=== PATIENT | male | born 1955 | race Caucasian/White ===

== ENCOUNTER 2024-05-30 00:21 | Day surgery (SDC) | payer MEDICARE, SELFPAY ==
[2024-05-28 15:29] VITALS: BMI 23.6
[2024-05-30 10:39] VITALS: BMI 23.3
[2024-05-30 11:02] VITALS: BP 118/49; PULSE 59; RESP 16; TEMP 36.2; O2SAT 100
[2024-05-30] MEDS: LACTATED RINGERS 1,000 ML 150 ML IV CONT (11:03)
[2024-05-30 11:05] LABS: Hematocrit 28.1 % (42.0-52.0)
--- NOTE | 2024-05-30 11:06 | P.PNAN_ITS ---
Anes - Initial Pre Proc Eval Procedure: Operation Date: 05/30/24 09:30 Proposed Procedures p Colonoscopy - Jamey Yu MD Date/Time: 05/30/24 11:06 Surgeon: Jamey Yu MD Pre Op Diagnosis: abn weight loss, change in bowel habit, anemia Patient Data Age: 69 Gender: M Height: 1.7 m Weight: 67.8 kg Last Vital Signs Temp 36.2 C L 05/30/24 11:02 Pulse 59 L 05/30/24 11:02 Resp 16 05/30/24 11:02 BP 118/49 L 05/30/24 11:02 Pulse Ox 100 05/30/24 11:02 O2 Del Method Room Air 05/30/24 11:02 Allergies Allergy/AdvReac Type Severity Reaction Status Date / Time No Known Allergies Allergy Verified 05/30/24 10:37 Home Medications Medication Instructions Recorded Confirmed Type amlodipine 5 mg tablet 5 mg PO DAILY 05/28/24 05/30/24 History aspirin 81 mg capsule 81 mg PO DAILY 05/28/24 05/30/24 History hydrochlorothiazide 12.5 mg tablet 12.5 mg PO DAILY 05/28/24 05/30/24 History metoprolol succinate 100 mg 100 mg PO DAILY 05/28/24 05/30/24 History tablet,extended release 24 hr Laboratory Tests 05/30/24 10:52 Hgb Pending Hct Pending Patient hx anesthesia problems: none Family hx anesthesia problems: none Results Review: All pre-operative results and documents have been reviewed as part of the pre-o perative evaluation. [facility] Past Medical History Medical History (Updated 05/30/24 @ 11:07 by Leonardo Looney MD) HTN (hypertension) Surgical History Surgical History (Updated 05/30/24 @ 11:09 by Leonardo Looney MD) History of shoulder surgery Social History Social History Smoking packs per day: 1.5 Smoking cigarettes per day: 30.0 Years smoked: 10 Smoking pack-years: 15.00 Smoking status: Former smoker Tobacco type: cigarettes Alcohol intake: current Substance use: never Substance use type: does not use Living arrangements: with family Spiritual care concerns: No Anes - Eval Final PreProcedure Day of Procedure 05/30/24 11:06 Patient weight: normal Heart: regular rate and rhythm Lungs: clear to auscultation Airway: Mallampati scale class II Neurological: alert and oriented Last oral intake: >/= 8 hours ASA classification: III Emergent: no Anesthetic plan: proceed Anesthesia type and monitoring: general GIVS and standard monitoring Results Review: All pre-operative results and documents have been reviewed as part of the pre- operative evaluation. Informed Consent: The patient's anesthetic plan and its attendant risks and benefits were discussed with the patient/family/POA. Questions were solicited and answers provided to the satisfaction of the patient/family/POA.
--- NOTE | 2024-05-30 11:20 | PM.HPGS ---
History of Present Illness History of Present Illness Consent: Risks, benefits, and alternatives have been discussed and questions answered. Patient agrees to proceed with procedure. Chief complaint: abn weight loss, change in bowel habit, anemia Narrative: Kyle Resendiz is a 69 year old male here for first colonoscopy, almost a year of change bowel habits with weight loss over 60 lb, noted few times blood in stools. Had symptomatic anemia with hgb 4.6 that required blood transfusion, repeat today 8 Review of Systems Review of Systems: All systems reviewed & are unremarkable except as noted in HPI and below PMFSH Past Medical History Medical History (Updated 05/30/24 @ 11:21 by Jamey Yu MD) Bowel habit changes HTN (hypertension) Iron deficiency anemia Weight loss Surgical History Surgical History (Updated 05/30/24 @ 11:09 by Leonardo Looney MD) History of shoulder surgery Social History Social History Smoking packs per day: 1.5 Smoking cigarettes per day: 30.0 Years smoked: 10 Smoking pack-years: 15.00 Smoking status: Former smoker Tobacco type: cigarettes Alcohol intake: current Substance use: never Substance use type: does not use Living arrangements: with family Spiritual care concerns: No Meds Home Medications and Allergies Home Medications Medication Instructions Recorded Confirmed Type amlodipine 5 mg tablet 5 mg PO DAILY 05/28/24 05/30/24 History aspirin 81 mg capsule 81 mg PO DAILY 05/28/24 05/30/24 History hydrochlorothiazide 12.5 mg tablet 12.5 mg PO DAILY 05/28/24 05/30/24 History metoprolol succinate 100 mg 100 mg PO DAILY 05/28/24 05/30/24 History tablet,extended release 24 hr Allergies Allergy/AdvReac Type Severity Reaction Status Date / Time No Known Allergies Allergy Verified 05/30/24 10:37 Vital Signs Vital Signs - 24 hr 05/30/24 11:02 Temperature 97.2 F L Pulse Rate 59 L Respiratory Rate 16 Blood Pressure 118/49 L Pulse Oximetry 100 Oxygen Delivery Room Air Exam Const: General: comfortable and no acute distress HENMT: Face/Nose/Sinus: Normal nares present Eyes: General: appearance normal, both eyes and all related structures Neck: Neck: no JVD Resp: Auscultation: clear to auscultation bilaterally Cardio: Rate: regular rate Rhythm: regular rhythm GI: Inspection: non-distended GI Palp: Yes Soft to palpation Skin: General skin exam: normal color Neuro: General: oriented to person and oriented to place Speech: normal speech Extrem: General: normal to inspection Psych: Mental Status: mental status grossly normal Assessment and Plan Assessment and plan (1) Iron deficiency anemia: Code(s): D50.9 - Iron deficiency anemia, unspecified Status: Acute Assessment and Plan: colonoscopy, concerning for malignancy (2) Weight loss: Code(s): R63.4 - Abnormal weight loss Status: Acute (3) Bowel habit changes: Code(s): R19.4 - Change in bowel habit Status: Acute
[2024-05-30 11:49] VITALS: BP 118/57; PULSE 60; RESP 20; O2SAT 100
[2024-05-30 11:59] VITALS: BP 117/63; PULSE 58; RESP 20; O2SAT 100
[2024-05-30 12:09] VITALS: BP 137/67; PULSE 66; RESP 20; O2SAT 100
== END 2024-05-30 12:24 | disposition home or self-care (01) ==
PROVIDERS: PCP Internal Medicine; Visit Provider Internal Medicine Gastroenterology
PROC: 0DJD8ZZ Inspection of Lower Intestinal Tract, Via Natural or Artificial Opening Endoscopic (ICD-10-PCS; CPT 45378; principal; 2024-05-30 09:30)
DX: C19 Malignant neoplasm of rectosigmoid junction (principal); D12.4 Benign neoplasm of descending colon; D12.2 Benign neoplasm of ascending colon; D50.9 Iron deficiency anemia, unspecified; K57.30 Diverticulosis of large intestine without perforation or abscess without bleeding; K63.5 Polyp of colon; Z87.891 Personal history of nicotine dependence
CPT/HCPCS: 45380; 45381; 45385; 36415; 85014; 85018; 88305; 88342; J2003; J2704; J7120

== ENCOUNTER 2024-06-09 09:55 | Outpatient (CLI) | payer MEDICARE, BC, SELFPAY ==
[2024-06-09 10:29] LABS: Basophils Absolute Auto 0.1 K/mm3 (0.0-0.1); Basophils Percent Auto 1.1 % (0.2-1.2); Eosinophils Absolute Auto 0.1 K/mm3 (0-0.3); Hematocrit 27.5 % (42.0-52.0); Hemoglobin 7.8 g/dL (14.0-18.0); Immature Granulocyte Absolute 0.01 K/mm3 (0.00-0.031); Immature Granulocyte Percent A 0.2 % (0-0.5); Lymphocytes Absolute Auto 1.56 K/mm3 (0.9-3.2); Lymphocytes Percent Auto 33.9 % (18.3-44.2); Mean Corpuscular HGB Conc 28.4 g/dl (32-36); Mean Corpuscular Hemoglobin 19.8 pg (26-34); Mean Corpuscular Volume 69.8 fl (80-100); Mean Platelet Volume 9.4 fl (7.4-10.4); Monocytes Absolute Auto 0.3 K/mm3 (0.1-0.6); Monocytes Percent Auto 7.4 % (2.6-8.5); Neutrophils Absolute Auto 2.5 K/mm3 (1.3-6.7); Neutrophils Percent Auto 54.4 % (45.5-73.1); Platelet Count Result 272 k/mm3 (150-375); Red Blood Count 3.94 M/mm3 (4.6-6.20); White Blood Count 4.6 K/mm3 (4.5-10.0)
[2024-06-09 10:39] LABS: Platelet Estimate Adequate (Adequate)
[2024-06-09 10:40] LABS: Schistocytes None Seen
[2024-06-09 10:41] LABS: Hypochromasia 2+
[2024-06-09 10:42] LABS: Ovalocytes 1+
[2024-06-09 10:43] LABS: Microcytosis 2+ (NORMAL)
[2024-06-09 10:44] LABS: Anisocytosis 2+; Poikilocytosis 1+
[2024-06-09 13:58] LABS: Iron 23 ug/dL (49-181)
[2024-06-09 14:00] LABS: Alanine Aminotransferase 9 U/L (6-50); Albumin Level 3.4 g/dL (3.5-5.1); Alkaline Phosphatase 55 U/L (38-126); Anion Gap 7 mmol/L (4-12); Aspartate Amino Transferase 14 U/L (17-59); Bilirubin,Total 0.5 mg/dL (0.2-1.3); Blood Urea Nitrogen 17 mg/dL (9-20); Calcium 9.2 mg/dL (8.4-10.2); Carbon Dioxide 27 mmol/L (22-30); Chloride 107 mmol/L (98-107); Estimated Glomerular Filt Rate > 60; Glucose 96 mg/dL (65-110); Potassium 3.5 mmol/L (3.4-5.0); Sodium 141 mmol/L (137-145)
[2024-06-09 14:13] LABS: Percent Iron Saturation 6 % (20-50)
[2024-06-09 14:32] LABS: Carcinoembryonic Antigen 37.7 ng/mL (0.0-3.0)
[2024-06-09 14:33] LABS: Ferritin 7.94 ng/mL (11.1-264)
== END 2024-06-09 09:56 | disposition home or self-care (01) ==
LOC: ANHLAB 09:59
PROVIDERS: PCP Internal Medicine; Visit Provider Internal Medicine Hematology & Oncology
DX: C18.7 Malignant neoplasm of sigmoid colon (principal)
CPT/HCPCS: 36415; 80053; 82378; 82728; 83540; 83550; 85025

== ENCOUNTER 2024-06-09 10:56 | Outpatient (CLI) | payer MEDICARE, BC, SELFPAY ==
--- NOTE | ~2024-06-09 | CT_ITS ---
EXAMINATION: CT chest abdomen pelvis w con DATE: 06/09/2024 11:25 INDICATION: Malignant neoplasm of sigmoid colon. TECHNIQUE: Computed tomography (CT) of the chest, abdomen, and pelvis was performed with 100 mL Omnip aque 350 intravenous contrast. Automated exposure control and iterative reconstruction technique were employed. The dose-length product was 455.72 mGy-cm. COMPARISON: None FINDINGS: CHEST CT: There is mild emphysema. The lungs demonstrate mild atelectasis. Calcified pulmonary nodules and calc ified left hilar lymph nodes are consistent with old granulomatous disease. No pleural effusion. The heart size is normal. There are coronary artery calcifications. No pericardial effusion. There are br idging endplate osteophytes at multiple levels in the spine, consistent with diffuse idiopathic skele wilmar hyperostosis (DISH). There is mild thoracic spondylosis. ABDOMEN/PELVIS CT: The liver is normal. Calcifications in the spleen are consistent with old granulomatous disease. The gallbladder is contracted. The pancreas and adrenal glands are normal. There is cortical thinning of the kidneys. There is calcified atherosclerosis of the aorta and many of the other arteries. There is a left inguinal hernia containing fat. There is wall thickening of the rectum, consistent with prima ry malignancy. There is focal wall thickening of the descending colon. There is perirectal lymphadeno lela with the largest node measuring 13 x 12 mm. There are no dilated loops of bowel. The appendix i s normal. There is no free intraperitoneal fluid. There is moderate lumbar spondylosis. IMPRESSION: 1. Wall thickening of the rectum, consistent with primary malignancy. 2. Perirectal lymphadenopathy, consistent with metastatic disease. 3. Focal wall thickening of the descending colon suspicious for malignancy. Reviewed, dictated and finalized at location B.
[2024-06-09 11:21] LABS: Estimated Glomerular Filt Rate > 60
== END 2024-06-09 10:57 | disposition home or self-care (01) ==
PROVIDERS: PCP Internal Medicine; Visit Provider Internal Medicine Hematology & Oncology
DX: C18.7 Malignant neoplasm of sigmoid colon (principal)
CPT/HCPCS: 36415; 71260; 74177; 80053; 82378; 82728; 83540; 83550; 85025; Q9967

== ENCOUNTER 2024-10-19 15:34 | Inpatient (IN) | payer MEDICARE, SELFPAY ==
[2024-10-19] VITALS (19 sets, daily range): BP systolic 79–130; BP diastolic 53–85; PULSE 67–135; RESP 15–23; TEMP 36.6–37.9; O2SAT 96–100; BMI 19.5
--- NOTE | ~2024-10-19 | US_ITS ---
EXAMINATION: US venous doppler [facility] DATE: 10/20/2024 17:03 INDICATION: PE . TECHNIQUE: Grayscale images without and with compression and Doppler images of the bilateral lower ex tremity veins were obtained. COMPARISON: 6 FINDINGS: Acute clot in the right superficial femoral vein. The right common femoral vein and greater saphenous vein are obscured by an indwelling catheter. The right profunda (deep) femoral vein, popliteal vein, peroneal vein, posterior tibial veins, and gastrocnemius vein are patent. The left common femoral vein, profunda (deep) femoral vein, femoral vein, popliteal vein, peroneal v ein, posterior tibial veins, gastrocnemius vein, and greater saphenous vein are patent. IMPRESSION: Acute clot in the right superficial femoral vein. Inadequate visualization of the right common femora l vein and greater saphenous vein due to the presence of a catheter. Otherwise patent bilateral lower extremity veins. Reviewed, dictated and finalized at location K. IMPRESSION: Acute clot in the right superficial femoral vein. Inadequate visualization of t he right common femoral vein and greater saphenous vein due to the presence of a catheter. Otherwise patent bilateral lower extremity veins.
--- NOTE | ~2024-10-19 | XR_ITS ---
EXAMINATION: XR chest 1V Exam Date/Time: 10/19/2024 16:20 CDT HISTORY: weakness Comparison: The. RESULT: Lines, tubes, and devices: None. Lungs and pleura: The costophrenic angles are excluded from the [id number]. Visualized portions of the lungs are clear. Cardiomediastinal silhouette: Unremarkable. Other: No acute osseous or upper abdominal finding. IMPRESSION: No acute cardiopulmonary process. Reviewed, dictated and finalized at location K.
--- NOTE | ~2024-10-19 | CT_ITS ---
EXAMINATION: CTA chest PE abdomen pel DATE: 10/19/2024 17:26 INDICATION: pe rule out TECHNIQUE: Computed tomography angiography (CTA) of the chest was performed with 100 mL Omnipaque-350 intravenous contrast timed to evaluate the pulmonary arteries, followed by portal venous phase imagi ng of the abdomen and pelvis. Coronal maximum intensity projection 3D-reconstructions were created by the technologist. The dose-length product (DLP) was 475.67 mGy-cm. Automated exposure control and it erative reconstruction technique were employed. COMPARISON: None. FINDINGS: CHEST: Lung parenchyma and airways: Clear. Pleura: Small volume left pleural effusion. Thoracic inlet, axillae and chest wall: No thyroid or soft tissue mass. Thoracic aorta: No significant dilation. No dissection. Mild atherosclerotic calcification Mediastinum: Normal. Heart and pericardium: Normal heart size. Aortic valve calcification. RV/LV ratio 1.0. Coronary artery calcifications: Moderate. Thoracic bones: No acute osseous finding. Pulmonary arteries: Study quality: Adequate. Nonocclusive filling defect in the distal right interlob ar artery extending into segmental right lower lobe branches. Nonocclusive small segmental filling de fect in the right upper lobe. ABDOMEN/PELVIS: Liver: Normal. Biliary/Gallbladder: Gallbladder is normal. No bile duct dilation. Pancreas: No mass or duct dilation. Spleen: Normal. Adrenals:No mass. Kidneys: No suspicious mass, obstructing stone, or hydronephrosis. Mild bilateral renal pelvis mucosa l enhancement and bilateral ureteral stranding. GI tract: No small or large bowel dilation. Normal appendix. Diverticulosis without diverticulitis. Mesentery/Peritoneum: No ascites, mass, or free air. Retroperitoneum: No mass. Atherosclerotic calcifications of intra-abdominal arterial vessels. Pelvis: Distal sigmoid and rectal wall thickening. Rim-enhancing, irregular, gas and fluid containing along the left aspect of the rectum measuring 4.8 cm AP x 3.2 cm transverse x 9.0 cm craniocaudad. P rostatic calcifications. Bladder wall thickening and stranding. Soft Tissues: Mild body wall edema. Small uncomplicated appearing fat-containing umbilical and left i nguinal hernias. Abdominopelvic bones: No acute osseous finding. IMPRESSION: Nonocclusive segmental right upper lobe, distal right interlobar artery, and segmental right lower lo be pulmonary emboli. Low clot burden. RV/LV ratio 1.0. Small left pleural effusion. Mild bilateral ureteral stranding and urothelial enhancement may reflect ascending infection in the p liliane clinical context. 4.8 x 3.2 x 9.0 cm perirectal abscess. Distal sigmoid and rectal wall thickening, may reflect infectious or post therapeutic colitis/proctit is, or combination of those entities. Ischemia/infarction considered less likely. Cystitis, correlate with urinalysis. Reviewed, dictated and finalized at location K. IMPRESSION: Nonocclusive segmental right upper lobe, distal right interlobar artery, and se gmental right lower lobe pulmonary emboli. Low clot burden. RV/LV ratio 1.0. Small left pleural effusion. Mild bilateral ureteral stranding and urothelial enhancement may reflect ascend ing infection in the proper clinical context. 4.8 x 3.2 x 9.0 cm perirectal abscess. Distal sigmoid and rectal wall thickening, may reflect infectious or post thera peutic colitis/proctitis, or combination of those entities. Ischemia/infarction considered less likely. Cystitis, correlate with urinalysis.
--- OUTSIDE RECORDS SUMMARY | 2024-10-19 15:37 | XMS_ITS | Clinical Summary ---
Author Organization [facility] Address [address] [place] [address] Care Team Providers Care Pharmacist In Charge Name Role Phone Unavailable Primary Care Provider Unavailabl e Source Comments [facility] [employer],non-owned Affiliates and Associated Physician Practices is amultiple site organization consisting of ambulatory clinics and hospital sitesin [place], [place], [place] and [place]. This disclosure is being madepursuant to the Care Everywhere program and may not contain all information available regarding this patient. Last updated 18.[facility] [employer] Social History Tobacco Use Types Packs/Day Years Used Date Smoking Tobacco: Never Assessed Sex and Gender Information Value Date Recorded Sex Assigned at Not on file Gender Identity Not on file Sexual Orientation Not on file Plan of Treatment Health Maintenance Due Date Last Done Comments COLOGUARD (AGES 45-75) - COL ON CA SCREENING 1953 COLON MONITORING 1953 COLONOSCOPY - COLON CA SCREENING 1953 CT COLONOGRAPHY - COLON CA SCREENING 1953 Colorectal Cancer Screening 1953 FIT - COLON CA SCREENING 1953 FLEX SIG - COLON CA SCREENING 1953 LIPID TESTING 1953 MEDICARE AWV 12 MONTHS 1953 HEPATITIS C SCREENING 02/14/1971 DTAP/TDAP/TD VACCINES (1 - Tdap) 02/19/1972 PNEUMOCOCCAL VACCINE 50+ (1 of 1 - PCV) 2003 ZOSTER VACCINE (1 of 2) 2003 COVID-19 VACCINE ( - 2023-2 5 season) 2024 INFLUENZA VACCINE (#1) 2024 DEPRESSION SCREENING 08/13/2024 Respiratory Syncytial Virus (RSV) Vaccine Pt: or over 60 yrs (1 - 1-dose 75+ series) 02/19/2028 HEPATITIS B VACCINE Aged Out No longe r eligible based on patient's age to complete this topic HIB VACCINE Aged Out No longer eligi ble based on patient's age to complete this topic HPV VACCINE Aged Out No longer eligi ble based on patient's age to complete this topic MENINGOCOCCAL (Group B) VACCINE Aged Out No longer eligible based on patient's age to complete this topic MENINGOCOCCAL VACCINE Aged Out No bonnie jannette eligible based on patient's age to complete this topic
--- OUTSIDE RECORDS SUMMARY | 2024-10-19 15:37 | XMS_ITS ---
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 of both upper eyelids 02/25/2016 Nuclear senile cataract 09/19/2011 Current Treatment and Therapy Plans XELOX: (Capecitabine / OXALIplatin) 21 Day Cycles - Colon/Rectal* Plan Start Date:07/29/2024 Plan Provider:Ysabel Palmer MD Linked Problems Rectal cancer (HCC) Treatment Medications Current Day (Day 1 , Cycle 3 - Planned for 10/21/2024) Next Day (Day 1, Cycle 4 - Planned for 11/11/2024) capecitabine (XELODA)dexAMETHasone (DECADRON)oxaliplatin (ELOXATIN)oxaliplatin (ELOXATIN) IVPB capecitabine (XELODA) tablet 1,800 mgoxaliplatin (ELOXATIN) 230 mg in dextrose 5% 250 mL IVPB capecitabine (XELODA) tablet 1,800 mgoxaliplatin (ELOXATIN) 230 mg in dextrose 5% 250 mL IVPB Other Current Plans Hydration Therapy Plan* Plan Start Date:10/14/2024 Plan Provider:Ysabel Palmer MD Linked Problems Dehydration Treatment Medications No medications scheduled. Past Treatment and Therapy Plans No past plan information found. Radiation Treatments * Course [id number] - 07/25/2024 Treatment Period Energy Fraction Dose Fractions Total Dose Plans Planned RECTUM 07/21/2024 - 07/25/2024 500 5 / 2,500 Reference Points Delivered RECTUM_2500 07/21/2024 - 07/25/2024 2,500
--- OUTSIDE RECORDS SUMMARY | 2024-10-19 15:37 | XMS_ITS | Referral Summary ---
Author Organization [address] Address [address] [place] [id number] Care Team Providers Care Sound Printer Name Role Phone Michael Resendiz MD Primary Care Provider Ritchie Razo MD Unavailable [phone] Ysabel Palmer MD Unavailable [phone] Encounters Date Type Department Care Team Description 10/14/2024 9:30 AM PHYSICAL MEDICINE SPECIALIST Clinical Support [facility] Building 2 Radiation Oncology [address] [place] [phone] Rectal cancer (HCC) (Primary Dx); Severe protein-calorie malnutrition 10/14/2024 10:00 AM PHYSICAL MEDICINE SPECIALIST Infusion [facility] at [address] [phone] Dehydration (Primary Dx); Rectal cancer (HCC) 10/14/2024 9:00 AM PHYSICAL MEDICINE SPECIALIST Lab [facility] at [address] [address] Rectal cancer (HCC) 10/14/2024 9:30 AM PHYSICAL MEDICINE SPECIALIST Office Visit [facility] Oncology [address] [place] [phone] Ysabel Palmer MD Rectal cancer (HCC) (Primary Dx) 09/17/2024 Telephone [facility] Oncology [address] [place] [address] [address] [place] [address] Argenis Crandall RN 09/16/2024 Orders Only [facility] Oncology [address] [place] [address] [address] [place] [address] Terrie Parham, GÓMEZ 09/16/2024 Orders Only [facility] Oncology [address] [place] [phone] Ysabel Palmer MD 09/16/2024 9:00 AM PHYSICAL MEDICINE SPECIALIST Infusion [facility] at [address] [place] [address] Rectal cancer (HCC) (Primary Dx) 09/16/2024 8:30 AM PHYSICAL MEDICINE SPECIALIST Lab [facility] at [address] [address] Rectal cancer (HCC) 09/09/2024 8:45 AM PHYSICAL MEDICINE SPECIALIST Lab [facility] at [address] [address] Rectal cancer (HCC) 09/09/2024 9:30 AM PHYSICAL MEDICINE SPECIALIST Office Visit [facility] Oncology [address] [place] [address] [address] [place] [address] Ysabel Palmer MD Rectal cancer (HCC) (Primary Dx) 08/22/[address] [facility] Oncology [address] [place] [address] [address] [place] [address] Terrie Parham, GÓMEZ 08/15/2024 Documentation [facility] Infusion Pharm[facility] [address] [place] [id number] Lisy Joseph, GUILLE PRIOR AUTH/FINANCIAL ASSIST XELODA 08/12/2024 12:15 PM PHYSICAL MEDICINE SPECIALIST Lab [address] [address] Rectal cancer (HCC) 08/12/2024 1:00 PM PHYSICAL MEDICINE SPECIALIST Infusion [facility] at [address] [place] [address] Rectal cancer (HCC) (Primary Dx) 08/11/2024 Orders Only [facility] Oncology [address] [place] [address] Ysabel Palmer MD 08/01/2024 Orders Only [facility] Oncology [address] [place] [address] [place] [phone] Ysabel Palmer MD 07/29/2024 10:30 AM PHYSICAL MEDICINE SPECIALIST Office Visit [facility] Oncology [address] [place] [address] [place] [phone] Ysabel Palmer MD Rectal cancer (HCC) (Primary Dx) 07/29/2024 9:45 AM PHYSICAL MEDICINE SPECIALIST Lab [facility] at [address] [address] Rectal cancer (HCC) 07/25/2024 Orders Only RAD ONC TREATMENTS Miscellaneous, Not In File 07/25/2024 2:45 PM PHYSICAL MEDICINE SPECIALIST Treatment [facility] Radiation Oncology at [address] [address] Aleida Larsen MD 07/24/2024 Orders Only RAD ONC TREATMENTS Miscellaneous, Not In File 07/24/2024 2:00 PM PHYSICAL MEDICINE SPECIALIST Treatment [facility] Radiation Oncology at [address] [address] 07/23/2024 Orders Only RAD ONC TREATMENTS Miscellaneous, Not In File 07/23/2024 2:15 PM PHYSICAL MEDICINE SPECIALIST Treatment [facility] Radiation Oncology at [address] [address] 07/22/2024 OTV [facility] Radiation Oncology at [address] [address] Aleida Larsen MD 07/22/2024 Orders Only RAD ONC TREATMENTS Miscellaneous, Not In File 07/22/2024 2:45 PM PHYSICAL MEDICINE SPECIALIST Treatment [facility] Radiation Oncology at [address] [place] [address] 07/21/2024 Orders Only RAD ONC TREATMENTS Miscellaneous, Not In File 07/21/2024 1:45 PM PHYSICAL MEDICINE SPECIALIST Treatment [facility] Radiation Oncology at [facility] [place] [address] [place] [address] Aleida Larsen MD from Last 3 Months Allergies No known active allergies Medications amLODIPine (NORVASC) 5 mg tablet Take 1 tablet (5 mg total) by mouth daily Active metoprolol XL (TOPROL-XL) 100 mg 24 hr tablet Take 1 tablet (100 mg total) by mouth daily Active hydroCHLOROthi azide 12.5 mg tablet Take 1 tablet (12.5 mg total) by mouth daily Active ferrous sulfate 325 mg (65 mg of elemental iron) tabletIndicati ons:Iron Deficiency Anemia Take 1 tablet (65 mg of elemental iron total) by mouth 3 (three) times a day with meals Active polyethylene glycol (MIRALAX) 17 gram/dose bulk powder Take 17 g by mouth as needed Active dexAMETHasone (DECADRON) 4 mg tabletIndicati ons:Rectal cancer (HCC) Take 2 tablets (8 mg total) by mouth once daily on days 2 and 3 of each treatment cycle. 24 tablet 2 08/06/20 24 Active ondansetron (ZOFRAN) 8 mg tabletIndicati ons:Rectal cancer (HCC) Take 1 tablet (8 mg total) by mouth every 8 (eight) hours as needed for nausea Use first for nausea 120 tablet 3 08/06/20 24 Active prochlorperazi ne (Compazine) 10 mg tabletIndicati ons:Rectal cancer (HCC) Take 1 tablet (10 mg total) by mouth every 6 (six) hours as needed for nausea or vomiting Use if ondansetron does not stop nausea. 120 tablet 3 08/06/20 24 Active capecitabine (XELODA) 150 mg tablet TAKE 2 TABLETS (300 MG) BY MOUTH 2 (TWO) TIMES A DAY FOR 14 DAYS TOTAL DOSE IS 1,800 MG. 56 tablet 10/16/19 25 Active capecitabine (XELODA) 500 mg tablet TAKE 3 TABLETS (1,500 MG) BY MOUTH 2 (TWO) TIMES A DAY FOR 14 DAYS TOTAL DOSE IS 1,800 MG. 84 tablet 10/16/19 25 Active capecitabine (XELODA) 500 mg tablet TAKE 3 TABLETS (1,500 MG) BY MOUTH 2 (TWO) TIMES A DAY FOR 14 DAYS TOTAL DOSE IS 1,800 MG. 84 tablet 09/04/19 25 025 Discontinued capecitabine (XELODA) 150 mg tablet TAKE 2 TABLETS (300 MG) BY MOUTH 2 (TWO) TIMES A DAY FOR 14 DAYS TOTAL DOSE IS 1,800 MG. 56 tablet 09/04/19 25 025 Discontinued capecitabine (XELODA) 150 mg tablet TAKE 2 TABLETS (300 MG) BY MOUTH 2 (TWO) TIMES A DAY FOR 14 DAYS TOTAL DOSE IS 1,800 MG. 56 tablet 09/23/19 25 025 Discontinued capecitabine (XELODA) 500 mg tablet TAKE 3 TABLETS (1,500 MG) BY MOUTH 2 (TWO) TIMES A DAY FOR 14 DAYS TOTAL DOSE IS 1,800 MG. 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 Never 07/08/2024 Q2: How many drinks containi ng alcohol do you have on a typical day when you are drinking? Patient does not drink Q3: How often do you have si x or more drinks on one occasion? Never 07/08/2024 Sex and Gender Information Value Date Recorded Sex Assigned at Not on file Legal Sex Male 2:59 AM PHYSICAL MEDICINE SPECIALIST Gender Identity Not on file Sexual Orientation Not on file Last Filed Vital Signs Vital Sign Reading Time Taken Comments Blood Pressure 95/65 10/14/2024 9:23 AM PHYSICAL MEDICINE SPECIALIST Pulse 85 10/14/2024 9:23 AM PHYSICAL MEDICINE SPECIALIST Temperature 36.3 C (97.3 F) 10/14/2024 9:23 AM PHYSICAL MEDICINE SPECIALIST Respiratory Rate 16 10/14/2024 9:23 AM PHYSICAL MEDICINE SPECIALIST Oxygen Saturation 100% 10/14/2024 9:23 AM PHYSICAL MEDICINE SPECIALIST Inhaled Oxygen Concentration - - Weight 55.3 kg (122 lb) 10/14/2024 9:23 AM PHYSICAL MEDICINE SPECIALIST Height 168 cm (5' 6.14 ) 08/12/2024 12:43 PM PHYSICAL MEDICINE SPECIALIST Body Mass Index 19.61 08/12/2024 12:43 PM PHYSICAL MEDICINE SPECIALIST Plan of Treatment Not on file Procedures Procedure Name Priority Date/Time Associated Diagnosis Comments EGFR STAT 10/14/2024 9:04 AM PHYSICAL MEDICINE SPECIALIST Rectal cancer (HCC) DIFFERENTIAL AUTO STAT 10/14/2024 9:0 4 AM PHYSICAL MEDICINE SPECIALIST Rectal cancer (HCC) CBC WITH AUTO DIFFERENTIAL STAT 10/14/2024 9:04 AM PHYSICAL MEDICINE SPECIALIST Rectal cancer (HCC) COMPREHENSIVE METABOLIC PANEL STAT 10/14/2024 9:04 AM PHYSICAL MEDICINE SPECIALIST Rectal cancer (HCC) EGFR STAT 09/16/2024 8:15 AM PHYSICAL MEDICINE SPECIALIST Rectal cancer (HCC) DIFFERENTIAL AUTO STAT 09/16/2024 8:1 5 AM PHYSICAL MEDICINE SPECIALIST Rectal cancer (HCC) CBC WITH AUTO DIFFERENTIAL STAT 09/16/2024 8:15 AM PHYSICAL MEDICINE SPECIALIST Rectal cancer (HCC) COMPREHENSIVE METABOLIC PANEL STAT 09/16/2024 8:15 AM PHYSICAL MEDICINE SPECIALIST Rectal cancer (HCC) EGFR STAT 09/09/2024 9:29 AM PHYSICAL MEDICINE SPECIALIST Rectal cancer (HCC) DIFFERENTIAL AUTO STAT 09/09/2024 9:2 9 AM PHYSICAL MEDICINE SPECIALIST Rectal cancer (HCC) CEA Routine 09/09/2024 9:29 AM PHYSICAL MEDICINE SPECIALIST Rectal cancer (HCC) CBC WITH AUTO DIFFERENTIAL STAT 09/09/2024 9:29 AM PHYSICAL MEDICINE SPECIALIST Rectal cancer (HCC) COMPREHENSIVE METABOLIC PANEL STAT 09/09/2024 9:29 AM PHYSICAL MEDICINE SPECIALIST Rectal cancer (HCC) EGFR STAT 08/12/2024 12:31 PM PHYSICAL MEDICINE SPECIALIST Rectal cancer (HCC) DIFFERENTIAL AUTO STAT 08/12/2024 12: 31 PM PHYSICAL MEDICINE SPECIALIST Rectal cancer (HCC) CBC WITH AUTO DIFFERENTIAL STAT 08/12/2024 12:31 PM PHYSICAL MEDICINE SPECIALIST Rectal cancer (HCC) COMPREHENSIVE METABOLIC PANEL STAT 08/12/2024 12:31 PM PHYSICAL MEDICINE SPECIALIST Rectal cancer (HCC) EGFR Routine 07/29/2024 9:43 AM PHYSICAL MEDICINE SPECIALIST Rectal cancer (HCC) DIFFERENTIAL AUTO Routine 07/29/2024 9:4 3 AM PHYSICAL MEDICINE SPECIALIST Rectal cancer (HCC) CBC WITH AUTO DIFFERENTIAL Routine 07/29/2024 9:43 AM PHYSICAL MEDICINE SPECIALIST Rectal cancer (HCC) CEA Routine 07/29/2024 9:43 AM PHYSICAL MEDICINE SPECIALIST Rectal cancer (HCC) COMPREHENSIVE METABOLIC PANEL Routine 07/29/2024 9:43 AM PHYSICAL MEDICINE SPECIALIST Rectal cancer (HCC) IRON PROFILE W/ IBC Routine 07/29/2024 9 :43 AM PHYSICAL MEDICINE SPECIALIST Rectal cancer (HCC) FERRITIN Routine 07/29/2024 9:43 AM PHYSICAL MEDICINE SPECIALIST Rectal cancer (HCC) RAD ONC ARIA SESSION SUMMARY 07/25/2024 3:07 PM PHYSICAL MEDICINE SPECIALIST RAD ONC ARIA SESSION SUMMARY 07/24/2024 2:19 PM PHYSICAL MEDICINE SPECIALIST RAD ONC ARIA SESSION SUMMARY 07/23/2024 2:30 PM PHYSICAL MEDICINE SPECIALIST RAD ONC ARIA SESSION SUMMARY 07/22/2024 2:52 PM PHYSICAL MEDICINE SPECIALIST RAD ONC ARIA SESSION SUMMARY 07/21/2024 2:15 PM PHYSICAL MEDICINE SPECIALIST from Last 3 Months Results * (ABNORMAL) eGFR (10/14/2024 9:04 AM PHYSICAL MEDICINE SPECIALIST) eGFR 59(L) >=60 mL/min/1. 73 m2 Comment: Interpretive Data Reference Interval Normal >/= 90 mL/min/1.73m2 Mildly decreased* 60 - 89 mL/min/1.73m2 Mildly to moderately decreased 45 - 59 mL/min/1.73m2 Moderately to severely decreased 30 - 44 mL/min/1.73m2 Severely decreased 15 - 29 mL/min/1.73m2 Kidney Failure < 15 mL/min/1.73m2 *Relative to young adult level Estimated glomerular filtration rate is determined by the 2020 CKD-EPI equation recommended by the National Kidney Foundation (A Unifying Approach to GFR Estimation: Recommendations of the NKF-ASK Task Force on Reassessing the Inclusion of Race in Diagnosing Kidney Disease, JASN 2020). The CKD-EPI equation should not be used for patients with unstable renal function and has not been validated in children and those over 70. Current interpretive data was last reviewed 2021. Testing performed by: [address] [address] Blood 10/14/2024 9:04 AM PHYSICAL MEDICINE SPECIALIST 10/14/2024 9:06 AM PHYSICAL MEDICINE SPECIALIST Ysabel Palmer MD LAB BLOOD ORDERABLES Final Result CATHY BUSTOS [address] [facility] Department [place] [address] * (ABNORMAL) Differential, auto (10/14/2024 9:04 AM PHYSICAL MEDICINE SPECIALIST) Neutrophil abs 7.0(H) 1.5 - 6.5 K/cumm Comment:Testing performed by : [address] [address] Imm gran abs 0.1 0.0 - 0.1 K/cumm CATHY BUSTOS Comment:Testing performed by : [facility], [address] [place] [address], [place]., [address] Lymphocyte abs 1.4 0.8 - 3.3 K/cumm CATHY Comment:Testing performed by : [address], [place]., [address] Monocyte abs 0.5 0.2 - 0.8 K/cumm CATHY Comment:Testing performed by : [address], [place]., [address] Eosinophil abs 0.0 0.0 - 0.5 K/cumm CATHY Comment:Testing performed by : [address], [place]., [address] Basophil abs 0.0 0.0 - 0.1 K/cumm CATHY Comment:Testing performed by : [address] [address] Neutrophil pct 77.5 % [facility] Comment: Interpretive Data Percent cell count reference ranges are not reported, since discordance with absolute values may lead to misinterpretation of CBC data. Current Interpretive Data was last revised on 2017. Testing performed by: [address] [address] Imm gran pct 0.6 % [facility] Comment: Interpretive Data Percent cell count reference ranges are not reported, since discordance with absolute values may lead to misinterpretation of CBC data. Current Interpretive Data was last revised on 2017. Testing performed by: [address] [address] Lymphocyte pct 15.9 % [facility] Comment: Interpretive Data Percent cell count reference ranges are not reported, since discordance with absolute values may lead to misinterpretation of CBC data. Current Interpretive Data was last revised on 2017. Testing performed by: [address] [address] Monocyte pct 5.7 % [facility] Comment: Interpretive Data Percent cell count reference ranges are not reported, since discordance with absolute values may lead to misinterpretation of CBC data. Current Interpretive Data was last revised on 2017. Testing performed by: [address] [address] Eosinophil pct 0.1 % CATHY BUSTOS Comment: Interpretive Data Percent cell count reference ranges are not reported, since discordance with absolute values may lead to misinterpretation of CBC data. Current Interpretive Data was last revised on 2017. Testing performed by: [address] [address] Basophil pct 0.2 % CATHY BUSTOS Comment: Interpretive Data Percent cell count reference ranges are not reported, since discordance with absolute values may lead to misinterpretation of CBC data. Current Interpretive Data was last revised on 2017. Testing performed by: [address] [address] Blood 10/14/2024 9:04 AM PHYSICAL MEDICINE SPECIALIST 10/14/2024 9:06 AM PHYSICAL MEDICINE SPECIALIST Ysabel Palmer MD LAB BLOOD ORDERABLES Final Result [facility] Department [place] [address] * (ABNORMAL) CBC with auto differential (10/14/2024 9:04 AM PHYSICAL MEDICINE SPECIALIST) WBC 9.1 3.8 - 9.9 K/cumm Comment:Testing performed by : [address] [address] Hgb 9.9(L) 13.0 - 17.5 g/dL CATHY BUSTOS Comment:Testing performed by : [address] [address] Hct 31.4(L) 38.9 - 50.3 % CATHY BUSTOS Comment:Testing performed by : [address] [address] Plt 190 150 - 400 K/cumm CATHY BUSTOS Comment:Testing performed by : [address] [address] MPV 9.3 9.1 - 12.3 fL CATHY BUSTOS Comment:Testing performed by : [address] [address] RBC 3.96(L) 4.30 - 5.80 M/cumm CATHY Comment:Testing performed by : [address] [address] MCV 79.3(L) 81.3 - 96.4 fL CATHY Comment:Testing performed by : [address] [address] MCH 25.0(L) 27.1 - 33.3 pg CATHY Comment:Testing performed by : [address] [address] MCHC 31.5(L) 32.3 - 35.7 g/dL CATHY Comment:Testing performed by : [address], [address] RDW CV 19.9(H) 11.1 - 14.9 % CATHY Comment:Testing performed by : [address] [address] RDW SD 55.1(H) 35.7 - 48.1 fL CATHY Comment:Testing performed by : [address] [address] NRBC abs 0.00 0.00 - 0.01 K/cumm CATHY Comment:Testing performed by : [address] [address] Blood 10/14/2024 9:04 AM PHYSICAL MEDICINE SPECIALIST 10/14/2024 9:06 AM PHYSICAL MEDICINE SPECIALIST Ysabel Palmer MD LAB BLOOD ORDERABLES Final Result CATHY [address] [facility] Department of Laboratories [place], [place] [id number] * (ABNORMAL) Comprehensive metabolic panel (10/14/2024 9:04 AM PHYSICAL MEDICINE SPECIALIST) Sodium 141 135 - 145 mmol/L Comment:Testing performed by : [address], [address] Potassium, pl 3.9 3.3 - 4.9 mmol/L CATHY Comment:Testing performed by : [address] [address] Chloride 105 97 - 110 mmol/L [facility] Comment[facility]Testing performed by : [address] [address] CO2 23 22 - 32 mmol/L CATHY Comment:Testing performed by : [address] [address] Anion gap 13 2 - 15 mmol/L CATHY Comment:Testing performed by : [address] [address] BUN 22 6 - 25 mg/dL [facility] Comment:Testing performed by : [address], [place]., [address] Creatinine 1.30 0.80 - 1.30 mg/dL [facility] Comment:Testing performed by : [address] [address] Glucose 120 70 - 199 mg/dL [facility] Comment: Interpretive Data Fasting glucose >/= 126 mg/dl is diagnostic for diabetes. Fasting is defined as no caloric intake for at least 8 hours. Fasting glucose between 100 mg/dl to 125 mg/dl is diagnostic of prediabetes. In a patient with classic symptoms of hyperglycemia or hyperglycemic crisis, a random glucose >/= 200 mg/dl is diagnostic for diabetes. In the absence of unequivocal hyperglycemia, results should be confirmed by repeat testing. The classification and Diagnosis of Diabetes Diabetes Care 202; 46: S19-S40. Current interpretive data was last revised 2022. Testing performed by: [address] [address] Calcium 9.2 8.5 - 10.3 mg/dL [facility] Comment:Testing performed by : [address] [address] Bilirubin, total 0.8 0.1 - 1.2 mg/dL [facility] Comment:Testing performed by : [address] [address] Protein, pl 6.2(L) 6.5 - 8.5 g/dL [facility] Comment:Testing performed by : [address] [address] Albumin 3.1(L) 3.5 - 5.0 g/dL CTAHY BUSTOS Comment:Testing performed by : [address] [address] Alk phos 100 40 - 130 Units/L CATHY BUSTOS Comment:Testing performed by : [address] [address] ALT 7 7 - 55 Units/L CATHY Comment:Testing performed by : [address] [address] AST 9(L) 10 - 50 Units/L CATHY Comment:Testing performed by : [address] [address] Blood 10/14/2024 9:04 AM PHYSICAL MEDICINE SPECIALIST 10/14/2024 9:06 AM PHYSICAL MEDICINE SPECIALIST Ysabel Palmer MD LAB BLOOD ORDERABLES Final Result CATHY [address] [facility] Department [place] [address] * eGFR (09/16/2024 8:15 AM PHYSICAL MEDICINE SPECIALIST) eGFR 80 >=60 mL/min/1. 73 m2 Comment: Interpretive Data Reference Interval Normal >/= 90 mL/min/1.73m2 Mildly decreased* 60 - 89 mL/min/1.73m2 Mildly to moderately decreased 45 - 59 mL/min/1.73m2 Moderately to severely decreased 30 - 44 mL/min/1.73m2 Severely decreased 15 - 29 mL/min/1.73m2 Kidney Failure < 15 mL/min/1.73m2 *Relative to young adult level Estimated glomerular filtration rate is determined by the 2020 CKD-EPI equation recommended by the National Kidney Foundation (A Unifying Approach to GFR Estimation: Recommendations of the NKF-ASK Task Force on Reassessing the Inclusion of Race in Diagnosing Kidney Disease, JASN 2020). The CKD-EPI equation should not be used for patients with unstable renal function and has not been validated in children and those over 70. Current interpretive data was last reviewed 2021. Testing performed by: [address] [place] [address] Blood 09/16/2024 8:15 AM PHYSICAL MEDICINE SPECIALIST 09/16/2024 8:22 AM PHYSICAL MEDICINE SPECIALIST Ysabel Palmer MD LAB BLOOD ORDERABLES Final Result [facility] [address] [facility] Department [place] [address] * Differential, auto (09/16/2024 8:15 AM PHYSICAL MEDICINE SPECIALIST) Neutrophil abs 4.4 1.5 - 6.5 K/cumm Comment:Testing performed by : [address] [address] Imm gran abs 0.0 0.0 - 0.1 K/cumm CATHY Comment:Testing performed by : [address] [address] Lymphocyte abs 0.9 0.8 - 3.3 K/cumm CATHY Comment:Testing performed by : [address] [address] Monocyte abs 0.4 0.2 - 0.8 K/cumm CATHY Comment:Testing performed by : [address] [address] Eosinophil abs 0.0 0.0 - 0.5 K/cumm CATHY Comment:Testing performed by : [address] [address] Basophil abs 0.0 0.0 - 0.1 K/cumm CATHY Comment:Testing performed by : [address] [address] Neutrophil pct 77.0 % CATHY Comment: Interpretive Data Percent cell count reference ranges are not reported, since discordance with absolute values may lead to misinterpretation of CBC data. Current Interpretive Data was last revised on 2017. Testing performed by: [address] [address] Imm gran pct 0.7 % CATHY Comment: Interpretive Data Percent cell count reference ranges are not reported, since discordance with absolute values may lead to misinterpretation of CBC data. Current Interpretive Data was last revised on 2017. Testing performed by: [address] [address] Lymphocyte pct 15.0 % [facility] Comment: Interpretive Data Percent cell count reference ranges are not reported, since discordance with absolute values may lead to misinterpretation of CBC data. Current Interpretive Data was last revised on 2017. Testing performed by: [address] [address] Monocyte pct 6.3 % [facility] Comment: Interpretive Data Percent cell count reference ranges are not reported, since discordance with absolute values may lead to misinterpretation of CBC data. Current Interpretive Data was last revised on 2017. Testing performed by: [address] [address] Eosinophil pct 0.5 % [facility] Comment: Interpretive Data Percent cell count reference ranges are not reported, since discordance with absolute values may lead to misinterpretation of CBC data. Current Interpretive Data was last revised on 2017. Testing performed by: [address] [address] Basophil pct 0.5 % [facility] Comment: Interpretive Data Percent cell count reference ranges are not reported, since discordance with absolute values may lead to misinterpretation of CBC data. Current Interpretive Data was last revised on 2017. Testing performed by: [address] [address] Blood 09/16/2024 8:15 AM PHYSICAL MEDICINE SPECIALIST 09/16/2024 8:22 AM PHYSICAL MEDICINE SPECIALIST us Ysabel Palmer MD LAB BLOOD ORDERABLES Final Result CATHY BUSTOS [address] [facility] Department of Laboratories [place], [place] [id number] * (ABNORMAL) CBC with auto differential (09/16/2024 8:15 AM PHYSICAL MEDICINE SPECIALIST) WBC 5.7 3.8 - 9.9 K/cumm Comment:Testing performed by : [address] [address] Hgb 9.4(L) 13.0 - 17.5 g/dL CATHY Comment:Testing performed by : [address] [address] Hct 29.4(L) 38.9 - 50.3 % CATHY Comment:Testing performed by : [address] [address] Plt 190 150 - 400 K/cumm CATHY Comment:Testing performed by : [address] [address] MPV 8.4(L) 9.1 - 12.3 fL CATHY Comment:Testing performed by : [address] [address] RBC 3.83(L) 4.30 - 5.80 M/cumm CATHY Comment:Testing performed by : [address] [address] MCV 76.8(L) 81.3 - 96.4 fL CERMARILUZ Comment:Testing performed by : [address] [address] MCH 24.5(L) 27.1 - 33.3 pg CATHY Comment:Testing performed by : [address] [address] MCHC 32.0(L) 32.3 - 35.7 g/dL CATHY Comment:Testing performed by : [address], [address] RDW CV 17.3(H) 11.1 - 14.9 % CATHY Comment:Testing performed by : [address] [address] RDW SD 47.6 35.7 - 48.1 fL CATHY Comment:Testing performed by : [address] [address] NRBC abs 0.00 0.00 - 0.01 K/cumm CATHY Comment:Testing performed by : [address] [address] Blood 09/16/2024 8:15 AM PHYSICAL MEDICINE SPECIALIST 09/16/2024 8:22 AM PHYSICAL MEDICINE SPECIALIST Ysabel Palmer MD LAB BLOOD ORDERABLES Final Result [facility] [address] [facility] Department [place] [address] * (ABNORMAL) Comprehensive metabolic panel (09/16/2024 8:15 AM PHYSICAL MEDICINE SPECIALIST) Sodium 140 135 - 145 mmol/L Comment:Testing performed by : [address] [address] Potassium, pl 3.3 3.3 - 4.9 mmol/L CATHY Comment:Testing performed by : [address] [address] Chloride 104 97 - 110 mmol/L CATHY Comment:Testing performed by : [address] [address] CO2 26 22 - 32 mmol/L CATHY Comment:Testing performed by : [address] [address] Anion gap 10 2 - 15 mmol/L CATHY Comment:Testing performed by : [address] [address] BUN 14 6 - 25 mg/dL CATHY Comment:Testing performed by : [address] [address] Creatinine 1.00 0.80 - 1.30 mg/dL CATHY Comment:Testing performed by : [address] [address] Glucose 105 70 - 199 mg/dL CATHY Comment: Interpretive Data Fasting glucose >/= 126 mg/dl is diagnostic for diabetes. Fasting is defined as no caloric intake for at least 8 hours. Fasting glucose between 100 mg/dl to 125 mg/dl is diagnostic of prediabetes. In a patient with classic symptoms of hyperglycemia or hyperglycemic crisis, a random glucose >/= 200 mg/dl is diagnostic for diabetes. In the absence of unequivocal hyperglycemia, results should be confirmed by repeat testing. The classification and Diagnosis of Diabetes Diabetes Care 202; 46: S19-S40. Current interpretive data was last revised 2022. Testing performed by: [address] [address] Calcium 8.7 8.5 - 10.3 mg/dL CATHY Comment:Testing performed by : [address] [address] Bilirubin, total 0.5 0.1 - 1.2 mg/dL CATHY Comment:Testing performed by : [address] [address] Protein, pl 5.8(L) 6.5 - 8.5 g/dL CATHY Comment:Testing performed by : [address] [address] Albumin 2.9(L) 3.5 - 5.0 g/dL CATHY Comment:Testing performed by : [address] [address] Alk phos 85 40 - 130 Units/L CATHY Comment:Testing performed by : [address] [address] ALT <5(L) 7 - 55 Units/L CATHY Comment:Testing performed by : [address] [address] AST 9(L) 10 - 50 Units/L CATHY Comment:Testing performed by : [address] [address] Blood 09/16/2024 8:15 AM PHYSICAL MEDICINE SPECIALIST 09/16/2024 8:22 AM PHYSICAL MEDICINE SPECIALIST us Ysabel Palmer MD LAB BLOOD ORDERABLES Final Result CATHY BUSTOS [address] [facility] Department of Laboratories [place], [place] [id number] * eGFR (09/09/2024 9:29 AM PHYSICAL MEDICINE SPECIALIST) eGFR 72 >=60 mL/min/1. 73 m2 Comment: Interpretive Data Reference Interval Normal >/= 90 mL/min/1.73m2 Mildly decreased* 60 - 89 mL/min/1.73m2 Mildly to moderately decreased 45 - 59 mL/min/1.73m2 Moderately to severely decreased 30 - 44 mL/min/1.73m2 Severely decreased 15 - 29 mL/min/1.73m2 Kidney Failure < 15 mL/min/1.73m2 *Relative to young adult level Estimated glomerular filtration rate is determined by the 2020 CKD-EPI equation recommended by the National Kidney Foundation (A Unifying Approach to GFR Estimation: Recommendations of the NKF-ASK Task Force on Reassessing the Inclusion of Race in Diagnosing Kidney Disease, JASN 2020). The CKD-EPI equation should not be used for patients with unstable renal function and has not been validated in children and those over 70. Current interpretive data was last reviewed 2021. Testing performed by: [address] [address] Blood 09/09/2024 9:29 AM PHYSICAL MEDICINE SPECIALIST 09/09/2024 9:33 AM PHYSICAL MEDICINE SPECIALIST Ysabel Palmer MD LAB BLOOD ORDERABLES Final Result CATHY [address] [facility] Department [place] [address] * Differential, auto (09/09/2024 9:29 AM PHYSICAL MEDICINE SPECIALIST) Neutrophil abs 3.9 1.5 - 6.5 K/cumm Comment:Testing performed by : [address] [address] Imm gran abs 0.0 0.0 - 0.1 K/cumm CATHY Comment:Testing performed by : [address] [address] Lymphocyte abs 0.9 0.8 - 3.3 K/cumm CATHY Comment:Testing performed by : [address] [address] Monocyte abs 0.3 0.2 - 0.8 K/cumm CATHY Comment:Testing performed by : [address] [address] Eosinophil abs 0.0 0.0 - 0.5 K/cumm CATHY Comment:Testing performed by : [address] [address] Basophil abs 0.0 0.0 - 0.1 K/cumm CATHY Comment:Testing performed by : [address] [address] Neutrophil pct 74.7 % [facility] Comment: Interpretive Data Percent cell count reference ranges are not reported, since discordance with absolute values may lead to misinterpretation of CBC data. Current Interpretive Data was last revised on 2017. Testing performed by: [address] [address] Imm gran pct 0.4 % [facility] Comment: Interpretive Data Percent cell count reference ranges are not reported, since discordance with absolute values may lead to misinterpretation of CBC data. Current Interpretive Data was last revised on 2017. Testing performed by: [address] [address] Lymphocyte pct 17.4 % [facility] Comment: Interpretive Data Percent cell count reference ranges are not reported, since discordance with absolute values may lead to misinterpretation of CBC data. Current Interpretive Data was last revised on 2017. Testing performed by: [address] [address] Monocyte pct 6.3 % [facility] Comment: Interpretive Data Percent cell count reference ranges are not reported, since discordance with absolute values may lead to misinterpretation of CBC data. Current Interpretive Data was last revised on 2017. Testing performed by: [address] [address] Eosinophil pct 0.8 % CATHY Comment: Interpretive Data Percent cell count reference ranges are not reported, since discordance with absolute values may lead to misinterpretation of CBC data. Current Interpretive Data was last revised on 2017. Testing performed by: [address] [address] Basophil pct 0.4 % CATHY Comment: Interpretive Data Percent cell count reference ranges are not reported, since discordance with absolute values may lead to misinterpretation of CBC data. Current Interpretive Data was last revised on 2017. Testing performed by: [address] [address] Blood 09/09/2024 9:29 AM PHYSICAL MEDICINE SPECIALIST 09/09/2024 9:33 AM PHYSICAL MEDICINE SPECIALIST Ysabel Palmer MD LAB BLOOD ORDERABLES Final Result [facility] [address] [facility] Department [place] [address] * (ABNORMAL) CBC with auto differential (09/09/2024 9:29 AM PHYSICAL MEDICINE SPECIALIST) WBC 5.2 3.8 - 9.9 K/cumm Comment:Testing performed by : [address] [address] Hgb 9.4(L) 13.0 - 17.5 g/dL CATHY Comment:Testing performed by : [address] [address] Hct 28.9(L) 38.9 - 50.3 % CATHY Comment:Testing performed by : [address] [address] Plt 199 150 - 400 K/cumm CATHY Comment:Testing performed by : [address] [address] MPV 8.7(L) 9.1 - 12.3 fL CATHY Comment:Testing performed by : [address] [address] RBC 3.77(L) 4.30 - 5.80 M/cumm CATHY Comment:Testing performed by : [address] [address] MCV 76.7(L) 81.3 - 96.4 fL CATHY Comment:Testing performed by : [address] [address] MCH 24.9(L) 27.1 - 33.3 pg CATHY BUSTOS Comment:Testing performed by : [facility], [address] [place] [address]., [address] MCHC 32.5 32.3 - 35.7 g/dL CATHY BUSTOS Comment:Testing performed by : [address] [address] RDW CV 17.2(H) 11.1 - 14.9 % CATHY BUSTOS Comment:Testing performed by : [address] [address] RDW SD 47.1 35.7 - 48.1 fL CATHY BUSTOS Comment:Testing performed by : [address] [address] NRBC abs 0.00 0.00 - 0.01 K/cumm CATHY BUSTOS Comment:Testing performed by : [address] [address] Blood 09/09/2024 9:29 AM PHYSICAL MEDICINE SPECIALIST 09/09/2024 9:33 AM PHYSICAL MEDICINE SPECIALIST Ysabel Palmer MD LAB BLOOD ORDERABLES Final Result CATHY [address] [facility] Department [place] [address] * (ABNORMAL) CEA (09/09/2024 9:29 AM PHYSICAL MEDICINE SPECIALIST) CEA 6.0(H) <=5.0 ng/mL Comment: Interpretive Data: Reference Range: Non-Smokers: 0.0 5.0 ng/mL Smokers: 0.0 6.5 ng/mL The Derek CEA assay procedure was used. Results from different manufacturers or methods may not be comparable. Serial testing should be performed using the same method. Current interpretive data was last revised 2023. Testing performed by: [address] [address] Blood 09/09/2024 9:29 AM PHYSICAL MEDICINE SPECIALIST 09/09/2024 1:41 PM PHYSICAL MEDICINE SPECIALIST Ysabel Palmer MD LAB BLOOD ORDERABLES Final Result [facility] [address] [facility] Department [place] [address] * (ABNORMAL) Comprehensive metabolic panel (09/09/2024 9:29 AM PHYSICAL MEDICINE SPECIALIST) Sodium 139 135 - 145 mmol/L Comment:Testing performed by : [address] [address] Potassium, pl 3.6 3.3 - 4.9 mmol/L CATHY Comment:Testing performed by : [address] [address] Chloride 104 97 - 110 mmol/L CATHY Comment:Testing performed by : [address] [address] CO2 25 22 - 32 mmol/L CATHY Comment:Testing performed by : [address] [address] Anion gap 10 2 - 15 mmol/L CATHY Comment:Testing performed by : [address] [address] BUN 20 6 - 25 mg/dL CATHY Comment:Testing performed by : [address] [address] Creatinine 1.10 0.80 - 1.30 mg/dL CATHY Comment:Testing performed by : [address] [address] Glucose 109 70 - 199 mg/dL CATHY Comment: Interpretive Data Fasting glucose >/= 126 mg/dl is diagnostic for diabetes. Fasting is defined as no caloric intake for at least 8 hours. Fasting glucose between 100 mg/dl to 125 mg/dl is diagnostic of prediabetes. In a patient with classic symptoms of hyperglycemia or hyperglycemic crisis, a random glucose >/= 200 mg/dl is diagnostic for diabetes. In the absence of unequivocal hyperglycemia, results should be confirmed by repeat testing. The classification and Diagnosis of Diabetes Diabetes Care 202; 46: S19-S40. Current interpretive data was last revised 2022. Testing performed by: [address] [place]., [address] Calcium 8.6 8.5 - 10.3 mg/dL CATHY Comment:Testing performed by : [address] [address] Bilirubin, total 0.4 0.1 - 1.2 mg/dL ACTHY Comment:Testing performed by : [address] [address] Protein, pl 5.8(L) 6.5 - 8.5 g/dL CATHY Comment:Testing performed by : [address] [address] Albumin 3.0(L) 3.5 - 5.0 g/dL CATHY Comment:Testing performed by : [address] [address] Alk phos 72 40 - 130 Units/L CATHY Comment:Testing performed by : [address] [address] ALT <5(L) 7 - 55 Units/L CATHY Comment:Testing performed by : [address] [address] AST 7(L) 10 - 50 Units/L CATHY Comment:Testing performed by : [address] [address] Blood 09/09/2024 9:29 AM PHYSICAL MEDICINE SPECIALIST 09/09/2024 9:33 AM PHYSICAL MEDICINE SPECIALIST Ysabel Palmer MD LAB BLOOD ORDERABLES Final Result CATHY [address] [facility] Department [place] [address] * eGFR (08/12/2024 12:31 PM PHYSICAL MEDICINE SPECIALIST) eGFR 72 >=60 mL/min/1. 73 m2 Comment: Interpretive Data Reference Interval Normal >/= 90 mL/min/1.73m2 Mildly decreased* 60 - 89 mL/min/1.73m2 Mildly to moderately decreased 45 - 59 mL/min/1.73m2 Moderately to severely decreased 30 - 44 mL/min/1.73m2 Severely decreased 15 - 29 mL/min/1.73m2 Kidney Failure < 15 mL/min/1.73m2 *Relative to young adult level Estimated glomerular filtration rate is determined by the 2020 CKD-EPI equation recommended by the National Kidney Foundation (A Unifying Approach to GFR Estimation: Recommendations of the NKF-ASK Task Force on Reassessing the Inclusion of Race in Diagnosing Kidney Disease, JASN 2020). The CKD-EPI equation should not be used for patients with unstable renal function and has not been validated in children and those over 70. Current interpretive data was last reviewed 2021. Testing performed by: [address] [address] Blood 08/12/2024 12:3 1 PM PHYSICAL MEDICINE SPECIALIST 08/12/2024 12:35 PM PHYSICAL MEDICINE SPECIALIST Ysabel Palmer MD LAB BLOOD ORDERABLES Final Result CATHY [facility] Department [place] [address] * Differential, auto (08/12/2024 12:31 PM PHYSICAL MEDICINE SPECIALIST) Neutrophil abs 2.7 1.5 - 6.5 K/cumm Comment:Testing performed by : [address] [address] Imm gran abs 0.0 0.0 - 0.1 K/cumm CATHY Comment:Testing performed by : [address] [address] Lymphocyte abs 1.0 0.8 - 3.3 K/cumm CATHY Comment:Testing performed by : [address] [address] Monocyte abs 0.4 0.2 - 0.8 K/cumm CATHY Comment:Testing performed by : [address] [address] Eosinophil abs 0.1 0.0 - 0.5 K/cumm CATHY Comment:Testing performed by : [address] [place]., [address] Basophil abs 0.0 0.0 - 0.1 K/cumm CATHY Comment:Testing performed by : [address] [address] Neutrophil pct 64.1 % [facility] Comment: Interpretive Data Percent cell count reference ranges are not reported, since discordance with absolute values may lead to misinterpretation of CBC data. Current Interpretive Data was last revised on 2017. Testing performed by: [address] [address] Imm gran pct 0.5 % [facility] Comment: Interpretive Data Percent cell count reference ranges are not reported, since discordance with absolute values may lead to misinterpretation of CBC data. Current Interpretive Data was last revised on 2017. Testing performed by: [address] [address] Lymphocyte pct 23.4 % [facility] Comment: Interpretive Data Percent cell count reference ranges are not reported, since discordance with absolute values may lead to misinterpretation of CBC data. Current Interpretive Data was last revised on 2017. Testing performed by: [address] [address] Monocyte pct 9.1 % [facility] Comment: Interpretive Data Percent cell count reference ranges are not reported, since discordance with absolute values may lead to misinterpretation of CBC data. Current Interpretive Data was last revised on 2017. Testing performed by: [address] [address] Eosinophil pct 2.2 % [facility] Comment: Interpretive Data Percent cell count reference ranges are not reported, since discordance with absolute values may lead to misinterpretation of CBC data. Current Interpretive Data was last revised on 2017. Testing performed by: [address] [address] Basophil pct 0.7 % [facility] Comment: Interpretive Data Percent cell count reference ranges are not reported, since discordance with absolute values may lead to misinterpretation of CBC data. Current Interpretive Data was last revised on 2017. Testing performed by: [address] [address] Blood 08/12/2024 12:3 1 PM PHYSICAL MEDICINE SPECIALIST 08/12/2024 12:35 PM PHYSICAL MEDICINE SPECIALIST Ysabel Palmer MD LAB BLOOD ORDERABLES Final Result [facility] [address] [facility] Department [place] [address] * (ABNORMAL) CBC with auto differential (08/12/2024 12:31 PM PHYSICAL MEDICINE SPECIALIST) WBC 4.2 3.8 - 9.9 K/cumm Comment:Testing performed by : [address] [address] Hgb 8.8(L) 13.0 - 17.5 g/dL CATHY Comment:Testing performed by : [address] [address] Hct 27.7(L) 38.9 - 50.3 % CATHY Comment:Testing performed by : [address] [address] Plt 230 150 - 400 K/cumm CATHY Comment:Testing performed by : [address] [address] MPV 8.6(L) 9.1 - 12.3 fL CATHY Comment:Testing performed by : [address] [address] RBC 3.58(L) 4.30 - 5.80 M/cumm CATHY Comment:Testing performed by : [address] [address] MCV 77.4(L) 81.3 - 96.4 fL CATHY Comment:Testing performed by : [address] [address] MCH 24.6(L) 27.1 - 33.3 pg CATHY Comment:Testing performed by : [address] [address] MCHC 31.8(L) 32.3 - 35.7 g/dL CATHY BUSTOS Comment:Testing performed by : [address] [address] RDW CV 18.9(H) 11.1 - 14.9 % CATHY BUSTOS Comment:Testing performed by : [address] [address] RDW SD 51.3(H) 35.7 - 48.1 fL CATHY BUSTOS Comment:Testing performed by : [address] [address] NRBC abs 0.00 0.00 - 0.01 K/cumm CATHY BUSTOS Comment:Testing performed by : [address] [address] Blood 08/12/2024 12:3 1 PM PHYSICAL MEDICINE SPECIALIST 08/12/2024 12:35 PM PHYSICAL MEDICINE SPECIALIST Ysabel Palmer MD LAB BLOOD ORDERABLES Final Result CATHY [address] Department [place] [address] * (ABNORMAL) Comprehensive metabolic panel (08/12/2024 12:31 PM PHYSICAL MEDICINE SPECIALIST) Sodium 138 135 - 145 mmol/L Comment:Testing performed by : [address] [address] Potassium, pl 4.2 3.3 - 4.9 mmol/L CATHY BUSTOS Comment:Testing performed by : [address] [address] Chloride 105 97 - 110 mmol/L CATHY BUSTOS Comment:Testing performed by : [address] [address] CO2 25 22 - 32 mmol/L CATHY BUSTOS Comment:Testing performed by : [address] [address] Anion gap 8 2 - 15 mmol/L CATHY BUSTOS Comment:Testing performed by : [address] [address] BUN 14 6 - 25 mg/dL CATHY BUSTOS Comment:Testing performed by : [address] [address] Creatinine 1.10 0.80 - 1.30 mg/dL CATHY Comment:Testing performed by : [address] [address] Glucose 106 70 - 199 mg/dL CATHY Comment: Interpretive Data Fasting glucose >/= 126 mg/dl is diagnostic for diabetes. Fasting is defined as no caloric intake for at least 8 hours. Fasting glucose between 100 mg/dl to 125 mg/dl is diagnostic of prediabetes. In a patient with classic symptoms of hyperglycemia or hyperglycemic crisis, a random glucose >/= 200 mg/dl is diagnostic for diabetes. In the absence of unequivocal hyperglycemia, results should be confirmed by repeat testing. The classification and Diagnosis of Diabetes Diabetes Care 202; 46: S19-S40. Current interpretive data was last revised 2022. Testing performed by: [address] [address] Calcium 8.9 8.5 - 10.3 mg/dL CATHY Comment:Testing performed by : [address] [address] Bilirubin, total 0.3 0.1 - 1.2 mg/dL CATHY Comment:Testing performed by : [address] [address] Protein, pl 6.4(L) 6.5 - 8.5 g/dL CATHY Comment:Testing performed by : [address] [address] Albumin 3.1(L) 3.5 - 5.0 g/dL CATHY Comment:Testing performed by : [address] [address] Alk phos 75 40 - 130 Units/L CATHY Comment:Testing performed by : [address] [address] ALT <5(L) 7 - 55 Units/L CATHY Comment:Testing performed by : [address] [address] AST 8(L) 10 - 50 Units/L CATHY Comment:Testing performed by : [address] [address] Blood 08/12/2024 12:3 1 PM PHYSICAL MEDICINE SPECIALIST 08/12/2024 12:35 PM PHYSICAL MEDICINE SPECIALIST Ysabel Palmer MD LAB BLOOD ORDERABLES Final Result CATHY [address] [employer] [place] [address] * eGFR (07/29/2024 9:43 AM PHYSICAL MEDICINE SPECIALIST) Pathologist [facility] eGFR 80 >=60 mL/min/1. 73 m2 Comment: Interpretive Data Reference Interval Normal >/= 90 mL/min/1.73m2 Mildly decreased* 60 - 89 mL/min/1.73m2 Mildly to moderately decreased 45 - 59 mL/min/1.73m2 Moderately to severely decreased 30 - 44 mL/min/1.73m2 Severely decreased 15 - 29 mL/min/1.73m2 Kidney Failure < 15 mL/min/1.73m2 *Relative to young adult level Estimated glomerular filtration rate is determined by the 2020 CKD-EPI equation recommended by the National Kidney Foundation (A Unifying Approach to GFR Estimation: Recommendations of the NKF-ASK Task Force on Reassessing the Inclusion of Race in Diagnosing Kidney Disease, JASN 2020). The CKD-EPI equation should not be used for patients with unstable renal function and has not been validated in children and those over 70. Current interpretive data was last reviewed 2021. Testing performed by: [address] [address] Blood 07/29/2024 9:43 AM PHYSICAL MEDICINE SPECIALIST 07/29/2024 9:45 AM PHYSICAL MEDICINE SPECIALIST Ysabel Palmer MD LAB BLOOD ORDERABLES Final Result CATHY [address] of [employer] [place] [address] * Differential, auto (07/29/2024 9:43 AM PHYSICAL MEDICINE SPECIALIST) [facility] Neutrophil abs 3.1 1.5 - 6.5 K/cumm Comment:Testing performed by : [address], [place]., [address] Imm gran abs 0.0 0.0 - 0.1 K/cumm [facility] Comment:Testing performed by : [address], [place]., [address] Lymphocyte abs 0.9 0.8 - 3.3 K/cumm [facility] Comment:Testing performed by : [address], [place]., [address] Monocyte abs 0.3 0.2 - 0.8 K/cumm [facility] Comment:Testing performed by : [address] [address] Eosinophil abs 0.2 0.0 - 0.5 K/cumm [facility] Comment:Testing performed by : [address] [address] Basophil abs 0.1 0.0 - 0.1 K/cumm [facility] Comment:Testing performed by : [address] [address] Neutrophil pct 68.5 % [facility] Comment: Interpretive Data Percent cell count reference ranges are not reported, since discordance with absolute values may lead to misinterpretation of CBC data. Current Interpretive Data was last revised on 2017. Testing performed by: [address] [address] Imm gran pct 0.7 % [facility] Comment: Interpretive Data Percent cell count reference ranges are not reported, since discordance with absolute values may lead to misinterpretation of CBC data. Current Interpretive Data was last revised on 2017. Testing performed by: [address] [address] Lymphocyte pct 19.0 % [facility] Comment: Interpretive Data Percent cell count reference ranges are not reported, since discordance with absolute values may lead to misinterpretation of CBC data. Current Interpretive Data was last revised on 2017. Testing performed by: [address] [address] Monocyte pct 6.0 % [facility] Comment: Interpretive Data Percent cell count reference ranges are not reported, since discordance with absolute values may lead to misinterpretation of CBC data. Current Interpretive Data was last revised on 2017. Testing performed by: [address] [address] Eosinophil pct 4.7 % CATHY Comment: Interpretive Data Percent cell count reference ranges are not reported, since discordance with absolute values may lead to misinterpretation of CBC data. Current Interpretive Data was last revised on 2017. Testing performed by: [address] [address] Basophil pct 1.1 % CATHY Comment: Interpretive Data Percent cell count reference ranges are not reported, since discordance with absolute values may lead to misinterpretation of CBC data. Current Interpretive Data was last revised on 2017. Testing performed by: [address] [address] Blood 07/29/2024 9:43 AM PHYSICAL MEDICINE SPECIALIST 07/29/2024 9:45 AM PHYSICAL MEDICINE SPECIALIST Ysabel Palmer MD LAB BLOOD ORDERABLES Final Result [facility] [address] [facility] Department of Laboratories [place], [place] [id number] * (ABNORMAL) Iron profile w/ IBC (07/29/2024 9:43 AM PHYSICAL MEDICINE SPECIALIST) Iron 23(L) 50 - 150 mcg/dL Comment:Testing performed by : [address] [address] TIBC 309 250 - 400 mcg/dL CATHY BUSTOS Comment:Testing performed by : [address] [address] Transferrin saturation 7(L) 20 - 50 % CATHY BUSTOS Comment:Testing performed by : [address] [address] Blood 07/29/2024 9:43 AM PHYSICAL MEDICINE SPECIALIST 07/29/2024 11:29 AM PHYSICAL MEDICINE SPECIALIST us Ysabel Palmer MD LAB BLOOD ORDERABLES Final Result [facility] [address] [facility] Department [place] [address] * (ABNORMAL) CBC with auto differential (07/29/2024 9:43 AM PHYSICAL MEDICINE SPECIALIST) WBC 4.5 3.8 - 9.9 K/cumm Comment:Testing performed by : [address] [address] Hgb 8.6(L) 13.0 - 17.5 g/dL CATHY Comment:Testing performed by : [address] [address] Hct 28.1(L) 38.9 - 50.3 % CATHY Comment:Testing performed by : [address] [address] Plt 236 150 - 400 K/cumm CATHY Comment:Testing performed by : [address] [address] MPV 8.7(L) 9.1 - 12.3 fL CATHY Comment:Testing performed by : [address] [address] RBC 3.64(L) 4.30 - 5.80 M/cumm CATHY Comment:Testing performed by : [address] [address] MCV 77.2(L) 81.3 - 96.4 fL CATHY Comment:Testing performed by : [address] [address] MCH 23.6(L) 27.1 - 33.3 pg CATHY Comment:Testing performed by : [address] [address] MCHC 30.6(L) 32.3 - 35.7 g/dL CATHY Comment:Testing performed by : [address], [address] RDW CV 22.5(H) 11.1 - 14.9 % CATHY BUSTOS Comment:Testing performed by : [address] [address] RDW SD 65.7(H) 35.7 - 48.1 fL CATHY BUSTOS Comment:Testing performed by : [address] [address] NRBC abs 0.00 0.00 - 0.01 K/cumm CATHY Comment:Testing performed by : [address] [address] Blood 07/29/2024 9:43 AM PHYSICAL MEDICINE SPECIALIST 07/29/2024 9:45 AM PHYSICAL MEDICINE SPECIALIST Ysabel Palmer MD LAB BLOOD ORDERABLES Final Result Performing Organization Address [facility] [address] [facility] Co de Phone Number [id number] [employer] [address] * (ABNORMAL) Ferritin (07/29/2024 9:43 AM PHYSICAL MEDICINE SPECIALIST) Pathologist [facility] Ferritin 20(L) 30 - 400 ng/mL Comment:Testing performed by : [address] [address] Blood 07/29/2024 9:43 AM PHYSICAL MEDICINE SPECIALIST 07/29/2024 11:29 AM PHYSICAL MEDICINE SPECIALIST Ysabel Palmer MD LAB BLOOD ORDERABLES Edited Result - Final Performing Organization Address [facility] [address]/[facility] Co de Phone Number [address] [place] [address] * (ABNORMAL) CEA (07/29/2024 9:43 AM PHYSICAL MEDICINE SPECIALIST) Pathologist [facility] CEA 28.7(H) <=5.0 ng/mL Comment: Interpretive Data: Reference Range: Non-Smokers: 0.0 5.0 ng/mL Smokers: 0.0 6.5 ng/mL The Derek CEA assay procedure was used. Results from different manufacturers or methods may not be comparable. Serial testing should be performed using the same method. Current interpretive data was last revised 2023. Testing performed by: [address] [address] Blood 07/29/2024 9:43 AM PHYSICAL MEDICINE SPECIALIST 07/29/2024 11:29 AM PHYSICAL MEDICINE SPECIALIST Ysabel Palmer MD LAB BLOOD ORDERABLES Final Result [facility] [address] [facility] Department [place] [address] * (ABNORMAL) Comprehensive metabolic panel (07/29/2024 9:43 AM PHYSICAL MEDICINE SPECIALIST) Sodium 139 135 - 145 mmol/L Comment:Testing performed by : [address] [address] Potassium, pl 4.1 3.3 - 4.9 mmol/L CATHY Comment:Testing performed by : [address] [address] Chloride 105 97 - 110 mmol/L CATHY Comment:Testing performed by : [address] [address] CO2 25 22 - 32 mmol/L CATHY Comment:Testing performed by : [address] [address] Anion gap 9 2 - 15 mmol/L CATHY Comment:Testing performed by : [address] [address] BUN 16 6 - 25 mg/dL CATHY Comment:Testing performed by : [address] [address] Creatinine 1.00 0.80 - 1.30 mg/dL CATHY Comment:Testing performed by : [address] [address] Glucose 108 70 - 199 mg/dL CATHY Comment: Interpretive Data Fasting glucose >/= 126 mg/dl is diagnostic for diabetes. Fasting is defined as no caloric intake for at least 8 hours. Fasting glucose between 100 mg/dl to 125 mg/dl is diagnostic of prediabetes. In a patient with classic symptoms of hyperglycemia or hyperglycemic crisis, a random glucose >/= 200 mg/dl is diagnostic for diabetes. In the absence of unequivocal hyperglycemia, results should be confirmed by repeat testing. The classification and Diagnosis of Diabetes Diabetes Care 202; 46: S19-S40. Current interpretive data was last revised 2022. Testing performed by: [address] [address] Calcium 9.2 8.5 - 10.3 mg/dL CATHY Comment:Testing performed by : [address] [address] Bilirubin, total 0.3 0.1 - 1.2 mg/dL CATHY Comment:Testing performed by : [address] [address] Protein, pl 6.5 6.5 - 8.5 g/dL CATHY Comment:Testing performed by : [address] [address] Albumin 3.4(L) 3.5 - 5.0 g/dL CATHY Comment:Testing performed by : [address] [address] Alk phos 72 40 - 130 Units/L CATHY Comment:Testing performed by : [address] [address] ALT 5(L) 7 - 55 Units/L CATHY Comment:Testing performed by : [address] [address] AST 9(L) 10 - 50 Units/L CATHY Comment:Testing performed by : [address] [address] Blood 07/29/2024 9:43 AM PHYSICAL MEDICINE SPECIALIST 07/29/2024 9:45 AM PHYSICAL MEDICINE SPECIALIST us Ysabel Palmer MD LAB BLOOD ORDERABLES Final Result CATHY [address] [facility] Department [place] [address] * RAD ONC ARIA SESSION SUMMARY (07/25/2024 3:07 PM PHYSICAL MEDICINE SPECIALIST) Course Name [id number] 024 ARIA Course Plan Date 07/14/2024 11:19 AM ARIA Elapsed Days 4 ARIA Treatment Start Date 07/21/2024 ARIA Treatment Site RECTUM_2500 ARIA Dose Given To Date (cGy) 2,500 ARIA Session Dosage Given (cGy) 500 ARIA Plan ID RECTUM ARIA Fractions Treated 5 ARIA Prescribed Dose Per Fraction (cGy) 500 ARIA Prescribed Total Dose (cGy) 2,500 ARIA 07/25/2024 3:07 PM PHYSICAL MEDICINE SPECIALIST us Not In File Miscellaneous RADIATION ONCOLOGY ORD ERABLES Final Result Performing Organization Address [facility] [address]/[facility] Co de Phone Number ARIA * RAD ONC ARIA SESSION SUMMARY (07/24/2024 2:19 PM PHYSICAL MEDICINE SPECIALIST) Course Name [id number]_2 024 ARIA Course Plan Date 07/14/2024 11:19 AM ARIA Elapsed Days 3 ARIA Treatment Start Date 07/21/2024 ARIA Treatment Site RECTUM_2500 ARIA Dose Given To Date (cGy) 2,000 ARIA Session Dosage Given (cGy) 500 ARIA Plan ID RECTUM ARIA Fractions Treated 4 ARIA Prescribed Dose Per Fraction (cGy) 500 ARIA Prescribed Total Dose (cGy) 2,500 ARIA 07/24/2024 2:19 PM PHYSICAL MEDICINE SPECIALIST us Not In File Miscellaneous RADIATION ONCOLOGY ORD ERABLES Final Result ARIA * RAD ONC ARIA SESSION SUMMARY (07/23/2024 2:30 PM PHYSICAL MEDICINE SPECIALIST) Course Name C1_Rectum_2 024 ARIA Course Plan Date 07/14/2024 11:19 AM ARIA Elapsed Days 2 ARIA Treatment Start Date 07/21/2024 ARIA Treatment Site RECTUM_2500 ARIA Dose Given To Date (cGy) 1,500 ARIA Session Dosage Given (cGy) 500 ARIA Plan ID RECTUM ARIA Fractions Treated 3 ARIA Prescribed Dose Per Fraction (cGy) 500 ARIA Prescribed Total Dose (cGy) 2,500 ARIA 07/23/2024 2:30 PM PHYSICAL MEDICINE SPECIALIST us Not In File Miscellaneous RADIATION ONCOLOGY ORD ERABLES Final Result ARIA * RAD ONC ARIA SESSION SUMMARY (07/22/2024 2:52 PM PHYSICAL MEDICINE SPECIALIST) Course Name [id number]_2 024 ARIA Course Plan Date 07/14/2024 11:19 AM ARIA Elapsed Days 1 ARIA Treatment Start Date 07/21/2024 ARIA Treatment Site RECTUM_2500 ARIA Dose Given To Date (cGy) 1,000 ARIA Session Dosage Given (cGy) 500 ARIA Plan ID RECTUM ARIA Fractions Treated 2 ARIA Prescribed Dose Per Fraction (cGy) 500 ARIA Prescribed Total Dose (cGy) 2,500 ARIA 07/22/2024 2:52 PM PHYSICAL MEDICINE SPECIALIST us Not In File Miscellaneous RADIATION ONCOLOGY ORD ERABLES Final Result Performing Organization Address City/[facility] [address] [facility] Co de Phone Number ARIA * RAD ONC ARIA SESSION SUMMARY (07/21/2024 2:15 PM PHYSICAL MEDICINE SPECIALIST) Course Name C1_Rectum_2 024 ARIA Course Plan Date 07/14/2024 11:19 AM ARIA Elapsed Days 0 ARIA Treatment Start Date 07/21/2024 ARIA Treatment Site RECTUM_2500 ARIA Dose Given To Date (cGy) 500 ARIA Session Dosage Given (cGy) 500 ARIA Plan ID RECTUM ARIA Fractions Treated 1 ARIA Prescribed Dose Per Fraction (cGy) 500 ARIA Prescribed Total Dose (cGy) 2,500 ARIA 07/21/2024 2:15 PM PHYSICAL MEDICINE SPECIALIST us Not In File Miscellaneous RADIATION ONCOLOGY ORD ERABLES Final Result ILANA from Last 3 Months Insurance MEDICARE [employer] [facility] MEDICARE [employer] [facility] Care Teams Sound Printer Relationship Specialty Start Date End Date Michael Resendiz MD PCP - General 06/18/17 Ritchie Razo MD [phone] [place] [address] Surgeon Colon and Rectal Surgery 06/17/24 Ysabel Palmer MD [address] [facility] MEDICAL ONCOLOGY, [address] [address] Medical Oncologist/Television Maintenance Man Medical Oncology 06/24/24
--- OUTSIDE RECORDS SUMMARY | 2024-10-19 15:37 | XMS_ITS | Clinical Summary ---
Author Organization [facility] celio [facility] Address [address] [place] [address] Care Team Providers Care Police Magistrate Name Role Phone Michael Resendiz MD Primary Care Provider [phone] Medications hydroCHLOROthiaz george 12.5 mg tablet Take 12.5 mg by mouth daily. Active AMLODIPINE BESYLATE, BULK, MISC 5 mg by Misc.(Non-D rug; Combo Route) route daily. Active metoprolol succinate (TOPROL XL) 100 mg Extended Release 24 hour tablet Take 100 mg by mouth daily. Active Active Problems No known active problems Encounters Date Type Department Care Team Description 10/07/2024 External Device Data [facility] ABSTRACTION Provider, Abstract 09/04/2024 External Device Data [facility] ABSTRACTION Provider, Abstract 09/02/2024 External Device Data [facility] ABSTRACTION Provider, Abstract 08/26/2024 External Device Data [facility] ABSTRACTION Provider, Abstract from Last 3 Months Family History Medical History Relation Name Comments Heart Attack Father No Known Problems Mother Relation Name Status Comments Father Mother Social History Tobacco Use Types Packs/Day Years Used Date Smoking Tobacco: Former Cigarettes 1.5 28.4 Q uit: 01/1996 Smokeless Tobacco: Never Alcohol Use Standard Drinks/Week Comments Not Currently 0 (1 standard drink = 0.6 oz pur e alcohol) Ocasionally Sex and Gender Information Value Date Recorded Sex Assigned at Not on file Legal Sex Male 3:38 PM CDT Gender Identity Not on file Sexual Orientation Not on file Last Filed Vital Signs Vital Sign Reading Time Taken Comments Blood Pressure 137/73 06/09/2024 9:22 AM CDT Pulse 56 06/09/2024 9:22 AM CDT patients pulse is always low Temperature 36.4 C (97.5 F) 06/09/2024 9:22 AM CDT Respiratory Rate 15 06/09/2024 9:22 AM CDT Oxygen Saturation 93% 06/09/2024 9:2 2 AM CDT Inhaled Oxygen Concentration - - Weight 68.5 kg (151 lb) 06/09/2024 9:22 AM CDT Height 172.7 cm (5' 8 ) 06/09/2024 9:22 AM CDT Body Mass Index 22.96 06/09/2024 9:22 AM CDT Plan of Treatment Health Maintenance Due Date Last Done Comments DTAP/TDAP/TD VACCINES (1 - Tdap) 02/19/1972 Traditional Medicare (ACO) Annual Wellness Visit 02/18 PNEUMOCOCCAL VACCINE 50+ YEARS (1 of 1 - PCV) 02/19/20 03 ZOSTER VACCINE (1 of 2) 2003 Abdominal Aortic Aneurysm (AAA) Screening 2018 INFLUENZA VACCINE (#1) 2024 RSV VACCINE (60+ or ) (1 - 1-dose 75+ series) 02/19/[address] [place] [address] TRADITIONAL MEDICARE PART A AND B Care Teams Police Magistrate Relationship Specialty Start Date End Date Michael Resendiz MD [address] [facility] [address] [place] [id number] PCP - General Internal Medicine 06/09/24
--- OUTSIDE RECORDS SUMMARY | 2024-10-19 15:37 | XMS_ITS | Clinical Summary ---
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 Medical Office Building 2 Radiation Oncology [address] [place] [address] Rectal cancer (HCC) (Primary Dx); Severe protein-calorie malnutrition 10/14/2024 9:30 AM DECISION SUPPORT MANAGER Office Visit [facility] Oncology [address] [place] [address] [address] [place] [address] Ysabel Palmer MD Rectal cancer (HCC) (Primary Dx) 10/14/2024 9:00 AM DECISION SUPPORT MANAGER Lab [facility] at [address] [address] Rectal cancer (HCC) 09/17/2024 Telephone [facility] Oncology [address] [place] [address] [address] [place] [address] Argenis Crandall RN 09/16/2024 9:00 AM DECISION SUPPORT MANAGER Infusion [facility] at [address] [address] Rectal cancer (HCC) (Primary Dx) 09/16/2024 8:30 AM DECISION SUPPORT MANAGER Lab [address] [address] Rectal cancer (HCC) 09/16/2024 Orders Only [facility] Oncology [address] [place] [address] [address] [place] [address] Terrie Parham RN 09/16/2024 Orders Only [facility] [place] Floor 6 [place] [address] Ysabel Palmer MD 09/09/2024 9:30 AM DECISION SUPPORT MANAGER Office Visit [facility] Oncology [address] [place] [phone] sYabel Palmer MD Rectal cancer (HCC) (Primary Dx) 09/09/2024 8:45 AM DECISION SUPPORT MANAGER Lab [facility] at [address] [address] Rectal cancer (HCC) 08/22/2024 Telephone [facility] Physicians [facility] [address] Oncology [address] [place] [address] [address] [place] [address] Terrie Parham, GÓMEZ 08/15/2024 Documentation [facility] [address] [facility] Floor 6 [place] [address] Lisy Joseph, GUILLE PRIOR AUTH/FINANCIAL ASSIST [employer] 08/12/2024 1:00 PM DECISION SUPPORT MANAGER Infusion [facility] at [address] [place] [address] Rectal cancer (HCC) (Primary Dx) 08/12/2024 12:15 PM DECISION SUPPORT MANAGER Lab [facility] at [address] [address] Rectal cancer (HCC) 08/11/2024 Orders Only [facility] Oncology [address] [place] [phone] Ysabel Palmer MD 08/01/2024 Orders Only [facility] Physicians [facility] [address] Oncology [address] [place] [address] [address] [place] [address] Ysabel Palmer MD 07/29/2024 10:30 AM DECISION SUPPORT MANAGER Office Visit [facility] Physicians [facility] [address] Oncology [address] [place] [address] 180 [place] [address] Ysabel Palmer MD Rectal cancer (HCC) (Primary Dx) 07/29/2024 9:45 AM DECISION SUPPORT MANAGER Lab [facility] at [address] [address] Rectal cancer (HCC) 07/25/2024 2:45 PM DECISION SUPPORT MANAGER Treatment [facility] Radiation Oncology at [facility] [place] [address] [place] [address] Aleida Larsen MD 07/25/2024 Orders Only RAD ONC TREATMENTS Miscellaneous, Not In File 07/24/2024 2:00 PM DECISION SUPPORT MANAGER Treatment [facility] Radiation Oncology at [facility] [address] [place] [phone] 07/24/2024 Orders Only RAD ONC TREATMENTS Miscellaneous, Not In File 07/23/2024 2:15 PM DECISION SUPPORT MANAGER Treatment [facility] Radiation Oncology at [facility] [address] [place] [phone] 07/23/2024 Orders Only RAD ONC TREATMENTS Miscellaneous, Not In File 07/22/2024 2:45 PM DECISION SUPPORT MANAGER Treatment [facility] Radiation Oncology at [facility] [address] [place] [phone] 07/22/2024 OTV [facility] Radiation Oncology at [facility] [address] [place] [phone] Aleida Larsen MD 07/22/2024 Orders Only RAD ONC TREATMENTS Miscellaneous, Not In File 07/21/2024 1:45 PM DECISION SUPPORT MANAGER Treatment [facility] Radiation Oncology at [address] [address] Aleida Larsen MD 07/21/2024 Orders Only RAD ONC TREATMENTS Miscellaneous, Not In File from Last 3 Months Surgical History Surgery Date Site/Laterality Comments ROTATOR CUFF REPAIR Bilateral x2 on both sides CARPAL TUNNEL RELEASE Right Medical History Medical History Date Comments Hypertension Asthma Rectal cancer (HCC) Family History Medical History Relation Name Comments No Known Problems Father No Known Problems Maternal Grandfather No Known Problems Maternal Grandmother No Known Problems Mother No Known Problems Paternal Grandfather No Known Problems Paternal Grandmother Relation Name Status Comments Father Maternal Grandfather Maternal Grandmother Mother Paternal Grandfather Paternal Grandmother Social History Tobacco Use Types Packs/Day Years [...] on file Legal Sex Male 2:59 AM DECISION SUPPORT MANAGER Gender Identity Not on file Sexual Orientation Not on file Obstetrics History Last Filed Vital Signs Vital Sign Reading Time Taken Comments Blood Pressure 95/65 10/14/2024 9:23 AM DECISION SUPPORT MANAGER Pulse 85 10/14/2024 9:23 AM DECISION SUPPORT MANAGER Temperature 36.3 C (97.3 F) 10/14/2024 9:23 AM DECISION SUPPORT MANAGER Respiratory Rate 16 10/14/2024 9:23 AM DECISION SUPPORT MANAGER Oxygen Saturation 100% 10/14/2024 9:23 AM DECISION SUPPORT MANAGER Inhaled Oxygen Concentration - - Weight 55.3 kg (122 lb) 10/14/2024 9:23 AM DECISION SUPPORT MANAGER Height 168 cm (5' 6.14 ) 08/12/2024 12:43 PM DECISION SUPPORT MANAGER Body Mass Index 19.61 08/12/2024 12:43 PM DECISION SUPPORT MANAGER Plan of Treatment Health Maintenance Due Date Last Done Comments Colon Cancer Screening-Colonoscopy 1955 Depression Screening 1955 Hepatitis C Screening 1955 DTaP/Tdap/Td Vaccine (1 - Tdap) 02/19/1964 Hepatitis B Screening 1971 Pneumococcal vaccine 65+ (1 of 2 - PCV) 02/19/1972 Zoster Vaccine (1 of 2) 02/19/1972 Well Visit 65+ 2018 Influenza Vaccine (#1) 2024 08/22/2013 Fall Risk Assessment 07/08/2025 07/08/2024 Procedures Procedure Name Priority Date/Time Associated Diagnosis Comments EGFR STAT 10/14/2024 9:04 AM DECISION SUPPORT MANAGER Rectal cancer (HCC) DIFFERENTIAL AUTO STAT 10/14/2024 9:0 4 AM DECISION SUPPORT MANAGER Rectal cancer (HCC) CBC WITH AUTO DIFFERENTIAL STAT 10/14/2024 9:04 AM DECISION SUPPORT MANAGER Rectal cancer (HCC) COMPREHENSIVE METABOLIC PANEL STAT 10/14/2024 9:04 AM DECISION SUPPORT MANAGER Rectal cancer (HCC) EGFR STAT 09/16/2024 8:15 AM DECISION SUPPORT MANAGER Rectal cancer (HCC) DIFFERENTIAL AUTO STAT 09/16/2024 8:1 5 AM DECISION SUPPORT MANAGER Rectal cancer (HCC) CBC WITH AUTO DIFFERENTIAL STAT 09/16/2024 8:15 AM DECISION SUPPORT MANAGER Rectal cancer (HCC) COMPREHENSIVE METABOLIC PANEL STAT 09/16/2024 8:15 AM DECISION SUPPORT MANAGER Rectal cancer (HCC) EGFR STAT 09/09/2024 9:29 AM DECISION SUPPORT MANAGER Rectal cancer (HCC) DIFFERENTIAL AUTO STAT 09/09/2024 9:2 9 AM DECISION SUPPORT MANAGER Rectal cancer (HCC) CEA Routine 09/09/2024 9:29 AM DECISION SUPPORT MANAGER Rectal cancer (HCC) CBC WITH AUTO DIFFERENTIAL STAT 09/09/2024 9:29 AM DECISION SUPPORT MANAGER Rectal cancer (HCC) COMPREHENSIVE METABOLIC PANEL STAT 09/09/2024 9:29 AM DECISION SUPPORT MANAGER Rectal cancer (HCC) EGFR STAT 08/12/2024 12:31 PM DECISION SUPPORT MANAGER Rectal cancer (HCC) DIFFERENTIAL AUTO STAT 08/12/2024 12: 31 PM DECISION SUPPORT MANAGER Rectal cancer (HCC) CBC WITH AUTO DIFFERENTIAL STAT 08/12/2024 12:31 PM DECISION SUPPORT MANAGER Rectal cancer (HCC) COMPREHENSIVE METABOLIC PANEL STAT 08/12/2024 12:31 PM DECISION SUPPORT MANAGER Rectal cancer (HCC) EGFR Routine 07/29/2024 9:43 AM DECISION SUPPORT MANAGER Rectal cancer (HCC) DIFFERENTIAL AUTO Routine 07/29/2024 9:4 3 AM DECISION SUPPORT MANAGER Rectal cancer (HCC) CBC WITH AUTO DIFFERENTIAL Routine 07/29/2024 9:43 AM DECISION SUPPORT MANAGER Rectal cancer (HCC) CEA Routine 07/29/2024 9:43 AM DECISION SUPPORT MANAGER Rectal cancer (HCC) COMPREHENSIVE METABOLIC PANEL Routine 07/29/2024 9:43 AM DECISION SUPPORT MANAGER Rectal cancer (HCC) IRON PROFILE W/ IBC Routine 07/29/2024 9 :43 AM DECISION SUPPORT MANAGER Rectal cancer (HCC) FERRITIN Routine 07/29/2024 9:43 AM DECISION SUPPORT MANAGER Rectal cancer (HCC) RAD ONC ARIA SESSION SUMMARY 07/25/2024 3:07 PM DECISION SUPPORT MANAGER RAD ONC ARIA SESSION SUMMARY 07/24/2024 2:19 PM DECISION SUPPORT MANAGER RAD ONC ARIA SESSION SUMMARY 07/23/2024 2:30 PM DECISION SUPPORT MANAGER RAD ONC ARIA SESSION SUMMARY 07/22/2024 2:52 PM DECISION SUPPORT MANAGER RAD ONC ARIA SESSION SUMMARY 07/21/2024 2:15 PM DECISION SUPPORT MANAGER from Last 3 Months Results * (ABNORMAL) eGFR (10/14/2024 9:04 AM DECISION SUPPORT MANAGER) eGFR 59(L) >=60 mL/min/1. 73 m2 Comment: [...] was last reviewed 2021. Testing performed by: [address] [address] Blood 10/14/2024 9:04 AM DECISION SUPPORT MANAGER 10/14/2024 9:06 AM DECISION SUPPORT MANAGER us Ysabel Palmer MD LAB BLOOD ORDERABLES Final Result [facility] [address] [facility] [place] [address] * (ABNORMAL) Differential, auto (10/14/2024 9:04 AM DECISION SUPPORT MANAGER) Neutrophil abs 7.0(H) 1.5 - 6.5 K/cumm Comment:Testing performed by : [address] [address] Imm gran abs 0.1 0.0 - 0.1 K/cumm [facility] Comment:Testing performed by : [address] [address] Lymphocyte abs 1.4 0.8 - 3.3 K/cumm [facility] Comment:Testing performed by : [address] [address] Monocyte abs 0.5 0.2 - 0.8 K/cumm C[facility]Y Comment:Testing performed by : [address] [address] Eosinophil abs 0.0 0.0 - 0.5 K/cumm [facility] Comment:Testing performed by : [address] [address] Basophil abs 0.0 0.0 - 0.1 K/cumm [facility] Comment:Testing performed by : [address] [address] Neutrophil pct 77.5 % [facility] Comment: Interpretive Data Percent cell count reference ranges are not reported, since discordance with absolute values may lead to misinterpretation of CBC data. Current Interpretive Data was last revised on 2017. Testing performed by: [address] [place]., [address] Imm gran pct 0.6 % [facility] Comment: Interpretive Data Percent cell count reference ranges are not reported, since discordance with absolute values may lead to misinterpretation of CBC data. Current Interpretive Data was last revised on 2017. Testing performed by: [address] [address] Lymphocyte pct 15.9 % [facility] Comment: Interpretive Data Percent cell count reference ranges are not reported, since discordance with absolute values may lead to misinterpretation of CBC data. Current Interpretive Data was last revised on 2017. Testing performed by: [address] [address] Monocyte pct 5.7 % [facility] Comment: Interpretive Data Percent cell count reference ranges are not reported, since discordance with absolute values may lead to misinterpretation of CBC data. Current Interpretive Data was last revised on 2017. Testing performed by: [address] [address] Eosinophil pct 0.1 % [facility] Comment: Interpretive Data Percent cell count reference ranges are not reported, since discordance with absolute values may lead to misinterpretation of CBC data. Current Interpretive Data was last revised on 2017. Testing performed by: [address] [address] Basophil pct 0.2 % [facility] Comment: Interpretive Data Percent cell count reference ranges are not reported, since discordance with absolute values may lead to misinterpretation of CBC data. Current Interpretive Data was last revised on 2017. Testing performed by: [address] [address] Blood 10/14/2024 9:04 AM DECISION SUPPORT MANAGER 10/14/2024 9:06 AM DECISION SUPPORT MANAGER us Ysabel Palmer MD LAB BLOOD ORDERABLES Final Result [facility] [address] [facility] Department [place] [address] * (ABNORMAL) CBC with auto differential (10/14/2024 9:04 AM DECISION SUPPORT MANAGER) [facility] Signature WBC 9.1 3.8 - 9.9 K/cumm Comment:Testing performed by : [address] [address] Hgb 9.9(L) 13.0 - 17.5 g/dL [facility] Comment:Testing performed by : [address], [address] Hct 31.4(L) 38.9 - 50.3 % [facility] Comment:Testing performed by : [address] [address] Plt 190 150 - 400 K/cumm [facility] Comment:Testing performed by : [address], [address] MPV 9.3 9.1 - 12.3 fL [facility] Comment:Testing performed by : [address], [address] RBC 3.96(L) 4.30 - 5.80 M/cumm [facility] Comment:Testing performed by : [address], [address] MCV 79.3(L) 81.3 - 96.4 fL [facility] Comment:Testing performed by : [address] [address] MCH 25.0(L) 27.1 - 33.3 pg [facility] Comment:Testing performed by : [address], [address] MCHC 31.5(L) 32.3 - 35.7 g/dL [facility] Comment:Testing performed by : [address], [address] RDW CV 19.9(H) 11.1 - 14.9 % [facility] Comment:Testing performed by : [address], [address] RDW SD 55.1(H) 35.7 - 48.1 fL [facility] Comment:Testing performed by : [address], [address] NRBC abs 0.00 0.00 - 0.01 K/cumm [facility] Comment:Testing performed by : [address] [address] Blood 10/14/2024 9:04 AM DECISION SUPPORT MANAGER 10/14/2024 9:06 AM DECISION SUPPORT MANAGER Ysabel Palmer MD LAB BLOOD ORDERABLES Final Result [facility] [address] [facility] Department [place] [address] * (ABNORMAL) Comprehensive metabolic panel (10/14/2024 9:04 AM DECISION SUPPORT MANAGER) Sodium 141 135 - 145 mmol/L Comment:Testing performed by : [address] [address] Potassium, pl 3.9 3.3 - 4.9 mmol/L [facility] Comment:Testing performed by : [address] [address] Chloride 105 97 - 110 mmol/L [facility] Comment:Testing performed by : [address] [address] CO2 23 22 - 32 mmol/L [facility] Comment:Testing performed by : [address] [address] Anion gap 13 2 - 15 mmol/L [facility] Comment:Testing performed by : [address] [address] BUN 22 6 - 25 mg/dL [facility] Comment:Testing performed by : [address] [address] Creatinine 1.30 0.80 - 1.30 mg/dL [facility] Comment:Testing performed by : [address] [address] Glucose 120 70 - 199 mg/dL [facility] Comment: Interpretive [...] was last revised 2022. Testing performed by: [address] [address] Calcium 9.2 8.5 - 10.3 mg/dL [facility] Comment:Testing performed by : [address] [address] Bilirubin, total 0.8 0.1 - 1.2 mg/dL [facility] Comment:Testing performed by : [address] [address] Protein, pl 6.2(L) 6.5 - 8.5 g/dL [facility] Comment:Testing performed by : [address] [address] Albumin 3.1(L) 3.5 - 5.0 g/dL [facility] Comment:Testing performed by : [address] [address] Alk phos 100 40 - 130 Units/L [facility] Comment:Testing performed by : [address] [address] ALT 7 7 - 55 Units/L [facility] Comment:Testing performed by : [address] [address] AST 9(L) 10 - 50 Units/L [facility] Comment:Testing performed by : [address] [address] Blood 10/14/2024 9:04 AM DECISION SUPPORT MANAGER 10/14/2024 9:06 AM DECISION SUPPORT MANAGER us Ysabel Palmer MD LAB BLOOD ORDERABLES Final Result [facility] [address] [facility] Department [place] [address] * eGFR (09/16/2024 8:15 AM DECISION SUPPORT MANAGER) eGFR 80 >=60 mL/min/1. 73 m2 Comment: [...] was last reviewed 2021. Testing performed by: [address] [address] Blood 09/16/2024 8:15 AM DECISION SUPPORT MANAGER 09/16/2024 8:22 AM DECISION SUPPORT MANAGER Ysabel Palmer MD LAB BLOOD ORDERABLES Final Result [facility] [address] [facility] Department [place] [address] * Differential, auto (09/16/2024 8:15 AM DECISION SUPPORT MANAGER) Pathologist [facility] Neutrophil abs 4.4 1.5 - 6.5 K/cumm Comment:Testing performed by : [address] [address] Imm gran abs 0.0 0.0 - 0.1 K/cumm [facility] Comment:Testing performed by : [address] [address] Lymphocyte abs 0.9 0.8 - 3.3 K/cumm [facility] Comment:Testing performed by : [address] [address] Monocyte abs 0.4 0.2 - 0.8 K/cumm [facility] Comment:Testing performed by : [address] [address] Eosinophil abs 0.0 0.0 - 0.5 K/cumm [facility] Comment:Testing performed by : [address] [address] Basophil abs 0.0 0.0 - 0.1 K/cumm [facility] Comment:Testing performed by : [address] [address] Neutrophil pct 77.0 % [facility] Comment: Interpretive Data Percent cell count reference ranges are not reported, since discordance with absolute values may lead to misinterpretation of CBC data. Current Interpretive Data was last revised on 2017. Testing performed by: [address] [address] Imm gran pct 0.7 % [facility] Comment: Interpretive Data Percent cell count reference ranges are not reported, since discordance with absolute values may lead to misinterpretation of CBC data. Current Interpretive Data was last revised on 2017. Testing performed by: [address] [address] Lymphocyte pct 15.0 % [facility] Comment: Interpretive Data Percent cell count reference ranges are not reported, since discordance with absolute values may lead to misinterpretation of CBC data. Current Interpretive Data was last revised on 2017. Testing performed by: [address] [address] Monocyte pct 6.3 % [facility] Comment: Interpretive Data Percent cell count reference ranges are not reported, since discordance with absolute values may lead to misinterpretation of CBC data. Current Interpretive Data was last revised on 2017. Testing performed by: [address] [address] Eosinophil pct 0.5 % [facility] Comment: Interpretive Data Percent cell count reference ranges are not reported, since discordance with absolute values may lead to misinterpretation of CBC data. Current Interpretive Data was last revised on 2017. Testing performed by: [address] [address] Basophil pct 0.5 % [facility] Comment: Interpretive Data Percent cell count reference ranges are not reported, since discordance with absolute values may lead to misinterpretation of CBC data. Current Interpretive Data was last revised on 2017. Testing performed by: [address] [address] Blood 09/16/2024 8:15 AM DECISION SUPPORT MANAGER 09/16/2024 8:22 AM DECISION SUPPORT MANAGER us Ysabel Palmer MD LAB BLOOD ORDERABLES Final Result [facility] [address] [facility] Department [place] [address] * (ABNORMAL) CBC with auto differential (09/16/2024 8:15 AM DECISION SUPPORT MANAGER) WBC 5.7 3.8 - 9.9 K/cumm Comment:Testing performed by : [address] [address] Hgb 9.4(L) 13.0 - 17.5 g/dL [facility] Comment:Testing performed by : [address] [address] Hct 29.4(L) 38.9 - 50.3 % [facility] Comment:Testing performed by : [address] [address] Plt 190 150 - 400 K/cumm [facility] Comment:Testing performed by : [address] [address] MPV 8.4(L) 9.1 - 12.3 fL [facility] Comment:Testing performed by : [address] [address] RBC 3.83(L) 4.30 - 5.80 M/cumm [facility] Comment:Testing performed by : [address] [address] MCV 76.8(L) 81.3 - 96.4 fL [facility] Comment:Testing performed by : [address] [address] MCH 24.5(L) 27.1 - 33.3 pg [facility] Comment:Testing performed by : [address] [address] MCHC 32.0(L) 32.3 - 35.7 g/dL [facility] Comment:Testing performed by : [address] [address] RDW CV 17.3(H) 11.1 - 14.9 % [facility] Comment:Testing performed by : [address] [address] RDW SD 47.6 35.7 - 48.1 fL [facility] Comment:Testing performed by : [address] [address] NRBC abs 0.00 0.00 - 0.01 K/cumm [facility] Comment:Testing performed by : [address] [address] Blood 09/16/2024 8:15 AM DECISION SUPPORT MANAGER 09/16/2024 8:22 AM DECISION SUPPORT MANAGER Ysabel Palmer MD LAB BLOOD ORDERABLES Final Result [facility] [address] [facility] Department of Laboratories [place], [place] [id number] * (ABNORMAL) Comprehensive metabolic panel (09/16/2024 8:15 AM DECISION SUPPORT MANAGER) Sodium 140 135 - 145 mmol/L Comment:Testing performed by : [address] [address] Potassium, pl 3.3 3.3 - 4.9 mmol/L [facility] Comment:Testing performed by : [address] [address] Chloride 104 97 - 110 mmol/L [facility] Comment:Testing performed by : [address] [address] CO2 26 22 - 32 mmol/L [facility] Comment:Testing performed by : [address] [address] Anion gap 10 2 - 15 mmol/L [facility] Comment:Testing performed by : [address] [address] BUN 14 6 - 25 mg/dL [facility] Comment:Testing performed by : [address] [address] Creatinine 1.00 0.80 - 1.30 mg/dL [facility] Comment:Testing performed by : [address] [address] Glucose 105 70 - 199 mg/dL [facility] [...] was last revised 2022. Testing performed by: [address] [address] Calcium 8.7 8.5 - 10.3 mg/dL [facility] Comment:Testing performed by : [address] [address] Bilirubin, total 0.5 0.1 - 1.2 mg/dL [facility] Comment:Testing performed by : [address] [address] Protein, pl 5.8(L) 6.5 - 8.5 g/dL [facility] Comment:Testing performed by : [address] [address] Albumin 2.9(L) 3.5 - 5.0 g/dL [facility] Comment:Testing performed by : [address] [address] Alk phos 85 40 - 130 Units/L [facility] Comment:Testing performed by : [address], [place]., [address] ALT <5(L) 7 - 55 Units/L [facility]USTOS Comment:Testing performed by : [facility], [address] [place] [address]., [address] AST 9(L) 10 - 50 Units/L [facility] BUSTOS Comment:Testing performed by : [facility], [address] [place] [address]., [address] Blood 09/16/2024 8:15 AM DECISION SUPPORT MANAGER 09/16/2024 8:22 AM DECISION SUPPORT MANAGER Ysbael Palmer MD LAB BLOOD ORDERABLES Final Result [facility] [address] [facility] Department [place] [address] * eGFR (09/09/2024 9:29 AM DECISION SUPPORT MANAGER) eGFR 72 >=60 mL/min/1. 73 m2 Comment: [...] was last reviewed 2021. Testing performed by: [address] [address] Blood 09/09/2024 9:29 AM DECISION SUPPORT MANAGER 09/09/2024 9:33 AM DECISION SUPPORT MANAGER us Ysabel Palmer MD LAB BLOOD ORDERABLES Final Result [facility] [address] [facility] Department [place] [address] * Differential, auto (09/09/2024 9:29 AM DECISION SUPPORT MANAGER) Neutrophil abs 3.9 1.5 - 6.5 K/cumm Comment:Testing performed by : [address] [address] Imm gran abs 0.0 0.0 - 0.1 K/cumm [facility] Comment:Testing performed by : [address] [address] Lymphocyte abs 0.9 0.8 - 3.3 K/cumm [facility] Comment:Testing performed by : [address] [address] Monocyte abs 0.3 0.2 - 0.8 K/cumm [facility] Comment:Testing performed by : [address] [address] Eosinophil abs 0.0 0.0 - 0.5 K/cumm [facility] Comment:Testing performed by : [address] [address] Basophil abs 0.0 0.0 - 0.1 K/cumm [facility] Comment:Testing performed by : [address] [address] Neutrophil pct 74.7 % [facility] Comment: Interpretive Data Percent cell count reference ranges are not reported, since discordance with absolute values may lead to misinterpretation of CBC data. Current Interpretive Data was last revised on 2017. Testing performed by: [address] [address] Imm gran pct 0.4 % CATHY Comment: Interpretive Data Percent cell count reference ranges are not reported, since discordance with absolute values may lead to misinterpretation of CBC data. Current Interpretive Data was last revised on 2017. Testing performed by: [address] [address] Lymphocyte pct 17.4 % CATHY Comment: Interpretive Data Percent cell count reference ranges are not reported, since discordance with absolute values may lead to misinterpretation of CBC data. Current Interpretive Data was last revised on 2017. Testing performed by: [address] [address] Monocyte pct 6.3 % CATHY Comment: Interpretive Data Percent cell count reference ranges are not reported, since discordance with absolute values may lead to misinterpretation of CBC data. Current Interpretive Data was last revised on 2017. Testing performed by: [address] [address] Eosinophil pct 0.8 % CATHY Comment: Interpretive Data Percent cell count reference ranges are not reported, since discordance with absolute values may lead to misinterpretation of CBC data. Current Interpretive Data was last revised on 2017. Testing performed by: [address] [address] Basophil pct 0.4 % CATHY Comment: Interpretive Data Percent cell count reference ranges are not reported, since discordance with absolute values may lead to misinterpretation of CBC data. Current Interpretive Data was last revised on 2017. Testing performed by: [address] [address] Blood 09/09/2024 9:2 9 AM DECISION SUPPORT MANAGER 09/09/2024 9:33 AM DECISION SUPPORT MANAGER Ysabel Palmer MD LAB BLOOD ORDERABLES Final Result [facility]MARILUZ [address] [facility] [place] [address] * (ABNORMAL) CBC with auto differential (09/09/2024 9:29 AM DECISION SUPPORT MANAGER) WBC 5.2 3.8 - 9.9 K/cumm Comment:Testing performed by : [address] [address] Hgb 9.4(L) 13.0 - 17.5 g/dL CATHY Comment:Testing performed by : [address], [address] Hct 28.9(L) 38.9 - 50.3 % CATHY Comment:Testing performed by : [address] [address] Plt 199 150 - 400 K/cumm CATHY Comment:Testing performed by : [address] [address] MPV 8.7(L) 9.1 - 12.3 fL CATHY Comment:Testing performed by : [address], [address] RBC 3.77(L) 4.30 - 5.80 M/cumm CATHY Comment:Testing performed by : [address], [address] MCV 76.7(L) 81.3 - 96.4 fL CATHY Comment:Testing performed by : [address], [address] MCH 24.9(L) 27.1 - 33.3 pg CATHY Comment:Testing performed by : [address], [address] MCHC 32.5 32.3 - 35.7 g/dL CATHY Comment:Testing performed by : [address], [address] RDW CV 17.2(H) 11.1 - 14.9 % CATHY Comment:Testing performed by : [address], [address] RDW SD 47.1 35.7 - 48.1 fL CATHY Comment:Testing performed by : [address], [address] NRBC abs 0.00 0.00 - 0.01 K/cumm CATHY Comment:Testing performed by : [address], [address] Blood 09/09/2024 9:29 AM DECISION SUPPORT MANAGER 09/09/2024 9:33 AM DECISION SUPPORT MANAGER Ysabel Palmer MD LAB BLOOD ORDERABLES Final Result Performing Organization Address City/[facility] Co de Phone Number CATHY 45[address] [facility] Department [place] [address] * (ABNORMAL) CEA (09/09/2024 9:29 AM DECISION SUPPORT MANAGER) Pathologist [facility] CEA 6.0(H) <=5.0 ng/mL Comment: Interpretive Data: Reference Range: Non-Smokers: 0.0 5.0 ng/mL Smokers: 0.0 6.5 ng/mL The Derek CEA assay procedure was used. Results from different manufacturers or methods may not be comparable. Serial testing should be performed using the same method. Current interpretive data was last revised 2023. Testing performed by: [address] [address] Blood 09/09/2024 9:29 AM DECISION SUPPORT MANAGER 09/09/2024 1:41 PM DECISION SUPPORT MANAGER Ysabel Palmer MD LAB BLOOD ORDERABLES Final Result Performing Organization Address City/[facility] Co de Phone Number CATHY 8090 [facility] Department [place] [address] * (ABNORMAL) Comprehensive metabolic panel (09/09/2024 9:29 AM DECISION SUPPORT MANAGER) [facility] Sodium 139 135 - 145 mmol/L Comment:Testing performed by : [address] [address] Potassium, pl 3.6 3.3 - 4.9 mmol/L CATHY Comment:Testing performed by : [address] [address] Chloride 104 97 - 110 mmol/L CATHY Comment:Testing performed by : [address] [address] CO2 25 22 - 32 mmol/L CATHY Comment:Testing performed by : [address] [address] Anion gap 10 2 - 15 mmol/L CATHY Comment:Testing performed by : [address] [address] BUN 20 6 - 25 mg/dL [facility] Comment:Testing performed by : [address] [address] Creatinine 1.10 0.80 - 1.30 mg/dL CATHY Comment:Testing performed by : [address] [address] Glucose 109 70 - 199 mg/dL [facility] Comment: Interpretive Data Fasting glucose >/= 126 [...] classification and Diagnosis of Diabetes Diabetes Care 2021; 46: S19-S40. Current interpretive data was last revised 2022. Testing performed by: [address] [address] Calcium 8.6 8.5 - 10.3 mg/dL [facility] Comment:Testing performed by : [address] [address] Bilirubin, total 0.4 0.1 - 1.2 mg/dL [facility] Comment:Testing performed by : [address] [address] Protein, pl 5.8(L) 6.5 - 8.5 g/dL [facility] Comment:Testing performed by : [address] [address] Albumin 3.0(L) 3.5 - 5.0 g/dL [facility] Comment:Testing performed by : [address] [address] Alk phos 72 40 - 130 Units/L CATHY Comment:Testing performed by : [address] [address] ALT <5(L) 7 - 55 Units/L CATHY Comment:Testing performed by : [address] [address] AST 7(L) 10 - 50 Units/L CATHY Comment:Testing performed by : [address] [address] Blood 09/09/2024 9:29 AM DECISION SUPPORT MANAGER 09/09/2024 9:33 AM DECISION SUPPORT MANAGER Ysabel Palmer MD LAB BLOOD ORDERABLES Final Result Performing Organization Address City/[facility]/ZIP Co de Phone Number CATHY [facility] [employer] [place] [address] * eGFR (08/12/2024 12:31 PM DECISION SUPPORT MANAGER) eGFR 72 >=60 mL/min/1. 73 m2 Comment: [...] was last reviewed 2021. Testing performed by: [address] [address] Blood 08/12/2024 12:3 1 PM DECISION SUPPORT MANAGER 08/12/2024 12:35 PM DECISION SUPPORT MANAGER Ysabel Palmer MD LAB BLOOD ORDERABLES Final Result Performing Organization Address City/[facility]/ZIP Co de Phone Number [place] [id number] [facility] [employer] [place] [address] * Differential, auto (08/12/2024 12:31 PM DECISION SUPPORT MANAGER) Neutrophil abs 2.7 1.5 - 6.5 K/cumm Comment:Testing performed by : [address] [address] Imm gran abs 0.0 0.0 - 0.1 K/cumm [facility] Comment:Testing performed by : [address] [address] Lymphocyte abs 1.0 0.8 - 3.3 K/cumm [facility] Comment:Testing performed by : [address] [address] Monocyte abs 0.4 0.2 - 0.8 K/cumm [facility] Comment:Testing performed by : [address] [address] Eosinophil abs 0.1 0.0 - 0.5 K/cumm [facility] Comment:Testing performed by : [address] [address] Basophil abs 0.0 0.0 - 0.1 K/cumm [facility] Comment:Testing performed by : [address] [address] Neutrophil pct 64.1 % [facility] Comment: Interpretive Data Percent cell count reference ranges are not reported, since discordance with absolute values may lead to misinterpretation of CBC data. Current Interpretive Data was last revised on 2017. Testing performed by: [address] [address] Imm gran pct 0.5 % [facility] Comment: Interpretive Data Percent cell count reference ranges are not reported, since discordance with absolute values may lead to misinterpretation of CBC data. Current Interpretive Data was last revised on 2017. Testing performed by: [address] [address] Lymphocyte pct 23.4 % [facility] Comment: Interpretive Data Percent cell count reference ranges are not reported, since discordance with absolute values may lead to misinterpretation of CBC data. Current Interpretive Data was last revised on 2017. Testing performed by: [address] [address] Monocyte pct 9.1 % CATHY Comment: Interpretive Data Percent cell count reference ranges are not reported, since discordance with absolute values may lead to misinterpretation of CBC data. Current Interpretive Data was last revised on 2017. Testing performed by: [address] [address] Eosinophil pct 2.2 % CATHY Comment: Interpretive Data Percent cell count reference ranges are not reported, since discordance with absolute values may lead to misinterpretation of CBC data. Current Interpretive Data was last revised on 2017. Testing performed by: [address] [address] Basophil pct 0.7 % CATHY Comment: Interpretive Data Percent cell count reference ranges are not reported, since discordance with absolute values may lead to misinterpretation of CBC data. Current Interpretive Data was last revised on 2017. Testing performed by: [address] [address] Blood 08/12/2024 12:3 1 PM DECISION SUPPORT MANAGER 08/12/2024 12:35 PM DECISION SUPPORT MANAGER Ysabel Palmer MD LAB BLOOD ORDERABLES Final Result [facility]MARILUZ 0369 [facility] Department of Laboratories [place], [place] [id number] * (ABNORMAL) CBC with auto differential (08/12/2024 12:31 PM DECISION SUPPORT MANAGER) WBC 4.2 3.8 - 9.9 K/cumm Comment:Testing performed by : [address] [address] Hgb 8.8(L) 13.0 - 17.5 g/dL CATHY BUSTOS Comment:Testing performed by : [address] [address] Hct 27.7(L) 38.9 - 50.3 % CATHY BUSTOS Comment:Testing performed by : [address] [address] Plt 230 150 - 400 K/cumm CATHY Comment:Testing performed by : [address] [address] MPV 8.6(L) 9.1 - 12.3 fL CATHY Comment:Testing performed by : [address] [address] RBC 3.58(L) 4.30 - 5.80 M/cumm CATHY Comment:Testing performed by : [address] [address] MCV 77.4(L) 81.3 - 96.4 fL CATHY Comment:Testing performed by : [address] [address] MCH 24.6(L) 27.1 - 33.3 pg CATHY Comment:Testing performed by : [address] [address] MCHC 31.8(L) 32.3 - 35.7 g/dL CATHY Comment:Testing performed by : [address] [address] RDW CV 18.9(H) 11.1 - 14.9 % CATHY Comment:Testing performed by : [address] [address] RDW SD 51.3(H) 35.7 - 48.1 fL CATHY Comment:Testing performed by : [address] [address] NRBC abs 0.00 0.00 - 0.01 K/cumm CATHY Comment:Testing performed by : [address] [address] Blood 08/12/2024 12:3 1 PM DECISION SUPPORT MANAGER 08/12/2024 12:35 PM DECISION SUPPORT MANAGER us Ysabel Palmer MD LAB BLOOD ORDERABLES Final Result CATHY 8610 [facility] Department of Laboratories [place], [place] [id number] * (ABNORMAL) Comprehensive metabolic panel (08/12/2024 12:31 PM DECISION SUPPORT MANAGER) Sodium 138 135 - 145 mmol/L Comment:Testing performed by : [address] [address] Potassium, pl 4.2 3.3 - 4.9 mmol/L CATHY Comment:Testing performed by : [address] [address] Chloride 105 97 - 110 mmol/L [facility] Comment:Testing performed by : [address], [place]., [address] CO2 25 22 - 32 mmol/L CATHY Comment:Testing performed by : [address] [address] Anion gap 8 2 - 15 mmol/L CATHY Comment:Testing performed by : [address] [address] BUN 14 6 - 25 mg/dL [facility] Comment:Testing performed by : [address], [place]., [address] Creatinine 1.10 0.80 - 1.30 mg/dL [facility] Comment:Testing performed by : [address] [address] Glucose 106 70 - 199 mg/dL [facility] Comment: Interpretive Data Fasting glucose >/= 126 [...] was last revised 2022. Testing performed by: [address] [address] Calcium 8.9 8.5 - 10.3 mg/dL CATHY Comment:Testing performed by : [address] [address] Bilirubin, total 0.3 0.1 - 1.2 mg/dL CATHY Comment:Testing performed by : [address] [address] Protein, pl 6.4(L) 6.5 - 8.5 g/dL CATHY Comment:Testing performed by : [address] [address] Albumin 3.1(L) 3.5 - 5.0 g/dL CATHY Comment:Testing performed by : [address] [address] Alk phos 75 40 - 130 Units/L CATHY Comment:Testing performed by : [address] [address] ALT <5(L) 7 - 55 Units/L CATHY Comment:Testing performed by : [address], [address] AST 8(L) 10 - 50 Units/L CATHY Comment:Testing performed by : [address] [address] Blood 08/12/2024 12:3 1 PM DECISION SUPPORT MANAGER 08/12/2024 12:35 PM DECISION SUPPORT MANAGER Ysabel Palmer MD LAB BLOOD ORDERABLES Final Result Performing Organization Address City/State/[facility] Co de Phone Number CATHY 7598 [facility] Department [place] [address] * eGFR (07/29/2024 9:43 AM DECISION SUPPORT MANAGER) eGFR 80 >=60 mL/min/1. 73 m2 Comment: [...] was last reviewed 2021. Testing performed by: [address] [address] Blood 07/29/2024 9:43 AM DECISION SUPPORT MANAGER 07/29/2024 9:45 AM DECISION SUPPORT MANAGER Ysabel Palmer MD LAB BLOOD ORDERABLES Final Result [place] 6785 [facility] Department [place] [address] * Differential, auto (07/29/2024 9:43 AM DECISION SUPPORT MANAGER) Neutrophil abs 3.1 1.5 - 6.5 K/cumm Comment:Testing performed by : [address] [address] Imm gran abs 0.0 0.0 - 0.1 K/cumm CATHY Comment:Testing performed by : [address] [address] Lymphocyte abs 0.9 0.8 - 3.3 K/cumm CATHY Comment:Testing performed by : [address] [address] Monocyte abs 0.3 0.2 - 0.8 K/cumm CATHY Comment:Testing performed by : [address] [address] Eosinophil abs 0.2 0.0 - 0.5 K/cumm CATHY Comment:Testing performed by : [address] [address] Basophil abs 0.1 0.0 - 0.1 K/cumm CATHY Comment:Testing performed by : [address] [address] Neutrophil pct 68.5 % [facility] Comment: Interpretive Data Percent cell count reference ranges are not reported, since discordance with absolute values may lead to misinterpretation of CBC data. Current Interpretive Data was last revised on 2017. Testing performed by: [address] [address] Imm gran pct 0.7 % [facility] Comment: Interpretive Data Percent cell count reference ranges are not reported, since discordance with absolute values may lead to misinterpretation of CBC data. Current Interpretive Data was last revised on 2017. Testing performed by: [address] [address] Lymphocyte pct 19.0 % [facility] Comment: Interpretive Data Percent cell count reference ranges are not reported, since discordance with absolute values may lead to misinterpretation of CBC data. Current Interpretive Data was last revised on 2017. Testing performed by: [address] [address] Monocyte pct 6.0 % [facility] Comment: Interpretive Data Percent cell count reference ranges are not reported, since discordance with absolute values may lead to misinterpretation of CBC data. Current Interpretive Data was last revised on 2017. Testing performed by: [address] [address] Eosinophil pct 4.7 % [facility] Comment: Interpretive Data Percent cell count reference ranges are not reported, since discordance with absolute values may lead to misinterpretation of CBC data. Current Interpretive Data was last revised on 2017. Testing performed by: [address] [address] Basophil pct 1.1 % [facility] Comment: Interpretive Data Percent cell count reference ranges are not reported, since discordance with absolute values may lead to misinterpretation of CBC data. Current Interpretive Data was last revised on 2017. Testing performed by: [address] [address] Blood 07/29/2024 9:43 AM DECISION SUPPORT MANAGER 07/29/2024 9:45 AM DECISION SUPPORT MANAGER us Ysabel Palmer MD LAB BLOOD ORDERABLES Final Result Performing Organization Address City/[facility]/ZIP Co de Phone Number CATHY [facility] [place] [address] * (ABNORMAL) Iron profile w/ IBC (07/29/2024 9:43 AM DECISION SUPPORT MANAGER) Pathologist [facility] Iron 23(L) 50 - 150 mcg/dL Comment:Testing performed by : [address] [address] TIBC 309 250 - 400 mcg/dL CATHY Comment:Testing performed by : [address] [address] Transferrin saturation 7(L) 20 - 50 % CATHY Comment:Testing performed by : [address] [address] Blood 07/29/2024 9:43 AM DECISION SUPPORT MANAGER 07/29/2024 11:29 AM DECISION SUPPORT MANAGER Yasbel Palmer MD LAB BLOOD ORDERABLES Final Result Performing Organization Address City/[facility]/ZIP Co de Phone Number ZULEYMA[address] [place] [address] * (ABNORMAL) CBC with auto differential (07/29/2024 9:43 AM DECISION SUPPORT MANAGER) [facility] WBC 4.5 3.8 - 9.9 K/cumm Comment:Testing performed by : [address] [address] Hgb 8.6(L) 13.0 - 17.5 g/dL CATHY Comment:Testing performed by : [address] [address] Hct 28.1(L) 38.9 - 50.3 % CATHY BUSTOS Comment:Testing performed by : [address] [address] Plt 236 150 - 400 K/cumm CATHY BUSTOS Comment:Testing performed by : [address] [address] MPV 8.7(L) 9.1 - 12.3 fL CATHY Comment:Testing performed by : [address] [address] RBC 3.64(L) 4.30 - 5.80 M/cumm CATHY BUSTOS Comment:Testing performed by : [address] [address] MCV 77.2(L) 81.3 - 96.4 fL CATHY Comment:Testing performed by : [address] [address] MCH 23.6(L) 27.1 - 33.3 pg CATHY Comment:Testing performed by : [address] [address] MCHC 30.6(L) 32.3 - 35.7 g/dL CATHY BUSTOS Comment:Testing performed by : [address] [address] RDW CV 22.5(H) 11.1 - 14.9 % CATHY Comment:Testing performed by : [address], [address] RDW SD 65.7(H) 35.7 - 48.1 fL CATHY Comment:Testing performed by : [address] [address] NRBC abs 0.00 0.00 - 0.01 K/cumm CATHY Comment:Testing performed by : [address] [address] Blood 07/29/2024 9:43 AM DECISION SUPPORT MANAGER 07/29/2024 9:45 AM DECISION SUPPORT MANAGER us Ysabel Palmer MD LAB BLOOD ORDERABLES Final Result CATHY 42[address] [facility] Department of Laboratories [place], [place] [id number] * (ABNORMAL) Ferritin (07/29/2024 9:43 AM DECISION SUPPORT MANAGER) Ferritin 20(L) 30 - 400 ng/mL Comment:Testing performed by : [address] [address] Blood 07/29/2024 9:43 AM DECISION SUPPORT MANAGER 07/29/2024 11:29 AM DECISION SUPPORT MANAGER Ysabel Palmer MD LAB BLOOD ORDERABLES Edited Result - Final Performing Organization Address [facility] Co de Phone Number [address] [place] [address] * (ABNORMAL) CEA (07/29/2024 9:43 AM DECISION SUPPORT MANAGER) CEA 28.7(H) <=5.0 ng/mL Comment: Interpretive Data: Reference Range: Non-Smokers: 0.0 5.0 ng/mL Smokers: 0.0 6.5 ng/mL The Derek CEA assay procedure was used. Results from different manufacturers or methods may not be comparable. Serial testing should be performed using the same method. Current interpretive data was last revised 2023. Testing performed by: [address] [address] Blood 07/29/2024 9:43 AM DECISION SUPPORT MANAGER 07/29/2024 11:29 AM DECISION SUPPORT MANAGER Ysabel Palmer MD LAB BLOOD ORDERABLES Final Result Performing Organization Address [facility] Co de Phone Number [address] [place] [address] * (ABNORMAL) Comprehensive metabolic panel (07/29/2024 9:43 AM DECISION SUPPORT MANAGER) Sodium 139 135 - 145 mmol/L Comment:Testing performed by : [address] [address] Potassium, pl 4.1 3.3 - 4.9 mmol/L CATHY BUSTOS Comment:Testing performed by : [address] [address] Chloride 105 97 - 110 mmol/L CATHY BUSTOS Comment:Testing performed by : [address] [place]., [address] CO2 25 22 - 32 mmol/L CATHY Comment:Testing performed by : [address] [address] Anion gap 9 2 - 15 mmol/L CATHY Comment:Testing performed by : [address] [address] BUN 16 6 - 25 mg/dL CATHY Comment:Testing performed by : [address] [address] Creatinine 1.00 0.80 - 1.30 mg/dL CATHY Comment:Testing performed by : [address] [address] Glucose 108 70 - 199 mg/dL [facility] Comment: Interpretive Data Fasting glucose >/= 126 [...] was last revised 2022. Testing performed by: [address] [address] Calcium 9.2 8.5 - 10.3 mg/dL CATHY Comment:Testing performed by : [address] [address] Bilirubin, total 0.3 0.1 - 1.2 mg/dL [facility] Comment:Testing performed by : [address] [address] Protein, pl 6.5 6.5 - 8.5 g/dL CATHY Comment:Testing performed by : [address] [address] Albumin 3.4(L) 3.5 - 5.0 g/dL CATHY Comment:Testing performed by : [address] [address] Alk phos 72 40 - 130 Units/L CATHY BUSTOS Comment:Testing performed by : [facility], [address] [place] [address]., [address] ALT 5(L) 7 - 55 Units/L CATHY BUSTOS Comment:Testing performed by : [facility], [address] [place] [address]., [address] AST 9(L) 10 - 50 Units/L CATHY BUSTOS Comment:Testing performed by : [address] [address] Blood 07/29/2024 9:43 AM DECISION SUPPORT MANAGER 07/29/2024 9:45 AM DECISION SUPPORT MANAGER us Ysabel Palmer MD LAB BLOOD ORDERABLES Final Result CATHY [facility] [place] [address] * RAD ONC ARIA SESSION SUMMARY (07/25/2024 3:07 PM DECISION SUPPORT MANAGER) Course Name C1_Rectum_2 024 ARIA Course Plan Date 07/14/2024 11:19 AM ARIA Elapsed Days 4 ARIA Treatment Start Date 07/21/2024 ARIA Treatment Site RECTUM_2500 ARIA Dose Given To Date (cGy) 2,500 ARIA Session Dosage Given (cGy) 500 ARIA Plan ID RECTUM ARIA Fractions Treated 5 ARIA Prescribed Dose Per Fraction (cGy) 500 ARIA Prescribed Total Dose (cGy) 2,500 ARIA 07/25/2024 3:07 PM DECISION SUPPORT MANAGER us Not In File Miscellaneous RADIATION ONCOLOGY ORD ERABLES Final Result ARIA * RAD ONC ARIA SESSION SUMMARY (07/24/2024 2:19 PM DECISION SUPPORT MANAGER) Course Name [id number]_2 024 ARIA Course Plan Date 07/14/2024 11:19 AM ARIA Elapsed Days 3 ARIA Treatment Start Date 07/21/2024 ARIA Treatment Site RECTUM_2500 ARIA Dose Given To Date (cGy) 2,000 ARIA Session Dosage Given (cGy) 500 ARIA Plan ID RECTUM ARIA Fractions Treated 4 ARIA Prescribed Dose Per Fraction (cGy) 500 ARIA Prescribed Total Dose (cGy) 2,500 ARIA 07/24/2024 2:19 PM DECISION SUPPORT MANAGER us Not In File Miscellaneous RADIATION ONCOLOGY ORD ERABLES Final Result Performing Organization Address City/[facility] Co de Phone Number ILANA * RAD ONC ARIA SESSION SUMMARY (07/23/2024 2:30 PM DECISION SUPPORT MANAGER) Course Name C1_Rectum_2 024 ARIA Course Plan Date 07/14/2024 11:19 AM ARIA Elapsed Days 2 ARIA Treatment Start Date 07/21/2024 ARIA Treatment Site RECTUM_2500 ARIA Dose Given To Date (cGy) 1,500 ARIA Session Dosage Given (cGy) 500 ARIA Plan ID RECTUM ARIA Fractions Treated 3 ARIA Prescribed Dose Per Fraction (cGy) 500 ARIA Prescribed Total Dose (cGy) 2,500 ARIA 07/23/2024 2:30 PM DECISION SUPPORT MANAGER us Not In File Miscellaneous RADIATION ONCOLOGY ORD ERABLES Final Result Performing Organization Address [facility] de Phone Number ARIGala * RAD ONC ARIA SESSION SUMMARY (07/22/2024 2:52 PM DECISION SUPPORT MANAGER) Course Name C1_Rectum_2 024 ARIA Course Plan Date 07/14/2024 11:19 AM ARIA Elapsed Days 1 ARIA Treatment Start Date 07/21/2024 ARIA Treatment Site RECTUM_2500 ARIA Dose Given To Date (cGy) 1,000 ARIA Session Dosage Given (cGy) 500 ARIA Plan ID RECTUM ARIA Fractions Treated 2 ARIA Prescribed Dose Per Fraction (cGy) 500 ARIA Prescribed Total Dose (cGy) 2,500 ARIA 07/22/2024 2:52 PM DECISION SUPPORT MANAGER us Not In File Miscellaneous RADIATION ONCOLOGY ORD ERABLES Final Result Performing Organization Address City/State/[facility] Co de Phone Number AILEENA * RAD ONC ARIA SESSION SUMMARY (07/21/2024 2:15 PM DECISION SUPPORT MANAGER) Course Name [id number] ARIA Course Plan Date 07/14/2024 11:19 AM ARIA Elapsed Days 0 ARIA Treatment Start Date 07/21/2024 ARIA Treatment Site [id number]_2500 ARIA Dose Given To Date (cGy) 500 ARIA Session Dosage Given (cGy) 500 ARIA Plan ID RECTUM ARIA Fractions Treated 1 ARIA Prescribed Dose Per Fraction (cGy) 500 ARIA Prescribed Total Dose (cGy) 2,500 ARIA 07/21/2024 2:15 PM DECISION SUPPORT MANAGER us Not In File Miscellaneous RADIATION ONCOLOGY ORD ERABLES Final Result Performing Organization Address [facility] Co de Phone Number ILANA from Last 3 Months Insurance MEDICARE [facility] MEDICARE [facility] Care Teams Plant Care Worker Relationship Specialty Start Date End Date Michael Resendiz MD PCP - General 06/18/17 Ritchie Razo MD [phone] [place] [address] Surgeon Colon and Rectal Surgery 06/17/24 Ysabel Palmer MD [address] [facility], [address] [address] Medical Oncologist/Leather Production Machine Operator Medical Oncology 06/24/24
--- OUTSIDE RECORDS SUMMARY | 2024-10-19 15:37 | XMS_ITS | Referral Summary ---
Author Organization [facility] Address [address] [place] [address] Care Team Providers Care Fruit Rancher Name Role Phone Unavailable Primary Care Provider Unavailabl e Source Comments [facility],non-owned Affiliates and Associated Physician Practices is amultiple site organization consisting of ambulatory clinics and hospital sitesin [place], [place], [place] and [place]. This disclosure is being madepursuant to the Care Everywhere program and may not contain all information available regarding this patient. Last updated 18.[facility] Social History Tobacco Use Types Packs/Day Years Used Date Smoking Tobacco: Never Assessed Sex and Gender Information Value Date Recorded Sex Assigned at Not on file Gender Identity Not on file Sexual Orientation Not on file Plan of Treatment Not on file
--- OUTSIDE RECORDS SUMMARY | 2024-10-19 15:37 | XMS_ITS | Patient Health Summary ---
Author Organization [facility] Address [address] [place] [address] Care Team Providers Care Certified Medical Assistant Name Role Phone Unavailable Primary Care Provider Unavailabl e Note from [facility],non-owned Affiliates and Associated Physician Practices is amultiple site organization consisting of ambulatory clinics and hospital sitesin [place], [place], [place] and [place]. This disclosure is being madepursuant to the Care Everywhere program and may not contain all informatio navailable regarding this patient. Last updated 18.[facility] Social History Tobacco Use Types Packs/Day Years Used Date Smoking Tobacco: Never Assessed Sex and Gender Information Value Date Recorded Sex Assigned at Not on file Gender Identity Not on file Sexual Orientation Not on file Procedures * GROSS + MICRO EXAM(Performed 10/11/2004) * GROSS + MICRO EXAM(Performed 05/03/2004) Results * GROSS + MICRO EXAM (10/11/2004 10:30 AM RIVET HAMMER MACHINE OPERATOR) Only the most recent of2 resultswithin the time period is included. Result CASE NUMBER [id number] Comment: ORDERING PHYSICIAN MILDRED BENDER SPECIMEN TYPE Shoulder Shavings DATE OF PROCEDURE 10/11/2004 SPECIMEN LABELED Shavings, left shoulder PRE-OP DIAGNOSIS Frozen left shoulder GROSS DESCRIPTION GROSS DESCRIPTION The specimen is in a container of formalin labeled shavings, left shoulder patient Kyle Resendiz, and consists of a black mesh and a sponge with the entrapped 7 grams, up to 7 mm, white, yellow and mauve colored articular shavings. A portion is submitted in one cassette for decal. Dictated by Fernnado Sunshine M.D. MICROSCOPIC DESCRIPTION Microscopic examination confirms the below captioned diagnosis. DIAGNOSIS Soft tissue, left shoulder, arthroscopic shavings mild degenerative changes Dictated by Jackelyn Gutiérrez M.D. Site Superintendent SHANE DERAS Electronically Signed By JACKELYN GUTIÉRREZ MISCELLANEOUS SAMPLES / Unknown 10/11/2004 10:30 AM RIVET HAMMER MACHINE OPERATOR 10/11/2004 4:01 PM RIVET HAMMER MACHINE OPERATOR Historical Provider LAB - PATHOLOGY/C YTOLOGY ORDERABLES
--- NOTE | 2024-10-19 15:58 | ECG_ITS ---
Test Date: 2024-10-19 16:07:23 Measurements Intervals Holly Rate: 131 P: 81 IL: 131 QRS: 85 QRSD: 125 T: -42 QT: 333 QTc: 493 Interpretive Statements SINUS TACHYCARDIA POSSIBLE RIGHT VENTRICULAR CONDUCTION DELAY [RSR (QR) IN V1/V2] ST DEPRESSION, CONSIDER SUBENDOCARDIAL INJURY [0.1+ mV ST DEPRESSION] No previous ECG available for comparison Electronically Signed On 10-20-2024 11:19:01 CDT by Art Ace M.D.
--- NOTE | 2024-10-19 16:14 | PC.NURSE ---
jennifer MAGAÑA let EDP Dr. Catalan know of the pt low blood pressure. EDP gave a verbal order for 2L of lactated ringers
[2024-10-19 16:16] LABS: Basophils Percent Auto 0.3 % (0.2-1.2); Eosinophils Absolute Auto 0.1 K/mm3 (0-0.3); Eosinophils Percent Auto 0.4 % (0-4.4); Hematocrit 30.1 % (42.0-52.0); Hemoglobin 9.2 g/dL (14.0-18.0); Immature Granulocyte Absolute 0.09 K/mm3 (0.00-0.031); Immature Granulocyte Percent A 0.7 % (0-0.5); Lymphocytes Percent Auto 5.2 % (18.3-44.2); Mean Corpuscular HGB Conc 30.6 g/dl (32-36); Mean Corpuscular Hemoglobin 25.8 pg (26-34); Mean Corpuscular Volume 84.6 fl (80-100); Monocytes Absolute Auto 0.1 K/mm3 (0.1-0.6); Monocytes Percent Auto 0.7 % (2.6-8.5); Neutrophils Absolute Auto 12.6 K/mm3 (1.3-6.7); Neutrophils Percent Auto 92.7 % (45.5-73.1); Platelet Count Result 154 k/mm3 (150-375); Red Blood Count 3.56 M/mm3 (4.6-6.20); White Blood Count 13.6 K/mm3 (4.5-10.0)
[2024-10-19] MEDS: LACTATED RINGERS 1,000 ML 999 ML IV CONT ×3 (16:16→19:49)
[2024-10-19] MEDS: ACETAMINOPHEN 500 MG TABLET 1000 MG PO (16:19)
--- NOTE | 2024-10-19 16:22 | ED.WEAKNESS ---
HPI - Weakness General Chief complaint: Weakness Stated complaint: Weakness and shortness of breath Time Seen by Provider: 10/19/24 16:05 History of Present Illness HPI Narrative: 69-year-old male with a past medical history including recently diagnosed rectal cancer at the end of last year status post initiation of radiation therapy now currently on maintenance chemotherapy every 2 weeks. His last infusion was 2 weeks prior. He normally sees a doctor at [facility] but has also been seen by Dr. Garcia at this facility. Today patient presents to the emergency department with a general complaint of malaise, weakness, tremors and shakiness. Not eating or drinking with decreased oral intake. Denies any nauseousness or vomiting but states that he is having some diarrhea. He has a family member that he is present with with symptoms of gastroenteritis also being seen as a patient. Patient denies any fever but states that he feels profoundly cold and chilly at home. Endorses feeling dehydrated. No chest pain shortness a breath. No headache or vision changes. No abdominal pain or back pain. Related Data Home Medications ?Medication ?Instructions ?Recorded ?Confirmed ?Last Taken ?Type amlodipine 5 mg tablet 5 mg PO DAILY 05/28/24 05/30/24 05/30/24 History aspirin 81 mg capsule 81 mg PO DAILY 05/28/24 05/30/24 05/29/24 History hydrochlorothiazide 12.5 mg tablet 12.5 mg PO DAILY 05/28/24 05/30/24 05/29/24 History metoprolol succinate 100 mg 100 mg PO DAILY 05/28/24 05/30/24 05/30/24 History tablet,extended release 24 hr Allergies Allergy/AdvReac Type Severity Reaction Status Date / Time No Known Allergies Allergy Verified 10/19/24 15:35 Review of Systems Review of Systems: As reviewed above in HPI PMFSH Past Medical History Medical History Colon cancer Bowel habit changes Weight loss Iron deficiency anemia HTN (hypertension) Surgical History Surgical History History of shoulder surgery Social History Social History Smoking packs per day: 1.5 Smoking cigarettes per day: 30.0 Years smoked: 10 Smoking pack-years: 15.00 Smoking status: Former smoker Tobacco type: cigarettes Alcohol intake: current Substance use: never Substance use type: does not use Living arrangements: with family Spiritual care concerns: No Exam Narrative: GENERAL: Ill-appearing, dehydrated, thin and frail, cachectic HEAD: Cachectic but normocephalic otherwise, atraumatic EYES: [PERRLA and EOMI.] conjunctival pallor bilaterally ENT: Nares clear, no rhinorrhea or epistaxis. Mucous membranes dry. NECK: Supple. CHEST: [Clear to auscultation. No respiratory distress.] HEART: [Regular rate and rhythm]. No murmur heard. [Normal peripheral pulses.] ABDOMEN: Scaphoid abdomen, nontender, soft, [nontender], [No rigidity or guarding] EXTREMITIES: Normal range of motion. [No edema.] SKIN: Warm, dry, no rash. NEURO: [No focal deficits]. Alert and oriented [x3.] PSYCH: [Normal mood and affect.] Course Vital Signs Vital signs: Vital Signs Temperature 36.6 C 10/19/24 15:54 Pulse Rate 135 H 10/19/24 15:54 Blood Pressure 116/83 10/19/24 15:54 Pulse Oximetry 98 10/19/24 15:54 Temperature 37.9 C H 10/19/24 17:45 Pulse Rate 91 10/19/24 19:19 Respiratory Rate 20 10/19/24 19:19 Blood Pressure 126/69 10/19/24 19:19 Pulse Oximetry 100 10/19/24 19:19 Oxygen Delivery Room Air 10/19/24 16:26 Procedures Central Line Placement Right Femoral: Central Line Date: 10/19/24 Central Line Time: 19:54 Discussed w/ the patient/family/POA,the placement of a central venous catheter, including its clinical necessity/indication & associated potential risks, benifits and alternatives.: Yes The patient/family/POA understand(s) and acknowledge(s) the need to proceed with central venous catheter insertion as an important element of the patient's clinical management.: Yes Time Out Performed: Yes Patient Placed on Monitor/Pulse Ox: Yes Max. Sterile Barrier Technique: Caps, large sterile sheet and hand hygiene Central Line Prep: 2% chlorhexidine scrub and sterile drapes applied Technique: US-Guided Local Anesthetic: lidocaine 1% Amount of anesthesia used (mL): 5 Ultrasound Used for Placement: Yes Central Line Lumen Inserted: triple Post Procedure: sutured in place, good blood return, all ports aspirated, flushed, capped and sterile dressing applied Patient Tolerated Procedure: well and no complications Complications: none MDM - Weakness MDM Narrative Medical decision making narrative: 69-year-old male with a history of rectal cancer currently being treated with chemotherapy once every 2 weeks. He presents to the ED with complaints of generalized malaise, weakness, decreased oral intake. He states the last time he felt like this he needed a blood transfusion for significant anemia. That is how they discovered his rectal cancer according to the patient. Patient is profoundly hypotensive, tachycardic and febrile here. He is saturating 100% room air and not tachypneic. Suspicion for sepsis raised given his vital anomalies and fever. Source unclear at this time but could be gastroenterological given his diarrheal illness recently versus pneumonia versus UTI. Profound anemia verses electrolyte disturbances also likely. Low suspicion ACS. Workup ordered including septic bundle, 30 cc/kg bolus of lactated Ringer's initiated totaling approximately 2 L. He was started empirically on vancomycin, cefepime, blood cultures were drawn, CBC, CMP, lactic acid, CRP, troponin, chest x-ray, urinalysis ordered. Patient was placed on monitor and storage bin tender and pulse oximetry and frequent re-evaluated. Initial blood pressure 81/54, heart rate 135. Febrile at 37.9 requiring 1 g of Tylenol p.o.. Patient was re-evaluated after initial 2 L fluid bolus and had improvement his vitals. His tachycardia has resolved down to the 80s to 90s. Blood pressure improved into the low 100 systolic. He felt significantly improved after fluids. Workup revealed a leukocytosis of 13.6, anemia of 9.2 not requiring transfusion. Normal platelet count. Elevated lactic acid 9.2 with significant anion gap elevated acidosis as well likely secondary to the lactate. BUN and creatinine elevated secondary to volume depletion and dehydration. Normal glucose, mildly elevated CMP with total bili 1.4 and alk-phos 189. Troponin are elevated 0.085 likely demand ischemia from his tachycardia as a down trended to 0.076 on repeat after fluid boluses. EKG shows some rate dependent looking ST segment depressions which resolved upon repeat EKG. C-reactive protein elevated at 17.5. Urinalysis without any infection. Patient tested negative for COVID flu and RSV. Chest x-ray was negative for pneumonia. CTA of the chest shows nonocclusive segmental pulmonary embolism in the right upper lobe, distal right internal artery, right segmental lower lobe. Low clot burden with a normal RV to LV ratio. Small left-sided pleural effusion. Patient CT abdomen pelvis shows a large perirectal abscess of 4.8 x 3.2 x 9.0 cm as well as some ureteral stranding without any obvious signs of infection. Urinalysis shows no signs of cystitis. CT scan also shows some distal sigmoid wall thickening secondary to likely post therapeutic combination of treatment for his rectal cancer. I discussed these case findings with the general surgeon on-call Dr. Nguyen especially regarding his perirectal abscess which is likely the source of the sepsis. Recommendations are to start him on heparin for the pulmonary embolism and to further resuscitated with additional fluids antibiotics and then make the patient NPO for potential operative intervention. Given patient's significant comorbidities and sepsis with multiple PEs, intra-abdominal abscess, elevated troponin I believe he requires higher level of care and ICU admission at this time. I discussed the case with the human resources executive assistant Dr. Sandoval who accepted the patient to the intensive care unit. Recommendations to add coverage for anaerobes given his intra-abdominal abscess so Flagyl was ordered as well. Heparin drip was started and a bolus was ordered. Discussed the case with the hospitalist Service ANDRE Silva who accepted the patient to the ICU as well. Patient was made aware of the course and plan for admission to the intensive care unit at this time. Central venous catheter was placed without complication. Patient is stable for admission to the ICU at this time. Medical Records Attestation: I reviewed the patient's medical records. Lab Data Attestation: I reviewed the patient's lab results. 10/19/24 16:10 10/19/24 16:10 Labs: Lab Results 10/19/24 10/19/24 10/19/24 Range/Units 16:10 16:10 16:10 WBC 13.6 H (4.5-10.0) K/mm3 RBC 3.56 L (4.6-6.20) M/mm3 Hgb 9.2 L (14.0-18.0) g/dL Hct 30.1 L (42.0-52.0) % MCV 84.6 (80-100) fl MCH 25.8 L (26-34) pg MCHC 30.6 L (32-36) g/dl RDW 21.0 H (11.5-14.5) % Plt Count 154 (150-375) k/mm3 MPV 10.0 (7.4-10.4) fl Immature Gran % (Auto) 0.7 H (0-0.5) % Neut % (Auto) 92.7 H (45.5-73.1) % Lymph % (Auto) 5.2 L (18.3-44.2) % Collin % (Auto) 0.7 L (2.6-8.5) % Eos % (Auto) 0.4 (0-4.4) % Baso % (Auto) 0.3 (0.2-1.2) % Lymph # (Auto) 0.70 L (0.9-3.2) K/mm3 [place]lin # (Auto) 0.1 (0.1-0.6) K/mm3 Eos # (Auto) 0.1 (0-0.3) K/mm3 Baso # (Auto) 0.0 (0.0-0.1) K/mm3 Abs Immat Gran (auto) 0.09 H (0.00-0.031) K/mm3 Absolute Neuts (auto) 12.6 H (1.3-6.7) K/mm3 Absolute Nucleated RBC 0.000 (0.0-0.012) K/mm3 Nucleated RBC % 0.0 (0.0-0.2) % PT 17.2 H (11.1-14.7) Seconds INR 1.4 APTT 33.5 (22.3-36.8) Seconds Sodium Cancelled 140 Potassium Cancelled 4.2 Chloride Cancelled Carbon Dioxide Anion Gap BUN Creatinine Estim Creat Clear Calc Estimated GFR Glucose Lactic Acid (0.7-2.0) mmol/L Calcium Total Bilirubin AST ALT Alkaline Phosphatase Troponin I (0.000-0.034) ng/mL C-Reactive Protein (<1.0) mg/dL Total Protein Albumin Urine Color (Yellow) Urine Appearance (Clear) Urine pH (5.0-9.0) Ur Specific [place] (1.001-1.035) Urine Protein (Negative) mg/dL Urine Glucose (UA) (Negative) mg/dL Urine Ketones (Negative) mg/dL Ur Blood (Man) (Negative) Urine Nitrate (Negative) Urine Bilirubin (Negative) Urine Urobilinogen (<2.0) mg/dL Add Ur Microanalysis Leukocyte Esterase Rfl (Negative) MITCH/UL Urine RBC (0-2) /hpf Urine WBC (0-3) /hpf Ur Squamous Epith Cells (Few) /hpf Urine Bacteria /hpf Urine Casts Nasal MRSA (PCR) (NOT DETECTE) Influenza A (RT-PCR) (Negative) Influenza B (RT-PCR) (Negative) RSV (RT-PCR) (Negative) SARS-CoV-2 RNA (RT-PCR) (Negative) 10/19/24 10/19/24 10/19/24 Range/Units 16:10 16:10 16:10 WBC (4.5-10.0) K/mm3 RBC (4.6-6.20) M/mm3 Hgb (14.0-18.0) g/dL Hct (42.0-52.0) % MCV (80-100) fl MCH (26-34) pg MCHC (32-36) g/dl RDW (11.5-14.5) % Plt Count (150-375) k/mm3 MPV (7.4-10.4) fl Immature Gran % (Auto) (0-0.5) % Neut % (Auto) (45.5-73.1) % Lymph % (Auto) (18.3-44.2) % Collin % (Auto) (2.6-8.5) % Eos % (Auto) (0-4.4) % Baso % (Auto) (0.2-1.2) % Lymph # (Auto) (0.9-3.2) K/mm3 [place]lin # (Auto) (0.1-0.6) K/mm3 Eos # (Auto) (0-0.3) K/mm3 Baso # (Auto) (0.0-0.1) K/mm3 Abs Immat Gran (auto) (0.00-0.031) K/mm3 Absolute Neuts (auto) (1.3-6.7) K/mm3 Absolute Nucleated RBC (0.0-0.012) K/mm3 Nucleated RBC % (0.0-0.2) % PT (11.1-14.7) Seconds INR APTT (22.3-36.8) Seconds Sodium Potassium Chloride 107 Carbon Dioxide Cancelled 15 L Anion Gap Cancelled 18 H BUN Cancelled Creatinine Estim Creat Clear Calc Estimated GFR Glucose Lactic Acid (0.7-2.0) mmol/L Calcium Total Bilirubin AST ALT Alkaline Phosphatase Troponin I (0.000-0.034) ng/mL C-Reactive Protein (<1.0) mg/dL Total Protein Albumin Urine Color (Yellow) Urine Appearance (Clear) Urine pH (5.0-9.0) Ur Specific [place] (1.001-1.035) Urine Protein (Negative) mg/dL Urine Glucose (UA) (Negative) mg/dL Urine Ketones (Negative) mg/dL Ur Blood (Man) (Negative) Urine Nitrate (Negative) Urine Bilirubin (Negative) Urine Urobilinogen (<2.0) mg/dL Add Ur Microanalysis Leukocyte Esterase Rfl (Negative) MITCH/UL Urine RBC (0-2) /hpf Urine WBC (0-3) /hpf Ur Squamous Epith Cells (Few) /hpf Urine Bacteria /hpf Urine Casts Nasal MRSA (PCR) (NOT DETECTE) Influenza A (RT-PCR) (Negative) Influenza B (RT-PCR) (Negative) RSV (RT-PCR) (Negative) SARS-CoV-2 RNA (RT-PCR) (Negative) 10/19/24 10/19/24 10/19/24 Range/Units 16:10 16:10 16:10 WBC (4.5-10.0) K/mm3 RBC (4.6-6.20) M/mm3 Hgb (14.0-18.0) g/dL Hct (42.0-52.0) % MCV (80-100) fl MCH (26-34) pg MCHC (32-36) g/dl RDW (11.5-14.5) % Plt Count (150-375) k/mm3 MPV (7.4-10.4) fl Immature Gran % (Auto) (0-0.5) % Neut % (Auto) (45.5-73.1) % Lymph % (Auto) (18.3-44.2) % [place]lin % (Auto) (2.6-8.5) % Eos % (Auto) (0-4.4) % Baso % (Auto) (0.2-1.2) % Lymph # (Auto) (0.9-3.2) K/mm3 [place]lin # (Auto) (0.1-0.6) K/mm3 Eos # (Auto) (0-0.3) K/mm3 Baso # (Auto) (0.0-0.1) K/mm3 Abs Immat Gran (auto) (0.00-0.031) K/mm3 Absolute Neuts (auto) (1.3-6.7) K/mm3 Absolute Nucleated RBC (0.0-0.012) K/mm3 Nucleated RBC % (0.0-0.2) % PT (11.1-14.7) Seconds INR APTT (22.3-36.8) Seconds Sodium Potassium Chloride Carbon Dioxide Anion Gap BUN 23 H Creatinine Cancelled 1.38 H Estim Creat Clear Calc Cancelled 41 Estimated GFR Cancelled Glucose Lactic Acid (0.7-2.0) mmol/L Calcium Total Bilirubin AST ALT Alkaline Phosphatase Troponin I (0.000-0.034) ng/mL C-Reactive Protein (<1.0) mg/dL Total Protein Albumin Urine Color (Yellow) Urine Appearance (Clear) Urine pH (5.0-9.0) Ur Specific [place] (1.001-1.035) Urine Protein (Negative) mg/dL Urine Glucose (UA) (Negative) mg/dL Urine Ketones (Negative) mg/dL Ur Blood (Man) (Negative) Urine Nitrate (Negative) Urine Bilirubin (Negative) Urine Urobilinogen (<2.0) mg/dL Add Ur Microanalysis Leukocyte Esterase Rfl (Negative) MITCH/UL Urine RBC (0-2) /hpf Urine WBC (0-3) /hpf Ur Squamous Epith Cells (Few) /hpf Urine Bacteria /hpf Urine Casts Nasal MRSA (PCR) (NOT DETECTE) Influenza A (RT-PCR) (Negative) Influenza B (RT-PCR) (Negative) RSV (RT-PCR) (Negative) SARS-CoV-2 RNA (RT-PCR) (Negative) 10/19/24 10/19/24 10/19/24 Range/Units 16:10 16:10 16:10 WBC (4.5-10.0) K/mm3 RBC (4.6-6.20) M/mm3 Hgb (14.0-18.0) g/dL Hct (42.0-52.0) % MCV (80-100) fl MCH (26-34) pg MCHC (32-36) g/dl RDW (11.5-14.5) % Plt Count (150-375) k/mm3 MPV (7.4-10.4) fl Immature Gran % (Auto) (0-0.5) % Neut % (Auto) (45.5-73.1) % Lymph % (Auto) (18.3-44.2) % [place] % (Auto) (2.6-8.5) % Eos % (Auto) (0-4.4) % Baso % (Auto) (0.2-1.2) % Lymph # (Auto) (0.9-3.2) K/mm3 [place]lin # (Auto) (0.1-0.6) K/mm3 Eos # (Auto) (0-0.3) K/mm3 Baso # (Auto) (0.0-0.1) K/mm3 Abs Immat Gran (auto) (0.00-0.031) K/mm3 Absolute Neuts (auto) (1.3-6.7) K/mm3 Absolute Nucleated RBC (0.0-0.012) K/mm3 Nucleated RBC % (0.0-0.2) % PT (11.1-14.7) Seconds INR APTT (22.3-36.8) Seconds Sodium Potassium Chloride Carbon Dioxide Anion Gap BUN Creatinine Estim Creat Clear Calc Estimated GFR 51 L Glucose Cancelled 112 H Lactic Acid (0.7-2.0) mmol/L Calcium Cancelled 8.8 Total Bilirubin Cancelled AST ALT Alkaline Phosphatase Troponin I (0.000-0.034) ng/mL C-Reactive Protein (<1.0) mg/dL Total Protein Albumin Urine Color (Yellow) Urine Appearance (Clear) Urine pH (5.0-9.0) Ur Specific [place] (1.001-1.035) Urine Protein (Negative) mg/dL Urine Glucose (UA) (Negative) mg/dL Urine Ketones (Negative) mg/dL Ur Blood (Man) (Negative) Urine Nitrate (Negative) Urine Bilirubin (Negative) Urine Urobilinogen (<2.0) mg/dL Add Ur Microanalysis Leukocyte Esterase Rfl (Negative) MITCH/UL Urine RBC (0-2) /hpf Urine WBC (0-3) /hpf Ur Squamous Epith Cells (Few) /hpf Urine Bacteria /hpf Urine Casts Nasal MRSA (PCR) (NOT DETECTE) Influenza A (RT-PCR) (Negative) Influenza B (RT-PCR) (Negative) RSV (RT-PCR) (Negative) SARS-CoV-2 RNA (RT-PCR) (Negative) 10/19/24 10/19/24 10/19/24 Range/Units 16:10 16:10 16:10 WBC (4.5-10.0) K/mm3 RBC (4.6-6.20) M/mm3 Hgb (14.0-18.0) g/dL Hct (42.0-52.0) % MCV (80-100) fl MCH (26-34) pg MCHC (32-36) g/dl RDW (11.5-14.5) % Plt Count (150-375) k/mm3 MPV (7.4-10.4) fl Immature Gran % (Auto) (0-0.5) % Neut % (Auto) (45.5-73.1) % Lymph % (Auto) (18.3-44.2) % [place] % (Auto) (2.6-8.5) % Eos % (Auto) (0-4.4) % Baso % (Auto) (0.2-1.2) % Lymph # (Auto) (0.9-3.2) K/mm3 [place] # (Auto) (0.1-0.6) K/mm3 Eos # (Auto) (0-0.3) K/mm3 Baso # (Auto) (0.0-0.1) K/mm3 Abs Immat Gran (auto) (0.00-0.031) K/mm3 Absolute Neuts (auto) (1.3-6.7) K/mm3 Absolute Nucleated RBC (0.0-0.012) K/mm3 Nucleated RBC % (0.0-0.2) % PT (11.1-14.7) Seconds INR APTT (22.3-36.8) Seconds Sodium Potassium Chloride Carbon Dioxide Anion Gap BUN Creatinine Estim Creat Clear Calc Estimated GFR Glucose Lactic Acid (0.7-2.0) mmol/L Calcium Total Bilirubin 1.4 H AST Cancelled 18 ALT Cancelled 22 Alkaline Phosphatase Cancelled Troponin I (0.000-0.034) ng/mL C-Reactive Protein (<1.0) mg/dL Total Protein Albumin Urine Color (Yellow) Urine Appearance (Clear) Urine pH (5.0-9.0) Ur Specific [place] (1.001-1.035) Urine Protein (Negative) mg/dL Urine Glucose (UA) (Negative) mg/dL Urine Ketones (Negative) mg/dL Ur Blood (Man) (Negative) Urine Nitrate (Negative) Urine Bilirubin (Negative) Urine Urobilinogen (<2.0) mg/dL Add Ur Microanalysis Leukocyte Esterase Rfl (Negative) MITCH/UL Urine RBC (0-2) /hpf Urine WBC (0-3) /hpf Ur Squamous Epith Cells (Few) /hpf Urine Bacteria /hpf Urine Casts Nasal MRSA (PCR) (NOT DETECTE) Influenza A (RT-PCR) (Negative) Influenza B (RT-PCR) (Negative) RSV (RT-PCR) (Negative) SARS-CoV-2 RNA (RT-PCR) (Negative) 10/19/24 10/19/24 10/19/24 Range/Units 16:10 16:10 16:10 WBC (4.5-10.0) K/mm3 RBC (4.6-6.20) M/mm3 Hgb (14.0-18.0) g/dL Hct (42.0-52.0) % MCV (80-100) fl MCH (26-34) pg MCHC (32-36) g/dl RDW (11.5-14.5) % Plt Count (150-375) k/mm3 MPV (7.4-10.4) fl Immature Gran % (Auto) (0-0.5) % Neut % (Auto) (45.5-73.1) % Lymph % (Auto) (18.3-44.2) % [place] % (Auto) (2.6-8.5) % Eos % (Auto) (0-4.4) % Baso % (Auto) (0.2-1.2) % Lymph # (Auto) (0.9-3.2) K/mm3 [place] # (Auto) (0.1-0.6) K/mm3 Eos # (Auto) (0-0.3) K/mm3 Baso # (Auto) (0.0-0.1) K/mm3 Abs Immat Gran (auto) (0.00-0.031) K/mm3 Absolute Neuts (auto) (1.3-6.7) K/mm3 Absolute Nucleated RBC (0.0-0.012) K/mm3 Nucleated RBC % (0.0-0.2) % PT (11.1-14.7) Seconds INR APTT (22.3-36.8) Seconds Sodium Potassium Chloride Carbon Dioxide Anion Gap BUN Creatinine Estim Creat Clear Calc Estimated GFR Glucose Lactic Acid (0.7-2.0) mmol/L Calcium Total Bilirubin AST ALT Alkaline Phosphatase 189 H Troponin I 0.085 H* (0.000-0.034) ng/mL C-Reactive Protein 17.5 H (<1.0) mg/dL Total Protein Cancelled 6.0 L Albumin Cancelled 2.8 L Urine Color (Yellow) Urine Appearance (Clear) Urine pH (5.0-9.0) Ur Specific [place] (1.001-1.035) Urine Protein (Negative) mg/dL Urine Glucose (UA) (Negative) mg/dL Urine Ketones (Negative) mg/dL Ur Blood (Man) (Negative) Urine Nitrate (Negative) Urine Bilirubin (Negative) Urine Urobilinogen (<2.0) mg/dL Add Ur Microanalysis Leukocyte Esterase Rfl (Negative) MITCH/UL Urine RBC (0-2) /hpf Urine WBC (0-3) /hpf Ur Squamous Epith Cells (Few) /hpf Urine Bacteria /hpf Urine Casts Nasal MRSA (PCR) (NOT DETECTE) Influenza A (RT-PCR) Negative (Negative) Influenza B (RT-PCR) Negative (Negative) RSV (RT-PCR) Negative (Negative) SARS-CoV-2 RNA (RT-PCR) Negative (Negative) 10/19/24 10/19/24 10/19/24 Range/Units 16:11 16:41 19:03 WBC (4.5-10.0) K/mm3 RBC (4.6-6.20) M/mm3 Hgb (14.0-18.0) g/dL Hct (42.0-52.0) % MCV (80-100) fl MCH (26-34) pg MCHC (32-36) g/dl RDW (11.5-14.5) % Plt Count (150-375) k/mm3 MPV (7.4-10.4) fl Immature Gran % (Auto) (0-0.5) % Neut % (Auto) (45.5-73.1) % Lymph % (Auto) (18.3-44.2) % [place] % (Auto) (2.6-8.5) % Eos % (Auto) (0-4.4) % Baso % (Auto) (0.2-1.2) % Lymph # (Auto) (0.9-3.2) K/mm3 [place] # (Auto) (0.1-0.6) K/mm3 Eos # (Auto) (0-0.3) K/mm3 Baso # (Auto) (0.0-0.1) K/mm3 Abs Immat Gran (auto) (0.00-0.031) K/mm3 Absolute Neuts (auto) (1.3-6.7) K/mm3 Absolute Nucleated RBC (0.0-0.012) K/mm3 Nucleated RBC % (0.0-0.2) % PT (11.1-14.7) Seconds INR APTT (22.3-36.8) Seconds Sodium Potassium Chloride Carbon Dioxide Anion Gap BUN Creatinine Estim Creat Clear Calc Estimated GFR Glucose Lactic Acid 9.2 H* (0.7-2.0) mmol/L Calcium Total Bilirubin AST ALT Alkaline Phosphatase Troponin I 0.076 H* (0.000-0.034) ng/mL C-Reactive Protein (<1.0) mg/dL Total Protein Albumin Urine Color Yellow (Yellow) Urine Appearance Clear (Clear) Urine pH 6.0 (5.0-9.0) Ur Specific [place] > 1.045 H (1.001-1.035) Urine Protein 1+ H (Negative) mg/dL Urine Glucose (UA) Negative (Negative) mg/dL Urine Ketones Negative (Negative) mg/dL Ur Blood (Man) Negative (Negative) Urine Nitrate Negative (Negative) Urine Bilirubin Negative (Negative) Urine Urobilinogen 1.0 (<2.0) mg/dL Add Ur Microanalysis Reviewed Leukocyte Esterase Rfl Negative (Negative) MITCH/UL Urine RBC 0-2 (0-2) /hpf Urine WBC 0-5 (0-3) /hpf Ur Squamous Epith Cells None seen (Few) /hpf Urine Bacteria None seen /hpf Urine Casts 11-20 Nasal MRSA (PCR) Not detected (NOT DETECTE) Influenza A (RT-PCR) (Negative) Influenza B (RT-PCR) (Negative) RSV (RT-PCR) (Negative) SARS-CoV-2 RNA (RT-PCR) (Negative) 10/19/24 Range/Units 19:42 WBC Pending (4.5-10.0) K/mm3 RBC Pending (4.6-6.20) M/mm3 Hgb Pending (14.0-18.0) g/dL Hct Pending (42.0-52.0) % MCV Pending (80-100) fl MCH Pending (26-34) pg MCHC Pending (32-36) g/dl RDW Pending (11.5-14.5) % Plt Count Pending (150-375) k/mm3 MPV Pending (7.4-10.4) fl Immature Gran % (Auto) Pending (0-0.5) % Neut % (Auto) Pending (45.5-73.1) % Lymph % (Auto) Pending (18.3-44.2) % [place] % (Auto) Pending (2.6-8.5) % Eos % (Auto) Pending (0-4.4) % Baso % (Auto) Pending (0.2-1.2) % Lymph # (Auto) Pending (0.9-3.2) K/mm3 [place] # (Auto) Pending (0.1-0.6) K/mm3 Eos # (Auto) Pending (0-0.3) K/mm3 Baso # (Auto) Pending (0.0-0.1) K/mm3 Abs Immat Gran (auto) Pending (0.00-0.031) K/mm3 Absolute Neuts (auto) Pending (1.3-6.7) K/mm3 Absolute Nucleated RBC Pending (0.0-0.012) K/mm3 Nucleated RBC % Pending (0.0-0.2) % PT (11.1-14.7) Seconds INR APTT (22.3-36.8) Seconds Sodium Potassium Chloride Carbon Dioxide Anion Gap BUN Creatinine Estim Creat Clear Calc Estimated GFR Glucose Lactic Acid Pending (0.7-2.0) mmol/L Calcium Total Bilirubin AST ALT Alkaline Phosphatase Troponin I (0.000-0.034) ng/mL C-Reactive Protein (<1.0) mg/dL Total Protein Albumin Urine Color (Yellow) Urine Appearance (Clear) Urine pH (5.0-9.0) Ur Specific [place] (1.001-1.035) Urine Protein (Negative) mg/dL Urine Glucose (UA) (Negative) mg/dL Urine Ketones (Negative) mg/dL Ur Blood (Man) (Negative) Urine Nitrate (Negative) Urine Bilirubin (Negative) Urine Urobilinogen (<2.0) mg/dL Add Ur Microanalysis Leukocyte Esterase Rfl (Negative) MITCH/UL Urine RBC (0-2) /hpf Urine WBC (0-3) /hpf Ur Squamous Epith Cells (Few) /hpf Urine Bacteria /hpf Urine Casts Nasal MRSA (PCR) (NOT DETECTE) Influenza A (RT-PCR) (Negative) Influenza B (RT-PCR) (Negative) RSV (RT-PCR) (Negative) SARS-CoV-2 RNA (RT-PCR) (Negative) Imaging Data Attestation: I personally reviewed and interpreted this imaging study as follows: My impression: Impressions Chest X-Ray 10/19/24 16:50 IMPRESSION: No acute cardiopulmonary process. Chest/Abdomen/Pelvis CTA 10/19/24 17:42 IMPRESSION: Nonocclusive segmental right upper lobe, distal right interlobar artery, and segmental right lower lobe pulmonary emboli. Low clot burden. RV/LV ratio 1.0. Small left pleural effusion. Mild bilateral ureteral stranding and urothelial enhancement may reflect ascending infection in the proper clinical context. 4.8 x 3.2 x 9.0 cm perirectal abscess. Distal sigmoid and rectal wall thickening, may reflect infectious or post therapeutic colitis/proctitis, or combination of those entities. Ischemia/infarction considered less likely. Cystitis, correlate with urinalysis. ECG Data EKG #1: Attestation: I personally reviewed and interpreted this ECG as follows: ECG completion date: 10/19/24 ECG completion time: 19:05 Prior ECG tracings: available for review Interpretation: Regular rate, regular rhythm. QRS of 138, QTC 492, WA interval 160. No ST segment elevations, depressions or inversions. Previous rate dependent ischemia with ST depressions no longer present. Overall interpretation normal sinus rhythm. Critical Care Time Critical Care Time Critical Care Time: Yes Total Critical Care Time: 105 (Critical care time is exclusive from the separately billed procedures above) Discharge Plan Discharge Clinical Impression: Severe sepsis, Pulmonary embolism, Rectal abscess, Non-ST elevation ND (NSTEMI), Rectal cancer, Acidosis, lactic Patient Disposition: Still a Patient Condition: Serious Patient Language: Turkmen Prescriptions: No Action metoprolol succinate 100 mg tablet extended release 24 hr 100 mg PO DAILY amlodipine 5 mg tablet 5 mg PO DAILY hydrochlorothiazide 12.5 mg tablet 12.5 mg PO DAILY aspirin 81 mg Capsule 81 mg PO DAILY Follow-up/Referrals: Martín,Michael Perez MD [Primary Care Provider] - Time of Disposition: 20:03
[2024-10-19 16:31] LABS: Albumin Level 2.8 g/dL (3.5-5.1); Alkaline Phosphatase 189 U/L (38-126); Anion Gap 18 mmol/L (4-12); Aspartate Amino Transferase 18 U/L (17-59); Bilirubin,Total 1.4 mg/dL (0.2-1.3); Blood Urea Nitrogen 23 mg/dL (9-20); Calcium 8.8 mg/dL (8.4-10.2); Carbon Dioxide 15 mmol/L (22-30); Chloride 107 mmol/L (98-107); Estimated CRCL calculation 41 ml/min; Estimated Glomerular Filt Rate 51; Glucose 112 mg/dL (65-110); Potassium 4.2 mmol/L (3.4-5.0); Sodium 140 mmol/L (137-145)
[2024-10-19 16:33] LABS: INR 1.4; Partial Thromboplastin Time 33.5 Seconds (22.3-36.8); Prothrombin Time 17.2 Seconds (11.1-14.7)
[2024-10-19] MEDS: CEFEPIME 2 GM/NS 50 ML 2 GM/50 ML BAG IVPB (16:34)
[2024-10-19 16:35] LABS: Lactic Acid Reflex 9.2 mmol/L (0.7-2.0)
[2024-10-19 16:41] LABS: Alanine Aminotransferase 22 U/L (6-50)
--- OUTSIDE RECORDS SUMMARY | 2024-10-19 16:41 | XMS_ITS | Clinical Summary ---
Author Organization [address] Address [address] [place] [id number] Care Team Providers Care Helmet Hat Puncher Name Role Phone Michael Resendiz MD Primary Care Provider Ritchie Razo MD Unavailable [phone] Ysabel Palmer MD Unavailable [phone] Allergies No known active allergies Medications amLODIPine [...] Department Care Team Description 10/14/2024 10:00 AM [facility] at [address] [address] Dehydration (Primary Dx); Rectal cancer (HCC) 10/14/2024 9:30 AM GALLERY OR MUSEUM GUIDE Clinical Support [facility] Medical Office Building 2 Radiation Oncology [address] [place] [address] Rectal cancer (HCC) (Primary Dx); Severe protein-calorie malnutrition 10/14/2024 9:30 AM GALLERY OR MUSEUM GUIDE Office Visit [facility] Oncology [address] [place] [address] [address] [place] [address] Ysabel Palmer MD Rectal cancer (HCC) (Primary Dx) 10/14/2024 9:00 AM GALLERY OR MUSEUM GUIDE Lab [facility] at [address] [address] Rectal cancer (HCC) 09/17/2024 Telephone [facility] Oncology [address] [place] [address] [address] [place] [address] Argenis Crandall RN 09/16/2024 9:00 AM GALLERY OR MUSEUM GUIDE Infusion [facility] at [address] [address] Rectal cancer (HCC) (Primary Dx) 09/16/2024 8:30 AM GALLERY OR MUSEUM GUIDE Lab [address] [address] Rectal cancer (HCC) 09/16/2024 Orders Only [facility] Oncology [address] [place] [address] [address] [place] [address] Terrie Parham RN 09/16/2024 Orders Only [facility] Oncology [facility] Floor 6 [place] [address] Ysabel Palmer MD 09/09/2024 9:30 AM GALLERY OR MUSEUM GUIDE Office Visit [facility] Oncology [address] [place] [phone] Ysabel Palmer MD Rectal cancer (HCC) (Primary Dx) 09/09/2024 8:45 AM GALLERY OR MUSEUM GUIDE Lab [facility] at [address] [address] Rectal cancer (HCC) 08/22/2024 Telephone [facility] Physicians [facility] Oncology [address] [place] [address] [address] [place] [address] Terrie Parham, GÓMEZ 08/15/2024 Documentation [facility] [address] [facility] Floor 6 [place] [address] Lisy Joseph, GUILLE PRIOR AUTH/FINANCIAL ASSIST XELODA 08/12/2024 1:00 PM GALLERY OR MUSEUM GUIDE Infusion [facility] at [address] [place] [address] Rectal cancer (HCC) (Primary Dx) 08/12/2024 12:15 PM GALLERY OR MUSEUM GUIDE Lab [facility] at [address] [address] Rectal cancer (HCC) 08/11/2024 Orders Only [facility] Oncology [address] [place] [phone] Ysabel Palmer MD 08/01/2024 Orders Only [facility] Physicians [facility] Oncology [address] [place] [address] [address] [place] [address] Ysabel Palmer MD 07/29/2024 10:30 AM GALLERY OR MUSEUM GUIDE Office Visit [facility] Physicians [facility] Oncology [address] [place] [address] [address] [place] [address] Ysabel Palmer MD Rectal cancer (HCC) (Primary Dx) 07/29/2024 9:45 AM GALLERY OR MUSEUM GUIDE Lab [facility] at [address] [address] Rectal cancer (HCC) 07/25/2024 2:45 PM GALLERY OR MUSEUM GUIDE Treatment [facility] Radiation Oncology at [facility] [place] [address] [place] [address] Aleida Larsen MD 07/25/2024 Orders Only RAD ONC TREATMENTS Miscellaneous, Not In File 07/24/2024 2:00 PM GALLERY OR MUSEUM GUIDE Treatment [facility] Radiation Oncology at [facility] [address] [place] [phone] 07/24/2024 Orders Only RAD ONC TREATMENTS Miscellaneous, Not In File 07/23/2024 2:15 PM GALLERY OR MUSEUM GUIDE Treatment [facility] Radiation Oncology at [facility] [address] [place] [phone] 07/23/2024 Orders Only RAD ONC TREATMENTS Miscellaneous, Not In File 07/22/2024 2:45 PM GALLERY OR MUSEUM GUIDE Treatment [facility] Radiation Oncology at [facility] [address] [place] [phone] 07/22/2024 OTV [facility] Radiation Oncology at [facility] [address] [place] [phone] Aleida Larsen MD 07/22/2024 Orders Only RAD ONC TREATMENTS Miscellaneous, Not In File 07/21/2024 1:45 PM GALLERY OR MUSEUM GUIDE Treatment [facility] Radiation Oncology at [address] [address] Aleida Larsen MD 07/21/2024 Orders Only RAD [...] on file Legal Sex Male 2:59 AM GALLERY OR MUSEUM GUIDE Gender Identity Not on file Sexual Orientation Not on file Obstetrics History Last Filed Vital Signs Vital Sign Reading Time Taken Comments Blood Pressure 95/65 10/14/2024 9:23 AM GALLERY OR MUSEUM GUIDE Pulse 85 10/14/2024 9:23 AM GALLERY OR MUSEUM GUIDE Temperature 36.3 C (97.3 F) 10/14/2024 9:23 AM GALLERY OR MUSEUM GUIDE Respiratory Rate 16 10/14/2024 9:23 AM GALLERY OR MUSEUM GUIDE Oxygen Saturation 100% 10/14/2024 9:23 AM GALLERY OR MUSEUM GUIDE Inhaled Oxygen Concentration - - Weight 55.3 kg (122 lb) 10/14/2024 9:23 AM GALLERY OR MUSEUM GUIDE Height 168 cm (5' 6.14 ) 08/12/2024 12:43 PM GALLERY OR MUSEUM GUIDE Body Mass Index 19.61 08/12/2024 12:43 PM GALLERY OR MUSEUM GUIDE Plan of Treatment Health Maintenance Due Date [...] Diagnosis Comments EGFR STAT 10/14/2024 9:04 AM GALLERY OR MUSEUM GUIDE Rectal cancer (HCC) DIFFERENTIAL AUTO STAT 10/14/2024 9:0 4 AM GALLERY OR MUSEUM GUIDE Rectal cancer (HCC) CBC WITH AUTO DIFFERENTIAL STAT 10/14/2024 9:04 AM GALLERY OR MUSEUM GUIDE Rectal cancer (HCC) COMPREHENSIVE METABOLIC PANEL STAT 10/14/2024 9:04 AM GALLERY OR MUSEUM GUIDE Rectal cancer (HCC) EGFR STAT 09/16/2024 8:15 AM GALLERY OR MUSEUM GUIDE Rectal cancer (HCC) DIFFERENTIAL AUTO STAT 09/16/2024 8:1 5 AM GALLERY OR MUSEUM GUIDE Rectal cancer (HCC) CBC WITH AUTO DIFFERENTIAL STAT 09/16/2024 8:15 AM GALLERY OR MUSEUM GUIDE Rectal cancer (HCC) COMPREHENSIVE METABOLIC PANEL STAT 09/16/2024 8:15 AM GALLERY OR MUSEUM GUIDE Rectal cancer (HCC) EGFR STAT 09/09/2024 9:29 AM GALLERY OR MUSEUM GUIDE Rectal cancer (HCC) DIFFERENTIAL AUTO STAT 09/09/2024 9:2 9 AM GALLERY OR MUSEUM GUIDE Rectal cancer (HCC) CEA Routine 09/09/2024 9:29 AM GALLERY OR MUSEUM GUIDE Rectal cancer (HCC) CBC WITH AUTO DIFFERENTIAL STAT 09/09/2024 9:29 AM GALLERY OR MUSEUM GUIDE Rectal cancer (HCC) COMPREHENSIVE METABOLIC PANEL STAT 09/09/2024 9:29 AM GALLERY OR MUSEUM GUIDE Rectal cancer (HCC) EGFR STAT 08/12/2024 12:31 PM GALLERY OR MUSEUM GUIDE Rectal cancer (HCC) DIFFERENTIAL AUTO STAT 08/12/2024 12: 31 PM GALLERY OR MUSEUM GUIDE Rectal cancer (HCC) CBC WITH AUTO DIFFERENTIAL STAT 08/12/2024 12:31 PM GALLERY OR MUSEUM GUIDE Rectal cancer (HCC) COMPREHENSIVE METABOLIC PANEL STAT 08/12/2024 12:31 PM GALLERY OR MUSEUM GUIDE Rectal cancer (HCC) EGFR Routine 07/29/2024 9:43 AM GALLERY OR MUSEUM GUIDE Rectal cancer (HCC) DIFFERENTIAL AUTO Routine 07/29/2024 9:4 3 AM GALLERY OR MUSEUM GUIDE Rectal cancer (HCC) CBC WITH AUTO DIFFERENTIAL Routine 07/29/2024 9:43 AM GALLERY OR MUSEUM GUIDE Rectal cancer (HCC) CEA Routine 07/29/2024 9:43 AM GALLERY OR MUSEUM GUIDE Rectal cancer (HCC) COMPREHENSIVE METABOLIC PANEL Routine 07/29/2024 9:43 AM GALLERY OR MUSEUM GUIDE Rectal cancer (HCC) IRON PROFILE W/ IBC Routine 07/29/2024 9 :43 AM GALLERY OR MUSEUM GUIDE Rectal cancer (HCC) FERRITIN Routine 07/29/2024 9:43 AM GALLERY OR MUSEUM GUIDE Rectal cancer (HCC) RAD ONC ARIA SESSION SUMMARY 07/25/2024 3:07 PM GALLERY OR MUSEUM GUIDE RAD ONC ARIA SESSION SUMMARY 07/24/2024 2:19 PM GALLERY OR MUSEUM GUIDE RAD ONC ARIA SESSION SUMMARY 07/23/2024 2:30 PM GALLERY OR MUSEUM GUIDE RAD ONC ARIA SESSION SUMMARY 07/22/2024 2:52 PM GALLERY OR MUSEUM GUIDE RAD ONC ARIA SESSION SUMMARY 07/21/2024 2:15 PM GALLERY OR MUSEUM GUIDE from Last 3 Months Results * (ABNORMAL) eGFR (10/14/2024 9:04 AM GALLERY OR MUSEUM GUIDE) eGFR 59(L) >=60 mL/min/1. 73 m2 Comment: [...] was last reviewed 2021. Testing performed by: [address] [address] Blood 10/14/2024 9:04 AM GALLERY OR MUSEUM GUIDE 10/14/2024 9:06 AM GALLERY OR MUSEUM GUIDE us Ysabel Palmer MD LAB BLOOD ORDERABLES Final Result [facility] [address] [facility] Department [place] [address] * (ABNORMAL) Differential, auto (10/14/2024 9:04 AM GALLERY OR MUSEUM GUIDE) Neutrophil abs 7.0(H) 1.5 - 6.5 K/cumm Comment:Testing performed by : [address] [address] Imm gran abs 0.1 0.0 - 0.1 K/cumm CATHY Comment:Testing performed by : [address] [address] Lymphocyte abs 1.4 0.8 - 3.3 K/cumm CATHY Comment:Testing performed by : [address] [address] Monocyte abs 0.5 0.2 - 0.8 K/cumm CATHY Comment:Testing performed by : [address] [address] Eosinophil abs 0.0 0.0 - 0.5 K/cumm CATHY Comment:Testing performed by : [address] [address] Basophil abs 0.0 0.0 - 0.1 K/cumm CATHY Comment:Testing performed by : [address] [address] Neutrophil pct 77.5 % CATHY Comment: Interpretive Data Percent cell count reference ranges are not reported, since discordance with absolute values may lead to misinterpretation of CBC data. Current Interpretive Data was last revised on 2017. Testing performed by: [address] [place]., [address] Imm gran pct 0.6 % [facility] Comment: Interpretive Data Percent cell count reference ranges are not reported, since discordance with absolute values may lead to misinterpretation of CBC data. Current Interpretive Data was last revised on 2017. Testing performed by: [address] [address] Lymphocyte pct 15.9 % [facility] Comment: Interpretive Data Percent cell count reference ranges are not reported, since discordance with absolute values may lead to misinterpretation of CBC data. Current Interpretive Data was last revised on 2017. Testing performed by: [address] [address] Monocyte pct 5.7 % [facility] Comment: Interpretive Data Percent cell count reference ranges are not reported, since discordance with absolute values may lead to misinterpretation of CBC data. Current Interpretive Data was last revised on 2017. Testing performed by: [address] [address] Eosinophil pct 0.1 % [facility] Comment: Interpretive Data Percent cell count reference ranges are not reported, since discordance with absolute values may lead to misinterpretation of CBC data. Current Interpretive Data was last revised on 2017. Testing performed by: [address] [address] Basophil pct 0.2 % [facility] Comment: Interpretive Data Percent cell count reference ranges are not reported, since discordance with absolute values may lead to misinterpretation of CBC data. Current Interpretive Data was last revised on 2017. Testing performed by: [address] [address] Blood 10/14/2024 9:04 AM GALLERY OR MUSEUM GUIDE 10/14/2024 9:06 AM GALLERY OR MUSEUM GUIDE us Ysabel Palmer MD LAB BLOOD ORDERABLES Final Result [facility] [address] [facility] Department [place] [address] * (ABNORMAL) CBC with auto differential (10/14/2024 9:04 AM GALLERY OR MUSEUM GUIDE) [facility] Signature WBC 9.1 3.8 - 9.9 K/cumm Comment:Testing performed by : [address] [address] Hgb 9.9(L) 13.0 - 17.5 g/dL CATHY Comment:Testing performed by : [address], [address] Hct 31.4(L) 38.9 - 50.3 % CATHY Comment:Testing performed by : [address] [address] Plt 190 150 - 400 K/cumm CATHY Comment:Testing performed by : [address], [address] MPV 9.3 9.1 - 12.3 fL CATHY Comment:Testing performed by : [address], [address] RBC 3.96(L) 4.30 - 5.80 M/cumm CATHY Comment:Testing performed by : [address], [address] MCV 79.3(L) 81.3 - 96.4 fL CATHY Comment:Testing performed by : [address] [address] MCH 25.0(L) 27.1 - 33.3 pg CATHY Comment:Testing performed by : [address], [address] MCHC 31.5(L) 32.3 - 35.7 g/dL CATHY Comment:Testing performed by : [address], [address] RDW CV 19.9(H) 11.1 - 14.9 % CATHY Comment:Testing performed by : [address], [address] RDW SD 55.1(H) 35.7 - 48.1 fL CATHY Comment:Testing performed by : [address], [address] NRBC abs 0.00 0.00 - 0.01 K/cumm CATHY Comment:Testing performed by : [address] [address] Blood 10/14/2024 9:04 AM GALLERY OR MUSEUM GUIDE 10/14/2024 9:06 AM GALLERY OR MUSEUM GUIDE Ysabel Palmer MD LAB BLOOD ORDERABLES Final Result [facility] [address] [facility] Department [place] [address] * (ABNORMAL) Comprehensive metabolic panel (10/14/2024 9:04 AM GALLERY OR MUSEUM GUIDE) Sodium 141 135 - 145 mmol/L Comment:Testing performed by : [address] [address] Potassium, pl 3.9 3.3 - 4.9 mmol/L CATHY Comment:Testing performed by : [address] [address] Chloride 105 97 - 110 mmol/L CATHY Comment:Testing performed by : [address] [address] CO2 23 22 - 32 mmol/L CATHY Comment:Testing performed by : [address] [address] Anion gap 13 2 - 15 mmol/L CATHY Comment:Testing performed by : [address] [address] BUN 22 6 - 25 mg/dL CATHY Comment:Testing performed by : [address] [address] Creatinine 1.30 0.80 - 1.30 mg/dL CATHY Comment:Testing performed by : [address] [address] Glucose 120 70 - 199 mg/dL CATHY [...] was last revised 2022. Testing performed by: [address] [address] Calcium 9.2 8.5 - 10.3 mg/dL CATHY Comment:Testing performed by : [address] [address] Bilirubin, total 0.8 0.1 - 1.2 mg/dL CATHY Comment:Testing performed by : [address] [address] Protein, pl 6.2(L) 6.5 - 8.5 g/dL CATHY Comment:Testing performed by : [address] [address] Albumin 3.1(L) 3.5 - 5.0 g/dL CATHY Comment:Testing performed by : [address] [address] Alk phos 100 40 - 130 Units/L CATHY Comment:Testing performed by : [address] [address] ALT 7 7 - 55 Units/L CATHY Comment:Testing performed by : [address] [address] AST 9(L) 10 - 50 Units/L [facility] Comment:Testing performed by : [address] [address] Blood 10/14/2024 9:04 AM GALLERY OR MUSEUM GUIDE 10/14/2024 9:06 AM GALLERY OR MUSEUM GUIDE us Ysabel Palmer MD LAB BLOOD ORDERABLES Final Result [facility] [address] [facility] Department [place] [address] * eGFR (09/16/2024 8:15 AM GALLERY OR MUSEUM GUIDE) eGFR 80 >=60 mL/min/1. 73 m2 Comment: [...] was last reviewed 2021. Testing performed by: [address] [address] Blood 09/16/2024 8:15 AM GALLERY OR MUSEUM GUIDE 09/16/2024 8:22 AM GALLERY OR MUSEUM GUIDE Ysabel Palmer MD LAB BLOOD ORDERABLES Final Result [facility] [address] [facility] Department [place] [address] * Differential, auto (09/16/2024 8:15 AM GALLERY OR MUSEUM GUIDE) Pathologist [facility] Neutrophil abs 4.4 1.5 - 6.5 K/cumm Comment:Testing performed by : [address] [address] Imm gran abs 0.0 0.0 - 0.1 K/cumm CATHY Comment:Testing performed by : [address] [address] Lymphocyte abs 0.9 0.8 - 3.3 K/cumm CATHY Comment:Testing performed by : [address] [address] Monocyte abs 0.4 0.2 - 0.8 K/cumm [facility] Comment:Testing performed by : [address] [address] Eosinophil abs 0.0 0.0 - 0.5 K/cumm [facility] Comment:Testing performed by : [address] [address] Basophil abs 0.0 0.0 - 0.1 K/cumm [facility] Comment:Testing performed by : [address] [address] Neutrophil pct 77.0 % [facility] Comment: Interpretive Data Percent cell count reference ranges are not reported, since discordance with absolute values may lead to misinterpretation of CBC data. Current Interpretive Data was last revised on 2017. Testing performed by: [address] [address] Imm gran pct 0.7 % [facility] Comment: Interpretive Data Percent cell count reference ranges are not reported, since discordance with absolute values may lead to misinterpretation of CBC data. Current Interpretive Data was last revised on 2017. Testing performed by: [address] [address] Lymphocyte pct 15.0 % [facility] Comment: Interpretive Data Percent cell count reference ranges are not reported, since discordance with absolute values may lead to misinterpretation of CBC data. Current Interpretive Data was last revised on 2017. Testing performed by: [address] [address] Monocyte pct 6.3 % [facility] Comment: Interpretive Data Percent cell count reference ranges are not reported, since discordance with absolute values may lead to misinterpretation of CBC data. Current Interpretive Data was last revised on 2017. Testing performed by: [address] [address] Eosinophil pct 0.5 % [facility] Comment: Interpretive Data Percent cell count reference ranges are not reported, since discordance with absolute values may lead to misinterpretation of CBC data. Current Interpretive Data was last revised on 2017. Testing performed by: [address] [address] Basophil pct 0.5 % [facility] Comment: Interpretive Data Percent cell count reference ranges are not reported, since discordance with absolute values may lead to misinterpretation of CBC data. Current Interpretive Data was last revised on 2017. Testing performed by: [address] [address] Blood 09/16/2024 8:15 AM GALLERY OR MUSEUM GUIDE 09/16/2024 8:22 AM GALLERY OR MUSEUM GUIDE us Ysabel Palmer MD LAB BLOOD ORDERABLES Final Result [facility] [address] [facility] Department [place] [address] * (ABNORMAL) CBC with auto differential (09/16/2024 8:15 AM GALLERY OR MUSEUM GUIDE) WBC 5.7 3.8 - 9.9 K/cumm Comment:Testing performed by : [address] [address] Hgb 9.4(L) 13.0 - 17.5 g/dL [facility] Comment:Testing performed by : [address] [address] Hct 29.4(L) 38.9 - 50.3 % [facility] Comment:Testing performed by : [address] [address] Plt 190 150 - 400 K/cumm CATHY Comment:Testing performed by : [address] [address] MPV 8.4(L) 9.1 - 12.3 fL [facility] BUSTOS Comment:Testing performed by : [address] [address] RBC 3.83(L) 4.30 - 5.80 M/cumm CATHY BUSTOS Comment:Testing performed by : [address] [address] MCV 76.8(L) 81.3 - 96.4 fL CATHY Comment:Testing performed by : [address] [address] MCH 24.5(L) 27.1 - 33.3 pg CATHY BUSTOS Comment:Testing performed by : [address] [address] MCHC 32.0(L) 32.3 - 35.7 g/dL [facility]Y BUSTOS Comment:Testing performed by : [address] [address] RDW CV 17.3(H) 11.1 - 14.9 % [facility] BUSTOS Comment:Testing performed by : [address] [address] RDW SD 47.6 35.7 - 48.1 fL CATHY BUSTOS Comment:Testing performed by : [address] [address] NRBC abs 0.00 0.00 - 0.01 K/cumm C[facility]Y BUSTOS Comment:Testing performed by : [address] [address] Blood 09/16/2024 8:15 AM GALLERY OR MUSEUM GUIDE 09/16/2024 8:22 AM GALLERY OR MUSEUM GUIDE Ysabel Palmer MD LAB BLOOD ORDERABLES Final Result [facility] [address] [facility] Department of Laboratories [place], [place] [id number] * (ABNORMAL) Comprehensive metabolic panel (09/16/2024 8:15 AM GALLERY OR MUSEUM GUIDE) Sodium 140 135 - 145 mmol/L Comment:Testing performed by : [address] [address] Potassium, pl 3.3 3.3 - 4.9 mmol/L [facility] BUSTOS Comment:Testing performed by : [address] [address] Chloride 104 97 - 110 mmol/L [facility] BUSTOS Comment:Testing performed by : [address] [address] CO2 26 22 - 32 mmol/L [facility] BUSTOS Comment:Testing performed by : [address] [address] Anion gap 10 2 - 15 mmol/L [facility] Comment:Testing performed by : [address] [address] BUN 14 6 - 25 mg/dL [facility] Comment:Testing performed by : [address] [address] Creatinine 1.00 0.80 - 1.30 mg/dL [facility] Comment:Testing performed by : [address] [address] Glucose 105 70 - 199 mg/dL CATHY [...] was last revised 2022. Testing performed by: [address] [address] Calcium 8.7 8.5 - 10.3 mg/dL [facility] Comment:Testing performed by : [address] [address] Bilirubin, total 0.5 0.1 - 1.2 mg/dL [facility] Comment:Testing performed by : [address] [address] Protein, pl 5.8(L) 6.5 - 8.5 g/dL C[facility] Comment:Testing performed by : [address] [address] Albumin 2.9(L) 3.5 - 5.0 g/dL CATHY Comment:Testing performed by : [address] [address] Alk phos 85 40 - 130 Units/L C[facility]Y Comment:Testing performed by : [address], [place]., [address] ALT <5(L) 7 - 55 Units/L CATHY BUSTOS Comment:Testing performed by : [facility], [address] [place] [address]., [address] AST 9(L) 10 - 50 Units/L CATHY BUSTOS Comment:Testing performed by : [facility], [address] [place] [address]., [address] Blood 09/16/2024 8:15 AM GALLERY OR MUSEUM GUIDE 09/16/2024 8:22 AM GALLERY OR MUSEUM GUIDE Ysabel Palmer MD LAB BLOOD ORDERABLES Final Result [facility] [address] [facility] Department [place] [address] * eGFR (09/09/2024 9:29 AM GALLERY OR MUSEUM GUIDE) eGFR 72 >=60 mL/min/1. 73 m2 Comment: [...] was last reviewed 2021. Testing performed by: [address] [address] Blood 09/09/2024 9:29 AM GALLERY OR MUSEUM GUIDE 09/09/2024 9:33 AM GALLERY OR MUSEUM GUIDE us Ysabel Palmer MD LAB BLOOD ORDERABLES Final Result [facility] [address] [facility] Department [place] [address] * Differential, auto (09/09/2024 9:29 AM GALLERY OR MUSEUM GUIDE) Neutrophil abs 3.9 1.5 - 6.5 K/cumm Comment:Testing performed by : [address] [address] Imm gran abs 0.0 0.0 - 0.1 K/cumm CATHY Comment:Testing performed by : [address] [address] Lymphocyte abs 0.9 0.8 - 3.3 K/cumm CATHY Comment:Testing performed by : [address] [address] Monocyte abs 0.3 0.2 - 0.8 K/cumm CATHY Comment:Testing performed by : [address] [address] Eosinophil abs 0.0 0.0 - 0.5 K/cumm CATHY Comment:Testing performed by : [address] [address] Basophil abs 0.0 0.0 - 0.1 K/cumm [facility] Comment:Testing performed by : [address] [address] Neutrophil pct 74.7 % [facility] Comment: Interpretive Data Percent cell count reference ranges are not reported, since discordance with absolute values may lead to misinterpretation of CBC data. Current Interpretive Data was last revised on 2017. Testing performed by: [address] [address] Imm gran pct 0.4 % [facility] Comment: Interpretive Data Percent cell count reference ranges are not reported, since discordance with absolute values may lead to misinterpretation of CBC data. Current Interpretive Data was last revised on 2017. Testing performed by: [address] [address] Lymphocyte pct 17.4 % [facility] Comment: Interpretive Data Percent cell count reference ranges are not reported, since discordance with absolute values may lead to misinterpretation of CBC data. Current Interpretive Data was last revised on 2017. Testing performed by: [address] [address] Monocyte pct 6.3 % [facility] Comment: Interpretive Data Percent cell count reference ranges are not reported, since discordance with absolute values may lead to misinterpretation of CBC data. Current Interpretive Data was last revised on 2017. Testing performed by: [address] [address] Eosinophil pct 0.8 % [facility] Comment: Interpretive Data Percent cell count reference ranges are not reported, since discordance with absolute values may lead to misinterpretation of CBC data. Current Interpretive Data was last revised on 2017. Testing performed by: [address] [address] Basophil pct 0.4 % [facility] Comment: Interpretive Data Percent cell count reference ranges are not reported, since discordance with absolute values may lead to misinterpretation of CBC data. Current Interpretive Data was last revised on 2017. Testing performed by: [address] [address] Blood 09/09/2024 9:2 9 AM GALLERY OR MUSEUM GUIDE 09/09/2024 9:33 AM GALLERY OR MUSEUM GUIDE Ysabel Palmer MD LAB BLOOD ORDERABLES Final Result [facility] [address] [facility] Department of [place] [address] * (ABNORMAL) CBC with auto differential (09/09/2024 9:29 AM GALLERY OR MUSEUM GUIDE) WBC 5.2 3.8 - 9.9 K/cumm Comment:Testing performed by : [address] [address] Hgb 9.4(L) 13.0 - 17.5 g/dL CATHY Comment:Testing performed by : [address], [address] Hct 28.9(L) 38.9 - 50.3 % CATHY Comment:Testing performed by : [address] [address] Plt 199 150 - 400 K/cumm CATHY Comment:Testing performed by : [address] [address] MPV 8.7(L) 9.1 - 12.3 fL CATHY Comment:Testing performed by : [address], [address] RBC 3.77(L) 4.30 - 5.80 M/cumm CATHY Comment:Testing performed by : [address], [address] MCV 76.7(L) 81.3 - 96.4 fL CATHY Comment:Testing performed by : [address], [address] MCH 24.9(L) 27.1 - 33.3 pg CATHY Comment:Testing performed by : [address], [address] MCHC 32.5 32.3 - 35.7 g/dL CATHY Comment:Testing performed by : [address], [address] RDW CV 17.2(H) 11.1 - 14.9 % CATHY Comment:Testing performed by : [address], [address] RDW SD 47.1 35.7 - 48.1 fL CATHY Comment:Testing performed by : [address], [address] NRBC abs 0.00 0.00 - 0.01 K/cumm CATHY Comment:Testing performed by : [address], [address] Blood 09/09/2024 9:29 AM GALLERY OR MUSEUM GUIDE 09/09/2024 9:33 AM GALLERY OR MUSEUM GUIDE Ysabel Palmer MD LAB BLOOD ORDERABLES Final Result Performing Organization Address City/[facility] Co de Phone Number CATHY [address] [facility] Department [place] [address] * (ABNORMAL) CEA (09/09/2024 9:29 AM GALLERY OR MUSEUM GUIDE) Pathologist [facility] CEA 6.0(H) <=5.0 ng/mL Comment: Interpretive Data: Reference Range: Non-Smokers: 0.0 5.0 ng/mL Smokers: 0.0 6.5 ng/mL The Derek CEA assay procedure was used. Results from different manufacturers or methods may not be comparable. Serial testing should be performed using the same method. Current interpretive data was last revised 2023. Testing performed by: [address] [address] Blood 09/09/2024 9:29 AM GALLERY OR MUSEUM GUIDE 09/09/2024 1:41 PM GALLERY OR MUSEUM GUIDE Ysabel Palmer MD LAB BLOOD ORDERABLES Final Result Performing Organization Address City/[facility] Co de Phone Number CATHY [address] [facility] Department [place] [address] * (ABNORMAL) Comprehensive metabolic panel (09/09/2024 9:29 AM GALLERY OR MUSEUM GUIDE) [facility] Sodium 139 135 - 145 mmol/L Comment:Testing performed by : [address] [address] Potassium, pl 3.6 3.3 - 4.9 mmol/L CATHY Comment:Testing performed by : [address] [address] Chloride 104 97 - 110 mmol/L CATHY Comment:Testing performed by : [address] [address] CO2 25 22 - 32 mmol/L CATHY Comment:Testing performed by : [address] [address] Anion gap 10 2 - 15 mmol/L CATHY Comment:Testing performed by : [address] [address] BUN 20 6 - 25 mg/dL [facility] Comment:Testing performed by : [address] [address] Creatinine 1.10 0.80 - 1.30 mg/dL CATHY Comment:Testing performed by : [address] [address] Glucose 109 70 - 199 mg/dL [facility] Comment: Interpretive Data Fasting glucose >/= 126 [...] was last revised 2022. Testing performed by: [address] [address] Calcium 8.6 8.5 - 10.3 mg/dL [facility] Comment:Testing performed by : [address] [address] Bilirubin, total 0.4 0.1 - 1.2 mg/dL [facility] Comment:Testing performed by : [address] [address] Protein, pl 5.8(L) 6.5 - 8.5 g/dL [facility] Comment:Testing performed by : [address] [address] Albumin 3.0(L) 3.5 - 5.0 g/dL [facility] Comment:Testing performed by : [address] [address] Alk phos 72 40 - 130 Units/L CATHY Comment:Testing performed by : [address] [address] ALT <5(L) 7 - 55 Units/L CATHY Comment:Testing performed by : [address] [address] AST 7(L) 10 - 50 Units/L CATHY Comment:Testing performed by : [address] [address] Blood 09/09/2024 9:29 AM GALLERY OR MUSEUM GUIDE 09/09/2024 9:33 AM GALLERY OR MUSEUM GUIDE Ysabel Palmer MD LAB BLOOD ORDERABLES Final Result Performing Organization Address City/[facility]/ZIP Co de Phone Number CATHY [facility] [employer] [place] [address] * eGFR (08/12/2024 12:31 PM GALLERY OR MUSEUM GUIDE) eGFR 72 >=60 mL/min/1. 73 m2 Comment: [...] was last reviewed 2021. Testing performed by: [address] [address] Blood 08/12/2024 12:3 1 PM GALLERY OR MUSEUM GUIDE 08/12/2024 12:35 PM GALLERY OR MUSEUM GUIDE Ysabel Palmer MD LAB BLOOD ORDERABLES Final Result Performing Organization Address City/[facility]/ZIP Co de Phone Number [place] [id number] [facility] [employer] [place] [address] * Differential, auto (08/12/2024 12:31 PM GALLERY OR MUSEUM GUIDE) Neutrophil abs 2.7 1.5 - 6.5 K/cumm Comment:Testing performed by : [address] [address] Imm gran abs 0.0 0.0 - 0.1 K/cumm [facility] Comment:Testing performed by : [address] [address] Lymphocyte abs 1.0 0.8 - 3.3 K/cumm [facility] Comment:Testing performed by : [address] [address] Monocyte abs 0.4 0.2 - 0.8 K/cumm [facility] Comment:Testing performed by : [address] [address] Eosinophil abs 0.1 0.0 - 0.5 K/cumm [facility] Comment:Testing performed by : [address] [address] Basophil abs 0.0 0.0 - 0.1 K/cumm [facility] Comment:Testing performed by : [address] [address] Neutrophil pct 64.1 % [facility] Comment: Interpretive Data Percent cell count reference ranges are not reported, since discordance with absolute values may lead to misinterpretation of CBC data. Current Interpretive Data was last revised on 2017. Testing performed by: [address] [address] Imm gran pct 0.5 % [facility] Comment: Interpretive Data Percent cell count reference ranges are not reported, since discordance with absolute values may lead to misinterpretation of CBC data. Current Interpretive Data was last revised on 2017. Testing performed by: [address] [address] Lymphocyte pct 23.4 % [facility] Comment: Interpretive Data Percent cell count reference ranges are not reported, since discordance with absolute values may lead to misinterpretation of CBC data. Current Interpretive Data was last revised on 2017. Testing performed by: [address] [address] Monocyte pct 9.1 % CATHY Comment: Interpretive Data Percent cell count reference ranges are not reported, since discordance with absolute values may lead to misinterpretation of CBC data. Current Interpretive Data was last revised on 2017. Testing performed by: [address] [address] Eosinophil pct 2.2 % CATHY Comment: Interpretive Data Percent cell count reference ranges are not reported, since discordance with absolute values may lead to misinterpretation of CBC data. Current Interpretive Data was last revised on 2017. Testing performed by: [address] [address] Basophil pct 0.7 % CATHY Comment: Interpretive Data Percent cell count reference ranges are not reported, since discordance with absolute values may lead to misinterpretation of CBC data. Current Interpretive Data was last revised on 2017. Testing performed by: [address] [address] Blood 08/12/2024 12:3 1 PM GALLERY OR MUSEUM GUIDE 08/12/2024 12:35 PM GALLERY OR MUSEUM GUIDE Ysabel Palmer MD LAB BLOOD ORDERABLES Final Result [facility] [address] [facility] Department of Laboratories [place], [place] [id number] * (ABNORMAL) CBC with auto differential (08/12/2024 12:31 PM GALLERY OR MUSEUM GUIDE) WBC 4.2 3.8 - 9.9 K/cumm Comment:Testing performed by : [address] [address] Hgb 8.8(L) 13.0 - 17.5 g/dL CATHY BUSTOS Comment:Testing performed by : [address] [address] Hct 27.7(L) 38.9 - 50.3 % CATHY BUSTOS Comment:Testing performed by : [address] [address] Plt 230 150 - 400 K/cumm CATHY Comment:Testing performed by : [address] [address] MPV 8.6(L) 9.1 - 12.3 fL CATHY Comment:Testing performed by : [address] [address] RBC 3.58(L) 4.30 - 5.80 M/cumm CATHY Comment:Testing performed by : [address] [address] MCV 77.4(L) 81.3 - 96.4 fL CATHY Comment:Testing performed by : [address] [address] MCH 24.6(L) 27.1 - 33.3 pg CATHY Comment:Testing performed by : [address] [address] MCHC 31.8(L) 32.3 - 35.7 g/dL CATHY Comment:Testing performed by : [address] [address] RDW CV 18.9(H) 11.1 - 14.9 % CATHY Comment:Testing performed by : [address] [address] RDW SD 51.3(H) 35.7 - 48.1 fL CATHY Comment:Testing performed by : [address] [address] NRBC abs 0.00 0.00 - 0.01 K/cumm CATHY Comment:Testing performed by : [address] [address] Blood 08/12/2024 12:3 1 PM GALLERY OR MUSEUM GUIDE 08/12/2024 12:35 PM GALLERY OR MUSEUM GUIDE us Ysabel Palmer MD LAB BLOOD ORDERABLES Final Result CATHY [address] [facility] Department of Laboratories [place], [place] [id number] * (ABNORMAL) Comprehensive metabolic panel (08/12/2024 12:31 PM GALLERY OR MUSEUM GUIDE) Sodium 138 135 - 145 mmol/L Comment:Testing performed by : [address] [address] Potassium, pl 4.2 3.3 - 4.9 mmol/L CATHY Comment:Testing performed by : [address] [address] Chloride 105 97 - 110 mmol/L [facility] Comment:Testing performed by : [address], [place]., [address] CO2 25 22 - 32 mmol/L CATHY Comment:Testing performed by : [address] [address] Anion gap 8 2 - 15 mmol/L CATHY Comment:Testing performed by : [address] [address] BUN 14 6 - 25 mg/dL [facility] Comment:Testing performed by : [address], [place]., [address] Creatinine 1.10 0.80 - 1.30 mg/dL [facility] Comment:Testing performed by : [address] [address] Glucose 106 70 - 199 mg/dL [facility] Comment: Interpretive Data Fasting glucose >/= 126 [...] was last revised 2022. Testing performed by: [address] [address] Calcium 8.9 8.5 - 10.3 mg/dL CATHY Comment:Testing performed by : [address] [address] Bilirubin, total 0.3 0.1 - 1.2 mg/dL CATHY Comment:Testing performed by : [address] [address] Protein, pl 6.4(L) 6.5 - 8.5 g/dL CATHY Comment:Testing performed by : [address] [address] Albumin 3.1(L) 3.5 - 5.0 g/dL CATHY Comment:Testing performed by : [address] [address] Alk phos 75 40 - 130 Units/L CATHY Comment:Testing performed by : [address] [address] ALT <5(L) 7 - 55 Units/L CATHY Comment:Testing performed by : [address], [address] AST 8(L) 10 - 50 Units/L CATHY Comment:Testing performed by : [address] [address] Blood 08/12/2024 12:3 1 PM GALLERY OR MUSEUM GUIDE 08/12/2024 12:35 PM GALLERY OR MUSEUM GUIDE Ysabel Palmer MD LAB BLOOD ORDERABLES Final Result Performing Organization Address City/State/[facility] Co de Phone Number CATHY [address] [facility] Department [place] [address] * eGFR (07/29/2024 9:43 AM GALLERY OR MUSEUM GUIDE) eGFR 80 >=60 mL/min/1. 73 m2 Comment: [...] was last reviewed 2021. Testing performed by: [address] [address] Blood 07/29/2024 9:43 AM GALLERY OR MUSEUM GUIDE 07/29/2024 9:45 AM GALLERY OR MUSEUM GUIDE Ysabel Palmer MD LAB BLOOD ORDERABLES Final Result [facility] [address] [facility] Department [place] [address] * Differential, auto (07/29/2024 9:43 AM GALLERY OR MUSEUM GUIDE) Neutrophil abs 3.1 1.5 - 6.5 K/cumm Comment:Testing performed by : [address] [address] Imm gran abs 0.0 0.0 - 0.1 K/cumm CATHY Comment:Testing performed by : [address] [address] Lymphocyte abs 0.9 0.8 - 3.3 K/cumm CATHY Comment:Testing performed by : [address] [address] Monocyte abs 0.3 0.2 - 0.8 K/cumm CAHTY Comment:Testing performed by : [address] [address] Eosinophil abs 0.2 0.0 - 0.5 K/cumm CATHY Comment:Testing performed by : [address] [address] Basophil abs 0.1 0.0 - 0.1 K/cumm CATHY Comment:Testing performed by : [address] [address] Neutrophil pct 68.5 % [facility] Comment: Interpretive Data Percent cell count reference ranges are not reported, since discordance with absolute values may lead to misinterpretation of CBC data. Current Interpretive Data was last revised on 2017. Testing performed by: [address] [address] Imm gran pct 0.7 % [facility] Comment: Interpretive Data Percent cell count reference ranges are not reported, since discordance with absolute values may lead to misinterpretation of CBC data. Current Interpretive Data was last revised on 2017. Testing performed by: [address] [address] Lymphocyte pct 19.0 % [facility] Comment: Interpretive Data Percent cell count reference ranges are not reported, since discordance with absolute values may lead to misinterpretation of CBC data. Current Interpretive Data was last revised on 2017. Testing performed by: [address] [address] Monocyte pct 6.0 % [facility] Comment: Interpretive Data Percent cell count reference ranges are not reported, since discordance with absolute values may lead to misinterpretation of CBC data. Current Interpretive Data was last revised on 2017. Testing performed by: [address] [address] Eosinophil pct 4.7 % [facility] Comment: Interpretive Data Percent cell count reference ranges are not reported, since discordance with absolute values may lead to misinterpretation of CBC data. Current Interpretive Data was last revised on 2017. Testing performed by: [address] [address] Basophil pct 1.1 % [facility] Comment: Interpretive Data Percent cell count reference ranges are not reported, since discordance with absolute values may lead to misinterpretation of CBC data. Current Interpretive Data was last revised on 2017. Testing performed by: [address] [address] Blood 07/29/2024 9:43 AM GALLERY OR MUSEUM GUIDE 07/29/2024 9:45 AM GALLERY OR MUSEUM GUIDE us Ysabel Palmer MD LAB BLOOD ORDERABLES Final Result Performing Organization Address City/[facility]/ZIP Co de Phone Number CATHY [facility]0 [facility] [place] [address] * (ABNORMAL) Iron profile w/ IBC (07/29/2024 9:43 AM GALLERY OR MUSEUM GUIDE) Pathologist [facility] Iron 23(L) 50 - 150 mcg/dL Comment:Testing performed by : [address] [address] TIBC 309 250 - 400 mcg/dL CATHY Comment:Testing performed by : [address] [address] Transferrin saturation 7(L) 20 - 50 % CATHY Comment:Testing performed by : [address] [address] Blood 07/29/2024 9:43 AM GALLERY OR MUSEUM GUIDE 07/29/2024 11:29 AM GALLERY OR MUSEUM GUIDE Ysabel Palmer MD LAB BLOOD ORDERABLES Final Result Performing Organization Address City/[facility]/ZIP Co de Phone Number ZULEYMA[address] [place] [address] * (ABNORMAL) CBC with auto differential (07/29/2024 9:43 AM GALLERY OR MUSEUM GUIDE) [facility] WBC 4.5 3.8 - 9.9 K/cumm Comment:Testing performed by : [address] [address] Hgb 8.6(L) 13.0 - 17.5 g/dL CATHY Comment:Testing performed by : [address] [address] Hct 28.1(L) 38.9 - 50.3 % CATHY BUSTOS Comment:Testing performed by : [address] [address] Plt 236 150 - 400 K/cumm CATHY BUSTOS Comment:Testing performed by : [address] [address] MPV 8.7(L) 9.1 - 12.3 fL CATHY Comment:Testing performed by : [address] [address] RBC 3.64(L) 4.30 - 5.80 M/cumm CATHY BUSTOS Comment:Testing performed by : [address] [address] MCV 77.2(L) 81.3 - 96.4 fL CATHY Comment:Testing performed by : [address] [address] MCH 23.6(L) 27.1 - 33.3 pg CATHY Comment:Testing performed by : [address] [address] MCHC 30.6(L) 32.3 - 35.7 g/dL CATHY BUSTOS Comment:Testing performed by : [address] [address] RDW CV 22.5(H) 11.1 - 14.9 % CATHY Comment:Testing performed by : [address], [address] RDW SD 65.7(H) 35.7 - 48.1 fL CATHY Comment:Testing performed by : [address] [address] NRBC abs 0.00 0.00 - 0.01 K/cumm CATHY Comment:Testing performed by : [address] [address] Blood 07/29/2024 9:43 AM GALLERY OR MUSEUM GUIDE 07/29/2024 9:45 AM GALLERY OR MUSEUM GUIDE us Ysabel Palmer MD LAB BLOOD ORDERABLES Final Result CATHY [address] [facility] Department of Laboratories [place], [place] [id number] * (ABNORMAL) Ferritin (07/29/2024 9:43 AM GALLERY OR MUSEUM GUIDE) Ferritin 20(L) 30 - 400 ng/mL Comment:Testing performed by : [address] [address] Blood 07/29/2024 9:43 AM GALLERY OR MUSEUM GUIDE 07/29/2024 11:29 AM GALLERY OR MUSEUM GUIDE Ysabel Palmer MD LAB BLOOD ORDERABLES Edited Result - Final Performing Organization Address [facility] Co de Phone Number [address] [place] [address] * (ABNORMAL) CEA (07/29/2024 9:43 AM GALLERY OR MUSEUM GUIDE) CEA 28.7(H) <=5.0 ng/mL Comment: Interpretive Data: Reference Range: Non-Smokers: 0.0 5.0 ng/mL Smokers: 0.0 6.5 ng/mL The Derek CEA assay procedure was used. Results from different manufacturers or methods may not be comparable. Serial testing should be performed using the same method. Current interpretive data was last revised 2023. Testing performed by: [address] [address] Blood 07/29/2024 9:43 AM GALLERY OR MUSEUM GUIDE 07/29/2024 11:29 AM GALLERY OR MUSEUM GUIDE Ysabel Palmer MD LAB BLOOD ORDERABLES Final Result Performing Organization Address [facility] Co de Phone Number [address] [employer] [place] [address] * (ABNORMAL) Comprehensive metabolic panel (07/29/2024 9:43 AM GALLERY OR MUSEUM GUIDE) Sodium 139 135 - 145 mmol/L Comment:Testing performed by : [address] [address] Potassium, pl 4.1 3.3 - 4.9 mmol/L CATHY BUSTOS Comment:Testing performed by : [address] [address] Chloride 105 97 - 110 mmol/L CATHY BUSTOS Comment:Testing performed by : [address] [place]., [address] CO2 25 22 - 32 mmol/L CATHY Comment:Testing performed by : [address] [address] Anion gap 9 2 - 15 mmol/L CATHY Comment:Testing performed by : [address] [address] BUN 16 6 - 25 mg/dL CATHY Comment:Testing performed by : [address] [address] Creatinine 1.00 0.80 - 1.30 mg/dL CATHY Comment:Testing performed by : [address] [address] Glucose 108 70 - 199 mg/dL [facility] Comment: Interpretive Data Fasting glucose [...] was last revised 2022. Testing performed by: [address] [address] Calcium 9.2 8.5 - 10.3 mg/dL CATHY Comment:Testing performed by : [address] [address] Bilirubin, total 0.3 0.1 - 1.2 mg/dL [facility] Comment:Testing performed by : [address] [address] Protein, pl 6.5 6.5 - 8.5 g/dL CATHY Comment:Testing performed by : [address] [address] Albumin 3.4(L) 3.5 - 5.0 g/dL CATHY Comment:Testing performed by : [address] [address] Alk phos 72 40 - 130 Units/L CATHY BUSTOS Comment:Testing performed by : [facility], [address] [place] [address]., [address] ALT 5(L) 7 - 55 Units/L CATHY BUSTOS Comment:Testing performed by : [facility], [address] [place] [address]., [address] AST 9(L) 10 - 50 Units/L CATHY BUSTOS Comment:Testing performed by : [address] [address] Blood 07/29/2024 9:43 AM GALLERY OR MUSEUM GUIDE 07/29/2024 9:45 AM GALLERY OR MUSEUM GUIDE us Ysabel Palmer MD LAB BLOOD ORDERABLES Final Result CATHY [facility] Department [place] [address] * RAD ONC ARIA SESSION SUMMARY (07/25/2024 3:07 PM GALLERY OR MUSEUM GUIDE) Course Name [id number] 024 ARIA Course Plan Date 07/14/2024 11:19 AM ARIA Elapsed Days 4 ARIA Treatment Start Date 07/21/2024 ARIA Treatment Site RECTUM_2500 ARIA Dose Given To Date (cGy) 2,500 ARIA Session Dosage Given (cGy) 500 ARIA Plan ID RECTUM ARIA Fractions Treated 5 ARIA Prescribed Dose Per Fraction (cGy) 500 ARIA Prescribed Total Dose (cGy) 2,500 ARIA 07/25/2024 3:07 PM GALLERY OR MUSEUM GUIDE us Not In File Miscellaneous RADIATION ONCOLOGY ORD ERABLES Final Result ARIA * RAD ONC ARIA SESSION SUMMARY (07/24/2024 2:19 PM GALLERY OR MUSEUM GUIDE) Course Name [id number] 024 ARIA Course Plan Date 07/14/2024 11:19 AM ARIA Elapsed Days 3 ARIA Treatment Start Date 07/21/2024 ARIA Treatment Site RECTUM_2500 ARIA Dose Given To Date (cGy) 2,000 ARIA Session Dosage Given (cGy) 500 ARIA Plan ID RECTUM ARIA Fractions Treated 4 ARIA Prescribed Dose Per Fraction (cGy) 500 ARIA Prescribed Total Dose (cGy) 2,500 ARIA 07/24/2024 2:19 PM GALLERY OR MUSEUM GUIDE us Not In File Miscellaneous RADIATION ONCOLOGY ORD ERABLES Final Result Performing Organization Address City/[facility] Co de Phone Number ILANA * RAD ONC ARIA SESSION SUMMARY (07/23/2024 2:30 PM GALLERY OR MUSEUM GUIDE) Course Name [id number] 024 ARIA Course Plan Date 07/14/2024 11:19 AM ARIA Elapsed Days 2 ARIA Treatment Start Date 07/21/2024 ARIA Treatment Site RECTUM_2500 ARIA Dose Given To Date (cGy) 1,500 ARIA Session Dosage Given (cGy) 500 ARIA Plan ID RECTUM ARIA Fractions Treated 3 ARIA Prescribed Dose Per Fraction (cGy) 500 ARIA Prescribed Total Dose (cGy) 2,500 ARIA 07/23/2024 2:30 PM GALLERY OR MUSEUM GUIDE us Not In File Miscellaneous RADIATION ONCOLOGY ORD ERABLES Final Result Performing Organization Address [facility] de Phone Number ARIGala * RAD ONC ARIA SESSION SUMMARY (07/22/2024 2:52 PM GALLERY OR MUSEUM GUIDE) Course Name [id number]_2 024 ARIA Course Plan Date 07/14/2024 11:19 AM ARIA Elapsed Days 1 ARIA Treatment Start Date 07/21/2024 ARIA Treatment Site RECTUM_2500 ARIA Dose Given To Date (cGy) 1,000 ARIA Session Dosage Given (cGy) 500 ARIA Plan ID RECTUM ARIA Fractions Treated 2 ARIA Prescribed Dose Per Fraction (cGy) 500 ARIA Prescribed Total Dose (cGy) 2,500 ARIA 07/22/2024 2:52 PM GALLERY OR MUSEUM GUIDE us Not In File Miscellaneous RADIATION ONCOLOGY ORD ERABLES Final Result Performing Organization Address City/State/[facility] Co de Phone Number AILEENA * RAD ONC ARIA SESSION SUMMARY (07/21/2024 2:15 PM GALLERY OR MUSEUM GUIDE) Course Name [id number]_2 024 ARIA Course Plan Date 07/14/2024 11:19 AM ARIA Elapsed Days 0 ARIA Treatment Start Date 07/21/2024 ARIA Treatment Site RECTUM_2500 ARIA Dose Given To Date (cGy) 500 ARIA Session Dosage Given (cGy) 500 ARIA Plan ID RECTUM ARIA Fractions Treated 1 ARIA Prescribed Dose Per Fraction (cGy) 500 ARIA Prescribed Total Dose (cGy) 2,500 ARIA 07/21/2024 2:15 PM GALLERY OR MUSEUM GUIDE us Not In File Miscellaneous RADIATION ONCOLOGY ORD ERABLES Final Result Performing Organization Address [facility] Co de Phone Number ILANA from Last 3 Months Insurance MEDICARE [facility] Care Teams Helmet Hat Puncher Relationship Specialty Start Date End Date Michael Resendiz MD PCP - General 06/18/17 Ritchie Razo MD [phone] [place] [address] Surgeon Colon and Rectal Surgery 06/17/24 Ysabel Palmer MD [address] [facility], [address] [address] Medical Oncologist/Control Room Helper Medical Oncology 06/24/24
--- OUTSIDE RECORDS SUMMARY | 2024-10-19 16:41 | XMS_ITS | Clinical Summary ---
Author Organization [facility] Address [address] [address] Care Team Providers Care Radio Antenna Installer Name Role Phone Michael Resendiz MD Primary Care Provider [phone] Medications hydroCHLOROthiaz george 12.5 mg tablet Take [...] (1 - 1-dose 75+ series) 02/19/[address] [place] [address] TRADITIONAL MEDICARE PART A AND B Care Teams Radio Antenna Installer Relationship Specialty Start Date End Date Michael Resendiz MD [address] [facility] [address] [place] [id number] PCP - General Internal Medicine 06/09/24
--- OUTSIDE RECORDS SUMMARY | 2024-10-19 16:41 | XMS_ITS ---
Author Organization [address] Address [address] [place] [id number] Care Team Providers Care Tire Duster Name Role Phone Michael Resendiz MD Primary Care Provider Ritchie Razo MD Unavailable [phone] Ysabel Palmer MD Unavailable [phone] Active Problems Problem Noted Date Diagnosed Date [...]
--- OUTSIDE RECORDS SUMMARY | 2024-10-19 16:41 | XMS_ITS | Referral Summary ---
Author Organization [address] Address [address] [place] [id number] Care Team Providers Care Shredder Operator Name Role Phone Michael Resendiz MD Primary Care Provider Ritchie Razo MD Unavailable [phone] Ysabel Palmer MD Unavailable [phone] Encounters Date Type Department Care Team Description 10/14/2024 9:30 AM IDENTIFICATION TECHNICIAN Clinical Support [facility] Medical Office Building 2 Radiation Oncology [address] [place] [phone] Rectal cancer (HCC) (Primary Dx); Severe protein-calorie malnutrition 10/14/2024 10:00 AM IDENTIFICATION TECHNICIAN Infusion [facility] at [address] [phone] Dehydration (Primary Dx); Rectal cancer (HCC) 10/14/2024 9:00 AM IDENTIFICATION TECHNICIAN Lab [facility] at [address] [address] Rectal cancer (HCC) 10/14/2024 9:30 AM IDENTIFICATION TECHNICIAN Office Visit [facility] Oncology [address] [place] [phone] Ysabel Palmer MD Rectal cancer (HCC) (Primary Dx) 09/17/2024 Telephone [facility] [address] [place] [address] [address] [place] [address] Argenis Crandall RN 09/16/2024 Orders Only [facility] On[facility] [address] [place] [address] [address] [place] [address] Terrie Parham, GÓMEZ 09/16/2024 Orders Only [facility] [address] [place] [phone] Ysabel Palmer MD 09/16/2024 9:00 AM IDENTIFICATION TECHNICIAN Infusion [facility] at [address] [place] [address] Rectal cancer (HCC) (Primary Dx) 09/16/2024 8:30 AM IDENTIFICATION TECHNICIAN Lab [facility] at [address] [address] Rectal cancer (HCC) 09/09/2024 8:45 AM IDENTIFICATION TECHNICIAN Lab [facility] at [address] [address] Rectal cancer (HCC) 09/09/2024 9:30 AM IDENTIFICATION TECHNICIAN Office Visit [facility] [address] [place] [address] [address] [place] [address] Ysabel Palmer MD Rectal cancer (HCC) (Primary Dx) 08/22/2024 Telephone [facility] [address] [place] [address] [address] [place] [address] Terrie Parham, GÓMEZ 08/15/2024 Documentation [facility] [address] [place] [address] Lisy Joseph, GUILLE PRIOR AUTH/FINANCIAL ASSIST [employer] 08/12/2024 12:15 PM IDENTIFICATION TECHNICIAN Lab [address] [address] Rectal cancer (HCC) 08/12/2024 1:00 PM IDENTIFICATION TECHNICIAN Infusion [facility] at [address] [place] [address] Rectal cancer (HCC) (Primary Dx) 08/11/2024 Orders Only [facility] [address] [place] [address] Ysabel Palmer MD 08/01/2024 Orders Only [facility] [address] [place] [address] [place] [phone] Ysabel Palmer MD 07/29/2024 10:30 AM IDENTIFICATION TECHNICIAN Office Visit [facility] [address] [place] [address] [place] [phone] Ysabel Palmer MD Rectal cancer (HCC) (Primary Dx) 07/29/2024 9:45 AM IDENTIFICATION TECHNICIAN Lab [facility] at [address] [address] Rectal cancer (HCC) 07/25/2024 Orders Only RAD ONC TREATMENTS Miscellaneous, Not In File 07/25/2024 2:45 PM IDENTIFICATION TECHNICIAN Treatment [facility] Radiation Oncology at [address] [address] Aleida Larsen MD 07/24/2024 Orders Only RAD ONC TREATMENTS Miscellaneous, Not In File 07/24/2024 2:00 PM IDENTIFICATION TECHNICIAN Treatment [facility] Radiation Oncology at [address] [address] 07/23/2024 Orders Only RAD ONC TREATMENTS Miscellaneous, Not In File 07/23/2024 2:15 PM IDENTIFICATION TECHNICIAN Treatment [facility] Radiation Oncology at [address] [address] 07/22/2024 OTV [facility] Radiation Oncology at [address] [address] Aleida Larsen MD 07/22/2024 Orders Only RAD ONC TREATMENTS Miscellaneous, Not In File 07/22/2024 2:45 PM IDENTIFICATION TECHNICIAN Treatment [facility] Radiation Oncology at [address] [place] [address] 07/21/2024 Orders Only RAD ONC TREATMENTS Miscellaneous, Not In File 07/21/2024 1:45 PM IDENTIFICATION TECHNICIAN Treatment [facility] Radiation Oncology at [facility] [address] [place] [address] Aleida Larsen MD from Last 3 Months [...] on file Legal Sex Male 2:59 AM IDENTIFICATION TECHNICIAN Gender Identity Not on file Sexual Orientation Not on file Last Filed Vital Signs Vital Sign Reading Time Taken Comments Blood Pressure 95/65 10/14/2024 9:23 AM IDENTIFICATION TECHNICIAN Pulse 85 10/14/2024 9:23 AM IDENTIFICATION TECHNICIAN Temperature 36.3 C (97.3 F) 10/14/2024 9:23 AM IDENTIFICATION TECHNICIAN Respiratory Rate 16 10/14/2024 9:23 AM IDENTIFICATION TECHNICIAN Oxygen Saturation 100% 10/14/2024 9:23 AM IDENTIFICATION TECHNICIAN Inhaled Oxygen Concentration - - Weight 55.3 kg (122 lb) 10/14/2024 9:23 AM IDENTIFICATION TECHNICIAN Height 168 cm (5' 6.14 ) 08/12/2024 12:43 PM IDENTIFICATION TECHNICIAN Body Mass Index 19.61 08/12/2024 12:43 PM IDENTIFICATION TECHNICIAN Plan of Treatment Not on file Procedures Procedure Name Priority Date/Time Associated Diagnosis Comments EGFR STAT 10/14/2024 9:04 AM IDENTIFICATION TECHNICIAN Rectal cancer (HCC) DIFFERENTIAL AUTO STAT 10/14/2024 9:0 4 AM IDENTIFICATION TECHNICIAN Rectal cancer (HCC) CBC WITH AUTO DIFFERENTIAL STAT 10/14/2024 9:04 AM IDENTIFICATION TECHNICIAN Rectal cancer (HCC) COMPREHENSIVE METABOLIC PANEL STAT 10/14/2024 9:04 AM IDENTIFICATION TECHNICIAN Rectal cancer (HCC) EGFR STAT 09/16/2024 8:15 AM IDENTIFICATION TECHNICIAN Rectal cancer (HCC) DIFFERENTIAL AUTO STAT 09/16/2024 8:1 5 AM IDENTIFICATION TECHNICIAN Rectal cancer (HCC) CBC WITH AUTO DIFFERENTIAL STAT 09/16/2024 8:15 AM IDENTIFICATION TECHNICIAN Rectal cancer (HCC) COMPREHENSIVE METABOLIC PANEL STAT 09/16/2024 8:15 AM IDENTIFICATION TECHNICIAN Rectal cancer (HCC) EGFR STAT 09/09/2024 9:29 AM IDENTIFICATION TECHNICIAN Rectal cancer (HCC) DIFFERENTIAL AUTO STAT 09/09/2024 9:2 9 AM IDENTIFICATION TECHNICIAN Rectal cancer (HCC) CEA Routine 09/09/2024 9:29 AM IDENTIFICATION TECHNICIAN Rectal cancer (HCC) CBC WITH AUTO DIFFERENTIAL STAT 09/09/2024 9:29 AM IDENTIFICATION TECHNICIAN Rectal cancer (HCC) COMPREHENSIVE METABOLIC PANEL STAT 09/09/2024 9:29 AM IDENTIFICATION TECHNICIAN Rectal cancer (HCC) EGFR STAT 08/12/2024 12:31 PM IDENTIFICATION TECHNICIAN Rectal cancer (HCC) DIFFERENTIAL AUTO STAT 08/12/2024 12: 31 PM IDENTIFICATION TECHNICIAN Rectal cancer (HCC) CBC WITH AUTO DIFFERENTIAL STAT 08/12/2024 12:31 PM IDENTIFICATION TECHNICIAN Rectal cancer (HCC) COMPREHENSIVE METABOLIC PANEL STAT 08/12/2024 12:31 PM IDENTIFICATION TECHNICIAN Rectal cancer (HCC) EGFR Routine 07/29/2024 9:43 AM IDENTIFICATION TECHNICIAN Rectal cancer (HCC) DIFFERENTIAL AUTO Routine 07/29/2024 9:4 3 AM IDENTIFICATION TECHNICIAN Rectal cancer (HCC) CBC WITH AUTO DIFFERENTIAL Routine 07/29/2024 9:43 AM IDENTIFICATION TECHNICIAN Rectal cancer (HCC) CEA Routine 07/29/2024 9:43 AM IDENTIFICATION TECHNICIAN Rectal cancer (HCC) COMPREHENSIVE METABOLIC PANEL Routine 07/29/2024 9:43 AM IDENTIFICATION TECHNICIAN Rectal cancer (HCC) IRON PROFILE W/ IBC Routine 07/29/2024 9 :43 AM IDENTIFICATION TECHNICIAN Rectal cancer (HCC) FERRITIN Routine 07/29/2024 9:43 AM IDENTIFICATION TECHNICIAN Rectal cancer (HCC) RAD ONC ARIA SESSION SUMMARY 07/25/2024 3:07 PM IDENTIFICATION TECHNICIAN RAD ONC ARIA SESSION SUMMARY 07/24/2024 2:19 PM IDENTIFICATION TECHNICIAN RAD ONC ARIA SESSION SUMMARY 07/23/2024 2:30 PM IDENTIFICATION TECHNICIAN RAD ONC ARIA SESSION SUMMARY 07/22/2024 2:52 PM IDENTIFICATION TECHNICIAN RAD ONC ARIA SESSION SUMMARY 07/21/2024 2:15 PM IDENTIFICATION TECHNICIAN from Last 3 Months Results * (ABNORMAL) eGFR (10/14/2024 9:04 AM IDENTIFICATION TECHNICIAN) eGFR 59(L) >=60 mL/min/1. 73 m2 Comment: [...] was last reviewed 2021. Testing performed by: [address] [address] Blood 10/14/2024 9:04 AM IDENTIFICATION TECHNICIAN 10/14/2024 9:06 AM IDENTIFICATION TECHNICIAN Ysabel Palmer MD LAB BLOOD ORDERABLES Final Result CATHY BUSTOS 9714 [facility] Department [place] [address] * (ABNORMAL) Differential, auto (10/14/2024 9:04 AM IDENTIFICATION TECHNICIAN) Neutrophil abs 7.0(H) 1.5 - 6.5 K/cumm Comment:Testing performed by : [address] [address] Imm gran abs 0.1 0.0 - 0.1 K/cumm CATHY BUSTOS Comment:Testing performed by : [facility], [address] [place] [address], [place]., [address] Lymphocyte abs 1.4 0.8 - 3.3 K/cumm CATHY Comment:Testing performed by : [address], [place]., [address] Monocyte abs 0.5 0.2 - 0.8 K/cumm CATHY Comment:Testing performed by : [address], [place]., [address] Eosinophil abs 0.0 0.0 - 0.5 K/cumm CTAHY Comment:Testing performed by : [address], [place]., [address] Basophil abs 0.0 0.0 - 0.1 K/cumm CATHY Comment:Testing performed by : [address] [address] Neutrophil pct 77.5 % [facility] Comment: Interpretive Data Percent cell count reference ranges are not reported, since discordance with absolute values may lead to misinterpretation of CBC data. Current Interpretive Data was last revised on 2017. Testing performed by: [address] [address] Imm gran pct 0.6 % [facility] Comment: Interpretive Data Percent cell count reference ranges are not reported, since discordance with absolute values may lead to misinterpretation of CBC data. Current Interpretive Data was last revised on 2017. Testing performed by: [address] [address] Lymphocyte pct 15.9 % [facility] Comment: Interpretive Data Percent cell count reference ranges are not reported, since discordance with absolute values may lead to misinterpretation of CBC data. Current Interpretive Data was last revised on 2017. Testing performed by: [address] [address] Monocyte pct 5.7 % [facility] Comment: Interpretive Data Percent cell count reference ranges are not reported, since discordance with absolute values may lead to misinterpretation of CBC data. Current Interpretive Data was last revised on 2017. Testing performed by: [address] [address] Eosinophil pct 0.1 % CATHY BUSTOS Comment: Interpretive Data Percent cell count reference ranges are not reported, since discordance with absolute values may lead to misinterpretation of CBC data. Current Interpretive Data was last revised on 2017. Testing performed by: [address] [address] Basophil pct 0.2 % CATHY BUSTOS Comment: Interpretive Data Percent cell count reference ranges are not reported, since discordance with absolute values may lead to misinterpretation of CBC data. Current Interpretive Data was last revised on 2017. Testing performed by: [address] [address] Blood 10/14/2024 9:04 AM IDENTIFICATION TECHNICIAN 10/14/2024 9:06 AM IDENTIFICATION TECHNICIAN Ysabel Palmer MD LAB BLOOD ORDERABLES Final Result CATHY [facility] Department [place] [address] * (ABNORMAL) CBC with auto differential (10/14/2024 9:04 AM IDENTIFICATION TECHNICIAN) WBC 9.1 3.8 - 9.9 K/cumm Comment:Testing performed by : [address] [address] Hgb 9.9(L) 13.0 - 17.5 g/dL CATHY BUSTOS Comment:Testing performed by : [address] [address] Hct 31.4(L) 38.9 - 50.3 % CATHY BUSTOS Comment:Testing performed by : [address] [address] Plt 190 150 - 400 K/cumm CATHY BUSTOS Comment:Testing performed by : [address] [address] MPV 9.3 9.1 - 12.3 fL CATHY BUSTOS Comment:Testing performed by : [address] [address] RBC 3.96(L) 4.30 - 5.80 M/cumm CATHY Comment:Testing performed by : [address] [address] MCV 79.3(L) 81.3 - 96.4 fL CATHY Comment:Testing performed by : [address] [address] MCH 25.0(L) 27.1 - 33.3 pg CATHY Comment:Testing performed by : [address] [address] MCHC 31.5(L) 32.3 - 35.7 g/dL CATHY Comment:Testing performed by : [address], [address] RDW CV 19.9(H) 11.1 - 14.9 % CATHY Comment:Testing performed by : [address] [address] RDW SD 55.1(H) 35.7 - 48.1 fL CATHY Comment:Testing performed by : [address] [address] NRBC abs 0.00 0.00 - 0.01 K/cumm CATHY Comment:Testing performed by : [address] [address] Blood 10/14/2024 9:04 AM IDENTIFICATION TECHNICIAN 10/14/2024 9:06 AM IDENTIFICATION TECHNICIAN Ysabel Palmer MD LAB BLOOD ORDERABLES Final Result CATHY 3609 [facility] Department of Laboratories [place], [place] [id number] * (ABNORMAL) Comprehensive metabolic panel (10/14/2024 9:04 AM IDENTIFICATION TECHNICIAN) Sodium 141 135 - 145 mmol/L Comment:Testing performed by : [address], [address] Potassium, pl 3.9 3.3 - 4.9 mmol/L CATHY Comment:Testing performed by : [address] [address] Chloride 105 97 - 110 mmol/L [facility] Comment:Testing performed by : [address] [address] CO2 23 22 - 32 mmol/L CATHY Comment:Testing performed by : [address] [address] Anion gap 13 2 - 15 mmol/L CATHY Comment:Testing performed by : [address] [address] BUN 22 6 - 25 mg/dL [facility] Comment:Testing performed by : [address], [place]., [address] Creatinine 1.30 0.80 - 1.30 mg/dL [facility] Comment:Testing performed by : [address] [address] Glucose 120 70 - 199 mg/dL [facility] Comment: Interpretive Data Fasting glucose >/= [...] was last revised 2022. Testing performed by: [address] [address] Calcium 9.2 8.5 - 10.3 mg/dL [facility] Comment:Testing performed by : [address] [address] Bilirubin, total 0.8 0.1 - 1.2 mg/dL [facility] Comment:Testing performed by : [address] [address] Protein, pl 6.2(L) 6.5 - 8.5 g/dL [facility] Comment:Testing performed by : [address] [address] Albumin 3.1(L) 3.5 - 5.0 g/dL CATHY BUSTOS Comment:Testing performed by : [address] [address] Alk phos 100 40 - 130 Units/L CATHY BUSTOS Comment:Testing performed by : [address] [address] ALT 7 7 - 55 Units/L CATHY Comment:Testing performed by : [address] [address] AST 9(L) 10 - 50 Units/L CATHY Comment:Testing performed by : [address] [address] Blood 10/14/2024 9:04 AM IDENTIFICATION TECHNICIAN 10/14/2024 9:06 AM IDENTIFICATION TECHNICIAN Ysabel Palmer MD LAB BLOOD ORDERABLES Final Result CATHY 7428 [facility] Department [place] [address] * eGFR (09/16/2024 8:15 AM IDENTIFICATION TECHNICIAN) eGFR 80 >=60 mL/min/1. 73 m2 Comment: [...] was last reviewed 2021. Testing performed by: [address] [place] [address] Blood 09/16/2024 8:15 AM IDENTIFICATION TECHNICIAN 09/16/2024 8:22 AM IDENTIFICATION TECHNICIAN Ysabel Palmer MD LAB BLOOD ORDERABLES Final Result [facility] 8[address] [facility] Department [place] [address] * Differential, auto (09/16/2024 8:15 AM IDENTIFICATION TECHNICIAN) Neutrophil abs 4.4 1.5 - 6.5 K/cumm Comment:Testing performed by : [address] [address] Imm gran abs 0.0 0.0 - 0.1 K/cumm CATHY Comment:Testing performed by : [address] [address] Lymphocyte abs 0.9 0.8 - 3.3 K/cumm CATHY Comment:Testing performed by : [address] [address] Monocyte abs 0.4 0.2 - 0.8 K/cumm CATHY Comment:Testing performed by : [address] [address] Eosinophil abs 0.0 0.0 - 0.5 K/cumm CATHY Comment:Testing performed by : [address] [address] Basophil abs 0.0 0.0 - 0.1 K/cumm CATHY Comment:Testing performed by : [address] [address] Neutrophil pct 77.0 % CATHY Comment: Interpretive Data Percent cell count reference ranges are not reported, since discordance with absolute values may lead to misinterpretation of CBC data. Current Interpretive Data was last revised on 2017. Testing performed by: [address] [address] Imm gran pct 0.7 % CATHY Comment: Interpretive Data Percent cell count reference ranges are not reported, since discordance with absolute values may lead to misinterpretation of CBC data. Current Interpretive Data was last revised on 2017. Testing performed by: [address] [address] Lymphocyte pct 15.0 % [facility] Comment: Interpretive Data Percent cell count reference ranges are not reported, since discordance with absolute values may lead to misinterpretation of CBC data. Current Interpretive Data was last revised on 2017. Testing performed by: [address] [address] Monocyte pct 6.3 % [facility] Comment: Interpretive Data Percent cell count reference ranges are not reported, since discordance with absolute values may lead to misinterpretation of CBC data. Current Interpretive Data was last revised on 2017. Testing performed by: [address] [address] Eosinophil pct 0.5 % [facility] Comment: Interpretive Data Percent cell count reference ranges are not reported, since discordance with absolute values may lead to misinterpretation of CBC data. Current Interpretive Data was last revised on 2017. Testing performed by: [address] [address] Basophil pct 0.5 % [facility] Comment: Interpretive Data Percent cell count reference ranges are not reported, since discordance with absolute values may lead to misinterpretation of CBC data. Current Interpretive Data was last revised on 2017. Testing performed by: [address] [address] Blood 09/16/2024 8:15 AM IDENTIFICATION TECHNICIAN 09/16/2024 8:22 AM IDENTIFICATION TECHNICIAN us Ysabel Palmer MD LAB BLOOD ORDERABLES Final Result CATHY BUSTOS 87[address] [facility] Department of Laboratories [place], [place] [id number] * (ABNORMAL) CBC with auto differential (09/16/2024 8:15 AM IDENTIFICATION TECHNICIAN) WBC 5.7 3.8 - 9.9 K/cumm Comment:Testing performed by : [address] [address] Hgb 9.4(L) 13.0 - 17.5 g/dL CATHY Comment:Testing performed by : [address] [address] Hct 29.4(L) 38.9 - 50.3 % CATHY Comment:Testing performed by : [address] [address] Plt 190 150 - 400 K/cumm CATHY Comment:Testing performed by : [address] [address] MPV 8.4(L) 9.1 - 12.3 fL CATHY Comment:Testing performed by : [address] [address] RBC 3.83(L) 4.30 - 5.80 M/cumm CATHY Comment:Testing performed by : [address] [address] MCV 76.8(L) 81.3 - 96.4 fL [facility] Comment:Testing performed by : [address] [address] MCH 24.5(L) 27.1 - 33.3 pg CATHY Comment:Testing performed by : [address] [address] MCHC 32.0(L) 32.3 - 35.7 g/dL CATHY Comment:Testing performed by : [address], [address] RDW CV 17.3(H) 11.1 - 14.9 % CATHY Comment:Testing performed by : [address] [address] RDW SD 47.6 35.7 - 48.1 fL CATHY Comment:Testing performed by : [address] [address] NRBC abs 0.00 0.00 - 0.01 K/cumm CATHY Comment:Testing performed by : [address] [address] Blood 09/16/2024 8:15 AM IDENTIFICATION TECHNICIAN 09/16/2024 8:22 AM IDENTIFICATION TECHNICIAN Ysabel Palmer MD LAB BLOOD ORDERABLES Final Result [facility] 7[address] [facility] Department [place] [address] * (ABNORMAL) Comprehensive metabolic panel (09/16/2024 8:15 AM IDENTIFICATION TECHNICIAN) Sodium 140 135 - 145 mmol/L Comment:Testing performed by : [address] [address] Potassium, pl 3.3 3.3 - 4.9 mmol/L CATHY Comment:Testing performed by : [address] [address] Chloride 104 97 - 110 mmol/L CATHY Comment:Testing performed by : [address] [address] CO2 26 22 - 32 mmol/L CATHY Comment:Testing performed by : [address] [address] Anion gap 10 2 - 15 mmol/L CATHY Comment:Testing performed by : [address] [address] BUN 14 6 - 25 mg/dL CATHY Comment:Testing performed by : [address] [address] Creatinine 1.00 0.80 - 1.30 mg/dL CATHY Comment:Testing performed by : [address] [address] Glucose 105 70 - 199 mg/dL CATHY [...] was last revised 2022. Testing performed by: [address] [address] Calcium 8.7 8.5 - 10.3 mg/dL CATHY Comment:Testing performed by : [address] [address] Bilirubin, total 0.5 0.1 - 1.2 mg/dL CATHY Comment:Testing performed by : [address] [address] Protein, pl 5.8(L) 6.5 - 8.5 g/dL CATHY Comment:Testing performed by : [address] [address] Albumin 2.9(L) 3.5 - 5.0 g/dL CATHY Comment:Testing performed by : [address] [address] Alk phos 85 40 - 130 Units/L CATHY Comment:Testing performed by : [address] [address] ALT <5(L) 7 - 55 Units/L CATHY Comment:Testing performed by : [address] [address] AST 9(L) 10 - 50 Units/L CATHY Comment:Testing performed by : [address] [address] Blood 09/16/2024 8:15 AM IDENTIFICATION TECHNICIAN 09/16/2024 8:22 AM IDENTIFICATION TECHNICIAN us Ysabel Palmer MD LAB BLOOD ORDERABLES Final Result CATHY BUSTOS 26[address] [facility] Department of Laboratories [place], [place] [id number] * eGFR (09/09/2024 9:29 AM IDENTIFICATION TECHNICIAN) eGFR 72 >=60 mL/min/1. 73 m2 Comment: [...] was last reviewed 2021. Testing performed by: [address] [address] Blood 09/09/2024 9:29 AM IDENTIFICATION TECHNICIAN 09/09/2024 9:33 AM IDENTIFICATION TECHNICIAN Ysabel Palmer MD LAB BLOOD ORDERABLES Final Result CATHY 9090 [facility] Department [place] [address] * Differential, auto (09/09/2024 9:29 AM IDENTIFICATION TECHNICIAN) Neutrophil abs 3.9 1.5 - 6.5 K/cumm Comment:Testing performed by : [address] [address] Imm gran abs 0.0 0.0 - 0.1 K/cumm CATHY Comment:Testing performed by : [address] [address] Lymphocyte abs 0.9 0.8 - 3.3 K/cumm CATHY Comment:Testing performed by : [address] [address] Monocyte abs 0.3 0.2 - 0.8 K/cumm CATHY Comment:Testing performed by : [address] [address] Eosinophil abs 0.0 0.0 - 0.5 K/cumm CATHY Comment:Testing performed by : [address] [address] Basophil abs 0.0 0.0 - 0.1 K/cumm CATHY Comment:Testing performed by : [address] [address] Neutrophil pct 74.7 % [facility] Comment: Interpretive Data Percent cell count reference ranges are not reported, since discordance with absolute values may lead to misinterpretation of CBC data. Current Interpretive Data was last revised on 2017. Testing performed by: [address] [address] Imm gran pct 0.4 % [facility] Comment: Interpretive Data Percent cell count reference ranges are not reported, since discordance with absolute values may lead to misinterpretation of CBC data. Current Interpretive Data was last revised on 2017. Testing performed by: [address] [address] Lymphocyte pct 17.4 % [facility] Comment: Interpretive Data Percent cell count reference ranges are not reported, since discordance with absolute values may lead to misinterpretation of CBC data. Current Interpretive Data was last revised on 2017. Testing performed by: [address] [address] Monocyte pct 6.3 % [facility] Comment: Interpretive Data Percent cell count reference ranges are not reported, since discordance with absolute values may lead to misinterpretation of CBC data. Current Interpretive Data was last revised on 2017. Testing performed by: [address] [address] Eosinophil pct 0.8 % CATHY Comment: Interpretive Data Percent cell count reference ranges are not reported, since discordance with absolute values may lead to misinterpretation of CBC data. Current Interpretive Data was last revised on 2017. Testing performed by: [address] [address] Basophil pct 0.4 % CATHY Comment: Interpretive Data Percent cell count reference ranges are not reported, since discordance with absolute values may lead to misinterpretation of CBC data. Current Interpretive Data was last revised on 2017. Testing performed by: [address] [address] Blood 09/09/2024 9:29 AM IDENTIFICATION TECHNICIAN 09/09/2024 9:33 AM IDENTIFICATION TECHNICIAN Ysabel Palmer MD LAB BLOOD ORDERABLES Final Result [facility] [address] [facility] Department [place] [address] * (ABNORMAL) CBC with auto differential (09/09/2024 9:29 AM IDENTIFICATION TECHNICIAN) WBC 5.2 3.8 - 9.9 K/cumm Comment:Testing performed by : [address] [address] Hgb 9.4(L) 13.0 - 17.5 g/dL CATHY Comment:Testing performed by : [address] [address] Hct 28.9(L) 38.9 - 50.3 % CATHY Comment:Testing performed by : [address] [address] Plt 199 150 - 400 K/cumm CATHY Comment:Testing performed by : [address] [address] MPV 8.7(L) 9.1 - 12.3 fL CATHY Comment:Testing performed by : [address] [address] RBC 3.77(L) 4.30 - 5.80 M/cumm CATHY Comment:Testing performed by : [address] [address] MCV 76.7(L) 81.3 - 96.4 fL CATHY Comment:Testing performed by : [address] [address] MCH 24.9(L) 27.1 - 33.3 pg CATHY BUSTOS Comment:Testing performed by : [facility], [address] [place] [address]., [address] MCHC 32.5 32.3 - 35.7 g/dL CATHY BUSTOS Comment:Testing performed by : [address] [address] RDW CV 17.2(H) 11.1 - 14.9 % CATHY BUSTOS Comment:Testing performed by : [address] [address] RDW SD 47.1 35.7 - 48.1 fL CATHY BUSTOS Comment:Testing performed by : [address] [address] NRBC abs 0.00 0.00 - 0.01 K/cumm CATHY BUSTOS Comment:Testing performed by : [address] [address] Blood 09/09/2024 9:29 AM IDENTIFICATION TECHNICIAN 09/09/2024 9:33 AM IDENTIFICATION TECHNICIAN Ysabel Palmer MD LAB BLOOD ORDERABLES Final Result CATHY [address] [facility] Department [place] [address] * (ABNORMAL) CEA (09/09/2024 9:29 AM IDENTIFICATION TECHNICIAN) CEA 6.0(H) <=5.0 ng/mL Comment: Interpretive Data: Reference Range: Non-Smokers: 0.0 5.0 ng/mL Smokers: 0.0 6.5 ng/mL The Derek CEA assay procedure was used. Results from different manufacturers or methods may not be comparable. Serial testing should be performed using the same method. Current interpretive data was last revised 2023. Testing performed by: [address] [address] Blood 09/09/2024 9:29 AM IDENTIFICATION TECHNICIAN 09/09/2024 1:41 PM IDENTIFICATION TECHNICIAN Ysabel Palmer MD LAB BLOOD ORDERABLES Final Result [facility] [address] [facility] Department [place] [address] * (ABNORMAL) Comprehensive metabolic panel (09/09/2024 9:29 AM IDENTIFICATION TECHNICIAN) Sodium 139 135 - 145 mmol/L Comment:Testing performed by : [address] [address] Potassium, pl 3.6 3.3 - 4.9 mmol/L CATHY Comment:Testing performed by : [address] [address] Chloride 104 97 - 110 mmol/L CATHY Comment:Testing performed by : [address] [address] CO2 25 22 - 32 mmol/L CATHY Comment:Testing performed by : [address] [address] Anion gap 10 2 - 15 mmol/L CATHY Comment:Testing performed by : [address] [address] BUN 20 6 - 25 mg/dL CATHY Comment:Testing performed by : [address] [address] Creatinine 1.10 0.80 - 1.30 mg/dL CATHY Comment:Testing performed by : [address] [address] Glucose 109 70 - 199 mg/dL CATHY [...] was last revised 2022. Testing performed by: [address] [place]., [address] Calcium 8.6 8.5 - 10.3 mg/dL CATHY Comment:Testing performed by : [address] [address] Bilirubin, total 0.4 0.1 - 1.2 mg/dL CATHY Comment:Testing performed by : [address] [address] Protein, pl 5.8(L) 6.5 - 8.5 g/dL CATHY Comment:Testing performed by : [address] [address] Albumin 3.0(L) 3.5 - 5.0 g/dL CATHY Comment:Testing performed by : [address] [address] Alk phos 72 40 - 130 Units/L CATHY Comment:Testing performed by : [address] [address] ALT <5(L) 7 - 55 Units/L CATHY Comment:Testing performed by : [address] [address] AST 7(L) 10 - 50 Units/L CATHY Comment:Testing performed by : [address] [address] Blood 09/09/2024 9:29 AM IDENTIFICATION TECHNICIAN 09/09/2024 9:33 AM IDENTIFICATION TECHNICIAN Ysabel Palmer MD LAB BLOOD ORDERABLES Final Result CATHY [address] [facility] Department [place] [address] * eGFR (08/12/2024 12:31 PM IDENTIFICATION TECHNICIAN) eGFR 72 >=60 mL/min/1. 73 m2 Comment: [...] was last reviewed 2021. Testing performed by: [address] [address] Blood 08/12/2024 12:3 1 PM IDENTIFICATION TECHNICIAN 08/12/2024 12:35 PM IDENTIFICATION TECHNICIAN Ysabel Palmer MD LAB BLOOD ORDERABLES Final Result CATHY [facility] Department [place] [address] * Differential, auto (08/12/2024 12:31 PM IDENTIFICATION TECHNICIAN) Neutrophil abs 2.7 1.5 - 6.5 K/cumm Comment:Testing performed by : [address] [address] Imm gran abs 0.0 0.0 - 0.1 K/cumm CATHY Comment:Testing performed by : [address] [address] Lymphocyte abs 1.0 0.8 - 3.3 K/cumm CATHY Comment:Testing performed by : [address] [address] Monocyte abs 0.4 0.2 - 0.8 K/cumm CATHY Comment:Testing performed by : [address] [address] Eosinophil abs 0.1 0.0 - 0.5 K/cumm CATHY Comment:Testing performed by : [address] [place] [address] Basophil abs 0.0 0.0 - 0.1 K/cumm CATHY Comment:Testing performed by : [address] [address] Neutrophil pct 64.1 % [facility] Comment: Interpretive Data Percent cell count reference ranges are not reported, since discordance with absolute values may lead to misinterpretation of CBC data. Current Interpretive Data was last revised on 2017. Testing performed by: [address] [address] Imm gran pct 0.5 % [facility] Comment: Interpretive Data Percent cell count reference ranges are not reported, since discordance with absolute values may lead to misinterpretation of CBC data. Current Interpretive Data was last revised on 2017. Testing performed by: [address] [address] Lymphocyte pct 23.4 % [facility] Comment: Interpretive Data Percent cell count reference ranges are not reported, since discordance with absolute values may lead to misinterpretation of CBC data. Current Interpretive Data was last revised on 2017. Testing performed by: [address] [address] Monocyte pct 9.1 % [facility] Comment: Interpretive Data Percent cell count reference ranges are not reported, since discordance with absolute values may lead to misinterpretation of CBC data. Current Interpretive Data was last revised on 2017. Testing performed by: [address] [address] Eosinophil pct 2.2 % [facility] Comment: Interpretive Data Percent cell count reference ranges are not reported, since discordance with absolute values may lead to misinterpretation of CBC data. Current Interpretive Data was last revised on 2017. Testing performed by: [address] [address] Basophil pct 0.7 % [facility] Comment: Interpretive Data Percent cell count reference ranges are not reported, since discordance with absolute values may lead to misinterpretation of CBC data. Current Interpretive Data was last revised on 2017. Testing performed by: [address] [address] Blood 08/12/2024 12:3 1 PM IDENTIFICATION TECHNICIAN 08/12/2024 12:35 PM IDENTIFICATION TECHNICIAN Ysabel Palmer MD LAB BLOOD ORDERABLES Final Result [facility] [address] [facility] Department [place] [address] * (ABNORMAL) CBC with auto differential (08/12/2024 12:31 PM IDENTIFICATION TECHNICIAN) WBC 4.2 3.8 - 9.9 K/cumm Comment:Testing performed by : [address] [address] Hgb 8.8(L) 13.0 - 17.5 g/dL CATHY Comment:Testing performed by : [address] [address] Hct 27.7(L) 38.9 - 50.3 % CATHY Comment:Testing performed by : [address] [address] Plt 230 150 - 400 K/cumm CATHY Comment:Testing performed by : [address] [address] MPV 8.6(L) 9.1 - 12.3 fL CATHY Comment:Testing performed by : [address] [address] RBC 3.58(L) 4.30 - 5.80 M/cumm CATHY Comment:Testing performed by : [address] [address] MCV 77.4(L) 81.3 - 96.4 fL CATHY Comment:Testing performed by : [address] [address] MCH 24.6(L) 27.1 - 33.3 pg CATHY Comment:Testing performed by : [address] [address] MCHC 31.8(L) 32.3 - 35.7 g/dL CATHY BUSTOS Comment:Testing performed by : [address] [address] RDW CV 18.9(H) 11.1 - 14.9 % CATHY BUSTOS Comment:Testing performed by : [address] [address] RDW SD 51.3(H) 35.7 - 48.1 fL CATHY BUSTOS Comment:Testing performed by : [address] [address] NRBC abs 0.00 0.00 - 0.01 K/cumm CATHY BUSTOS Comment:Testing performed by : [address] [address] Blood 08/12/2024 12:3 1 PM IDENTIFICATION TECHNICIAN 08/12/2024 12:35 PM IDENTIFICATION TECHNICIAN Ysabel Palmer MD LAB BLOOD ORDERABLES Final Result CATHY [address] Department [place] [address] * (ABNORMAL) Comprehensive metabolic panel (08/12/2024 12:31 PM IDENTIFICATION TECHNICIAN) Sodium 138 135 - 145 mmol/L Comment:Testing performed by : [address] [address] Potassium, pl 4.2 3.3 - 4.9 mmol/L CATHY BUSTOS Comment:Testing performed by : [address] [address] Chloride 105 97 - 110 mmol/L CATHY BUSTOS Comment:Testing performed by : [address] [address] CO2 25 22 - 32 mmol/L CATHY BUSTOS Comment:Testing performed by : [address] [address] Anion gap 8 2 - 15 mmol/L CATHY BUSTOS Comment:Testing performed by : [address] [address] BUN 14 6 - 25 mg/dL CAHTY BUSTOS Comment:Testing performed by : [address] [address] Creatinine 1.10 0.80 - 1.30 mg/dL CATHY Comment:Testing performed by : [address] [address] Glucose 106 70 - 199 mg/dL CATHY [...] was last revised 2022. Testing performed by: [address] [address] Calcium 8.9 8.5 - 10.3 mg/dL CATHY Comment:Testing performed by : [address] [address] Bilirubin, total 0.3 0.1 - 1.2 mg/dL CATHY Comment:Testing performed by : [address] [address] Protein, pl 6.4(L) 6.5 - 8.5 g/dL CATHY Comment:Testing performed by : [address] [address] Albumin 3.1(L) 3.5 - 5.0 g/dL CATHY Comment:Testing performed by : [address] [address] Alk phos 75 40 - 130 Units/L CATHY Comment:Testing performed by : [address] [address] ALT <5(L) 7 - 55 Units/L CATHY Comment:Testing performed by : [address] [address] AST 8(L) 10 - 50 Units/L CATHY Comment:Testing performed by : [address] [address] Blood 08/12/2024 12:3 1 PM IDENTIFICATION TECHNICIAN 08/12/2024 12:35 PM IDENTIFICATION TECHNICIAN Ysabel Palmer MD LAB BLOOD ORDERABLES Final Result CATHY [address] [employer] [place] [address] * eGFR (07/29/2024 9:43 AM IDENTIFICATION TECHNICIAN) Pathologist [facility] eGFR 80 >=60 mL/min/1. 73 m2 Comment: [...] was last reviewed 2021. Testing performed by: [address] [address] Blood 07/29/2024 9:43 AM IDENTIFICATION TECHNICIAN 07/29/2024 9:45 AM IDENTIFICATION TECHNICIAN Ysabel Palmer MD LAB BLOOD ORDERABLES Final Result CATHY [address] [place] [employer] [place] [address] * Differential, auto (07/29/2024 9:43 AM IDENTIFICATION TECHNICIAN) [facility] Neutrophil abs 3.1 1.5 - 6.5 K/cumm Comment:Testing performed by : [address], [place]., [address] Imm gran abs 0.0 0.0 - 0.1 K/cumm [facility] Comment:Testing performed by : [address], [place]., [address] Lymphocyte abs 0.9 0.8 - 3.3 K/cumm [facility] Comment:Testing performed by : [address], [place]., [address] Monocyte abs 0.3 0.2 - 0.8 K/cumm [facility] Comment:Testing performed by : [address] [address] Eosinophil abs 0.2 0.0 - 0.5 K/cumm [facility] Comment:Testing performed by : [address] [address] Basophil abs 0.1 0.0 - 0.1 K/cumm [facility] Comment:Testing performed by : [address] [address] Neutrophil pct 68.5 % [facility] Comment: Interpretive Data Percent cell count reference ranges are not reported, since discordance with absolute values may lead to misinterpretation of CBC data. Current Interpretive Data was last revised on 2017. Testing performed by: [address] [address] Imm gran pct 0.7 % [facility] Comment: Interpretive Data Percent cell count reference ranges are not reported, since discordance with absolute values may lead to misinterpretation of CBC data. Current Interpretive Data was last revised on 2017. Testing performed by: [address] [address] Lymphocyte pct 19.0 % [facility] Comment: Interpretive Data Percent cell count reference ranges are not reported, since discordance with absolute values may lead to misinterpretation of CBC data. Current Interpretive Data was last revised on 2017. Testing performed by: [address] [address] Monocyte pct 6.0 % [facility] Comment: Interpretive Data Percent cell count reference ranges are not reported, since discordance with absolute values may lead to misinterpretation of CBC data. Current Interpretive Data was last revised on 2017. Testing performed by: [address] [address] Eosinophil pct 4.7 % CATHY Comment: Interpretive Data Percent cell count reference ranges are not reported, since discordance with absolute values may lead to misinterpretation of CBC data. Current Interpretive Data was last revised on 2017. Testing performed by: [address] [address] Basophil pct 1.1 % CATHY Comment: Interpretive Data Percent cell count reference ranges are not reported, since discordance with absolute values may lead to misinterpretation of CBC data. Current Interpretive Data was last revised on 2017. Testing performed by: [address] [address] Blood 07/29/2024 9:43 AM IDENTIFICATION TECHNICIAN 07/29/2024 9:45 AM IDENTIFICATION TECHNICIAN Ysabel Palmer MD LAB BLOOD ORDERABLES Final Result [facility] [address] [facility] Department of Laboratories [place], [place] [id number] * (ABNORMAL) Iron profile w/ IBC (07/29/2024 9:43 AM IDENTIFICATION TECHNICIAN) Iron 23(L) 50 - 150 mcg/dL Comment:Testing performed by : [address] [address] TIBC 309 250 - 400 mcg/dL CATHY BUSTOS Comment:Testing performed by : [address] [address] Transferrin saturation 7(L) 20 - 50 % CATHY BUSTOS Comment:Testing performed by : [address] [address] Blood 07/29/2024 9:43 AM IDENTIFICATION TECHNICIAN 07/29/2024 11:29 AM IDENTIFICATION TECHNICIAN us Ysabel Palmer MD LAB BLOOD ORDERABLES Final Result [facility] [address] [facility] Department [place] [address] * (ABNORMAL) CBC with auto differential (07/29/2024 9:43 AM IDENTIFICATION TECHNICIAN) WBC 4.5 3.8 - 9.9 K/cumm Comment:Testing performed by : [address] [address] Hgb 8.6(L) 13.0 - 17.5 g/dL CATHY Comment:Testing performed by : [address] [address] Hct 28.1(L) 38.9 - 50.3 % CATHY Comment:Testing performed by : [address] [address] Plt 236 150 - 400 K/cumm CATHY Comment:Testing performed by : [address] [address] MPV 8.7(L) 9.1 - 12.3 fL CATHY Comment:Testing performed by : [address] [address] RBC 3.64(L) 4.30 - 5.80 M/cumm CATHY Comment:Testing performed by : [address] [address] MCV 77.2(L) 81.3 - 96.4 fL CATHY Comment:Testing performed by : [address] [address] MCH 23.6(L) 27.1 - 33.3 pg CATHY Comment:Testing performed by : [address] [address] MCHC 30.6(L) 32.3 - 35.7 g/dL CATHY Comment:Testing performed by : [address], [address] RDW CV 22.5(H) 11.1 - 14.9 % CATHY BUSTOS Comment:Testing performed by : [address] [address] RDW SD 65.7(H) 35.7 - 48.1 fL CATHY BUSTOS Comment:Testing performed by : [address] [address] NRBC abs 0.00 0.00 - 0.01 K/cumm CATHY Comment:Testing performed by : [address] [address] Blood 07/29/2024 9:43 AM IDENTIFICATION TECHNICIAN 07/29/2024 9:45 AM IDENTIFICATION TECHNICIAN Ysabel Palmer MD LAB BLOOD ORDERABLES Final Result Performing Organization Address [facility] Co de Phone Number [id number] [place] [employer] [place] [address] * (ABNORMAL) Ferritin (07/29/2024 9:43 AM IDENTIFICATION TECHNICIAN) Pathologist [facility] Ferritin 20(L) 30 - 400 ng/mL Comment:Testing performed by : [address] [address] Blood 07/29/2024 9:43 AM IDENTIFICATION TECHNICIAN 07/29/2024 11:29 AM IDENTIFICATION TECHNICIAN Ysabel Palmer MD LAB BLOOD ORDERABLES Edited Result - Final Performing Organization Address [facility] Co de Phone Number [address] [place] [address] * (ABNORMAL) CEA (07/29/2024 9:43 AM IDENTIFICATION TECHNICIAN) Pathologist [facility] CEA 28.7(H) <=5.0 ng/mL Comment: Interpretive Data: Reference Range: Non-Smokers: 0.0 5.0 ng/mL Smokers: 0.0 6.5 ng/mL The Derek CEA assay procedure was used. Results from different manufacturers or methods may not be comparable. Serial testing should be performed using the same method. Current interpretive data was last revised 2023. Testing performed by: [address] [address] Blood 07/29/2024 9:43 AM IDENTIFICATION TECHNICIAN 07/29/2024 11:29 AM IDENTIFICATION TECHNICIAN Ysabel Palmer MD LAB BLOOD ORDERABLES Final Result [facility] [address] [facility] Department [place] [address] * (ABNORMAL) Comprehensive metabolic panel (07/29/2024 9:43 AM IDENTIFICATION TECHNICIAN) Sodium 139 135 - 145 mmol/L Comment:Testing performed by : [address] [address] Potassium, pl 4.1 3.3 - 4.9 mmol/L CATHY Comment:Testing performed by : [address] [address] Chloride 105 97 - 110 mmol/L CATHY Comment:Testing performed by : [address] [address] CO2 25 22 - 32 mmol/L CATHY Comment:Testing performed by : [address] [address] Anion gap 9 2 - 15 mmol/L CATHY Comment:Testing performed by : [address] [address] BUN 16 6 - 25 mg/dL CATHY Comment:Testing performed by : [address] [address] Creatinine 1.00 0.80 - 1.30 mg/dL CATHY Comment:Testing performed by : [address] [address] Glucose 108 70 - 199 mg/dL CATHY [...] was last revised 2022. Testing performed by: [address] [address] Calcium 9.2 8.5 - 10.3 mg/dL CATHY Comment:Testing performed by : [address] [address] Bilirubin, total 0.3 0.1 - 1.2 mg/dL CATHY Comment:Testing performed by : [address] [address] Protein, pl 6.5 6.5 - 8.5 g/dL CATHY Comment:Testing performed by : [address] [address] Albumin 3.4(L) 3.5 - 5.0 g/dL CATHY Comment:Testing performed by : [address] [address] Alk phos 72 40 - 130 Units/L CATHY Comment:Testing performed by : [address] [address] ALT 5(L) 7 - 55 Units/L CATHY Comment:Testing performed by : [address] [address] AST 9(L) 10 - 50 Units/L CATHY Comment:Testing performed by : [address] [address] Blood 07/29/2024 9:43 AM IDENTIFICATION TECHNICIAN 07/29/2024 9:45 AM IDENTIFICATION TECHNICIAN us Ysabel Palmer MD LAB BLOOD ORDERABLES Final Result [facility] [address] [facility] Department [place] [address] * RAD ONC ARIA SESSION SUMMARY (07/25/2024 3:07 PM IDENTIFICATION TECHNICIAN) Course Name [id number]_2 024 ARIA Course Plan Date 07/14/2024 11:19 AM ARIA Elapsed Days 4 ARIA Treatment Start Date 07/21/2024 ARIA Treatment Site RECTUM_2500 ARIA Dose Given To Date (cGy) 2,500 ARIA Session Dosage Given (cGy) 500 ARIA Plan ID RECTUM ARIA Fractions Treated 5 ARIA Prescribed Dose Per Fraction (cGy) 500 ARIA Prescribed Total Dose (cGy) 2,500 ARIA 07/25/2024 3:07 PM IDENTIFICATION TECHNICIAN us Not In File Miscellaneous RADIATION ONCOLOGY ORD ERABLES Final Result Performing Organization Address [facility] Co de Phone Number ARIA * RAD ONC ARIA SESSION SUMMARY (07/24/2024 2:19 PM IDENTIFICATION TECHNICIAN) Course Name [id number]_2 024 ARIA Course Plan Date 07/14/2024 11:19 AM ARIA Elapsed Days 3 ARIA Treatment Start Date 07/21/2024 ARIA Treatment Site RECTUM_2500 ARIA Dose Given To Date (cGy) 2,000 ARIA Session Dosage Given (cGy) 500 ARIA Plan ID RECTUM ARIA Fractions Treated 4 ARIA Prescribed Dose Per Fraction (cGy) 500 ARIA Prescribed Total Dose (cGy) 2,500 ARIA 07/24/2024 2:19 PM IDENTIFICATION TECHNICIAN us Not In File Miscellaneous RADIATION ONCOLOGY ORD ERABLES Final Result ARIA * RAD ONC ARIA SESSION SUMMARY (07/23/2024 2:30 PM IDENTIFICATION TECHNICIAN) Course Name [id number]_2 024 ARIA Course Plan Date 07/14/2024 11:19 AM ARIA Elapsed Days 2 ARIA Treatment Start Date 07/21/2024 ARIA Treatment Site RECTUM_2500 ARIA Dose Given To Date (cGy) 1,500 ARIA Session Dosage Given (cGy) 500 ARIA Plan ID RECTUM ARIA Fractions Treated 3 ARIA Prescribed Dose Per Fraction (cGy) 500 ARIA Prescribed Total Dose (cGy) 2,500 ARIA 07/23/2024 2:30 PM IDENTIFICATION TECHNICIAN us Not In File Miscellaneous RADIATION ONCOLOGY ORD ERABLES Final Result ARIA * RAD ONC ARIA SESSION SUMMARY (07/22/2024 2:52 PM IDENTIFICATION TECHNICIAN) Course Name C1_Rectum_2 024 ARIA Course Plan Date 07/14/2024 11:19 AM ARIA Elapsed Days 1 ARIA Treatment Start Date 07/21/2024 ARIA Treatment Site RECTUM_2500 ARIA Dose Given To Date (cGy) 1,000 ARIA Session Dosage Given (cGy) 500 ARIA Plan ID RECTUM ARIA Fractions Treated 2 ARIA Prescribed Dose Per Fraction (cGy) 500 ARIA Prescribed Total Dose (cGy) 2,500 ARIA 07/22/2024 2:52 PM IDENTIFICATION TECHNICIAN us Not In File Miscellaneous RADIATION ONCOLOGY ORD ERABLES Final Result Performing Organization Address City/[facility] Co de Phone Number ARIA * RAD ONC ARIA SESSION SUMMARY (07/21/2024 2:15 PM IDENTIFICATION TECHNICIAN) Course Name C1_Rectum_2 024 ARIA Course Plan Date 07/14/2024 11:19 AM ARIA Elapsed Days 0 ARIA Treatment Start Date 07/21/2024 ARIA Treatment Site RECTUM_2500 ARIA Dose Given To Date (cGy) 500 ARIA Session Dosage Given (cGy) 500 ARIA Plan ID RECTUM ARIA Fractions Treated 1 ARIA Prescribed Dose Per Fraction (cGy) 500 ARIA Prescribed Total Dose (cGy) 2,500 ARIA 07/21/2024 2:15 PM IDENTIFICATION TECHNICIAN us Not In File Miscellaneous RADIATION ONCOLOGY ORD ERABLES Final Result ILANA from Last 3 Months Insurance MEDICARE [employer] [facility] MEDICARE [employer] [facility] Care Teams Shredder Operator Relationship Specialty Start Date End Date Michael Resendiz MD PCP - General 06/18/17 Ritchie Razo MD [address] [phone] [place] [address] Surgeon Colon and Rectal Surgery 06/17/24 Ysabel Palmer MD [address] [facility], [address] [address] Medical Oncologist/News Department Intern Medical Oncology 06/24/24
--- OUTSIDE RECORDS SUMMARY | 2024-10-19 16:41 | XMS_ITS | Referral Summary ---
Author Organization [facility] Address [address] [place] [address] Care Team Providers Care Interventional Radiology Rn Name Role Phone Unavailable Primary Care Provider Unavailabl e Source Comments [facility],non-owned Affiliates and Associated Physician Practices is amultiple site organization consisting of ambulatory clinics and hospital sitesin [place], [place], [place] and [place]. This disclosure is being madepursuant to the Care Everywhere program and may not contain all information available regarding this patient. Last updated 18.[facility] [email or web address] Social History Tobacco Use Types Packs/Day Years Used Date Smoking Tobacco: Never Assessed Sex and Gender Information Value Date Recorded Sex Assigned at Not on file Gender Identity Not on file Sexual Orientation Not on file Plan of Treatment Not on file
--- OUTSIDE RECORDS SUMMARY | 2024-10-19 16:41 | XMS_ITS | Clinical Summary ---
Author Organization [facility] Address [address] [place] [address] Care Team Providers Care Field Marketer Name Role Phone Unavailable Primary Care Provider Unavailabl e Source Comments [facility],non-owned Affiliates and Associated Physician Practices is amultiple site organization consisting of ambulatory clinics and hospital sitesin [place], [place], [place] and [place]. This disclosure is being madepursuant to the Care Everywhere program and may not contain all information available regarding this patient. Last updated 18.[facility] Social History Tobacco Use Types Packs/Day Years [...]
--- OUTSIDE RECORDS SUMMARY | 2024-10-19 16:41 | XMS_ITS | Patient Health Summary ---
Author Organization [facility] Address [address] [place] [address] Care Team Providers Care Descriptive Catalog Librarian Name Role Phone Unavailable Primary Care Provider Unavailabl e Note from [facility],non-owned Affiliates and Associated Physician Practices is amultiple site organization consisting of ambulatory clinics and hospital sitesin [place], [place], [place] and [place]. This disclosure is being madepursuant to the Care Everywhere program and may not contain all informatio navailable regarding this patient. Last updated 18.[facility] Social History Tobacco Use Types Packs/Day Years Used Date Smoking Tobacco: Never Assessed Sex and Gender Information Value Date Recorded Sex Assigned at Not on file Gender Identity Not on file Sexual Orientation Not on file Procedures * GROSS + MICRO EXAM(Performed 10/11/2004) * GROSS + MICRO EXAM(Performed 05/03/2004) Results * GROSS + MICRO EXAM (10/11/2004 10:30 AM COKE WORKER) Only the most recent of2 resultswithin the [...] in one cassette for decal. Dictated by Fernando Sunshine M.D. MICROSCOPIC DESCRIPTION Microscopic examination confirms the below captioned diagnosis. DIAGNOSIS Soft tissue, left shoulder, arthroscopic shavings mild degenerative changes Dictated by Jackelyn Gutiérrez M.D. Cooling Pipe Inspector SHANE DERAS Electronically Signed By JACKELYN GUTIÉRREZ MISCELLANEOUS SAMPLES / Unknown 10/11/2004 10:30 AM COKE WORKER 10/11/2004 4:01 PM COKE WORKER Historical Provider LAB - PATHOLOGY/C YTOLOGY ORDERABLES
[2024-10-19 16:44] LABS: Troponin I 0.085 ng/mL (0.000-0.034)
[2024-10-19 17:10] LABS: CRP 17.5 mg/dL (<1.0)
[2024-10-19] MEDS: VANCOMYCIN 1,750 MG/NS 500 ML 1,750 MG/500 ML BAG 250 MG IVPB (17:44)
[2024-10-19 17:55] LABS: MRSA (PCR) NOT DETECTED (NOT DETECTE)
[2024-10-19 18:02] LABS: Influenza A QL RT-PCR Negative (Negative); Influenza B QL RT-PCR Negative (Negative); RSV RNA, RT-PCR Negative (Negative); SARS-CoV-2 RNA PCR Negative (Negative)
--- NOTE | 2024-10-19 18:54 | ECG_ITS ---
Test Date: 2024-10-19 19:05:20 Measurements Intervals [place] Rate: 78 P: 63 NH: 160 QRS: 82 QRSD: 138 T: 70 QT: 430 QTc: 492 Interpretive Statements SINUS RHYTHM INTRAVENTRICULAR CONDUCTION DELAY [130+ ms QRS DURATION] Compared to ECG 10/19/2024 16:07:23 Intraventricular conduction delay now present Sinus tachycardia no longer present ST (T wave) deviation no longer present Electronically Signed On 10-20-2024 11:24:33 CDT by Art Ace M.D.
--- NOTE | 2024-10-19 19:05 | PM.IMHP ---
H&P: HPI History of Present Illness Date/Time: 10/19/24 19:05 Chief Complaint: Weakness and chills Narrative: 69-year-old male with history of rectal cancer, hypertension and iron deficient see anemia presents the hospital with weakness and chills. Patient had run his daughter to the hospital to be evaluated, 1 of the ED providers were concerned about him and as high held. Patient states that he felt very weak and he has had chills. They offered to evaluate him he said okay. Patient will need case management to help with services for his daughter as she has several palsy and cannot be left alone. In the ED the patient has leukocytosis at 13.6, hemoglobin of 9.2, carbon dioxide 15, anion gap 18, BUN 23, creatinine of 1.38, lactic acid of 9.2, total bilirubin of 1.4, alkaline phos of 189, troponin of 0.085, C-reactive protein is 17.5, MRSA negative, influenza A/B, RSV, COVID negative. CT chest abdomen and pelvis shows Nonocclusive segmental right upper lobe, distal right interlobar artery, and segmental right lower lobe pulmonary emboli. Low clot burden. RV/LV ratio 1.0, Small left pleural effusion, Mild bilateral ureteral stranding and urothelial enhancement may reflect ascending infection, cystitis, 4.8 x 3.2 x 9.0 cm perirectal abscess, and Distal sigmoid and rectal wall thickening. Patient's EKG was sinus rhythm at 78, QTC of 492. Due to patient's history of cancer, acute sepsis and soft blood pressures he is getting a central line and he will be going to the ICU. Review of Systems Review of Systems: 12 systems were reviewed and are negative except for as per HPI. [facility] Past Medical History Medical History Colon cancer Bowel habit changes Weight loss Iron deficiency anemia HTN (hypertension) Surgical History Surgical History History of shoulder surgery Social History Social History Smoking packs per day: 1 Smoking cigarettes per day: 20.0 Years smoked: 10 Smoking pack-years: 10.00 Smoking status: Former smoker Tobacco type: cigarettes Second hand tobacco smoke exposure: Yes Alcohol intake: former Substance use: never Substance use type: does not use Do You Feel Safe in your Home?: Yes Lack of Transportation: No Lack of Food: Never True Current Housing: I Have Housing Concerned About Future Housing: No Difficulty Paying Gas/Electric Bills: No Difficulty Paying for Meds: No Currently Unemployed: No Education: Associate Degree Difficulty w/ Childcare or Family Care: No Living arrangements: with family Spiritual care concerns: No (Orthodoxy) Meds Home Medications and Allergies Home Medications ?Medication ?Instructions ?Recorded ?Confirmed ?Type hydrochlorothiazide 12.5 mg tablet 12.5 mg PO DAILY 05/28/24 10/19/24 History metoprolol succinate 100 mg 100 mg PO DAILY 05/28/24 10/19/24 History tablet,extended release 24 hr Allergies Allergy/AdvReac Type Severity Reaction Status Date / Time No Known Allergies Allergy Verified 10/19/24 15:35 Vital Signs Vital Signs - 24 hr 10/19/24 15:54 10/19/24 16:03 10/19/24 16:13 Temperature 98 F 100.2 F H Pulse Rate 135 H 126 H Respiratory Rate 18 Blood Pressure 116/83 79/53 L 81/54 L Pulse Oximetry 98 100 Oxygen Delivery 10/19/24 16:15 10/19/24 16:15 10/19/24 16:26 Temperature Pulse Rate 125 H Respiratory Rate Blood Pressure 94/57 L Pulse Oximetry 98 Oxygen Delivery Room Air 10/19/24 16:33 10/19/24 16:45 10/19/24 16:49 Temperature 100.2 F H Pulse Rate 113 H 105 H Respiratory Rate 22 H 15 Blood Pressure 130/71 124/61 Pulse Oximetry 100 100 Oxygen Delivery 10/19/24 17:00 10/19/24 17:38 10/19/24 17:45 Temperature 100.2 F H Pulse Rate 99 91 92 Respiratory Rate 18 17 23 H Blood Pressure 118/56 L 93/56 L 97/57 L Pulse Oximetry 100 100 100 Oxygen Delivery 10/19/24 18:23 Temperature Pulse Rate 84 Respiratory Rate 20 Blood Pressure 91/55 L Pulse Oximetry 100 Oxygen Delivery Exam Narrative: General: Appears older than stated age, chronically ill cachectic HEENT: normocephalic, atraumatic. Mucous membranes moist. EOMI, PERRLA, bilateral sclera anicteric, no conjunctival injection. Neck supple without JVD, lymphadenopathy, or bruit. Respiratory: clear to ascultation bilaterally. No rales/rhonic/wheezes. Cardiovascular: Regular rate and rhythm, normal S1-S2 upon ascultation. No murmurs, rubs, or clicks. PMI is nondisplaced, capillary refill less than 3 second. Abdomen: Soft, round, no pulsatile masses, nondistended and nontender. No rebound, no guarding. No CVA tenderness, no hepatosplenomegaly. Bowel sounds present to all four quadrants. No high pitch or tinkling sounds, resonant to percussion. Extremities: No cyanosis, clubbing, or edema present. Pulses are palpable 2/2. Active ROM to all four extremities. Neuro: Alert and orientated x 4. PERRLA. Cranial nerves 2-12 intact without focal deficit. Skin: Warm, dry, and intact, without rash, erythema, or lesion. Psych: pleasant, cooperative, normal speech, normal affect, no hallucinations, no dysarthia H&P: Results Labs Labs: Short CBC 10/19/24 Range/Units 16:10 WBC 13.6 H (4.5-10.0) K/mm3 Hgb 9.2 L (14.0-18.0) g/dL Hct 30.1 L (42.0-52.0) % Plt Count 154 (150-375) k/mm3 BMP 10/19/24 10/19/24 10/19/24 16:10 16:10 16:10 Sodium Cancelled 140 Potassium Cancelled 4.2 Chloride Cancelled Carbon Dioxide BUN Creatinine Glucose Calcium 10/19/24 10/19/24 10/19/24 16:10 16:10 16:10 Sodium Potassium Chloride 107 Carbon Dioxide Cancelled 15 L BUN Cancelled 23 H Creatinine Cancelled Glucose Calcium 10/19/24 10/19/24 10/19/24 16:10 16:10 16:10 Sodium Potassium Chloride Carbon Dioxide BUN Creatinine 1.38 H Glucose Cancelled 112 H Calcium Cancelled 8.8 Cardiac Enzymes 10/19/24 Range/Units 16:10 Troponin I 0.085 H* (0.000-0.034) ng/mL Liver Function 10/19/24 10/19/24 10/19/24 Range/Units 16:10 16:10 16:10 Total Bilirubin Cancelled 1.4 H AST Cancelled 18 ALT Cancelled Alkaline Phosphatase Albumin 10/19/24 10/19/24 10/19/24 Range/Units 16:10 16:10 16:10 Total Bilirubin AST ALT 22 Alkaline Phosphatase Cancelled 189 H Albumin Cancelled 2.8 L Assessment and Plan Assessment and plan (1) Rectal abscess: Code(s): K61.1 - Rectal abscess Status: Acute Assessment and Plan: With history of malignant neoplasm of the colon Surgery consulted Cefepime, Flagyl, vancomycin NPO midnight for possible surgery (2) Sepsis: Code(s): A41.9 - Sepsis, unspecified organism Status: Acute Assessment and Plan: Secondary to above Lactic acid on admission 9.2 Sepsis bolus given Repeat lactic Blood cultures pending CVC incase patient needs pressors (3) UTI (urinary tract infection): Code(s): N39.0 - Urinary tract infection, site not specified Status: Acute Assessment and Plan: CT showing fat stranding around bladder wall, UA looks noninfective patient complains of pain with urination Cefepime Flagyl vancomycin Culture and sensitivity pending (4) Pulmonary embolism: Code(s): I26.99 - Other pulmonary embolism without acute cor pulmonale Status: Acute Assessment and Plan: Heparin drip per protocol Quality VTE Prophylaxis VTE prophylaxis: mechanical ordered and pharmacologic ordered Hospitalist MIPS Advance Care Plan I have confirmed that the patient's Advanced Care Plan is present, code status is documented, or surrogate decision maker is listed in patient medical record.: Yes Medication Reconciliation I have utilized all available resources to obtain, update and review the patients current medications (includes all prescriptions, OTC, herbals, cannabis, and nutritional supplements).: Yes
[2024-10-19 19:14] LABS: Reflex Lactic Acid Yes or No Add Lactic
[2024-10-19 19:24] LABS: Add Urine Microscopic? YES; Appearance Urine Clear (Clear); Bacteria Urine None Seen /hpf; Bilirubin Urine Negative (Negative); Blood Urine Negative (Negative); Color Urine Yellow (Yellow); Glucose Urine UA Negative (Negative); Ketones Urine Negative (Negative); Leukocyte Esterase Ur Negative LEU/UL (Negative); Need Manual Microscopic Reviewed; Nitrate Urine Negative (Negative); Protein Urine 1+ mg/dL (Negative); RBC Urine 0-2 /hpf (0-2); Specific Grav Ur > 1.045 (1.001-1.035); Squamous Epithelial Cell Urine None Seen /hpf (Few); WBC Urine 0-5 /hpf (0-3)
[2024-10-19 19:40] LABS: Troponin I 0.076 ng/mL (0.000-0.034)
[2024-10-19] MEDS: HEPARIN SODIUM 5,000 UNITS/ML VIAL 5000 UNITS IV PUSH (19:49)
[2024-10-19] MEDS: metroNIDAZOLE 500 MG/ISO 100ML 500 MG/100 ML BAG 100 MG IVPB (19:50)
[2024-10-19] MEDS: HEPARIN SOD/D5W 100 UNITS/ML 25,000 UNITS/250 ML BAG 12 UNITS IV CONT (19:51)
[2024-10-19 20:00] LABS: Basophils Percent Auto 0.2 % (0.2-1.2); Hematocrit 22.6 % (42.0-52.0); Immature Granulocyte Absolute 0.07 K/mm3 (0.00-0.031); Immature Granulocyte Percent A 0.6 % (0-0.5); Lactic Acid 2.2 mmol/L (0.7-2.0); Lymphocytes Absolute Auto 0.36 K/mm3 (0.9-3.2); Lymphocytes Percent Auto 3.2 % (18.3-44.2); Mean Corpuscular Hemoglobin 25.6 pg (26-34); Mean Corpuscular Volume 82.8 fl (80-100); Mean Platelet Volume 10.4 fl (7.4-10.4); Monocytes Absolute Auto 0.6 K/mm3 (0.1-0.6); Monocytes Percent Auto 4.9 % (2.6-8.5); Neutrophils Absolute Auto 10.3 K/mm3 (1.3-6.7); Neutrophils Percent Auto 91.1 % (45.5-73.1); Platelet Count Result 85 k/mm3 (150-375); Red Blood Count 2.73 M/mm3 (4.6-6.20); Red Cell Distribution Width 20.7 % (11.5-14.5); White Blood Count 11.3 K/mm3 (4.5-10.0)
[2024-10-19 20:39] LABS: Platelet Estimate Decreased (Adequate)
[2024-10-19 20:40] LABS: Anisocytosis 1+; Ovalocytes 2+; Schistocytes Rare
[2024-10-19 20:41] LABS: Band Neutrophils Percent 0 % (0-6); Hypochromasia 2+
[2024-10-19 21:50] LABS: Basophils Percent Auto 0.2 % (0.2-1.2); Immature Granulocyte Absolute 0.09 K/mm3 (0.00-0.031); Immature Granulocyte Percent A 0.7 % (0-0.5); Immature Platelet Fraction Pct 2.2 % (0.9-11.2); Lymphocytes Absolute Auto 0.47 K/mm3 (0.9-3.2); Lymphocytes Percent Auto 3.5 % (18.3-44.2); Mean Corpuscular HGB Conc 31.4 g/dl (32-36); Mean Corpuscular Hemoglobin 25.7 pg (26-34); Mean Corpuscular Volume 82.1 fl (80-100); Mean Platelet Volume 10.8 fl (7.4-10.4); Monocytes Absolute Auto 0.6 K/mm3 (0.1-0.6); Monocytes Percent Auto 4.4 % (2.6-8.5); Neutrophils Absolute Auto 12.1 K/mm3 (1.3-6.7); Neutrophils Percent Auto 91.2 % (45.5-73.1); Platelet Count Result 93 k/mm3 (150-375); Red Blood Count 2.68 M/mm3 (4.6-6.20); Red Cell Distribution Width 20.9 % (11.5-14.5); White Blood Count 13.3 K/mm3 (4.5-10.0)
[2024-10-19 22:27] LABS: Hemoglobin 6.9 g/dL (14.0-18.0)
[2024-10-19 22:29] LABS: Anisocytosis 1+; Hypochromasia 1+; Ovalocytes 1+; Platelet Estimate Decreased (Adequate)
[2024-10-19 22:30] LABS: Schistocytes None Seen
--- NOTE | 2024-10-19 22:37 | ADMGEN ---
This patient, Kyle Resendiz, was admitted to Intensive Care Unit-7. Patient/family oriented to hospital policies and general routines including ID bracelet, bed and alarms, visiting hours, pain management, procedures, bathroom and other care routines, personal items, smoking policy, room service/diet, and visiting hours. Information on how to activate the Rapid Response Team has been discussed. Patient/Family are encouraged to report perceived risks to care and to ask questions if they do not understand what they are told or what they should do.
[2024-10-19] MEDS: LACTATED RINGERS 1,000 ML 125 ML IV CONT (23:17)
[2024-10-19 23:22] LABS: MRSA (PCR) NOT DETECTED (NOT DETECTE)
[2024-10-20] VITALS (22 sets, daily range): BP systolic 105–157; BP diastolic 62–94; PULSE 54–84; RESP 10–15; TEMP 36.3–37.2; O2SAT 92–100
--- NOTE | 2024-10-20 | ECHO_ITS ---
Patient Info Name: Kyle Resendiz Age: 69 years : 1955 Gender: Male Ht: 69 in Wt: 131 lbs BSA: 1.69 m2 HR: 71 bpm BP: 157 / 94 mmHg Technical Quality: Fair Exam Date: 10/20/2024 1:17 PM Exam Location: Echo Lab Patient Status: Inpatient Admit Date: 10/19/2024 Staff Ordering Physician: Johnathan Dozier MD Catering Director: Fior Marshall RDCS Attending Provider: Jeannine Persaud MD Exam Type: CA echo doppler color flow Study Info Indications - Pulmonary Embolis Complete two-dimensional, color flow and Doppler transthoracic echocardiogram is performed. Summary 1. Complete two-dimensional, color flow and Doppler transthoracic echocardiogram is performed. 2. Left ventricular chamber dimension is normal. 3. Left ventricular systolic function is normal, estimated at 60-65%. 4. The left ventricular diastolic function is normal. 5. E/e' 5 is not elevated. 6. Left atrial chamber dimension is mildly enlarged. 7. The mitral valve has mildly calcified annulus. 8. There is trace mitral valve regurgitation. 9. There is mild tricuspid valve regurgitation. 10. No pulmonary hypertension, estimated pulmonary arterial systolic pressure is 18 mmHg. Left Ventricle E/e' 5 is not elevated. Left ventricular chamber dimension is normal. Left ventricular systolic function is normal, estimated at 60-65%. The left ventricular diastolic function is normal. Right Ventricle Right ventricular chamber dimension is normal. Right ventricular systolic function is normal. Left Atria Left atrial chamber dimension is mildly enlarged. Right Atria Right atrial chamber dimension is normal. Aortic Valve The aortic valve is trileaflet. There is no aortic valve sclerosis. There is no aortic valve stenosis. Pulmonic Valve There is no pulmonic regurgitation. Mitral Valve The mitral valve has mildly calcified annulus. There is no mitral valve stenosis. There is trace mitral valve regurgitation. Tricuspid Valve There is mild tricuspid valve regurgitation. No pulmonary hypertension, estimated pulmonary arterial systolic pressure is 18 mmHg. Pericardium/Pleural There is no pericardial effusion. Inferior Vena Cava Normal inferior vena cava with >50% collapse upon inspiration consistent with normal right atrial pressure, 5 mmHg. Aorta The aortic root size at the sinus of Valsalva is normal. Left Ventricular Outflow Tract Name Value Normal LVOT 2D LVOT Diameter 1.8 cm LVOT Doppler LVOT Peak Gradient 4 mmHg LVOT Mean Gradient 2 mmHg LVOT VTI 22 cm LVOT VTI/AV VTI Ratio 1.1 LVOT Stroke Volume 56 ml LVOT CO 10.3 l/min LVOT CI 6.1 l/min/m2 Mitral Valve Name Value Normal MV Doppler MV Decel [place] 219 cm/s2 MV PHT 79 ms MV Area (PHT) 2.8 cm2 4.0-5.0 MV Diastolic Function MV E Peak Velocity 60 cm/s MV A Peak Velocity 51 cm/s MV E/A 1.2 MV Decel Time 272 ms MV Annular TDI MV E/e' (Septal) 5.8 <=8.0 MV E/e' (Lateral) 5.3 <=8.0 MV E/e' (Average) 5.5 Tricuspid Valve Name Value Normal TV Regurgitation Doppler TR Peak Velocity 180 cm/s TR Peak Gradient 13 mmHg Estimated PAP/RSVP RA Pressure 5 mmHg <=5 PA Systolic Pressure 18 mmHg <36 RV Systolic Pressure 18 mmHg <36 Aorta Name Value Normal Ascending Aorta Ao Root Diameter (MM) 3.5 cm Ao Root Diam Index (MM) 2.0 cm/m2 Aortic Valve Name Value Normal AV Doppler AV Peak Velocity 84 cm/s AV Peak Gradient 3 mmHg AV Mean Gradient 2 mmHg AV VTI 20 cm AV Area (Cont Eq VTI) 2.8 cm2 >=3.0 AV Area (Cont Eq Young) 3.2 cm2 AV Regurgitation 2D LVOT Area 2.6 cm2 Ventricles Name Value Normal LV Dimensions 2D/MM IVS Diastolic Thickness (2D) 0.9 cm 0.6-1.0 LVID Diastole (2D) 4.8 cm 4.2-5.8 LVIW Diastolic Thickness (2D) 1.0 cm 0.6-1.0 LVID Systole (2D) 3.5 cm 2.5-4.0 LVOT Diameter 1.8 cm LV Mass (2D Cubed) 156.83 g 88.00-224.00 LV Mass Index (2D Cubed) 93 g/m2 49-115 Relative Wall Thickness (2D) 0.41 LV Fractional Shortening/Ejection Fraction 2D/MM LV Fractional Shortening (2D) 28 % 25-43 LV EF (2D Teicholz) 54 % 52-72 LV Diastolic Volume (4C MOD) 128 ml LV EF (4C MOD) 65 % LV Diastolic Volume (2C MOD) 61 ml LV EF (2C MOD) 57 % LV Diastolic Volume (BP MOD) 91 ml 62-150 LV Diastolic Volume Index (BP MOD) 54 ml/m2 34-74 LV Systolic Volume (BP MOD) 36 ml 21-61 LV Systolic Volume Index (BP MOD) 21 ml/m2 11-31 LV EF (BP MOD) 61 % 52-72 LV Diastolic Length (4C) 8.5 cm LV Systolic Length (4C) 6.8 cm LV Stroke Volume (4C MOD) 83 ml Atria Name Value Normal LA Dimensions LA Dimension (MM) 3.7 cm 3.0-4.1 LA Volume (4C A-L) 54 ml LA Volume (BP A-L) 56 ml RA Dimensions RA Area (4C) 17.7 cm2 <=18.0 Report Signatures
[2024-10-20 04:25] LABS: Basophils Percent Auto 0.2 % (0.2-1.2); Hematocrit 25.7 % (42.0-52.0); Hemoglobin 8.3 g/dL (14.0-18.0); Immature Granulocyte Percent A 0.8 % (0-0.5); Immature Platelet Fraction Pct 2.3 % (0.9-11.2); Lymphocytes Absolute Auto 0.54 K/mm3 (0.9-3.2); Lymphocytes Percent Auto 4.1 % (18.3-44.2); Mean Corpuscular HGB Conc 32.3 g/dl (32-36); Mean Corpuscular Hemoglobin 27.1 pg (26-34); Mean Platelet Volume 9.8 fl (7.4-10.4); Monocytes Absolute Auto 0.6 K/mm3 (0.1-0.6); Monocytes Percent Auto 4.4 % (2.6-8.5); Neutrophils Absolute Auto 11.9 K/mm3 (1.3-6.7); Neutrophils Percent Auto 90.5 % (45.5-73.1); Platelet Count Result 89 k/mm3 (150-375); Red Blood Count 3.06 M/mm3 (4.6-6.20); Red Cell Distribution Width 20.4 % (11.5-14.5); White Blood Count 13.1 K/mm3 (4.5-10.0)
[2024-10-20 04:36] LABS: Alanine Aminotransferase 8 U/L (6-50); Albumin Level 1.8 g/dL (3.5-5.1); Alkaline Phosphatase 76 U/L (38-126); Anion Gap 7 mmol/L (4-12); Aspartate Amino Transferase 15 U/L (17-59); Bilirubin,Total 0.9 mg/dL (0.2-1.3); Blood Urea Nitrogen 24 mg/dL (9-20); Calcium 7.6 mg/dL (8.4-10.2); Carbon Dioxide 22 mmol/L (22-30); Chloride 107 mmol/L (98-107); Estimated CRCL calculation 49 ml/min; Estimated Glomerular Filt Rate > 60; Glucose 90 mg/dL (65-110); Magnesium 1.7 mg/dL (1.6-2.3); Potassium 3.6 mmol/L (3.4-5.0); Sodium 136 mmol/L (137-145)
[2024-10-20 04:52] LABS: Troponin I 0.047 ng/mL (0.000-0.034)
[2024-10-20 05:01] LABS: Anisocytosis 1+; Ovalocytes 1+; Platelet Estimate Decreased (Adequate); Schistocytes None Seen
[2024-10-20] MEDS: POTASSIUM CHLORIDE 20 MEQ PACKET (FOR LIQUID) 40 MEQ PO (09:02)
[2024-10-20] MEDS: CEFEPIME 2 GM/NS 50 ML 2 GM/50 ML BAG IVPB ×2 (09:03→20:30)
[2024-10-20] MEDS: MAGNESIUM SULF 2 GM/WATER 50ML 2 GM/50 ML BAG IVPB (09:10)
[2024-10-20] MEDS: metroNIDAZOLE 500 MG/ISO 100ML 500 MG/100 ML BAG 100 MG IVPB ×3 (09:10→23:35)
[2024-10-20] MEDS: CALCIUM GLUC 2,000 MG/NS 100ML 2,000 MG/100 ML BAG 100 MG IVPB (09:11)
[2024-10-20] MEDS: METOPROLOL TARTRATE 25 MG TABLET PO ×2 (09:18→20:30)
[2024-10-20] MEDS: PANTOPRAZOLE SODIUM IV 40 MG VIAL IV PUSH ×2 (09:19→20:30)
[2024-10-20 09:30] LABS: IFOB Positive Control Positive; Immunochemical Fecal Occult Bl Positive (N)
--- NOTE | 2024-10-20 09:31 | P.CONIN_ITS ---
Assessment and Plan Assessment and plan (1) Sepsis: Code(s): A41.9 - Sepsis, unspecified organism Status: Acute Assessment and Plan: Secondary to perirectal abscess General surgery consulted for evaluation Blood culture sent and pending UA unremarkable for UTI Blood pressure improved with IV fluids npo Empiric cefepime, Flagyl and vancomycin (2) Rectal abscess: Code(s): K61.1 - Rectal abscess Status: Acute Assessment and Plan: See above (3) Pulmonary embolism: Code(s): I26.99 - Other pulmonary embolism without acute cor pulmonale Status: Acute Assessment and Plan: Check lower extremity Dopplers to evaluate for DVT, check BNP and echo Patient was started on heparin infusion and has developed GI bleeding. Patient has a rectal cancer along with and another colon polyp that was not fully removed patient at this time is not a candidate for anticoagulation. I have dicussed with Surgery and requested an IVC filter (4) Non-ST elevation [place] (NSTEMI): Code(s): I21.4 - Non-ST elevation (NSTEMI) myocardial infarction Status: Acute Assessment and Plan: Elevated troponin likely secondary to PE, GI bleed and sepsis Treatment of sepsis PE and GI bleed as above Check echo Check BNP (5) Rectal cancer: Code(s): C20 - Malignant neoplasm of rectum Status: Acute Assessment and Plan: Obtain records from [facility] and [facility] (6) GI bleed: Code(s): K92.2 - Gastrointestinal hemorrhage, unspecified Status: Acute Assessment and Plan: Patient developed bloody stools after initiation of anticoagulation. Patient has a rectal cancer which is likely the source. Anticoagulation discontinued. Monitor hemoglobin. Patient was transfused 2 units of PRBC. Transfuse additionally if needed. Plan DVT prophylaxis -lower extremity venous Dopplers ordered Stress ulcer prophylaxis -PPI Nutrition - npo Code Status - Full Code Total Critical Care Time - 30 minutes Due to a high probability of clinically significant, life threatening deterioration, the patient required my highest level of preparedness to intervene emergently and I personally spent this critical care time directly and personally managing the patient. This critical care time included obtaining a history; examining the patient; pulse oximetry; ordering and review of studies; arranging urgent treatment with development of a management plan; evaluation of patient's response to treatment; frequent reassessment; and discussions with other providers. It was exclusive of separately billable procedures and treating other patients and teaching time. Please see Assessment and Plan section and the rest of the note for further information on patient assessment and treatment Appointment Coordinator Consult Note Consult date: 10/20/24 Reason for consult: PE, hypotension, abscess HPI: Kyle Resendiz is a 69 year old male with past history of recent diagnosis of rectal cancer on neoadjuvant chemo and radiation therapy, hypertension, monitor deficient anemia brought his daughter yesterday to the hospital for evaluation and was found to be very weak. He was also evaluated in the ER and complained of weakness and not feeling well for last few days. He also had some chills. He also admitted to having some dysuria and diarrhea. Workup in the ER showed patient had leukocytosis at 13.6, hemoglobin of 9.2, carbon dioxide 15, anion gap 18, BUN 23, creatinine of 1.38, lactic acid of 9.2, total bilirubin of 1.4, alkaline phos of 189, troponin of 0.085, C-reactive protein is 17.5, MRSA negative, influenza A/B, RSV, COVID negative. CT chest abdomen and pelvis shows Nonocclusive segmental right upper lobe, distal right interlobar artery, and segmental right lower lobe pulmonary emboli. Low clot burden. RV/LV ratio 1.0, Small left pleural effusion, Mild bilateral ureteral stranding and urothelial enhancement may reflect ascending infection, cystitis, 4.8 x 3.2 x 9.0 cm perirectal abscess, and Distal sigmoid and rectal wall thickening. Patient's EKG was sinus rhythm at 78, QTC of 492. Patient was started on IV anticoagulation antibiotics and fluids. A central venous catheter was inserted. Patient dropped his hemoglobin on heparin and it was discontinued and patient was given PRBC transfusion Patient at this time states he feels better. He stills feels weak and tired. Review of system was again positive for diarrhea. His stool looks bloody. All other systems were reviewed and were negative Review of Systems 2 Review of Systems: All systems reviewed & are unremarkable except as noted in HPI and below (HPI) PMFSH Past Medical History Medical History Colon cancer Bowel habit changes Weight loss Iron deficiency anemia HTN (hypertension) Surgical History Surgical History History of shoulder surgery Social History Social History Smoking packs per day: 1 Smoking cigarettes per day: 20.0 Years smoked: 10 Smoking pack-years: 10.00 Smoking status: Former smoker Tobacco type: cigarettes Second hand tobacco smoke exposure: Yes Alcohol intake: former Substance use: never Substance use type: does not use Do You Feel Safe in your Home?: Yes Lack of Transportation: No Lack of Food: Never True Current Housing: I Have Housing Concerned About Future Housing: No Difficulty Paying Gas/Electric Bills: No Difficulty Paying for Meds: No Currently Unemployed: No Education: Associate Degree Difficulty w/ Childcare or Family Care: No Living arrangements: with family Spiritual care concerns: No (Spiritism) Meds Home Medications and Allergies Home Medications ?Medication ?Instructions ?Recorded ?Confirmed ?Type hydrochlorothiazide 12.5 mg tablet 12.5 mg PO DAILY 05/28/24 10/19/24 History metoprolol succinate 100 mg 100 mg PO DAILY 05/28/24 10/19/24 History tablet,extended release 24 hr Allergies Allergy/AdvReac Type Severity Reaction Status Date / Time No Known Allergies Allergy Verified 10/19/24 15:35 Vital Signs Vital Signs - 24 hr 10/19/24 15:54 10/19/24 16:03 10/19/24 16:13 Temperature 36.6 C 37.9 C H Pulse Rate 135 H 126 H Respiratory Rate 18 Blood Pressure 116/83 79/53 L 81/54 L Pulse Oximetry 98 100 Oxygen Delivery 10/19/24 16:15 10/19/24 16:15 10/19/24 16:26 Temperature Pulse Rate 125 H Respiratory Rate Blood Pressure 94/57 L Pulse Oximetry 98 Oxygen Delivery Room Air 10/19/24 16:33 10/19/24 16:45 10/19/24 16:49 Temperature 37.9 C H Pulse Rate 113 H 105 H Respiratory Rate 22 H 15 Blood Pressure 130/71 124/61 Pulse Oximetry 100 100 Oxygen Delivery 10/19/24 17:00 10/19/24 17:38 10/19/24 17:45 Temperature 37.9 C H Pulse Rate 99 91 92 Respiratory Rate 18 17 23 H Blood Pressure 118/56 L 93/56 L 97/57 L Pulse Oximetry 100 100 100 Oxygen Delivery 10/19/24 18:00 10/19/24 18:23 10/19/24 19:19 Temperature Pulse Rate 89 84 91 Respiratory Rate 19 20 20 Blood Pressure 88/55 L 91/55 L 126/69 Pulse Oximetry 100 100 100 Oxygen Delivery 10/19/24 19:59 10/19/24 21:06 10/19/24 21:15 Temperature Pulse Rate 77 83 76 Respiratory Rate 16 15 15 Blood Pressure 118/70 123/83 117/73 Pulse Oximetry 100 100 Oxygen Delivery 10/19/24 21:30 10/19/24 22:00 10/19/24 22:00 Temperature Pulse Rate 74 67 78 Respiratory Rate 17 17 Blood Pressure 116/69 121/85 Pulse Oximetry 100 96 Oxygen Delivery 10/20/24 00:00 10/20/24 00:00 10/20/24 00:00 Temperature 36.4 C L Pulse Rate 65 62 61 Respiratory Rate 15 15 Blood Pressure 114/64 Pulse Oximetry 100 100 Oxygen Delivery Room Air 10/20/24 00:27 10/20/24 00:43 10/20/24 01:43 Temperature 36.4 C L 36.4 C 36.5 C Pulse Rate 65 60 54 L Respiratory Rate 15 14 13 Blood Pressure 114/64 128/72 144/80 H Pulse Oximetry 100 100 100 Oxygen Delivery 10/20/24 02:00 10/20/24 02:00 10/20/24 02:27 Temperature 36.5 C Pulse Rate 57 L 60 57 L Respiratory Rate 12 12 Blood Pressure 131/72 131/72 Pulse Oximetry 100 99 Oxygen Delivery 10/20/24 03:25 10/20/24 04:00 10/20/24 04:00 Temperature 36.6 C Pulse Rate 57 L 54 L 54 L Respiratory Rate 12 12 Blood Pressure 137/72 Pulse Oximetry 99 99 Oxygen Delivery Room Air 10/20/24 06:00 10/20/24 06:00 10/20/24 08:00 Temperature 36.3 C L Pulse Rate 55 L 64 75 Respiratory Rate 13 13 Blood Pressure 147/84 H 156/78 H Pulse Oximetry 100 100 Oxygen Delivery Exam 2 Narrative: General: Pt is alert awake and in NAD failed old male looks older than his age Lungs/Chest: Trachea central Clear BS B/L, No crackles or wheezing. Cardiac: RRR. Normal S1 S2. No murmurs Circulation: Feet are warm Abdomen: Normal bowel sounds.. Soft. Mild tenderness in left lower quadrant, no guarding or rigidity. Blood-tinged stool Extremities: No clubbing, cyanosis or edema. Warm : Rolle in place Neurologic: Follows commands. Moves all 4 extremities PERRL AO x3 Skin: No Rash Results Labs 10/20/24 10:08 10/20/24 04:17 Labs: Impressions Chest X-Ray 10/19/24 16:50 IMPRESSION: No acute cardiopulmonary process. Chest/Abdomen/Pelvis CTA 10/19/24 17:42 IMPRESSION: Nonocclusive segmental right upper lobe, distal right interlobar artery, and segmental right lower lobe pulmonary emboli. Low clot burden. RV/LV ratio 1.0. Small left pleural effusion. Mild bilateral ureteral stranding and urothelial enhancement may reflect ascending infection in the proper clinical context. 4.8 x 3.2 x 9.0 cm perirectal abscess. Distal sigmoid and rectal wall thickening, may reflect infectious or post therapeutic colitis/proctitis, or combination of those entities. Ischemia/infarction considered less likely. Cystitis, correlate with urinalysis. Short CBC 10/19/24 10/19/24 10/19/24 Range/Units 16:10 19:42 21:42 WBC 13.6 H 11.3 H 13.3 H (4.5-10.0) K/mm3 Hgb 9.2 L 7.0 L 6.9 L* (14.0-18.0) g/dL Hct 30.1 L 22.6 L 22.0 L (42.0-52.0) % Plt Count 154 85 L 93 L (150-375) k/mm3 10/20/24 Range/Units 04:17 WBC 13.1 H (4.5-10.0) K/mm3 Hgb 8.3 L (14.0-18.0) g/dL Hct 25.7 L (42.0-52.0) % Plt Count 89 L (150-375) k/mm3 BMP 10/19/24 10/19/24 10/19/24 16:10 16:10 16:10 Sodium Cancelled 140 Potassium Cancelled 4.2 Chloride Cancelled Carbon Dioxide BUN Creatinine Glucose Calcium 10/19/24 10/19/24 10/19/24 16:10 16:10 16:10 Sodium Potassium Chloride 107 Carbon Dioxide Cancelled 15 L BUN Cancelled 23 H Creatinine Cancelled Glucose Calcium 10/19/24 10/19/24 10/19/24 16:10 16:10 16:10 Sodium Potassium Chloride Carbon Dioxide BUN Creatinine 1.38 H Glucose Cancelled 112 H Calcium Cancelled 8.8 10/20/24 04:17 Sodium 136 L Potassium 3.6 Chloride 107 Carbon Dioxide 22 BUN 24 H Creatinine 1.03 Glucose 90 Calcium 7.6 L Cardiac Enzymes 10/19/24 10/19/24 10/20/24 Range/Units 16:10 19:03 04:17 Troponin I 0.085 H* 0.076 H* 0.047 H* (0.000-0.034) ng/mL Liver Function 10/19/24 10/19/24 10/19/24 Range/Units 16:10 16:10 16:10 Total Bilirubin Cancelled 1.4 H AST Cancelled 18 ALT Cancelled Alkaline Phosphatase Albumin 10/19/24 10/19/24 10/19/24 Range/Units 16:10 16:10 16:10 Total Bilirubin AST ALT 22 Alkaline Phosphatase Cancelled 189 H Albumin Cancelled 2.8 L 10/20/24 Range/Units 04:17 Total Bilirubin 0.9 AST 15 L ALT 8 Alkaline Phosphatase 76 Albumin 1.8 L Urine 10/19/24 Range/Units 19:03 Urine Color Yellow (Yellow) Urine Appearance Clear (Clear) Urine pH 6.0 (5.0-9.0) Ur Specific Marked Tree > 1.045 H (1.001-1.035) Urine Protein 1+ H (Negative) mg/dL Urine Glucose (UA) Negative (Negative) mg/dL
[2024-10-20 09:42] LABS: NT Pro B Type Natriuretic Pept 9210 pg/mL (19.9-100)
[2024-10-20 10:14] LABS: Hematocrit 30.6 % (42.0-52.0); Hemoglobin 9.7 g/dL (14.0-18.0); Mean Corpuscular HGB Conc 31.7 g/dl (32-36); Mean Corpuscular Hemoglobin 26.4 pg (26-34); Mean Corpuscular Volume 83.2 fl (80-100); Mean Platelet Volume 10.2 fl (7.4-10.4); Platelet Count Result 105 k/mm3 (150-375); Red Blood Count 3.68 M/mm3 (4.6-6.20); Red Cell Distribution Width 20.3 % (11.5-14.5); White Blood Count 11.7 K/mm3 (4.5-10.0)
--- NOTE | 2024-10-20 10:38 | PM.CNGS ---
Assessment and Plan Assessment and plan (1) Rectal abscess: Code(s): K61.1 - Rectal abscess Status: Acute Assessment and Plan: This patient has known rectal cancer undergoing neoadjuvant therapy, who presented CT evidence of a perirectal abscess. There is no obvious findings on exam that are consistent with an abscess externally. The abscess on CT appears higher up the rectum and may be difficult to externally drain. Will review the CT scan with the Radiologist and see if he would be a candidate for percutaneous drainage by IR. Continue broad-spectrum IV antibiotics for now. (2) Rectal cancer: Code(s): C20 - Malignant neoplasm of rectum Status: Acute Assessment and Plan: Completed radiation treatment and currently undergoing chemotherapy. (3) Sepsis: Code(s): A41.9 - Sepsis, unspecified organism Status: Acute Assessment and Plan: Likely secondary to the perirectal abscess. Blood pressure improved with IV fluids, lactic acid trending down. Continue IV antibiotics and critical care management. Will review with Radiologist, see plan above. Blood cultures pending. (4) Pulmonary embolism: Code(s): I26.99 - Other pulmonary embolism without acute cor pulmonale Status: Acute Assessment and Plan: Initially on heparin infusion, which is now being held due to concern for GI bleed. Management per primary team. (5) GI bleed: Code(s): K92.2 - Gastrointestinal hemorrhage, unspecified Status: Acute Assessment and Plan: Rectal bleeding noted this morning after starting the heparin infusion. It would not be surprising to have some bleeding in the setting of rectal cancer. Continue to monitor. Trend H/H. (6) Iron deficiency anemia: Code(s): D50.9 - Iron deficiency anemia, unspecified Status: Acute (7) Non-ST elevation DE (NSTEMI): Code(s): I21.4 - Non-ST elevation (NSTEMI) myocardial infarction Status: Acute Plan I have discussed the patient's case and plan of care with Dr. Nguyen. Thank you for allowing us to see the patient in consultation and we will continue to follow along with you. History of Present Illness Consult details Consult date: 10/20/24 Reason for consult: other (Perirectal abscess) Requesting physician: Galileo Catalan MD Narrative: This is a 69-year-old man with known rectal cancer diagnosed in May of 2024. He has followed with Dr. Razo and is undergoing neoadjuvant therapy. He completed radiation and is currently going through the chemotherapy. He reports having an episode of vomiting and diarrhea last Sunday, when he was scheduled to have chemotherapy he was unable to have his treatment, which was rescheduled to this week. He reports feeling better the next day. He then developed fatigue, generalized weakness, and chills a few days ago. He reports a temperature of a 100.8? F home. He has a daughter who has cerebral palsy that lives with him, and he had to take her to the ED yesterday. He decided to also be seen in the ED while he was taking her to the hospital. In the ED, he was hypotensive, tachycardic, and febrile. Labs showed a white blood cell count 37134, hemoglobin 9.2, anion gap 18, BUN 23, creatinine 1.38, lactic acid 9.2. CRP 17.5. Influenza a/B, RSV, COVID negative. CT scan of the abdomen and pelvis showed a nonocclusive segmental right upper lobe, distal right interlobar artery, and segmental right lower lobe pulmonary emboli with low clot burden, 4.8 x 3.2 x 9 cm perirectal abscess, and distal sigmoid and rectal wall thickening. As well as mild bilateral ureteral stranding and urothelial enhancement which may reflect ascending infection. UA negative for UTI. He had a central line placed in the ED and received IV fluid resuscitation. Blood pressure is improved. He was admitted to the ICU for further management. He was started on broad-spectrum IV antibiotics. He is not requiring any vasopressor support. He was started on an IV heparin infusion for the PE. He is now seen in the ICU in surgical consultation for perirectal abscess. He denies any perirectal pain. He does report having pain with defecation for the past month. Denies any noted blood in his stool or rectal drainage. Since being admitted to the ICU, his hemoglobin dropped to 6.9 and he received 1 unit of PRBCs. Hemoglobin is up to 8.3. He has a stool occult ordered. There was reported rectal bleeding earlier this morning and his heparin drip was stopped. Venous dopplers of the lower extremities ordered. Lactic acid down to 2.2. His tachycardia and hypotension have improved with IV fluid resuscitation. He denies any pain at this time. Review of Systems Review of Systems: All systems reviewed & are unremarkable except as noted in HPI and below PMFSH Past Medical History Medical History Colon cancer Bowel habit changes Weight loss Iron deficiency anemia HTN (hypertension) Surgical History Surgical History History of shoulder surgery Social History Social History Smoking packs per day: 1 Smoking cigarettes per day: 20.0 Years smoked: 10 Smoking pack-years: 10.00 Smoking status: Former smoker Tobacco type: cigarettes Second hand tobacco smoke exposure: Yes Alcohol intake: former Substance use: never Substance use type: does not use Do You Feel Safe in your Home?: Yes Lack of Transportation: No Lack of Food: Never True Current Housing: I Have Housing Concerned About Future Housing: No Difficulty Paying Gas/Electric Bills: No Difficulty Paying for Meds: No Currently Unemployed: No Education: Associate Degree Difficulty w/ Childcare or Family Care: No Living arrangements: with family Spiritual care concerns: No ([place]) Meds Home Medications and Allergies Home Medications ?Medication ?Instructions ?Recorded ?Confirmed ?Type hydrochlorothiazide 12.5 mg tablet 12.5 mg PO DAILY 05/28/24 10/19/24 History metoprolol succinate 100 mg 100 mg PO DAILY 05/28/24 10/19/24 History tablet,extended release 24 hr Allergies Allergy/AdvReac Type Severity Reaction Status Date / Time No Known Allergies Allergy Verified 10/19/24 15:35 Vital Signs Vital Signs - 24 hr 10/19/24 15:54 10/19/24 16:03 10/19/24 16:13 Temperature 98 F 100.2 F H Pulse Rate 135 H 126 H Respiratory Rate 18 Blood Pressure 116/83 79/53 L 81/54 L Pulse Oximetry 98 100 Oxygen Delivery 10/19/24 16:15 10/19/24 16:15 10/19/24 16:26 Temperature Pulse Rate 125 H Respiratory Rate Blood Pressure 94/57 L Pulse Oximetry 98 Oxygen Delivery Room Air 10/19/24 16:33 10/19/24 16:45 10/19/24 16:49 Temperature 100.2 F H Pulse Rate 113 H 105 H Respiratory Rate 22 H 15 Blood Pressure 130/71 124/61 Pulse Oximetry 100 100 Oxygen Delivery 10/19/24 17:00 10/19/24 17:38 10/19/24 17:45 Temperature 100.2 F H Pulse Rate 99 91 92 Respiratory Rate 18 17 23 H Blood Pressure 118/56 L 93/56 L 97/57 L Pulse Oximetry 100 100 100 Oxygen Delivery 10/19/24 18:00 10/19/24 18:23 10/19/24 19:19 Temperature Pulse Rate 89 84 91 Respiratory Rate 19 20 20 Blood Pressure 88/55 L 91/55 L 126/69 Pulse Oximetry 100 100 100 Oxygen Delivery 10/19/24 19:59 10/19/24 21:06 10/19/24 21:15 Temperature Pulse Rate 77 83 76 Respiratory Rate 16 15 15 Blood Pressure 118/70 123/83 117/73 Pulse Oximetry 100 100 Oxygen Delivery 10/19/24 21:30 10/19/24 22:00 10/19/24 22:00 Temperature Pulse Rate 74 67 78 Respiratory Rate 17 17 Blood Pressure 116/69 121/85 Pulse Oximetry 100 96 Oxygen Delivery 10/20/24 00:00 10/20/24 00:00 10/20/24 00:00 Temperature 97.5 F L Pulse Rate 65 62 61 Respiratory Rate 15 15 Blood Pressure 114/64 Pulse Oximetry 100 100 Oxygen Delivery Room Air 10/20/24 00:27 10/20/24 00:43 10/20/24 01:43 Temperature 97.5 F L 97.6 F 97.7 F Pulse Rate 65 60 54 L Respiratory Rate 15 14 13 Blood Pressure 114/64 128/72 144/80 H Pulse Oximetry 100 100 100 Oxygen Delivery 10/20/24 02:00 10/20/24 02:00 10/20/24 02:27 Temperature 97.7 F Pulse Rate 57 L 60 57 L Respiratory Rate 12 12 Blood Pressure 131/72 131/72 Pulse Oximetry 100 99 Oxygen Delivery 10/20/24 03:25 10/20/24 04:00 10/20/24 04:00 Temperature 97.9 F Pulse Rate 57 L 54 L 54 L Respiratory Rate 12 12 Blood Pressure 137/72 Pulse Oximetry 99 99 Oxygen Delivery Room Air 10/20/24 06:00 10/20/24 06:00 10/20/24 08:00 Temperature 97.4 F L Pulse Rate 55 L 64 75 Respiratory Rate 13 13 Blood Pressure 147/84 H 156/78 H Pulse Oximetry 100 100 Oxygen Delivery 10/20/24 08:00 10/20/24 10:00 10/20/24 10:00 Temperature 97.8 F Pulse Rate 65 84 84 Respiratory Rate 15 Blood Pressure 157/94 H Pulse Oximetry 99 Oxygen Delivery Exam Const: General: comfortable, no acute distress and ill appearing chronically Nutritional Appearance: thin Orientation/consciousness: patient oriented x3 HENMT: Head: normocephalic and atraumatic Ears: hearing grossly normal bilaterally Mouth: Yes moist mucous membranes Eyes: General: appearance normal, both eyes and all related structures Pupils: Equal, round and reactive pupils present Neck: Neck: normal visual inspection and full ROM Resp: Effort & Inspection: no respiratory distress Auscultation: clear to auscultation bilaterally Cardio: Rate: regular rate Rhythm: regular rhythm Peripheral pulses: Peripheral pulses 2+ throughout GI: Inspection: non-distended GI Palp: Yes Soft to palpation, No Tenderness to palpation present (GI), No Guarding due to palpation present (GI), Yes No hepatosplenomegaly present and No Rebound tenderness present Auscultation: normal bowel sounds Other: STIVEN deferred. External exam with no obvious perianal erythema or induration. No wounds or rectal drainage. There is some palpable fullness that feels deep in the perirectal space on exam, but not specifically tender. Skin: General skin exam: normal color Neuro: General: moves all extremities and no focal motor deficits Speech: normal speech Motor exam (neuro): 5/5 motor strength present throughout Extrem: General: normal to inspection and pedal edema bilaterally (mild bilaterally) Psych: Mental Status: mental status grossly normal Attitude: cooperative Insight: Good insight present (Psych) Judgement: Good judgement present (Psych) Results Labs 10/20/24 10:08 10/20/24 04:17 Labs: Abnormal lab results 10/19/24 10/19/24 10/19/24 Range/Units 16:10 16:11 19:03 WBC 13.6 H (4.5-10.0) K/mm3 RBC 3.56 L (4.6-6.20) M/mm3 Hgb 9.2 L (14.0-18.0) g/dL Hct 30.1 L (42.0-52.0) % MCH 25.8 L (26-34) pg MCHC 30.6 L (32-36) g/dl RDW 21.0 H (11.5-14.5) % Plt Count (150-375) k/mm3 MPV (7.4-10.4) fl Immature Gran % (Auto) 0.7 H (0-0.5) % Neut % (Auto) 92.7 H (45.5-73.1) % Lymph % (Auto) 5.2 L (18.3-44.2) % [place] % (Auto) 0.7 L (2.6-8.5) % Lymph # (Auto) 0.70 L (0.9-3.2) K/mm3 Abs Immat Gran (auto) 0.09 H (0.00-0.031) K/mm3 Absolute Neuts (auto) 12.6 H (1.3-6.7) K/mm3 PT 17.2 H (11.1-14.7) Seconds Sodium (137-145) mmol/L Carbon Dioxide 15 L (22-30) mmol/L Anion Gap 18 H (4-12) mmol/L BUN 23 H (9-20) mg/dL Creatinine 1.38 H (0.7-1.3) mg/dL Estimated GFR 51 L (59 - ) Glucose 112 H (65-110) mg/dL Lactic Acid 9.2 H* (0.7-2.0) mmol/L Calcium (8.4-10.2) mg/dL Total Bilirubin 1.4 H (0.2-1.3) mg/dL AST (17-59) U/L Alkaline Phosphatase 189 H (38-126) U/L Troponin I 0.085 H* 0.076 H* (0.000-0.034) ng/mL C-Reactive Protein 17.5 H (<1.0) mg/dL NT-Pro-B Natriuret Pep (19.9-100) pg/mL Total Protein 6.0 L (6.3-8.2) g/dL Albumin 2.8 L (3.5-5.1) g/dL Ur Specific [place] > 1.045 H (1.001-1.035) Urine Protein 1+ H (Negative) mg/dL Stl Occult Blood (IFOB) (N) Crossmatch 10/19/24 10/19/24 10/20/24 Range/Units 19:42 21:42 04:17 WBC 11.3 H 13.3 H 13.1 H (4.5-10.0) K/mm3 RBC 2.73 L 2.68 L 3.06 L (4.6-6.20) M/mm3 Hgb 7.0 L 6.9 L* 8.3 L (14.0-18.0) g/dL Hct 22.6 L 22.0 L 25.7 L (42.0-52.0) % MCH 25.6 L 25.7 L (26-34) pg MCHC 31.0 L 31.4 L (32-36) g/dl RDW 20.7 H 20.9 H 20.4 H (11.5-14.5) % Plt Count 85 L 93 L 89 L (150-375) k/mm3 MPV 10.8 H (7.4-10.4) fl Immature Gran % (Auto) 0.6 H 0.7 H 0.8 H (0-0.5) % Neut % (Auto) 91.1 H 91.2 H 90.5 H (45.5-73.1) % Lymph % (Auto) 3.2 L 3.5 L 4.1 L (18.3-44.2) % [place] % (Auto) (2.6-8.5) % Lymph # (Auto) 0.36 L 0.47 L 0.54 L (0.9-3.2) K/mm3 Abs Immat Gran (auto) 0.07 H 0.09 H 0.10 H (0.00-0.031) K/mm3 Absolute Neuts (auto) 10.3 H 12.1 H 11.9 H (1.3-6.7) K/mm3 PT (11.1-14.7) Seconds Sodium 136 L (137-145) mmol/L Carbon Dioxide (22-30) mmol/L Anion Gap (4-12) mmol/L BUN 24 H (9-20) mg/dL Creatinine (0.7-1.3) mg/dL Estimated GFR (59 - ) Glucose (65-110) mg/dL Lactic Acid 2.2 H (0.7-2.0) mmol/L Calcium 7.6 L (8.4-10.2) mg/dL Total Bilirubin (0.2-1.3) mg/dL AST 15 L (17-59) U/L Alkaline Phosphatase (38-126) U/L Troponin I 0.047 H* (0.000-0.034) ng/mL C-Reactive Protein (<1.0) mg/dL NT-Pro-B Natriuret Pep 9210 H (19.9-100) pg/mL Total Protein 4.0 L (6.3-8.2) g/dL Albumin 1.8 L (3.5-5.1) g/dL Ur Specific [place] (1.001-1.035) Urine Protein (Negative) mg/dL Stl Occult Blood (IFOB) (N) Crossmatch See Detail 10/20/24 10/20/24 Range/Units 09:01 10:08 WBC 11.7 H (4.5-10.0) K/mm3 RBC 3.68 L (4.6-6.20) M/mm3 Hgb 9.7 L (14.0-18.0) g/dL Hct 30.6 L (42.0-52.0) % MCH (26-34) pg MCHC 31.7 L (32-36) g/dl RDW 20.3 H (11.5-14.5) % Plt Count 105 L (150-375) k/mm3 MPV (7.4-10.4) fl Immature Gran % (Auto) (0-0.5) % Neut % (Auto) (45.5-73.1) % Lymph % (Auto) (18.3-44.2) % [place] % (Auto) (2.6-8.5) % Lymph # (Auto) (0.9-3.2) K/mm3 Abs Immat Gran (auto) (0.00-0.031) K/mm3 Absolute Neuts (auto) (1.3-6.7) K/mm3 PT (11.1-14.7) Seconds Sodium (137-145) mmol/L Carbon Dioxide (22-30) mmol/L Anion Gap (4-12) mmol/L BUN (9-20) mg/dL Creatinine (0.7-1.3) mg/dL Estimated GFR (59 - ) Glucose (65-110) mg/dL Lactic Acid (0.7-2.0) mmol/L Calcium (8.4-10.2) mg/dL Total Bilirubin (0.2-1.3) mg/dL AST (17-59) U/L Alkaline Phosphatase (38-126) U/L Troponin I (0.000-0.034) ng/mL C-Reactive Protein (<1.0) mg/dL NT-Pro-B Natriuret Pep (19.9-100) pg/mL Total Protein (6.3-8.2) g/dL Albumin (3.5-5.1) g/dL Ur Specific [place] (1.001-1.035) Urine Protein (Negative) mg/dL Stl Occult Blood (IFOB) Positive H (N) Crossmatch Diabetes panel 10/19/24 10/19/24 10/19/24 Range/Units 16:10 16:10 16:10 Sodium Cancelled 140 Potassium Cancelled 4.2 Chloride Cancelled Carbon Dioxide BUN Creatinine Glucose Calcium AST ALT Alkaline Phosphatase Total Protein Albumin 10/19/24 10/19/24 10/19/24 Range/Units 16:10 16:10 16:10 Sodium Potassium Chloride 107 Carbon Dioxide Cancelled 15 L BUN Cancelled 23 H Creatinine Cancelled Glucose Calcium AST ALT Alkaline Phosphatase Total Protein Albumin 10/19/24 10/19/24 10/19/24 Range/Units 16:10 16:10 16:10 Sodium Potassium Chloride Carbon Dioxide BUN Creatinine 1.38 H Glucose Cancelled 112 H Calcium Cancelled 8.8 AST Cancelled ALT Alkaline Phosphatase Total Protein Albumin 10/19/24 10/19/24 10/19/24 Range/Units 16:10 16:10 16:10 Sodium Potassium Chloride Carbon Dioxide BUN Creatinine Glucose Calcium AST 18 ALT Cancelled 22 Alkaline Phosphatase Cancelled 189 H Total Protein Cancelled Albumin 10/19/24 10/19/24 10/20/24 Range/Units 16:10 16:10 04:17 Sodium 136 L Potassium 3.6 Chloride 107 Carbon Dioxide 22 BUN 24 H Creatinine 1.03 Glucose 90 Calcium 7.6 L AST 15 L ALT 8 Alkaline Phosphatase 76 Total Protein 6.0 L 4.0 L Albumin Cancelled 2.8 L 1.8 L Calcium panel 10/19/24 10/19/24 10/19/24 Range/Units 16:10 16:10 16:10 Calcium Cancelled 8.8 Albumin Cancelled 2.8 L 10/20/24 Range/Units 04:17 Calcium 7.6 L Albumin 1.8 L Pituitary panel 10/19/24 10/19/24 10/19/24 Range/Units 16:10 16:10 16:10 Sodium Cancelled 140 Potassium Cancelled 4.2 Chloride Cancelled Carbon Dioxide BUN Creatinine Glucose Calcium 10/19/24 10/19/24 10/19/24 Range/Units 16:10 16:10 16:10 Sodium Potassium Chloride 107 Carbon Dioxide Cancelled 15 L BUN Cancelled 23 H Creatinine Cancelled Glucose Calcium 10/19/24 10/19/24 10/19/24 Range/Units 16:10 16:10 16:10 Sodium Potassium Chloride Carbon Dioxide BUN Creatinine 1.38 H Glucose Cancelled 112 H Calcium Cancelled 8.8 10/20/24 Range/Units 04:17 Sodium 136 L Potassium 3.6 Chloride 107 Carbon Dioxide 22 BUN 24 H Creatinine 1.03 Glucose 90 Calcium 7.6 L Adrenal panel 10/19/24 10/19/24 10/19/24 Range/Units 16:10 16:10 16:10 Sodium Cancelled 140 Potassium Cancelled 4.2 Chloride Cancelled Carbon Dioxide BUN Creatinine Glucose Calcium Total Bilirubin AST ALT Alkaline Phosphatase Total Protein Albumin 10/19/24 10/19/24 10/19/24 Range/Units 16:10 16:10 16:10 Sodium Potassium Chloride 107 Carbon Dioxide Cancelled 15 L BUN Cancelled 23 H Creatinine Cancelled Glucose Calcium Total Bilirubin AST ALT Alkaline Phosphatase Total Protein Albumin 10/19/24 10/19/24 10/19/24 Range/Units 16:10 16:10 16:10 Sodium Potassium Chloride Carbon Dioxide BUN Creatinine 1.38 H Glucose Cancelled 112 H Calcium Cancelled 8.8 Total Bilirubin Cancelled AST ALT Alkaline Phosphatase Total Protein Albumin 10/19/24 10/19/24 10/19/24 Range/Units 16:10 16:10 16:10 Sodium Potassium Chloride Carbon Dioxide BUN Creatinine Glucose Calcium Total Bilirubin 1.4 H AST Cancelled 18 ALT Cancelled 22 Alkaline Phosphatase Cancelled Total Protein Albumin 10/19/24 10/19/24 10/19/24 Range/Units 16:10 16:10 16:10 Sodium Potassium Chloride Carbon Dioxide BUN Creatinine Glucose Calcium Total Bilirubin AST ALT Alkaline Phosphatase 189 H Total Protein Cancelled 6.0 L Albumin Cancelled 2.8 L 10/20/24 Range/Units 04:17 Sodium 136 L Potassium 3.6 Chloride 107 Carbon Dioxide 22 BUN 24 H Creatinine 1.03 Glucose 90 Calcium 7.6 L Total Bilirubin 0.9 AST 15 L ALT 8 Alkaline Phosphatase 76 Total Protein 4.0 L Albumin 1.8 L All other labs normal. Imaging Additional studies: ITS Impressions Chest X-Ray 10/19/24 16:50 IMPRESSION: No acute cardiopulmonary process. Chest/Abdomen/Pelvis CTA 10/19/24 17:42 IMPRESSION: Nonocclusive segmental right upper lobe, distal right interlobar artery, and segmental right lower lobe pulmonary emboli. Low clot burden. RV/LV ratio 1.0. Small left pleural effusion. Mild bilateral ureteral stranding and urothelial enhancement may reflect ascending infection in the proper clinical context. 4.8 x 3.2 x 9.0 cm perirectal abscess. Distal sigmoid and rectal wall thickening, may reflect infectious or post therapeutic colitis/proctitis, or combination of those entities. Ischemia/infarction considered less likely. Cystitis, correlate with urinalysis.
[2024-10-20] MEDS: ALBUMIN HUMAN 25% 25 GM/100 ML 100 ML IVPB ×2 (12:49→17:27)
--- NOTE | 2024-10-20 14:00 | P.PNIM_ITS ---
Progress Note: A&P Assessment and Plan (1) Non-ST elevation ID (NSTEMI): Code(s): I21.4 - Non-ST elevation (NSTEMI) myocardial infarction Status: Acute (2) Pulmonary embolism: Code(s): I26.99 - Other pulmonary embolism without acute cor pulmonale Status: Acute (3) GI bleed: Code(s): K92.2 - Gastrointestinal hemorrhage, unspecified Status: Acute (4) Iron deficiency anemia: Code(s): D50.9 - Iron deficiency anemia, unspecified Status: Acute (5) Colon cancer: Code(s): C18.9 - Malignant neoplasm of colon, unspecified Status: Acute (6) Rectal cancer: Code(s): C20 - Malignant neoplasm of rectum Status: Acute Plan (1) Sepsis: Code(s): A41.9 - Sepsis, unspecified organism Status: Acute Assessment and Plan: Secondary to perirectal abscess. General surgery consulted for evaluation Blood culture sent and pending UA unremarkable for UTI. Blood pressure improved with IV fluids Continue cefepime, Flagyl and vancomycin (2) Rectal abscess: Code(s): K61.1 - Rectal abscess Status: Acute Assessment and Plan: Consult general surgeon for evaluation Treat (3) Pulmonary embolism: Code(s): I26.99 - Other pulmonary embolism without acute cor pulmonale Status: Acute Assessment and Plan: Pending lower extremity Dopplers to evaluate for DVT, check BNP and echo Patient was started on heparin infusion and has developed GI bleeding. Patient has a rectal cancer along with and another colon polyp that was not fully removed patient at this time is not a candidate for anticoagulation. Consult general surgeon for evaluation about IVC filter Elevated troponin Patient denies chest pain, EKG shows sinus rhythm no specific ST or T-wave changes Possible demand ischemia due to PE, GI bleed and sepsis Treatment of sepsis PE and GI bleed as above Pending echocardiogram Check BNP Rectal cancer: Code(s): C20 - Malignant neoplasm of rectum Status: Acute Assessment and Plan: Follow-up heme oncologist in [facility] and [facility] (6) GI bleed: Code(s): K92.2 - Gastrointestinal hemorrhage, unspecified Status: Acute Assessment and Plan: Patient developed bloody stools after initiation of anticoagulation. Patient has a rectal cancer which is likely the source. Anticoagulation discontinued. Received pack to pack RBC Hemoglobin stable Follow-up CBC hemoglobin q.6 hours, transfuse p.r.n. Plan DVT prophylaxis -lower extremity venous Dopplers ordered Stress ulcer prophylaxis -PPI Nutrition - npo Code Status - Full Code Subjective Date/time seen: 10/20/24 14:00 Interval history: I saw exam patient today, patient feels comfortable, abdomen pain is improving, still has suprapubic pain, dysuria. Patient denies headache, weakness, chest pain, shortness of breath. Patient is afebrile below were stable, patient is not on vasopressors Leukocytosis improving, hemoglobin stable, 9.7, creatinine is trending down 1.03 today Exam Narrative: GENERAL: Ill-appearing in no acute distress. Moderate malnutrition - EYES: EOMI. Anicteric. - HENT: Moist mucous membranes. - LUNGS: Clear to auscultation bilateral ly, no wheezing, rhonchi, or rales. - CARDIOVASCULAR: Regular rate and rhyth m. No murmur. No JVD. - ABDOMEN: Soft, left lower quadrant ten derek and non-distended. No palpable masses. - EXTREMITIES: No edema. Peripheral puls es 2+. Non-tender. - NEUROLOGIC: No focal neurological defi cits. CN II-XII grossly intact. - PSYCHIATRIC: Awake, Alert and oriented x 3. Appropriate mood and affect. - SKIN: No rashes or lesions. Warm. - LYMPH: No cervical lymphadenopathy. Objective Data Vital Signs Vital Signs: Vital Signs - 24 hr 10/19/24 15:54 10/19/24 16:03 10/19/24 16:13 Temperature 98 F 100.2 F H Pulse Rate 135 H 126 H Respiratory Rate 18 Blood Pressure 116/83 79/53 L 81/54 L Pulse Oximetry 98 100 Oxygen Delivery 10/19/24 16:15 10/19/24 16:15 10/19/24 16:26 Temperature Pulse Rate 125 H Respiratory Rate Blood Pressure 94/57 L Pulse Oximetry 98 Oxygen Delivery Room Air 10/19/24 16:33 10/19/24 16:45 10/19/24 16:49 Temperature 100.2 F H Pulse Rate 113 H 105 H Respiratory Rate 22 H 15 Blood Pressure 130/71 124/61 Pulse Oximetry 100 100 Oxygen Delivery 10/19/24 17:00 10/19/24 17:38 10/19/24 17:45 Temperature 100.2 F H Pulse Rate 99 91 92 Respiratory Rate 18 17 23 H Blood Pressure 118/56 L 93/56 L 97/57 L Pulse Oximetry 100 100 100 Oxygen Delivery 10/19/24 18:00 10/19/24 18:23 10/19/24 19:19 Temperature Pulse Rate 89 84 91 Respiratory Rate 19 20 20 Blood Pressure 88/55 L 91/55 L 126/69 Pulse Oximetry 100 100 100 Oxygen Delivery 10/19/24 19:59 10/19/24 21:06 10/19/24 21:15 Temperature Pulse Rate 77 83 76 Respiratory Rate 16 15 15 Blood Pressure 118/70 123/83 117/73 Pulse Oximetry 100 100 Oxygen Delivery 10/19/24 21:30 10/19/24 22:00 10/19/24 22:00 Temperature Pulse Rate 74 67 78 Respiratory Rate 17 17 Blood Pressure 116/69 121/85 Pulse Oximetry 100 96 Oxygen Delivery 10/20/24 00:00 10/20/24 00:00 10/20/24 00:00 Temperature 97.5 F L Pulse Rate 65 62 61 Respiratory Rate 15 15 Blood Pressure 114/64 Pulse Oximetry 100 100 Oxygen Delivery Room Air 10/20/24 00:27 10/20/24 00:43 10/20/24 01:43 Temperature 97.5 F L 97.6 F 97.7 F Pulse Rate 65 60 54 L Respiratory Rate 15 14 13 Blood Pressure 114/64 128/72 144/80 H Pulse Oximetry 100 100 100 Oxygen Delivery 10/20/24 02:00 10/20/24 02:00 10/20/24 02:27 Temperature 97.7 F Pulse Rate 57 L 60 57 L Respiratory Rate 12 12 Blood Pressure 131/72 131/72 Pulse Oximetry 100 99 Oxygen Delivery 10/20/24 03:25 10/20/24 04:00 10/20/24 04:00 Temperature 97.9 F Pulse Rate 57 L 54 L 54 L Respiratory Rate 12 12 Blood Pressure 137/72 Pulse Oximetry 99 99 Oxygen Delivery Room Air 10/20/24 06:00 10/20/24 06:00 10/20/24 08:00 Temperature 97.4 F L Pulse Rate 55 L 64 75 Respiratory Rate 13 13 Blood Pressure 147/84 H 156/78 H Pulse Oximetry 100 100 Oxygen Delivery 10/20/24 08:00 10/20/24 10:00 10/20/24 10:00 Temperature 97.8 F Pulse Rate 65 84 84 Respiratory Rate 15 Blood Pressure 157/94 H Pulse Oximetry 99 Oxygen Delivery 10/20/24 12:00 10/20/24 12:00 Temperature 97.8 F Pulse Rate 66 71 Respiratory Rate 14 Blood Pressure 105/62 Pulse Oximetry 100 Oxygen Delivery Intake/Output Intake/Output: Intake & Output 10/17/24 10/18/24 10/20/24 10/20/24 23:59 23:59 00:59 23:59 Intake Total 3687.8 1200.0 Output Total 280 Balance 3687.8 920.0 Meds/Results Medications: Active Medications Generic Name Dose Route Start Last Admin Trade Name Freq PRN Reason Stop Dose Admin Acetaminophen 650 mg 10/19/24 19:18 Acetaminophen 325 Mg Tablet PO Q4H PRN Mild Pain (1-3) or Fever Heparin Sodium (Porcine) 5,000 units 10/19/24 18:53 Heparin Sodium 5,000 Units/Ml Vial IV PUSH PRN PRN aPTT less than 55 seconds Heparin Sodium (Porcine) 2,500 units 10/19/24 18:53 Heparin Sodium 5,000 Units/Ml Vial IV PUSH PRN PRN aPTT 55 - 70 seconds Heparin Sodium/Dextrose 25,000 units in 250 mls @ 0 mls/hr 10/19/24 18:55 10/20/24 06:52 Heparin Sodium/D5w 100 Units/Ml IV CONT Infused .Q0M VINNY Titration Protocol 0 UNITS/HR Vancomycin HCl 1,000 mg in 250 mls @ 250 mls/hr 10/20/24 18:00 Vancomycin 1,000 Mg/Ns 250 Ml IVPB Q24H VINNY Cefepime HCl 2 gm in 50 mls @ 100 mls/hr 10/20/24 09:00 10/20/24 09:03 Maxipime 2 Gm/Ns 50 Ml IVPB 100 mls/hr Q12HR VINNY Administration Metronidazole 500 mg in 100 mls @ 100 mls/hr 10/20/24 08:35 10/20/24 09:10 Flagyl 500 Mg/Iso Soln 100 Ml IVPB 100 mls/hr Q8HR VINNY Administration Albumin Human 100 mls @ 60 mls/hr 10/20/24 12:00 10/20/24 12:49 Albutein IVPB 10/21/24 07:39 60 mls/hr Q6HR VINNY Administration Metoprolol Tartrate 25 mg 10/20/24 09:00 10/20/24 09:18 Metoprolol Tartrate 25 Mg Tablet PO 25 mg Q12HR VINNY Administration Pantoprazole Sodium 40 mg 10/20/24 09:00 10/20/24 09:19 Pantoprazole Sodium Iv 40 Mg Vial IV PUSH 40 mg Q12HR VINNY Administration Perflutren Lipid Microsphere 0 ml 10/20/24 08:26 Perflutren Lipid Microspheres 1.5 Ml Vial Diluted To 10 Ml Total Volume IV PUSH 10/23/24 08:27 ONCE PRN adequate visualization Protocol Radiology Results: ITS Impressions Chest X-Ray 10/19/24 16:50 IMPRESSION: No acute cardiopulmonary process. Chest/Abdomen/Pelvis CTA 10/19/24 17:42 IMPRESSION: Nonocclusive segmental right upper lobe, distal right interlobar artery, and segmental right lower lobe pulmonary emboli. Low clot burden. RV/LV ratio 1.0. Small left pleural effusion. Mild bilateral ureteral stranding and urothelial enhancement may reflect ascending infection in the proper clinical context. 4.8 x 3.2 x 9.0 cm perirectal abscess. Distal sigmoid and rectal wall thickening, may reflect infectious or post therapeutic colitis/proctitis, or combination of those entities. Ischemia/infarction considered less likely. Cystitis, correlate with urinalysis. Labs Labs: Laboratory Results - last 24 hr 10/19/24 10/19/24 10/19/24 16:10 16:10 16:10 WBC 13.6 H RBC 3.56 L Hgb 9.2 L Hct 30.1 L MCV 84.6 MCH 25.8 L MCHC 30.6 L RDW 21.0 H Plt Count 154 MPV 10.0 Immature Gran % (Auto) 0.7 H Neut % (Auto) 92.7 H Lymph % (Auto) 5.2 L [place] % (Auto) 0.7 L Eos % (Auto) 0.4 Baso % (Auto) 0.3 Lymph # (Auto) 0.70 L [place] # (Auto) 0.1 Eos # (Auto) 0.1 Baso # (Auto) 0.0 Abs Immat Gran (auto) 0.09 H Absolute Neuts (auto) 12.6 H Absolute Nucleated RBC 0.000 Band Neutrophils % Nucleated RBC % 0.0 Platelet Estimate % Immature Plt Fraction Hypochromasia Anisocytosis Ovalocytes Schistocytes PT 17.2 H INR 1.4 APTT 33.5 Sodium Cancelled 140 Potassium Cancelled 4.2 Chloride Cancelled Carbon Dioxide Anion Gap BUN Creatinine Estim Creat Clear Calc Estimated GFR Glucose Lactic Acid Calcium Magnesium Total Bilirubin AST ALT Alkaline Phosphatase Troponin I C-Reactive Protein NT-Pro-B Natriuret Pep Total Protein Albumin Urine Color Urine Appearance Urine pH Ur Specific [place] Urine Protein Urine Glucose (UA) Urine Ketones Ur Blood (Man) Urine Nitrate Urine Bilirubin Urine Urobilinogen Add Ur Microanalysis Leukocyte Esterase Rfl Urine RBC Urine WBC Ur Squamous Epith Cells Urine Bacteria Urine Casts Nasal MRSA (PCR) Stl Occult Blood (IFOB) Influenza A (RT-PCR) Influenza B (RT-PCR) RSV (RT-PCR) SARS-CoV-2 RNA (RT-PCR) Blood Type Antibody Screen Crossmatch 10/19/24 10/19/24 10/19/24 16:10 16:10 16:10 WBC RBC Hgb Hct MCV MCH MCHC RDW Plt Count MPV Immature Gran % (Auto) Neut % (Auto) Lymph % (Auto) [place] % (Auto) Eos % (Auto) Baso % (Auto) Lymph # (Auto) [place] # (Auto) Eos # (Auto) Baso # (Auto) Abs Immat Gran (auto) Absolute Neuts (auto) Absolute Nucleated RBC Band Neutrophils % Nucleated RBC % Platelet Estimate % Immature Plt Fraction Hypochromasia Anisocytosis Ovalocytes Schistocytes PT INR APTT Sodium Potassium Chloride 107 Carbon Dioxide Cancelled 15 L Anion Gap Cancelled 18 H BUN Cancelled Creatinine Estim Creat Clear Calc Estimated GFR Glucose Lactic Acid Calcium Magnesium Total Bilirubin AST ALT Alkaline Phosphatase Troponin I C-Reactive Protein NT-Pro-B Natriuret Pep Total Protein Albumin Urine Color Urine Appearance Urine pH Ur Specific [place] Urine Protein Urine Glucose (UA) Urine Ketones Ur Blood (Man) Urine Nitrate Urine Bilirubin Urine Urobilinogen Add Ur Microanalysis Leukocyte Esterase Rfl Urine RBC Urine WBC Ur Squamous Epith Cells Urine Bacteria Urine Casts Nasal MRSA (PCR) Stl Occult Blood (IFOB) Influenza A (RT-PCR) Influenza B (RT-PCR) RSV (RT-PCR) SARS-CoV-2 RNA (RT-PCR) Blood Type Antibody Screen Crossmatch 10/19/24 10/19/2425 16:10 16:10 16:10 WBC RBC Hgb Hct MCV MCH MCHC RDW Plt Count MPV Immature Gran % (Auto) Neut % (Auto) Lymph % (Auto) [place] % (Auto) Eos % (Auto) Baso % (Auto) Lymph # (Auto) [place] # (Auto) Eos # (Auto) Baso # (Auto) Abs Immat Gran (auto) Absolute Neuts (auto) Absolute Nucleated RBC Band Neutrophils % Nucleated RBC % Platelet Estimate % Immature Plt Fraction Hypochromasia Anisocytosis Ovalocytes Schistocytes PT INR APTT Sodium Potassium Chloride Carbon Dioxide Anion Gap BUN 23 H Creatinine Cancelled 1.38 H Estim Creat Clear Calc Cancelled 41 Estimated GFR Cancelled Glucose Lactic Acid Calcium Magnesium Total Bilirubin AST ALT Alkaline Phosphatase Troponin I C-Reactive Protein NT-Pro-B Natriuret Pep Total Protein Albumin Urine Color Urine Appearance Urine pH Ur Specific [place] Urine Protein Urine Glucose (UA) Urine Ketones Ur Blood (Man) Urine Nitrate Urine Bilirubin Urine Urobilinogen Add Ur Microanalysis Leukocyte Esterase Rfl Urine RBC Urine WBC Ur Squamous Epith Cells Urine Bacteria Urine Casts Nasal MRSA (PCR) Stl Occult Blood (IFOB) Influenza A (RT-PCR) Influenza B (RT-PCR) RSV (RT-PCR) SARS-CoV-2 RNA (RT-PCR) Blood Type Antibody Screen Crossmatch 10/19/24 10/19/24 10/19/24 16:10 16:10 16:10 WBC RBC Hgb Hct MCV MCH MCHC RDW Plt Count MPV Immature Gran % (Auto) Neut % (Auto) Lymph % (Auto) [place] % (Auto) Eos % (Auto) Baso % (Auto) Lymph # (Auto) [place] # (Auto) Eos # (Auto) Baso # (Auto) Abs Immat Gran (auto) Absolute Neuts (auto) Absolute Nucleated RBC Band Neutrophils % Nucleated RBC % Platelet Estimate % Immature Plt Fraction Hypochromasia Anisocytosis Ovalocytes Schistocytes PT INR APTT Sodium Potassium Chloride Carbon Dioxide Anion Gap BUN Creatinine Estim Creat Clear Calc Estimated GFR 51 L Glucose Cancelled 112 H Lactic Acid Calcium Cancelled 8.8 Magnesium Total Bilirubin Cancelled AST ALT Alkaline Phosphatase Troponin I C-Reactive Protein NT-Pro-B Natriuret Pep Total Protein Albumin Urine Color Urine Appearance Urine pH Ur Specific [place] Urine Protein Urine Glucose (UA) Urine Ketones Ur Blood (Man) Urine Nitrate Urine Bilirubin Urine Urobilinogen Add Ur Microanalysis Leukocyte Esterase Rfl Urine RBC Urine WBC Ur Squamous Epith Cells Urine Bacteria Urine Casts Nasal MRSA (PCR) Stl Occult Blood (IFOB) Influenza A (RT-PCR) Influenza B (RT-PCR) RSV (RT-PCR) SARS-CoV-2 RNA (RT-PCR) Blood Type Antibody Screen Crossmatch 10/19/24 10/19/24 10/19/24 16:10 16:10 16:10 WBC RBC Hgb Hct MCV MCH MCHC RDW Plt Count MPV Immature Gran % (Auto) Neut % (Auto) Lymph % (Auto) [place] % (Auto) Eos % (Auto) Baso % (Auto) Lymph # (Auto) [place] # (Auto) Eos # (Auto) Baso # (Auto) Abs Immat Gran (auto) Absolute Neuts (auto) Absolute Nucleated RBC Band Neutrophils % Nucleated RBC % Platelet Estimate % Immature Plt Fraction Hypochromasia Anisocytosis Ovalocytes Schistocytes PT INR APTT Sodium Potassium Chloride Carbon Dioxide Anion Gap BUN Creatinine Estim Creat Clear Calc Estimated GFR Glucose Lactic Acid Calcium Magnesium Total Bilirubin 1.4 H AST Cancelled 18 ALT Cancelled 22 Alkaline Phosphatase Cancelled Troponin I C-Reactive Protein NT-Pro-B Natriuret Pep Total Protein Albumin Urine Color Urine Appearance Urine pH Ur Specific [place] Urine Protein Urine Glucose (UA) Urine Ketones Ur Blood (Man) Urine Nitrate Urine Bilirubin Urine Urobilinogen Add Ur Microanalysis Leukocyte Esterase Rfl Urine RBC Urine WBC Ur Squamous Epith Cells Urine Bacteria Urine Casts Nasal MRSA (PCR) Stl Occult Blood (IFOB) Influenza A (RT-PCR) Influenza B (RT-PCR) RSV (RT-PCR) SARS-CoV-2 RNA (RT-PCR) Blood Type Antibody Screen Crossmatch 10/19/24 10/19/24 10/19/24 16:10 16:10 16:10 WBC RBC Hgb Hct MCV MCH MCHC RDW Plt Count MPV Immature Gran % (Auto) Neut % (Auto) Lymph % (Auto) [place] % (Auto) Eos % (Auto) Baso % (Auto) Lymph # (Auto) [place] # (Auto) Eos # (Auto) Baso # (Auto) Abs Immat Gran (auto) Absolute Neuts (auto) Absolute Nucleated RBC Band Neutrophils % Nucleated RBC % Platelet Estimate % Immature Plt Fraction Hypochromasia Anisocytosis Ovalocytes Schistocytes PT INR APTT Sodium Potassium Chloride Carbon Dioxide Anion Gap BUN Creatinine Estim Creat Clear Calc Estimated GFR Glucose Lactic Acid Calcium Magnesium Total Bilirubin AST ALT Alkaline Phosphatase 189 H Troponin I 0.085 H* C-Reactive Protein 17.5 H NT-Pro-B Natriuret Pep Total Protein Cancelled 6.0 L Albumin Cancelled 2.8 L Urine Color Urine Appearance Urine pH Ur Specific [place] Urine Protein Urine Glucose (UA) Urine Ketones Ur Blood (Man) Urine Nitrate Urine Bilirubin Urine Urobilinogen Add Ur Microanalysis Leukocyte Esterase Rfl Urine RBC Urine WBC Ur Squamous Epith Cells Urine Bacteria Urine Casts Nasal MRSA (PCR) Stl Occult Blood (IFOB) Influenza A (RT-PCR) Negative Influenza B (RT-PCR) Negative RSV (RT-PCR) Negative SARS-CoV-2 RNA (RT-PCR) Negative Blood Type Antibody Screen Crossmatch 10/19/24 10/19/24 10/19/24 16:11 16:41 19:03 WBC RBC Hgb Hct MCV MCH MCHC RDW Plt Count MPV Immature Gran % (Auto) Neut % (Auto) Lymph % (Auto) [place] % (Auto) Eos % (Auto) Baso % (Auto) Lymph # (Auto) [place] # (Auto) Eos # (Auto) Baso # (Auto) Abs Immat Gran (auto) Absolute Neuts (auto) Absolute Nucleated RBC Band Neutrophils % Nucleated RBC % Platelet Estimate % Immature Plt Fraction Hypochromasia Anisocytosis Ovalocytes Schistocytes PT INR APTT Sodium Potassium Chloride Carbon Dioxide Anion Gap BUN Creatinine Estim Creat Clear Calc Estimated GFR Glucose Lactic Acid 9.2 H* Calcium Magnesium Total Bilirubin AST ALT Alkaline Phosphatase Troponin I 0.076 H* C-Reactive Protein NT-Pro-B Natriuret Pep Total Protein Albumin Urine Color Yellow Urine Appearance Clear Urine pH 6.0 Ur Specific [place] > 1.045 H Urine Protein 1+ H Urine Glucose (UA) Negative Urine Ketones Negative Ur Blood (Man) Negative Urine Nitrate Negative Urine Bilirubin Negative Urine Urobilinogen 1.0 Add Ur Microanalysis Reviewed Leukocyte Esterase Rfl Negative Urine RBC 0-2 Urine WBC 0-5 Ur Squamous Epith Cells None seen Urine Bacteria None seen Urine Casts 11-20 Nasal MRSA (PCR) Not detected Stl Occult Blood (IFOB) Influenza A (RT-PCR) Influenza B (RT-PCR) RSV (RT-PCR) SARS-CoV-2 RNA (RT-PCR) Blood Type Antibody Screen Crossmatch 10/19/24 10/19/24 10/19/24 19:42 21:42 22:00 WBC 11.3 H 13.3 H RBC 2.73 L 2.68 L Hgb 7.0 L 6.9 L* Hct 22.6 L 22.0 L MCV 82.8 82.1 MCH 25.6 L 25.7 L MCHC 31.0 L 31.4 L RDW 20.7 H 20.9 H Plt Count 85 L 93 L MPV 10.4 10.8 H Immature Gran % (Auto) 0.6 H 0.7 H Neut % (Auto) 91.1 H 91.2 H Lymph % (Auto) 3.2 L 3.5 L [place] % (Auto) 4.9 4.4 Eos % (Auto) 0.0 0.0 Baso % (Auto) 0.2 0.2 Lymph # (Auto) 0.36 L 0.47 L [place] # (Auto) 0.6 0.6 Eos # (Auto) 0.0 0.0 Baso # (Auto) 0.0 0.0 Abs Immat Gran (auto) 0.07 H 0.09 H Absolute Neuts (auto) 10.3 H 12.1 H Absolute Nucleated RBC 0.000 0.000 Band Neutrophils % 0 Not Reportable Nucleated RBC % 0.0 0.0 Platelet Estimate Decreased Decreased % Immature Plt Fraction 2.0 2.2 Hypochromasia 2+ 1+ Anisocytosis 1+ 1+ Ovalocytes 2+ 1+ Schistocytes Rare None seen PT INR APTT Sodium Potassium Chloride Carbon Dioxide Anion Gap BUN Creatinine Estim Creat Clear Calc Estimated GFR Glucose Lactic Acid 2.2 H Calcium Magnesium Total Bilirubin AST ALT Alkaline Phosphatase Troponin I C-Reactive Protein NT-Pro-B Natriuret Pep Total Protein Albumin Urine Color Urine Appearance Urine pH Ur Specific [place] Urine Protein Urine Glucose (UA) Urine Ketones Ur Blood (Man) Urine Nitrate Urine Bilirubin Urine Urobilinogen Add Ur Microanalysis Leukocyte Esterase Rfl Urine RBC Urine WBC Ur Squamous Epith Cells Urine Bacteria Urine Casts Nasal MRSA (PCR) Not detected Stl Occult Blood (IFOB) Influenza A (RT-PCR) Influenza B (RT-PCR) RSV (RT-PCR) SARS-CoV-2 RNA (RT-PCR) Blood Type A Positive Antibody Screen Negative Crossmatch See Detail 10/20/24 10/20/24 10/20/24 04:17 09:01 10:08 WBC 13.1 H 11.7 H RBC 3.06 L 3.68 L Hgb 8.3 L 9.7 L Hct 25.7 L 30.6 L MCV 84.0 83.2 MCH 27.1 D 26.4 MCHC 32.3 31.7 L RDW 20.4 H 20.3 H Plt Count 89 L 105 L MPV 9.8 10.2 Immature Gran % (Auto) 0.8 H Neut % (Auto) 90.5 H Lymph % (Auto) 4.1 L [place] % (Auto) 4.4 Eos % (Auto) 0.0 Baso % (Auto) 0.2 Lymph # (Auto) 0.54 L [place] # (Auto) 0.6 Eos # (Auto) 0.0 Baso # (Auto) 0.0 Abs Immat Gran (auto) 0.10 H Absolute Neuts (auto) 11.9 H Absolute Nucleated RBC 0.000 Band Neutrophils % Not Reportable Nucleated RBC % 0.0 Platelet Estimate Decreased % Immature Plt Fraction 2.3 Hypochromasia Anisocytosis 1+ Ovalocytes 1+ Schistocytes None seen PT INR APTT Sodium 136 L Potassium 3.6 Chloride 107 Carbon Dioxide 22 Anion Gap 7 BUN 24 H Creatinine 1.03 Estim Creat Clear Calc 49 Estimated GFR > 60 Glucose 90 Lactic Acid Calcium 7.6 L Magnesium 1.7 Total Bilirubin 0.9 AST 15 L ALT 8 Alkaline Phosphatase 76 Troponin I 0.047 H* C-Reactive Protein NT-Pro-B Natriuret Pep 9210 H Total Protein 4.0 L Albumin 1.8 L Urine Color Urine Appearance Urine pH Ur Specific [place] Urine Protein Urine Glucose (UA) Urine Ketones Ur Blood (Man) Urine Nitrate Urine Bilirubin Urine Urobilinogen Add Ur Microanalysis Leukocyte Esterase Rfl Urine RBC Urine WBC Ur Squamous Epith Cells Urine Bacteria Urine Casts Nasal MRSA (PCR) Stl Occult Blood (IFOB) Positive H Influenza A (RT-PCR) Influenza B (RT-PCR) RSV (RT-PCR) SARS-CoV-2 RNA (RT-PCR) Blood Type Antibody Screen Crossmatch
[2024-10-20 16:39] LABS: Hematocrit 25.7 % (42.0-52.0); Hemoglobin 8.5 g/dL (14.0-18.0); Immature Platelet Fraction Pct 2.3 % (0.9-11.2); Mean Corpuscular HGB Conc 33.1 g/dl (32-36); Mean Corpuscular Hemoglobin 27.2 pg (26-34); Mean Corpuscular Volume 82.1 fl (80-100); Platelet Count Result 91 k/mm3 (150-375); Red Blood Count 3.13 M/mm3 (4.6-6.20); Red Cell Distribution Width 20.4 % (11.5-14.5); White Blood Count 12.1 K/mm3 (4.5-10.0)
[2024-10-20] MEDS: VANCOMYCIN 1,000 MG/NS 250 ML 1,000 MG/250 ML BAG 250 MG IVPB (20:30)
[2024-10-20] MEDS: CENTRAL LINE FLUSH 10 ML IV PUSH (20:31)
--- NOTE | 2024-10-20 21:53 | PC.NURSE ---
2108: Report called to Darrin MAGAÑA 2146: Patient trasferred to 209-1 by bed. All belongings taken with patient.
[2024-10-20 23:35] LABS: Glucose Point of Care 68 mg/dl (65-105)
[2024-10-21] VITALS (18 sets, daily range): BP systolic 122–147; BP diastolic 68–82; PULSE 42–75; RESP 15–20; TEMP 36.3–37.1; O2SAT 98–100
[2024-10-21] MEDS: ALBUMIN HUMAN 25% 25 GM/100 ML 100 ML IVPB ×2 (01:06→06:31)
[2024-10-21 04:18] LABS: Hematocrit 24.6 % (42.0-52.0); Immature Platelet Fraction Pct 2.8 % (0.9-11.2); Mean Corpuscular HGB Conc 32.5 g/dl (32-36); Mean Corpuscular Hemoglobin 26.8 pg (26-34); Mean Corpuscular Volume 82.3 fl (80-100); Mean Platelet Volume 10.1 fl (7.4-10.4); Platelet Count Result 79 k/mm3 (150-375); Red Blood Count 2.99 M/mm3 (4.6-6.20); Red Cell Distribution Width 20.6 % (11.5-14.5); White Blood Count 9.6 K/mm3 (4.5-10.0)
[2024-10-21 04:31] LABS: Alanine Aminotransferase 7 U/L (6-50); Albumin Level 2.4 g/dL (3.5-5.1); Alkaline Phosphatase 66 U/L (38-126); Anion Gap 10 mmol/L (4-12); Aspartate Amino Transferase 13 U/L (17-59); Bilirubin,Total 1.1 mg/dL (0.2-1.3); Blood Urea Nitrogen 24 mg/dL (9-20); Calcium 8.1 mg/dL (8.4-10.2); Carbon Dioxide 17 mmol/L (22-30); Chloride 110 mmol/L (98-107); Estimated CRCL calculation 52 ml/min; Estimated Glomerular Filt Rate > 60; Glucose 86 mg/dL (65-110); Magnesium 2.1 mg/dL (1.6-2.3); Potassium 3.7 mmol/L (3.4-5.0); Sodium 137 mmol/L (137-145)
[2024-10-21] MEDS: metroNIDAZOLE 500 MG/ISO 100ML 500 MG/100 ML BAG 100 MG IVPB ×3 (05:45→22:05)
[2024-10-21] MEDS: CENTRAL LINE FLUSH 10 ML IV PUSH ×3 (06:13→22:41)
--- NOTE | 2024-10-21 08:10 | ECG_ITS ---
Test Date: 2024-10-21 09:22:29 Measurements Intervals Anza Rate: 57 P: 74 OR: 153 QRS: 80 QRSD: 141 T: 62 QT: 480 QTc: 468 Interpretive Statements SINUS BRADYCARDIA INTRAVENTRICULAR CONDUCTION DELAY [130+ ms QRS DURATION] Compared to ECG 10/19/2024 19:05:20 NO SIGNIFICANT CHANGES Electronically Signed On 10-21-2024 14:57:00 CDT by Hayden Lawson M.D.
--- NOTE | 2024-10-21 08:11 | PC.NURSE ---
Notified Dr Beard that the patient has been kept NPO since midnight due to possibility of procedure today. PT has metoprolol ordered this morning. Current HR is 47. Received order for EKG. Order read back and verified.
[2024-10-21] MEDS: CEFEPIME 2 GM/NS 50 ML 2 GM/50 ML BAG IVPB ×2 (09:26→20:20)
[2024-10-21] MEDS: PANTOPRAZOLE SODIUM IV 40 MG VIAL IV PUSH ×2 (09:26→20:20)
--- NOTE | 2024-10-21 09:50 | P.PNIM_ITS ---
Progress Note: A&P Assessment and Plan (1) Non-ST elevation [place] (NSTEMI): Code(s): I21.4 - Non-ST elevation (NSTEMI) myocardial infarction Status: Acute (2) Pulmonary embolism: Code(s): I26.99 - Other pulmonary embolism without acute cor pulmonale Status: Acute (3) GI bleed: Code(s): K92.2 - Gastrointestinal hemorrhage, unspecified Status: Acute (4) Iron deficiency anemia: Code(s): D50.9 - Iron deficiency anemia, unspecified Status: Acute (5) Colon cancer: Code(s): C18.9 - Malignant neoplasm of colon, unspecified Status: Acute (6) Rectal cancer: Code(s): C20 - Malignant neoplasm of rectum Status: Acute Plan Sepsis: Code(s): A41.9 - Sepsis, unspecified organism Status: Acute Assessment and Plan: Secondary to perirectal abscess. General surgery consulted for evaluation UA unremarkable for UTI. Blood pressure improved with IV fluids Continue cefepime, Flagyl and vancomycin Bacteremia Blood culture on October 19 grows staphylococci in chain repeat BCX on 10/22 c/w current abx Rectal abscess: Code(s): K61.1 - Rectal abscess Status: Acute Assessment and Plan: Consult general surgeon for evaluation Treat GI surgeon considers patient may need percutaneous drainage by IR Continue antibiotics Pulmonary embolism: Code(s): I26.99 - Other pulmonary embolism without acute cor pulmonale Status: Acute Assessment and Plan: CT showed Nonocclusive segmental right upper lobe, distal right interlobar artery, and segmental right lower lobe pulmonary emboli. Low clot burden. RV/LV ratio 1.0. lower extremity Dopplers : Acute clot in the right superficial femoral vein Patient was started on heparin infusion and has developed GI bleeding. Patient has a rectal cancer along with and another colon polyp that was not fully removed patient at this time is not a candidate for anticoagulation because active bleeding on heparin Patient also has a thrombocytopenia but the platelet stable, 7.8K today Consult general surgeon for evaluation about IVC filter placement when bacteremia resolves Elevated troponin Patient denies chest pain, EKG shows sinus rhythm no specific ST or T-wave changes Possible demand ischemia due to PE, GI bleed and sepsis Treatment of sepsis PE and GI bleed as above echocardiogram 1. Complete two-dimensional, color flow and Doppler transthoracic echocardiogram is performed. 2. Left ventricular chamber dimension is normal. 3. Left ventricular systolic function is normal, estimated at 60-65%. 4. The left ventricular diastolic function is normal. 5. E/e' 5 is not elevated. 6. Left atrial chamber dimension is mildly enlarged. 7. The mitral valve has mildly calcified annulus. 8. There is trace mitral valve regurgitation. 9. There is mild tricuspid valve regurgitation. 10. No pulmonary hypertension, estimated pulmonary arterial systolic pressure is 18 mmHg. Check BNP Rectal cancer: Code(s): C20 - Malignant neoplasm of rectum Status: Acute Assessment and Plan: Follow-up heme oncologist in [facility] GI bleed, acute on chronic blood loss anemia Code(s): K92.2 - Gastrointestinal hemorrhage, unspecified Status: Acute Assessment and Plan: Patient developed bloody stools after initiation of anticoagulation. Patient has a rectal cancer which is likely the source. Anticoagulation discontinued. Received pack to pack RBC Hemoglobin stable Follow-up CBC hemoglobin q.6 hours, transfuse p.r.n. Consult GI Sinus bradycardia Asymptomatic, start metoprolol Continue telemetry monitoring Plan DVT prophylaxis -lower extremity venous Dopplers ordered Stress ulcer prophylaxis -PPI Nutrition - npo Code Status - Full Code Subjective Date/time seen: 10/21/24 09:50 Interval history: I saw exam patient today, patient feels comfortable. Patient denies headache, but has general weakness, patient denies chest pain, shortness of breath. Labs reviewed. Hemoglobin continued to trend down to 8.0, blood culture grows Gram-positive cocci in both bottles. Patient is afebrile, blood pressure stable, Patient's bradycardia, EKG shows sinus bradycardia 57, no specific ST or T-wave changes, stop metoprolol p.o. thrombocytopenia persists, but stable Exam Narrative: GENERAL: Ill-appearing in no acute distress. Moderate malnutrition - EYES: EOMI. Anicteric. - HENT: Moist mucous membranes. - LUNGS: Clear to auscultation bilateral ly, no wheezing, rhonchi, or rales. - CARDIOVASCULAR: Regular rate and rhyth m. No murmur. No JVD. - ABDOMEN: Soft, left lower quadrant ten derek and non-distended. No palpable masses. - EXTREMITIES: No edema. Peripheral puls es 2+. Non-tender. - NEUROLOGIC: No focal neurological defi cits. CN II-XII grossly intact. - PSYCHIATRIC: Awake, Alert and oriented x 3. Appropriate mood and affect. - SKIN: No rashes or lesions. Warm. - LYMPH: No cervical lymphadenopathy. Objective Data Vital Signs Vital Signs: Vital Signs - 24 hr 10/20/24 10:00 10/20/24 10:00 10/20/24 12:00 Temperature 97.8 F 97.8 F Pulse Rate 84 84 66 Respiratory Rate 15 14 Blood Pressure 157/94 H 105/62 Pulse Oximetry 99 100 Oxygen Delivery 10/20/24 12:00 10/20/24 14:00 10/20/24 14:00 Temperature 98.4 F Pulse Rate 71 70 68 Respiratory Rate 15 Blood Pressure 123/67 Pulse Oximetry 100 Oxygen Delivery 10/20/24 16:00 10/20/24 16:00 10/20/24 18:00 Temperature 98.5 F Pulse Rate 67 67 57 L Respiratory Rate 14 11 L Blood Pressure 121/78 108/65 Pulse Oximetry 100 100 Oxygen Delivery 10/20/24 18:00 10/20/24 20:00 10/20/24 20:00 Temperature Pulse Rate 57 L 60 63 Respiratory Rate 14 Blood Pressure Pulse Oximetry 100 Oxygen Delivery Room Air 10/20/24 20:14 10/20/24 20:30 10/20/24 22:00 Temperature 99 F Pulse Rate 58 L 60 54 L Respiratory Rate 10 L Blood Pressure 133/69 Pulse Oximetry 99 Oxygen Delivery 10/20/24 23:20 10/20/24 23:23 10/20/24 23:58 Temperature 97.8 F Pulse Rate 59 L 58 L 58 L Respiratory Rate 15 15 Blood Pressure 115/62 Pulse Oximetry 92 92 Oxygen Delivery Room Air 10/20/24 23:58 10/21/24 02:00 10/21/24 03:14 Temperature 97.5 F L Pulse Rate 58 L 49 L 53 L Respiratory Rate 15 Blood Pressure 122/82 Pulse Oximetry 100 Oxygen Delivery 10/21/24 03:50 10/21/24 03:50 10/21/24 06:00 Temperature Pulse Rate 53 L 51 L 42 L Respiratory Rate 15 Blood Pressure Pulse Oximetry 100 Oxygen Delivery Room Air 10/21/24 07:53 10/21/24 09:17 Temperature 97.6 F Pulse Rate 56 L Respiratory Rate 18 Blood Pressure 134/77 Pulse Oximetry 100 98 Oxygen Delivery Room Air Intake/Output Intake/Output: Intake & Output 10/18/24 10/20/24 10/20/24 10/21/24 23:59 00:59 23:59 23:59 Intake Total 3687.8 1950.0 200 Output Total 280 220 Balance 3687.8 1670.0 -20 Meds/Results Medications: Active Medications Generic Name Dose Route Start Last Admin Trade Name Freq PRN Reason Stop Dose Admin Acetaminophen 650 mg 10/19/24 19:18 Acetaminophen 325 Mg Tablet PO Q4H PRN Mild Pain (1-3) or Fever Heparin Sodium (Porcine) 5,000 units 10/19/24 18:53 Heparin Sodium 5,000 Units/Ml Vial IV PUSH PRN PRN aPTT less than 55 seconds Heparin Sodium (Porcine) 2,500 units 10/19/24 18:53 Heparin Sodium 5,000 Units/Ml Vial IV PUSH PRN PRN aPTT 55 - 70 seconds Heparin Sodium/Dextrose 25,000 units in 250 mls @ 0 mls/hr 10/19/24 18:55 10/20/24 06:52 Heparin Sodium/D5w 100 Units/Ml IV CONT Infused .Q0M VINNY Titration Protocol 0 UNITS/HR Vancomycin HCl 1,000 mg in 250 mls @ 250 mls/hr 10/20/24 18:00 10/20/24 21:30 Vancomycin 1,000 Mg/Ns 250 Ml IVPB Infused Q24H VINNY Infusion Cefepime HCl 2 gm in 50 mls @ 100 mls/hr 10/20/24 09:00 10/21/24 09:26 Maxipime 2 Gm/Ns 50 Ml IVPB 100 mls/hr Q12HR VINNY Administration Metronidazole 500 mg in 100 mls @ 100 mls/hr 10/20/24 08:35 10/21/24 05:45 Flagyl 500 Mg/Iso Soln 100 Ml IVPB 100 mls/hr Q8HR VINNY Administration Metoprolol Tartrate 25 mg 10/20/24 09:00 10/20/24 20:30 Metoprolol Tartrate 25 Mg Tablet PO 25 mg Q12HR VINNY Administration Pantoprazole Sodium 40 mg 10/20/24 09:00 10/21/24 09:26 Pantoprazole Sodium Iv 40 Mg Vial IV PUSH 40 mg Q12HR VINNY Administration Perflutren Lipid Microsphere 0 ml 10/20/24 08:26 Perflutren Lipid Microspheres 1.5 Ml Vial Diluted To 10 Ml Total Volume IV PUSH 10/23/24 08:27 ONCE PRN adequate visualization Protocol Sodium Chloride 10 ml 10/20/24 22:00 10/21/24 06:13 Central Line Flush IV PUSH 10 ml Q8HR VINNY Administration Sodium Chloride 20 ml 10/20/24 14:44 Central Line Flush IV PUSH PRN PRN after blood draws Radiology Results: ITS Impressions Chest X-Ray 10/19/24 16:50 IMPRESSION: No acute cardiopulmonary process. Chest/Abdomen/Pelvis CTA 10/19/24 17:42 IMPRESSION: Nonocclusive segmental right upper lobe, distal right interlobar artery, and segmental right lower lobe pulmonary emboli. Low clot burden. RV/LV ratio 1.0. Small left pleural effusion. Mild bilateral ureteral stranding and urothelial enhancement may reflect asce nding infection in the proper clinical context. 4.8 x 3.2 x 9.0 cm perirectal abscess. Distal sigmoid and rectal wall thickening, may reflect infectious or post therapeutic colitis/proctitis, or combination of those entities. Ischemia/infarction considered less likely. Cystitis, correlate with urinalysis. Venous Doppler Study 10/20/24 17:15 IMPRESSION: Acute clot in the right superficial femoral vein. Inadequate visualization of the right common femoral vein and greater saphenous vein due to the presence of a catheter. Otherwise patent bilateral lower extremity veins. Labs Labs: Laboratory Results - last 24 hr 10/20/24 10/20/24 10/20/24 10:08 16:19 23:31 WBC 11.7 H 12.1 H RBC 3.68 L 3.13 L Hgb 9.7 L 8.5 L Hct 30.6 L 25.7 L MCV 83.2 82.1 MCH 26.4 27.2 MCHC 31.7 L 33.1 RDW 20.3 H 20.4 H Plt Count 105 L 91 L MPV 10.2 10.0 % Immature Plt Fraction 2.3 Sodium Potassium Chloride Carbon Dioxide Anion Gap BUN Creatinine Estim Creat Clear Calc Estimated GFR Glucose POC Capillary Glucose 68 Calcium Magnesium Total Bilirubin AST ALT Alkaline Phosphatase Total Protein Albumin 10/21/24 04:10 WBC 9.6 RBC 2.99 L Hgb 8.0 L Hct 24.6 L MCV 82.3 MCH 26.8 MCHC 32.5 RDW 20.6 H Plt Count 79 L MPV 10.1 % Immature Plt Fraction 2.8 Sodium 137 Potassium 3.7 Chloride 110 H Carbon Dioxide 17 L Anion Gap 10 BUN 24 H Creatinine 0.98 Estim Creat Clear Calc 52 Estimated GFR > 60 Glucose 86 POC Capillary Glucose Calcium 8.1 L Magnesium 2.1 Total Bilirubin 1.1 AST 13 L ALT 7 Alkaline Phosphatase 66 Total Protein 5.0 L Albumin 2.4 L
[2024-10-21 10:13] LABS: Glucose Point of Care 78 mg/dl (65-105)
[2024-10-21 10:46] LABS: Hematocrit 25.2 % (42.0-52.0); Hemoglobin 8.1 g/dL (14.0-18.0); Immature Platelet Fraction Pct 3.3 % (0.9-11.2); Mean Corpuscular HGB Conc 32.1 g/dl (32-36); Mean Corpuscular Hemoglobin 26.8 pg (26-34); Mean Corpuscular Volume 83.4 fl (80-100); Mean Platelet Volume 10.4 fl (7.4-10.4); Platelet Count Result 79 k/mm3 (150-375); Red Blood Count 3.02 M/mm3 (4.6-6.20); Red Cell Distribution Width 20.7 % (11.5-14.5); White Blood Count 9.7 K/mm3 (4.5-10.0)
[2024-10-21 11:30] LABS: Glucose Point of Care 63 mg/dl (65-105)
--- NOTE | 2024-10-21 11:44 | PC.NURSE ---
Notified Dr Beard of patients POC glucose of 63. Received order to treat with carbs/food and recheck. Order read back and verified.
[2024-10-21 12:42] LABS: Glucose Point of Care 92 mg/dl (65-105)
--- NOTE | 2024-10-21 12:50 | P.PNGS_ITS ---
Progress Note: A&P Assessment and Plan (1) Rectal abscess: Code(s): K61.1 - Rectal abscess Status: Acute Assessment and Plan: * Continue IV antibiotics. No need for surgical intervention at this time but might need I&D if fluctuance develops. (2) GI bleed: Code(s): K92.2 - Gastrointestinal hemorrhage, unspecified Status: Acute Assessment and Plan: * Discussed IVC filter and patient agreeable. Will plan for possibly sometime tomorrow. * Remove right femoral central line today. (3) Rectal cancer: Code(s): C20 - Malignant neoplasm of rectum Status: Acute (4) Pulmonary embolism: Code(s): I26.99 - Other pulmonary embolism without acute cor pulmonale Status: Acute Subjective Subjective Date/Time Seen: 10/21/24 12:50 Interval history: No fevers. No significant rectal pain. Still having diarrhea. Anticoagulation held due to anemia and rectal bleeding. Exam GI: Inspection: non-distended GI Palp: Yes Soft to palpation, No Tenderness to palpation present (GI) and No Guarding due to palpation present (GI) Rectal Exam: other (left perirectal induration without fluctuance or erythema) Objective Data Vital Signs Vital Signs: Vital Signs - 24 hr 10/20/24 14:00 10/20/24 14:00 10/20/24 16:00 Temperature 98.4 F 98.5 F Pulse Rate 70 68 67 Respiratory Rate 15 14 Blood Pressure 123/67 121/78 Pulse Oximetry 100 100 Oxygen Delivery 10/20/24 16:00 10/20/24 18:00 10/20/24 18:00 Temperature Pulse Rate 67 57 L 57 L Respiratory Rate 11 L Blood Pressure 108/65 Pulse Oximetry 100 Oxygen Delivery 10/20/24 20:00 10/20/24 20:00 10/20/24 20:14 Temperature 99 F Pulse Rate 60 63 58 L Respiratory Rate 14 10 L Blood Pressure 133/69 Pulse Oximetry 100 99 Oxygen Delivery Room Air 10/20/24 20:30 10/20/24 22:00 10/20/24 23:20 Temperature 97.8 F Pulse Rate 60 54 L 59 L Respiratory Rate 15 Blood Pressure 115/62 Pulse Oximetry 92 Oxygen Delivery 10/20/24 23:23 10/20/24 23:58 10/20/24 23:58 Temperature Pulse Rate 58 L 58 L 58 L Respiratory Rate 15 Blood Pressure Pulse Oximetry 92 Oxygen Delivery Room Air 10/21/24 02:00 10/21/24 03:14 10/21/24 03:50 Temperature 97.5 F L Pulse Rate 49 L 53 L 53 L Respiratory Rate 15 15 Blood Pressure 122/82 Pulse Oximetry 100 100 Oxygen Delivery Room Air 10/21/24 03:50 10/21/24 06:00 10/21/24 07:53 Temperature 97.6 F Pulse Rate 51 L 42 L 56 L Respiratory Rate 18 Blood Pressure 134/77 Pulse Oximetry 100 Oxygen Delivery 10/21/24 08:00 10/21/24 08:00 10/21/24 09:17 Temperature Pulse Rate 55 L Respiratory Rate Blood Pressure Pulse Oximetry 98 Oxygen Delivery Room Air Room Air 10/21/24 10:00 10/21/24 11:53 Temperature 97.5 F L Pulse Rate 58 L 69 Respiratory Rate 20 Blood Pressure 147/70 H Pulse Oximetry 100 Oxygen Delivery Intake/Output Intake/Output: Intake & Output 10/18/24 10/20/24 10/20/24 10/21/24 23:59 00:59 23:59 23:59 Intake Total 3687.8 1950.0 250 Output Total 280 460 Balance 3687.8 1670.0 -210 Meds/Results Medications: Active Medications Generic Name Dose Route Start Last Admin Trade Name Freq PRN Reason Stop Dose Admin Acetaminophen 650 mg 10/19/24 19:18 Acetaminophen 325 Mg Tablet PO Q4H PRN Mild Pain (1-3) or Fever Heparin Sodium (Porcine) 5,000 units 10/19/24 18:53 Heparin Sodium 5,000 Units/Ml Vial IV PUSH PRN PRN aPTT less than 55 seconds Heparin Sodium (Porcine) 2,500 units 10/19/24 18:53 Heparin Sodium 5,000 Units/Ml Vial IV PUSH PRN PRN aPTT 55 - 70 seconds Heparin Sodium/Dextrose 25,000 units in 250 mls @ 0 mls/hr 10/19/24 18:55 10/20/24 06:52 Heparin Sodium/D5w 100 Units/Ml IV CONT Infused .Q0M VINNY Titration Protocol 0 UNITS/HR Vancomycin HCl 1,000 mg in 250 mls @ 250 mls/hr 10/20/24 18:00 10/20/24 21:30 Vancomycin 1,000 Mg/Ns 250 Ml IVPB Infused Q24H VINNY Infusion Cefepime HCl 2 gm in 50 mls @ 100 mls/hr 10/20/24 09:00 10/21/24 10:00 Maxipime 2 Gm/Ns 50 Ml IVPB Infused Q12HR VINNY Infusion Metronidazole 500 mg in 100 mls @ 100 mls/hr 10/20/24 08:35 10/21/24 05:45 Flagyl 500 Mg/Iso Soln 100 Ml IVPB 100 mls/hr Q8HR VINNY Administration Pantoprazole Sodium 40 mg 10/20/24 09:00 10/21/24 09:26 Pantoprazole Sodium Iv 40 Mg Vial IV PUSH 40 mg Q12HR VINNY Administration Perflutren Lipid Microsphere 0 ml 10/20/24 08:26 Perflutren Lipid Microspheres 1.5 Ml Vial Diluted To 10 Ml Total Volume IV PUSH 10/23/24 08:27 ONCE PRN adequate visualization Protocol Sodium Chloride 10 ml 10/20/24 22:00 10/21/24 06:13 Central Line Flush IV PUSH 10 ml Q8HR VINNY Administration Sodium Chloride 20 ml 10/20/24 14:44 Central Line Flush IV PUSH PRN PRN after blood draws Radiology Results: ITS Impressions Chest X-Ray 10/19/24 16:50 IMPRESSION: No acute cardiopulmonary process. Chest/Abdomen/Pelvis CTA 10/19/24 17:42 IMPRESSION: Nonocclusive segmental right upper lobe, distal right interlobar artery, and segmental right lower lobe pulmonary emboli. Low clot burden. RV/LV ratio 1.0. Small left pleural effusion. Mild bilateral ureteral stranding and urothelial enhancement may reflect ascending infection in the proper clinical context. 4.8 x 3.2 x 9.0 cm perirectal abscess. Distal sigmoid and rectal wall thickening, may reflect infectious or post therapeutic colitis/proctitis, or combination of those entities. Ischemia/infarction considered less likely. Cystitis, correlate with urinalysis. Venous Doppler Study 10/20/24 17:15 IMPRESSION: Acute clot in the right superficial femoral vein. Inadequate visualization of the right common femoral vein and greater saphenous vein due to the presence of a catheter. Otherwise patent bilateral lower extremity veins. Labs Labs: Laboratory Results - last 24 hr 10/20/24 10/20/24 10/21/24 16:19 23:31 04:10 WBC 12.1 H 9.6 RBC 3.13 L 2.99 L Hgb 8.5 L 8.0 L Hct 25.7 L 24.6 L MCV 82.1 82.3 MCH 27.2 26.8 MCHC 33.1 32.5 RDW 20.4 H 20.6 H Plt Count 91 L 79 L MPV 10.0 10.1 % Immature Plt Fraction 2.3 2.8 Sodium 137 Potassium 3.7 Chloride 110 H Carbon Dioxide 17 L Anion Gap 10 BUN 24 H Creatinine 0.98 Estim Creat Clear Calc 52 Estimated GFR > 60 Glucose 86 POC Capillary Glucose 68 Calcium 8.1 L Magnesium 2.1 Total Bilirubin 1.1 AST 13 L ALT 7 Alkaline Phosphatase 66 Total Protein 5.0 L Albumin 2.4 L 10/21/24 10/21/24 10/21/24 10:11 10:25 11:26 WBC 9.7 RBC 3.02 L Hgb 8.1 L Hct 25.2 L MCV 83.4 MCH 26.8 MCHC 32.1 RDW 20.7 H Plt Count 79 L MPV 10.4 % Immature Plt Fraction 3.3 Sodium Potassium Chloride Carbon Dioxide Anion Gap BUN Creatinine Estim Creat Clear Calc Estimated GFR Glucose POC Capillary Glucose 78 63 L Calcium Magnesium Total Bilirubin AST ALT Alkaline Phosphatase Total Protein Albumin 10/21/24 12:33 WBC RBC Hgb Hct MCV MCH MCHC RDW Plt Count MPV % Immature Plt Fraction Sodium Potassium Chloride Carbon Dioxide Anion Gap BUN Creatinine Estim Creat Clear Calc Estimated GFR Glucose POC Capillary Glucose 92 Calcium Magnesium Total Bilirubin AST ALT Alkaline Phosphatase Total Protein Albumin
--- NOTE | 2024-10-21 15:47 | WPDGICN ---
Assessment and Plan Assessment and plan (1) Rectal abscess: Code(s): K61.1 - Rectal abscess Status: Acute Assessment and Plan: here with sepsis and hypotension better with iv abx surgery on board (2) GI bleed: Code(s): K92.2 - Gastrointestinal hemorrhage, unspecified Status: Acute Assessment and Plan: probably from rectal abscess/recent treatment for rectal cancer h/h stable after blood transfusion no need of urgent colonoscopy- will need follow-up with his colorectal surgeon he is already doing better and no more obvious gib (3) Rectal cancer: Code(s): C20 - Malignant neoplasm of rectum Status: Acute Assessment and Plan: undergoing treatment as outpatient (4) Sepsis: Code(s): A41.9 - Sepsis, unspecified organism Status: Acute Assessment and Plan: treated and better (5) Non-ST elevation LA (NSTEMI): Code(s): I21.4 - Non-ST elevation (NSTEMI) myocardial infarction Status: Acute (6) Pulmonary embolism: Code(s): I26.99 - Other pulmonary embolism without acute cor pulmonale Status: Acute Assessment and Plan: on AC per primary monitor h/h (7) Acidosis, lactic: Code(s): E87.20 - Acidosis, unspecified Status: Acute GI Consult Note Consult date/time: 10/21/24 15:47 Reason for consult: rectal cancer with abscess and bleeding HPI: Kyle Resendiz is a 69 year old male with known rectal cancer diagnosed in May of 2024. He is seeing Dr. Razo and is undergoing neoadjuvant therapy. He completed radiation and is currently going through the chemotherapy. He had diarrhea with vomiting and had to postponed his chemotherapy but then developed fatigue, generalized weakness, and chills with fever 100.8? F. He took his sick daughter who has cerebral palsy that lives with him to ED but also he was evaluated. He was hypotensive, tachycardic, and febrile. Labs showed a white blood cell count 35591, hemoglobin 9.2, anion gap 18, BUN 23, creatinine 1.38, lactic acid 9.2. CRP 17.5. Influenza a/B, RSV, COVID negative. CT scan of the abdomen and pelvis showed a nonocclusive segmental right upper lobe, distal right interlobar artery, and segmental right lower lobe pulmonary emboli with low clot burden, 4.8 x 3.2 x 9 cm perirectal abscess, and distal sigmoid and rectal wall thickening. Admitted to ICU but he is in the floor now, feeling much better, no report of rectal bleeding (had occult blood in stool). He received blood transfusion and now hgb 8 also iv antibiotics. Hemodynamically stable. Review of Systems Constitutional: Constitutional: Reports chills and Reports fatigue Eyes: Eyes: Denies blurry vision ENT: Reports Normal hearing present Cardiovascular: Cardiovascular: Denies chest pain Respiratory: Respiratory: Reports dyspnea Gastrointestinal: Gastrointestinal: Reports no additional gastrointestinal complaints Genitourinary: Genitourinary: Denies urinary frequency Musculoskeletal: Musculoskeletal: Denies neck pain Integumentary/Breasts: Skin/Breast: Denies rash Neurologic: Denies Abnormal speech present Psychiatric: Psychiatric: Denies confusion [facility] Past Medical History Medical History Colon cancer Bowel habit changes Weight loss Iron deficiency anemia HTN (hypertension) Surgical History Surgical History History of shoulder surgery Social History Social History Smoking packs per day: 1 Smoking cigarettes per day: 20.0 Years smoked: 10 Smoking pack-years: 10.00 Smoking status: Former smoker Tobacco type: cigarettes Second hand tobacco smoke exposure: Yes Alcohol intake: former Substance use: never Substance use type: does not use Do You Feel Safe in your Home?: Yes Lack of Transportation: No Lack of Food: Never True Current Housing: I Have Housing Concerned About Future Housing: No Difficulty Paying Gas/Electric Bills: No Difficulty Paying for Meds: No Currently Unemployed: No Education: Associate Degree Difficulty w/ Childcare or Family Care: No Living arrangements: with family Spiritual care concerns: No (Congregation) Meds Home Medications and Allergies Home Medications ?Medication ?Instructions ?Recorded ?Confirmed ?Type hydrochlorothiazide 12.5 mg tablet 12.5 mg PO DAILY 05/28/24 10/19/24 History metoprolol succinate 100 mg 100 mg PO DAILY 05/28/24 10/19/24 History tablet,extended release 24 hr Allergies Allergy/AdvReac Type Severity Reaction Status Date / Time No Known Allergies Allergy Verified 10/19/24 15:35 Vital Signs Vital Signs - 24 hr 10/20/24 16:00 10/20/24 16:00 10/20/24 18:00 Temperature 98.5 F Pulse Rate 67 67 57 L Respiratory Rate 14 11 L Blood Pressure 121/78 108/65 Pulse Oximetry 100 100 Oxygen Delivery 10/20/24 18:00 10/20/24 20:00 10/20/24 20:00 Temperature Pulse Rate 57 L 60 63 Respiratory Rate 14 Blood Pressure Pulse Oximetry 100 Oxygen Delivery Room Air 10/20/24 20:14 10/20/24 20:30 10/20/24 22:00 Temperature 99 F Pulse Rate 58 L 60 54 L Respiratory Rate 10 L Blood Pressure 133/69 Pulse Oximetry 99 Oxygen Delivery 10/20/24 23:20 10/20/24 23:23 10/20/24 23:58 Temperature 97.8 F Pulse Rate 59 L 58 L 58 L Respiratory Rate 15 15 Blood Pressure 115/62 Pulse Oximetry 92 92 Oxygen Delivery Room Air 10/20/24 23:58 10/21/24 02:00 10/21/24 03:14 Temperature 97.5 F L Pulse Rate 58 L 49 L 53 L Respiratory Rate 15 Blood Pressure 122/82 Pulse Oximetry 100 Oxygen Delivery 10/21/24 03:50 10/21/24 03:50 10/21/24 06:00 Temperature Pulse Rate 53 L 51 L 42 L Respiratory Rate 15 Blood Pressure Pulse Oximetry 100 Oxygen Delivery Room Air 10/21/24 07:53 10/21/24 08:00 10/21/24 08:00 Temperature 97.6 F Pulse Rate 56 L 55 L Respiratory Rate 18 Blood Pressure 134/77 Pulse Oximetry 100 Oxygen Delivery Room Air 10/21/24 09:17 10/21/24 10:00 10/21/24 11:53 Temperature 97.5 F L Pulse Rate 58 L 69 Respiratory Rate 20 Blood Pressure 147/70 H Pulse Oximetry 98 100 Oxygen Delivery Room Air 10/21/24 12:00 10/21/24 12:00 10/21/24 14:00 Temperature Pulse Rate 66 70 Respiratory Rate Blood Pressure Pulse Oximetry Oxygen Delivery Room Air Exam Const: General: comfortable and ill appearing chronically Nutritional Appearance: thin Orientation/consciousness: patient oriented x3 HENMT: Head: normocephalic Ears: hearing grossly normal bilaterally Eyes: General: appearance normal, both eyes and all related structures Neck: Neck: full ROM Resp: Effort & Inspection: no respiratory distress Auscultation: clear to auscultation bilaterally Cardio: Rate: regular rate Rhythm: regular rhythm GI: Inspection: non-distended GI Palp: Yes Soft to palpation, No Tenderness to palpation present (GI), No Guarding due to palpation present (GI) and No Rebound tenderness present Auscultation: normal bowel sounds Skin: General skin exam: normal color Neuro: General: moves all extremities and no focal motor deficits Speech: normal speech Motor exam (neuro): 5/5 motor strength present throughout Extrem: General: normal to inspection and pedal edema bilaterally (mild bilaterally) Psych: Mental Status: mental status grossly normal Attitude: cooperative Insight: Good insight present (Psych) Judgement: Good judgement present (Psych) Results Labs 10/21/24 10:25 10/21/24 04:10 Labs: Short CBC 10/20/24 10/21/24 10/21/24 Range/Units 16:19 04:10 10:25 WBC 12.1 H 9.6 9.7 (4.5-10.0) K/mm3 Hgb 8.5 L 8.0 L 8.1 L (14.0-18.0) g/dL Hct 25.7 L 24.6 L 25.2 L (42.0-52.0) % Plt Count 91 L 79 L 79 L (150-375) k/mm3 BMP 10/21/24 04:10 Sodium 137 Potassium 3.7 Chloride 110 H Carbon Dioxide 17 L BUN 24 H Creatinine 0.98 Glucose 86 Calcium 8.1 L Liver Function 10/21/24 Range/Units 04:10 Total Bilirubin 1.1 (0.2-1.3) mg/dL AST 13 L (17-59) U/L ALT 7 (6-50) U/L Alkaline Phosphatase 66 (38-126) U/L Albumin 2.4 L (3.5-5.1) g/dL
[2024-10-21 17:56] LABS: Vancomycin Trough 11.4 ug/mL (10.0-20.0)
[2024-10-21] MEDS: VANCOMYCIN 1,000 MG/NS 250 ML 1,000 MG/250 ML BAG 250 MG IVPB (18:41)
[2024-10-21 23:53] LABS: Glucose Point of Care 128 mg/dl (65-105)
[2024-10-22] VITALS (11 sets, daily range): BP systolic 133–152; BP diastolic 70–81; PULSE 55–77; RESP 14–20; TEMP 36.7–37.3; O2SAT 99–100
[2024-10-22 04:30] LABS: Hematocrit 26.4 % (42.0-52.0); Hemoglobin 8.2 g/dL (14.0-18.0); Immature Platelet Fraction Pct 3.1 % (0.9-11.2); Mean Corpuscular HGB Conc 31.1 g/dl (32-36); Mean Corpuscular Hemoglobin 26.4 pg (26-34); Mean Corpuscular Volume 84.9 fl (80-100); Mean Platelet Volume 10.8 fl (7.4-10.4); Platelet Count Result 84 k/mm3 (150-375); Red Blood Count 3.11 M/mm3 (4.6-6.20); Red Cell Distribution Width 20.7 % (11.5-14.5); White Blood Count 7.8 K/mm3 (4.5-10.0)
[2024-10-22 04:42] LABS: Alanine Aminotransferase 8 U/L (6-50); Albumin Level 2.2 g/dL (3.5-5.1); Alkaline Phosphatase 81 U/L (38-126); Anion Gap 7 mmol/L (4-12); Aspartate Amino Transferase 10 U/L (17-59); Bilirubin,Total 0.8 mg/dL (0.2-1.3); Blood Urea Nitrogen 20 mg/dL (9-20); Calcium 7.8 mg/dL (8.4-10.2); Carbon Dioxide 19 mmol/L (22-30); Chloride 111 mmol/L (98-107); Estimated CRCL calculation 50 ml/min; Estimated Glomerular Filt Rate > 60; Glucose 116 mg/dL (65-110); Magnesium 2.1 mg/dL (1.6-2.3); Potassium 3.6 mmol/L (3.4-5.0); Sodium 137 mmol/L (137-145)
[2024-10-22] MEDS: CENTRAL LINE FLUSH 10 ML IV PUSH ×2 (06:28→20:43)
[2024-10-22] MEDS: metroNIDAZOLE 500 MG/ISO 100ML 500 MG/100 ML BAG 100 MG IVPB (06:28)
--- NOTE | 2024-10-22 09:32 | PM.IMPN ---
Progress Note: A&P Assessment and Plan (1) Non-ST elevation SD (NSTEMI): Code(s): I21.4 - Non-ST elevation (NSTEMI) myocardial infarction Status: Acute (2) Pulmonary embolism: Code(s): I26.99 - Other pulmonary embolism without acute cor pulmonale Status: Acute (3) GI bleed: Code(s): K92.2 - Gastrointestinal hemorrhage, unspecified Status: Acute (4) Iron deficiency anemia: Code(s): D50.9 - Iron deficiency anemia, unspecified Status: Acute (5) Colon cancer: Code(s): C18.9 - Malignant neoplasm of colon, unspecified Status: Acute (6) Rectal cancer: Code(s): C20 - Malignant neoplasm of rectum Status: Acute Plan Sepsis: Code(s): A41.9 - Sepsis, unspecified organism Status: Acute Assessment and Plan: Secondary to perirectal abscess. General surgery consulted for evaluation UA unremarkable for UTI. Blood pressure improved with IV fluids on cefepime, Flagyl and vancomycin Changed to Flagyl p.o., ceftriaxone IV, repeat blood pressure today Bacteremia Blood culture on October 19 grows Streptococcus constellatus repeat BCX on 10/22 Continue antibiotics treatment per ID pharmacist Rectal abscess: Code(s): K61.1 - Rectal abscess Status: Acute Assessment and Plan: Consult general surgeon for evaluation Treat GI surgeon considers patient may need percutaneous drainage by IR Continue antibiotics Pulmonary embolism: Code(s): I26.99 - Other pulmonary embolism without acute cor pulmonale Status: Acute Assessment and Plan: CT showed Nonocclusive segmental right upper lobe, distal right interlobar artery, and segmental right lower lobe pulmonary emboli. Low clot burden. RV/LV ratio 1.0. lower extremity Dopplers : Acute clot in the right superficial femoral vein Patient was started on heparin infusion and has developed GI bleeding. Patient has a rectal cancer along with and another colon polyp that was not fully removed patient at this time is not a candidate for anticoagulation because active bleeding on heparin Patient also has a thrombocytopenia but the platelet stable, 7.8K today Consult general surgeon for evaluation about IVC filter placement when bacteremia resolves Elevated troponin Patient denies chest pain, EKG shows sinus rhythm no specific ST or T-wave changes Possible demand ischemia due to PE, GI bleed and sepsis Treatment of sepsis PE and GI bleed as above echocardiogram 1. Complete two-dimensional, color flow and Doppler transthoracic echocardiogram is performed. 2. Left ventricular chamber dimension is normal. 3. Left ventricular systolic function is normal, estimated at 60-65%. 4. The left ventricular diastolic function is normal. 5. E/e' 5 is not elevated. 6. Left atrial chamber dimension is mildly enlarged. 7. The mitral valve has mildly calcified annulus. 8. There is trace mitral valve regurgitation. 9. There is mild tricuspid valve regurgitation. 10. No pulmonary hypertension, estimated pulmonary arterial systolic pressure is 18 mmHg. Check BNP Rectal cancer: Code(s): C20 - Malignant neoplasm of rectum Status: Acute Assessment and Plan: Follow-up heme oncologist in [facility] and [facility] GI bleed, acute on chronic blood loss anemia Code(s): K92.2 - Gastrointestinal hemorrhage, unspecified Status: Acute Assessment and Plan: Patient developed bloody stools after initiation of anticoagulation. Patient has a rectal cancer which is likely the source. Anticoagulation discontinued. Received pack to pack RBC Hemoglobin stable Follow-up CBC hemoglobin q.6 hours, transfuse p.r.n. Consult GI Sinus bradycardia Asymptomatic, start metoprolol Continue telemetry monitoring Plan DVT prophylaxis -lower extremity venous Dopplers ordered Stress ulcer prophylaxis -PPI Nutrition - npo Code Status - Full Code Subjective Date/time seen: 10/22/24 09:32 Interval history: I saw exam patient today, patient feels comfortable. Inferior vena catheter is placed. , patient denies chest pain, shortness of breath. Labs reviewed. Hemoglobin stable, 8.2, platelets is trending up 84, . Patient is afebrile, blood pressure stable Exam Narrative: GENERAL: Ill-appearing in no acute distress. Moderate malnutrition - EYES: EOMI. Anicteric. - HENT: Moist mucous membranes. - LUNGS: Clear to auscultation bilaterally, no wheezing, rhonchi, or rales. - CARDIOVASCULAR: Regular rate and rhythm. No murmur. No JVD. - ABDOMEN: Soft, left lower quadrant tender and non-distended. No palpable masses. - EXTREMITIES: No edema. Peripheral pulses 2+. Non-tender. - NEUROLOGIC: No focal neurological deficits. CN II-XII grossly intact. - PSYCHIATRIC: Awake, Alert and oriented x 3. Appropriate mood and affect. - SKIN: No rashes or lesions. Warm. - LYMPH: No cervical lymphadenopathy. Objective Data Vital Signs Vital Signs: Vital Signs - 24 hr 10/21/24 10:00 10/21/24 11:53 10/21/24 12:00 Temperature 97.5 F L Pulse Rate 58 L 69 Respiratory Rate 20 Blood Pressure 147/70 H Pulse Oximetry 100 Oxygen Delivery Room Air 10/21/24 12:00 10/21/24 14:00 10/21/24 16:00 Temperature Pulse Rate 66 70 Respiratory Rate Blood Pressure Pulse Oximetry Oxygen Delivery Room Air 10/21/24 16:00 10/21/24 16:02 10/21/24 18:00 Temperature 97.3 F L Pulse Rate 61 75 67 Respiratory Rate 18 Blood Pressure 147/73 H Pulse Oximetry 100 Oxygen Delivery 10/21/24 20:00 10/21/24 20:00 10/21/24 20:07 Temperature 98.7 F Pulse Rate 64 64 64 Respiratory Rate 18 20 Blood Pressure 143/68 H Pulse Oximetry 100 100 Oxygen Delivery Room Air 10/21/24 22:40 10/21/24 23:48 10/22/24 00:00 Temperature Pulse Rate 56 L 69 63 Respiratory Rate 20 20 Blood Pressure 135/79 Pulse Oximetry 99 99 Oxygen Delivery Room Air 10/22/24 00:00 10/22/24 03:00 10/22/24 04:00 Temperature Pulse Rate 63 61 66 Respiratory Rate 20 Blood Pressure Pulse Oximetry 100 Oxygen Delivery Room Air 10/22/24 04:00 10/22/24 04:39 10/22/24 05:42 Temperature 98.5 F Pulse Rate 64 64 55 L Respiratory Rate 20 Blood Pressure 133/70 Pulse Oximetry 100 Oxygen Delivery 10/22/24 07:52 Temperature 98.9 F Pulse Rate 65 Respiratory Rate 18 Blood Pressure 134/71 Pulse Oximetry 100 Oxygen Delivery Intake/Output Intake/Output: Intake & Output 10/20/24 10/20/24 10/21/24 10/22/24 00:59 23:59 23:59 23:59 Intake Total 3687.8 1950.0 1510 550 Output Total 280 811 200 Balance 3687.8 1670.0 699 350 Meds/Results Medications: Active Medications Generic Name Dose Route Start Last Admin Trade Name Freq PRN Reason Stop Dose Admin Acetaminophen 650 mg 10/19/24 19:18 Acetaminophen 325 Mg Tablet PO Q4H PRN Mild Pain (1-3) or Fever Heparin Sodium (Porcine) 5,000 units 10/19/24 18:53 Heparin Sodium 5,000 Units/Ml Vial IV PUSH PRN PRN aPTT less than 55 seconds Heparin Sodium (Porcine) 2,500 units 10/19/24 18:53 Heparin Sodium 5,000 Units/Ml Vial IV PUSH PRN PRN aPTT 55 - 70 seconds Heparin Sodium/Dextrose 25,000 units in 250 mls @ 0 mls/hr 10/19/24 18:55 10/20/24 06:52 Heparin Sodium/D5w 100 Units/Ml IV CONT Infused .Q0M VINNY Titration Protocol 0 UNITS/HR Cefepime HCl 2 gm in 50 mls @ 100 mls/hr 10/20/24 09:00 10/21/24 21:00 Maxipime 2 Gm/Ns 50 Ml IVPB Infused Q12HR VINNY Infusion Metronidazole 500 mg in 100 mls @ 100 mls/hr 10/20/24 08:35 10/22/24 06:28 Flagyl 500 Mg/Iso Soln 100 Ml IVPB 100 mls/hr Q8HR VINNY Administration Vancomycin HCl 1,000 mg in 250 mls @ 250 mls/hr 10/21/24 19:00 10/21/24 19:50 Vancomycin 1,000 Mg/Ns 250 Ml IVPB Infused Q18H VINNY Infusion Pantoprazole Sodium 40 mg 10/20/24 09:00 10/21/24 20:20 Pantoprazole Sodium Iv 40 Mg Vial IV PUSH 40 mg Q12HR VINNY Administration Perflutren Lipid Microsphere 0 ml 10/20/24 08:26 Perflutren Lipid Microspheres 1.5 Ml Vial Diluted To 10 Ml Total Volume IV PUSH 10/23/24 08:27 ONCE PRN adequate visualization Protocol Sodium Chloride 10 ml 10/20/24 22:00 10/22/24 06:28 Central Line Flush IV PUSH 10 ml Q8HR VINNY Administration Sodium Chloride 20 ml 10/20/24 14:44 Central Line Flush IV PUSH PRN PRN after blood draws Radiology Results: ITS Impressions Chest X-Ray 10/19/24 16:50 IMPRESSION: No acute cardiopulmonary process. Chest/Abdomen/Pelvis CTA 10/19/24 17:42 IMPRESSION: Nonocclusive segmental right upper lobe, distal right interlobar artery, and segmental right lower lobe pulmonary emboli. Low clot burden. RV/LV ratio 1.0. Small left pleural effusion. Mild bilateral ureteral stranding and urothelial enhancement may reflect ascending infection in the proper clinical context. 4.8 x 3.2 x 9.0 cm perirectal abscess. Distal sigmoid and rectal wall thickening, may reflect infectious or post therapeutic colitis/proctitis, or combination of those entities. Ischemia/infarction considered less likely. Cystitis, correlate with urinalysis. Venous Doppler Study 10/20/24 17:15 IMPRESSION: Acute clot in the right superficial femoral vein. Inadequate visualization of the right common femoral vein and greater saphenous vein due to the presence of a catheter. Otherwise patent bilateral lower extremity veins. Labs Labs: Laboratory Results - last 24 hr 10/21/24 10/21/24 10/21/24 10:11 10:25 11:26 WBC 9.7 RBC 3.02 L Hgb 8.1 L Hct 25.2 L MCV 83.4 MCH 26.8 MCHC 32.1 RDW 20.7 H Plt Count 79 L MPV 10.4 % Immature Plt Fraction 3.3 Sodium Potassium Chloride Carbon Dioxide Anion Gap BUN Creatinine Estim Creat Clear Calc Estimated GFR Glucose POC Capillary Glucose 78 63 L Calcium Magnesium Total Bilirubin AST ALT Alkaline Phosphatase Total Protein Albumin Vancomycin Trough 10/21/24 10/21/24 10/21/24 12:33 17:26 23:51 WBC RBC Hgb Hct MCV MCH MCHC RDW Plt Count MPV % Immature Plt Fraction Sodium Potassium Chloride Carbon Dioxide Anion Gap BUN Creatinine Estim Creat Clear Calc Estimated GFR Glucose POC Capillary Glucose 92 128 H Calcium Magnesium Total Bilirubin AST ALT Alkaline Phosphatase Total Protein Albumin Vancomycin Trough 11.4 10/22/24 04:06 WBC 7.8 RBC 3.11 L Hgb 8.2 L Hct 26.4 L MCV 84.9 MCH 26.4 MCHC 31.1 L RDW 20.7 H Plt Count 84 L MPV 10.8 H % Immature Plt Fraction 3.1 Sodium 137 Potassium 3.6 Chloride 111 H Carbon Dioxide 19 L Anion Gap 7 BUN 20 Creatinine 1.01 Estim Creat Clear Calc 50 Estimated GFR > 60 Glucose 116 H POC Capillary Glucose Calcium 7.8 L Magnesium 2.1 Total Bilirubin 0.8 AST 10 L ALT 8 Alkaline Phosphatase 81 Total Protein 4.0 L Albumin 2.2 L Vancomycin Trough
--- NOTE | 2024-10-22 10:04 | P.OP_ITS ---
Procedure Note - Detailed Date of Procedure 10/22/24 Pre-op Diagnosis DVT, PE, GI bleed Post-op Diagnosis Same Procedure Performed IVC filter placement using ultrasound and fluoroscopic guidance Surgeon Randall Nguyen, DO Anesthesia Local (1% Lidocaine) Indications PE/DVT in setting of rectal cancer with GI bleed and anemia. Findings Sinosite ultrasound was used to identify the right femoral vein. This was visualized as a compressible vessel just medial to the pulsatile femoral artery. The 18 gauge introducer needle was advanced under ultrasound guidance. Fluoroscopy was then used to guide advancement of the guidewire followed by the dilator and sheath. Final fluoroscopic images demonstrated the filter in proper position at the level of the L3 vertebral body. Description of Procedure Patient was brought back to labor and delivery registered nurse suite. He was placed supine labor and delivery registered nurse table. Time-out was done to confirm patient procedure. His right groin was prepped and draped in sterile fashion using chlorhexidine prep. SonoSite ultrasound was used to identify the right femoral vein. This was visualized as a compressible vessel just medial to the right femoral artery. 1% lidocaine was infiltrated directly over this area. An 18 gauge introducer needle was then advanced under ultrasound guidance directly into the lumen of the right femoral vein. Dark nonpulsatile blood was aspirated. A 0.035 in guidewire was advanced through the needle under fluoroscopic guidance. The guidewire advanced smoothly and was visualized advancing up into the inferior vena cava. The needle was withdrawn leaving the guidewire in place. A small anabel incision was made at the insertion site using an 11 blade scalpel. The 8French dilator and sheath were then advanced over the guidewire under fluoroscopic guidance. The sheath was advanced up to the L3 vertebral body, and then once the sheath was at the upper portion of the L3 vertebral body, the dilator and guidewire were removed. The IVC filter was then inserted into the end of the sheath and then the plunger was used to carefully advanced the filter up the length of the sheath. Once the filter was visualized under fluoroscopy at the tip of the sheath, the sheath was slowly withdrawn to allow the filter to deploy. Once the filter was completely expanded, the sheath was removed and pressure was applied at the insertion site. One final fluoroscopic image was obtained visualizing the IVC filter and proper orientation overlying the L3 vertebral body. After holding pressure for 5 minutes, there is no further blood loss and a sterile dressing was applied. Implants Refugio IVC Filter Estimated Blood Loss 2 Urine Output 200 Complications No immediate complications Condition Stable Disposition Floor [facility] Billing Surgery - Charge Forward: Surgery Billing
[2024-10-22] MEDS: CEFEPIME 2 GM/NS 50 ML 2 GM/50 ML BAG IVPB (11:05)
[2024-10-22] MEDS: PANTOPRAZOLE SODIUM IV 40 MG VIAL IV PUSH ×2 (11:05→20:42)
[2024-10-22 11:28] LABS: Glucose Point of Care 117 mg/dl (65-105)
[2024-10-22] MEDS: metroNIDAZOLE 500 MG TABLET PO ×2 (14:56→20:42)
--- NOTE | 2024-10-22 17:02 | WPDGIPROGNO ---
Progress Note: A&P Assessment and Plan (1) Rectal abscess: Code(s): K61.1 - Rectal abscess Status: Acute Assessment and Plan: here with sepsis and bacteremia he is feeling better with iv abx and medical support no need of endoscopic intervention at this point, no more gib he will need to follow-up with his colorectal surgeon and hem-onc (he has been on treatment for cancer) will see only as needed (2) Rectal cancer: Code(s): C20 - Malignant neoplasm of rectum Status: Acute (3) GI bleed: Code(s): K92.2 - Gastrointestinal hemorrhage, unspecified Status: Acute Assessment and Plan: hgb stable 8 (4) Iron deficiency anemia: Code(s): D50.9 - Iron deficiency anemia, unspecified Status: Acute (5) Bacteremia due to Streptococcus: Code(s): R78.81 - Bacteremia; B95.5 - Unspecified streptococcus as the cause of diseases classified elsewhere Status: Acute Assessment and Plan: on abx (6) Pulmonary embolism: Code(s): I26.99 - Other pulmonary embolism without acute cor pulmonale Status: Acute Assessment and Plan: s/p ivc filter no candidate for AC given rectal cancer with gib Subjective Date/time seen: 10/22/24 17:02 Interval history: good spirits, he is eating, overall better, denies active gib Review of Systems Review of Systems: All systems reviewed & are unremarkable except as noted in HPI and below Exam Const: General: comfortable and ill appearing chronically Nutritional Appearance: thin Orientation/consciousness: patient oriented x3 HENMT: Head: normocephalic Ears: hearing grossly normal bilaterally Eyes: General: appearance normal, both eyes and all related structures Neck: Neck: full ROM Resp: Effort & Inspection: no respiratory distress Auscultation: clear to auscultation bilaterally Cardio: Rate: regular rate Rhythm: regular rhythm GI: Inspection: non-distended GI Palp: Yes Soft to palpation, No Tenderness to palpation present (GI), No Guarding due to palpation present (GI) and No Rebound tenderness present Auscultation: normal bowel sounds Skin: General skin exam: normal color Neuro: General: moves all extremities and no focal motor deficits Speech: normal speech Extrem: General: normal to inspection and pedal edema bilaterally (mild bilaterally) Psych: Mental Status: mental status grossly normal Attitude: cooperative Insight: Good insight present (Psych) Judgement: Good judgement present (Psych) Objective Data Vital Signs Vital Signs: Vital Signs - 24 hr 10/21/24 18:00 10/21/24 20:00 10/21/24 20:00 Temperature Pulse Rate 67 64 64 Respiratory Rate 18 Blood Pressure Pulse Oximetry 100 Oxygen Delivery Room Air 10/21/24 20:07 10/21/24 22:40 10/21/24 23:48 Temperature 98.7 F Pulse Rate 64 56 L 69 Respiratory Rate 20 20 Blood Pressure 143/68 H 135/79 Pulse Oximetry 100 99 Oxygen Delivery 10/22/24 00:00 10/22/24 00:00 10/22/24 03:00 Temperature Pulse Rate 63 63 61 Respiratory Rate 20 Blood Pressure Pulse Oximetry 99 Oxygen Delivery Room Air 10/22/24 04:00 10/22/24 04:00 10/22/24 04:39 Temperature 98.5 F Pulse Rate 66 64 64 Respiratory Rate 20 20 Blood Pressure 133/70 Pulse Oximetry 100 100 Oxygen Delivery Room Air 10/22/24 05:42 10/22/24 07:52 10/22/24 08:00 Temperature 98.9 F Pulse Rate 55 L 65 77 Respiratory Rate 18 Blood Pressure 134/71 Pulse Oximetry 100 Oxygen Delivery 10/22/24 11:33 10/22/24 12:00 10/22/24 15:36 Temperature 98.1 F 99.1 F Pulse Rate 75 75 65 Respiratory Rate 20 18 Blood Pressure 152/80 H 152/80 H Pulse Oximetry 100 100 Oxygen Delivery Intake/Output Intake/Output: Intake & Output 10/20/24 10/20/24 10/21/24 10/22/24 00:59 23:59 23:59 23:59 Intake Total 3687.8 1950.0 1510 790 Output Total 280 811 400 Balance 3687.8 1670.0 699 390 Meds/Results Medications: Active Medications Generic Name Dose Route Start Last Admin Trade Name Freq PRN Reason Stop Dose Admin Acetaminophen 650 mg 10/19/24 19:18 Acetaminophen 325 Mg Tablet PO Q4H PRN Mild Pain (1-3) or Fever Ceftriaxone Sodium 2 gm in 100 mls @ 200 mls/hr 10/22/24 21:00 Rocephin 2 Gm/Ns 100 Ml IVPB Q24H VINNY Metronidazole 500 mg 10/22/24 15:00 10/22/24 14:56 Metronidazole 500 Mg Tablet PO 500 mg Q8HR VINNY Administration Pantoprazole Sodium 40 mg 10/20/24 09:00 10/22/24 11:05 Pantoprazole Sodium Iv 40 Mg Vial IV PUSH 40 mg Q12HR VINNY Administration Perflutren Lipid Microsphere 0 ml 10/20/24 08:26 Perflutren Lipid Microspheres 1.5 Ml Vial Diluted To 10 Ml Total Volume IV PUSH 10/23/24 08:27 ONCE PRN adequate visualization Protocol Sodium Chloride 10 ml 10/20/24 22:00 10/22/24 14:33 Central Line Flush IV PUSH Not Given Q8HR VINNY Sodium Chloride 20 ml 10/20/24 14:44 Central Line Flush IV PUSH PRN PRN after blood draws Radiology Results: ITS Impressions Chest X-Ray 10/19/24 16:50 IMPRESSION: No acute cardiopulmonary process. Chest/Abdomen/Pelvis CTA 10/19/24 17:42 IMPRESSION: Nonocclusive segmental right upper lobe, distal right interlobar artery, and segmental right lower lobe pulmonary emboli. Low clot burden. RV/LV ratio 1.0. Small left pleural effusion. Mild bilateral ureteral stranding and urothelial enhancement may reflect ascending infection in the proper clinical context. 4.8 x 3.2 x 9.0 cm perirectal abscess. Distal sigmoid and rectal wall thickening, may reflect infectious or post therapeutic colitis/proctitis, or combination of those entities. Ischemia/infarction considered less likely. Cystitis, correlate with urinalysis. Venous Doppler Study 10/20/24 17:15 IMPRESSION: Acute clot in the right superficial femoral vein. Inadequate visualization of the right common femoral vein and greater saphenous vein due to the presence of a catheter. Otherwise patent bilateral lower extremity veins. Labs Labs: Laboratory Results - last 24 hr 10/21/24 10/21/24 10/22/24 17:26 23:51 04:06 WBC 7.8 RBC 3.11 L Hgb 8.2 L Hct 26.4 L MCV 84.9 MCH 26.4 MCHC 31.1 L RDW 20.7 H Plt Count 84 L MPV 10.8 H % Immature Plt Fraction 3.1 Sodium 137 Potassium 3.6 Chloride 111 H Carbon Dioxide 19 L Anion Gap 7 BUN 20 Creatinine 1.01 Estim Creat Clear Calc 50 Estimated GFR > 60 Glucose 116 H POC Capillary Glucose 128 H Calcium 7.8 L Magnesium 2.1 Total Bilirubin 0.8 AST 10 L ALT 8 Alkaline Phosphatase 81 Total Protein 4.0 L Albumin 2.2 L Vancomycin Trough 11.4 10/22/24 11:10 WBC RBC Hgb Hct MCV MCH MCHC RDW Plt Count MPV % Immature Plt Fraction Sodium Potassium Chloride Carbon Dioxide Anion Gap BUN Creatinine Estim Creat Clear Calc Estimated GFR Glucose POC Capillary Glucose 117 H Calcium Magnesium Total Bilirubin AST ALT Alkaline Phosphatase Total Protein Albumin Vancomycin Trough
--- NOTE | 2024-10-22 18:12 | PC.NURSE ---
Pt report given to GÓMEZ Arciniega on med/surg. Pt moved to room 301.
[2024-10-22] MEDS: cefTRIAXone 2 GM/NS 100 ML 2 GM/100 ML BAG IVPB (20:42)
[2024-10-23] MEDS: CENTRAL LINE FLUSH 10 ML IV PUSH (05:22)
[2024-10-23] MEDS: metroNIDAZOLE 500 MG TABLET PO ×3 (05:22→20:38)
[2024-10-23 05:23] VITALS: BP 150/78
[2024-10-23 05:47] VITALS: BP 150/78; PULSE 82; RESP 12; TEMP 37; O2SAT 100
[2024-10-23 06:02] LABS: Hematocrit 25.6 % (42.0-52.0); Hemoglobin 8.1 g/dL (14.0-18.0); Mean Corpuscular HGB Conc 31.6 g/dl (32-36); Mean Corpuscular Hemoglobin 26.6 pg (26-34); Mean Corpuscular Volume 83.9 fl (80-100); Mean Platelet Volume 11.6 fl (7.4-10.4); Platelet Count Result 74 k/mm3 (150-375); Red Blood Count 3.05 M/mm3 (4.6-6.20); Red Cell Distribution Width 20.6 % (11.5-14.5); White Blood Count 4.6 K/mm3 (4.5-10.0)
[2024-10-23 06:21] LABS: Alanine Aminotransferase 7 U/L (6-50); Albumin Level 2.2 g/dL (3.5-5.1); Alkaline Phosphatase 84 U/L (38-126); Anion Gap 6 mmol/L (4-12); Aspartate Amino Transferase 12 U/L (17-59); Bilirubin,Total 0.8 mg/dL (0.2-1.3); Blood Urea Nitrogen 13 mg/dL (9-20); Calcium 7.5 mg/dL (8.4-10.2); Carbon Dioxide 22 mmol/L (22-30); Chloride 108 mmol/L (98-107); Estimated CRCL calculation 60 ml/min; Estimated Glomerular Filt Rate > 60; Glucose 81 mg/dL (65-110); Magnesium 1.9 mg/dL (1.6-2.3); Potassium 3.6 mmol/L (3.4-5.0); Sodium 136 mmol/L (137-145)
--- NOTE | 2024-10-23 09:03 | P.PNIM_ITS ---
Progress Note: A&P Assessment and Plan (1) Non-ST elevation [place] (NSTEMI): Code(s): I21.4 - Non-ST elevation (NSTEMI) myocardial infarction Status: Acute (2) Pulmonary embolism: Code(s): I26.99 - Other pulmonary embolism without acute cor pulmonale Status: Acute (3) GI bleed: Code(s): K92.2 - Gastrointestinal hemorrhage, unspecified Status: Acute (4) Iron deficiency anemia: Code(s): D50.9 - Iron deficiency anemia, unspecified Status: Acute (5) Colon cancer: Code(s): C18.9 - Malignant neoplasm of colon, unspecified Status: Acute (6) Rectal cancer: Code(s): C20 - Malignant neoplasm of rectum Status: Acute Plan Sepsis: Code(s): A41.9 - Sepsis, unspecified organism Status: Acute Assessment and Plan: Secondary to perirectal abscess. General surgery consulted for evaluation UA unremarkable for UTI. Blood pressure improved with IV fluids on cefepime, Flagyl and vancomycin Changed to Flagyl p.o., ceftriaxone IV, repeat blood culture 10/22 Blood culture has no bacteria growth Bacteremia Blood culture on October 19 grows Streptococcus constellatus repeat BCX on 10/22 Continue antibiotics treatment per ID pharmacist Rectal abscess: Code(s): K61.1 - Rectal abscess Status: Acute Assessment and Plan: Consult general surgeon for evaluation Treat GI surgeon considers patient may need percutaneous drainage by IR Continue antibiotics see above Pulmonary embolism: Code(s): I26.99 - Other pulmonary embolism without acute cor pulmonale Status: Acute Assessment and Plan: CT showed Nonocclusive segmental right upper lobe, distal right interlobar artery, and segmental right lower lobe pulmonary emboli. Low clot burden. RV/LV ratio 1.0. lower extremity Dopplers : Acute clot in the right superficial femoral vein Patient was started on heparin infusion and has developed GI bleeding. Patient has a rectal cancer along with and another colon polyp that was not fully removed patient at this time is not a candidate for anticoagulation because active bleeding on heparin Patient also has a thrombocytopenia but the platelet stable, 7.8K today IVC filter placement on 10/22 Elevated troponin Patient denies chest pain, EKG shows sinus rhythm no specific ST or T-wave changes Possible demand ischemia due to PE, GI bleed and sepsis Treatment of sepsis PE and GI bleed as above echocardiogram 1. Complete two-dimensional, color flow and Doppler transthoracic echocardiogram is performed. 2. Left ventricular chamber dimension is normal. 3. Left ventricular systolic function is normal, estimated at 60-65%. 4. The left ventricular diastolic function is normal. 5. E/e' 5 is not elevated. 6. Left atrial chamber dimension is mildly enlarged. 7. The mitral valve has mildly calcified annulus. 8. There is trace mitral valve regurgitation. 9. There is mild tricuspid valve regurgitation. 10. No pulmonary hypertension, estimated pulmonary arterial systolic pressure is 18 mmHg. Check BNP Rectal cancer: Code(s): C20 - Malignant neoplasm of rectum Status: Acute Assessment and Plan: Follow-up heme oncologist in [facility] and [facility] GI bleed, acute on chronic blood loss anemia Code(s): K92.2 - Gastrointestinal hemorrhage, unspecified Status: Acute Assessment and Plan: Patient developed bloody stools after initiation of anticoagulation. Patient has a rectal cancer which is likely the source. Anticoagulation discontinued. Received pack to pack RBC Hemoglobin stable Follow-up CBC hemoglobin q.6 hours, transfuse p.r.n. Consult GI: no need of scope now hb is stable Sinus bradycardia Asymptomatic stopped metoprolol Continue telemetry monitoring Plan DVT prophylaxis -lower extremity venous Dopplers ordered Stress ulcer prophylaxis -PPI Nutrition - npo Code Status - Full Code Subjective Date/time seen: 10/23/24 09:03 Interval history: I saw examined patient today, patient feels better, denies abdomen pain nausea vomiting. Appetite improving. Patient denies headache, chest pain, shortness of breath. Blood culture yesterday has no growth so far Exam Narrative: GENERAL: Ill-appearing in no acute distress. Moderate malnutrition - EYES: EOMI. Anicteric. - HENT: Moist mucous membranes. - LUNGS: Clear to auscultation bilateral ly, no wheezing, rhonchi, or rales. - CARDIOVASCULAR: Regular rate and rhyth m. No murmur. No JVD. - ABDOMEN: Soft, no tender and non-diste nded. No palpable masses. - EXTREMITIES: No edema. Peripheral puls es 2+. Non-tender. - NEUROLOGIC: No focal neurological defi cits. CN II-XII grossly intact. - PSYCHIATRIC: Awake, Alert and oriented x 3. Appropriate mood and affect. - SKIN: No rashes or lesions. Warm. - LYMPH: No cervical lymphadenopathy. Objective Data Vital Signs Vital Signs: Vital Signs - 24 hr 10/22/24 11:33 10/22/24 12:00 10/22/24 15:36 Temperature 98.1 F 99.1 F Pulse Rate 75 75 65 Respiratory Rate 20 18 Blood Pressure 152/80 H 152/80 H Pulse Oximetry 100 100 Oxygen Delivery 10/22/24 20:00 10/22/24 20:54 10/23/24 05:23 Temperature 98.4 F Pulse Rate 73 Respiratory Rate 14 Blood Pressure 152/81 H 150/78 H Pulse Oximetry 99 Oxygen Delivery Room Air 10/23/24 05:47 Temperature 98.6 F Pulse Rate 82 Respiratory Rate 12 Blood Pressure 150/78 H Pulse Oximetry 100 Oxygen Delivery Intake/Output Intake/Output: Intake & Output 10/20/24 10/21/24 10/22/24 10/23/24 23:59 23:59 23:59 23:59 Intake Total 1950.0 1510 1190 300 Output Total 280 811 750 650 Balance 1670.0 699 440 -350 Meds/Results Medications: Active Medications Generic Name Dose Route Start Last Admin Trade Name Freq PRN Reason Stop Dose Admin Acetaminophen 650 mg 10/19/24 19:18 Acetaminophen 325 Mg Tablet PO Q4H PRN Mild Pain (1-3) or Fever Ceftriaxone Sodium 2 gm in 100 mls @ 200 mls/hr 10/22/24 21:00 10/22/24 21:12 Rocephin 2 Gm/Ns 100 Ml IVPB Infused Q24H VINNY Infusion Metronidazole 500 mg 10/22/24 15:00 10/23/24 05:22 Metronidazole 500 Mg Tablet PO 500 mg Q8HR VINNY Administration Pantoprazole Sodium 40 mg 10/20/24 09:00 10/22/24 20:42 Pantoprazole Sodium Iv 40 Mg Vial IV PUSH 40 mg Q12HR VINNY Administration Sodium Chloride 10 ml 10/20/24 22:00 10/23/24 05:22 Central Line Flush IV PUSH 10 ml Q8HR VINNY Administration Sodium Chloride 20 ml 10/20/24 14:44 Central Line Flush IV PUSH PRN PRN after blood draws Radiology Results: ITS Impressions Chest X-Ray 10/19/24 16:50 IMPRESSION: No acute cardiopulmonary process. Chest/Abdomen/Pelvis CTA 10/19/24 17:42 IMPRESSION: Nonocclusive segmental right upper lobe, distal right interlobar artery, and segmental right lower lobe pulmonary emboli. Low clot burden. RV/LV ratio 1.0. Small left pleural effusion. Mild bilateral ureteral stranding and urothelial enhancement may reflect ascending infection in the proper clinical context. 4.8 x 3.2 x 9.0 cm perirectal abscess. Distal sigmoid and rectal wall thickening, may reflect infectious or post therapeutic colitis/proctitis, or combination of those entities. Ischemia/infarction considered less likely. Cystitis, correlate with urinalysis. Venous Doppler Study 10/20/24 17:15 IMPRESSION: Acute clot in the right superficial femoral vein. Inadequate visualization of the right common femoral vein and greater saphenous vein due to the presence of a catheter. Otherwise patent bilateral lower extremity veins. Labs Labs: Laboratory Results - last 24 hr 10/19/24 10/22/24 10/23/24 21:42 11:10 05:18 WBC 4.6 RBC 3.05 L Hgb 8.1 L Hct 25.6 L MCV 83.9 MCH 26.6 MCHC 31.6 L RDW 20.6 H Plt Count 74 L MPV 11.6 H Sodium 136 L Potassium 3.6 Chloride 108 H Carbon Dioxide 22 Anion Gap 6 BUN 13 D Creatinine 0.84 Estim Creat Clear Calc 60 Estimated GFR > 60 Glucose 81 POC Capillary Glucose 117 H Calcium 7.5 L Magnesium 1.9 Total Bilirubin 0.8 AST 12 L ALT 7 Alkaline Phosphatase 84 Total Protein 5.0 L Albumin 2.2 L Crossmatch See Detail
[2024-10-23 13:56] VITALS: BP 122/67; PULSE 93; RESP 18; TEMP 37.9; O2SAT 99
--- NOTE | 2024-10-23 14:07 | P.PNGS_ITS ---
Progress Note: A&P Assessment and Plan (1) Rectal abscess: Code(s): K61.1 - Rectal abscess Status: Acute Assessment and Plan: * Clinically improving. No fluctuance on exam again today. WBC normalized. Okay to discharge on oral antibiotics from a surgical standpoint and follow-up with his Colorectal surgeon, Dr. Razo. (2) GI bleed: Code(s): K92.2 - Gastrointestinal hemorrhage, unspecified Status: Acute Assessment and Plan: * S/p IVC filter placement (3) Rectal cancer: Code(s): C20 - Malignant neoplasm of rectum Status: Acute (4) Pulmonary embolism: Code(s): I26.99 - Other pulmonary embolism without acute cor pulmonale Status: Acute Plan I have discussed the patient's case and plan of care with Dr. Nguyen. Subjective Subjective Date/Time Seen: 10/23/24 14:07 Patient reports: no new complaints, feels better, no flatus and bowel movement (no blood in stool) Interval history: Patient with no complaints. Denies any rectal pain or drainage. Exam Const: General: comfortable and no acute distress Orientation/consciousness: patient oriented x3 GI: Inspection: non-distended GI Palp: Yes Soft to palpation, No Tenderness to palpation present (GI) and No Guarding due to palpation present (GI) Other: Left perirectal induration improved since last seen, no fluctuance, nontender : Other: Right groin dressing dry and intact, no swelling Objective Data Vital Signs Vital Signs: Vital Signs - 24 hr 10/22/24 15:36 10/22/24 20:00 10/22/24 20:54 Temperature 99.1 F 98.4 F Pulse Rate 65 73 Respiratory Rate 18 14 Blood Pressure 152/80 H 152/81 H Pulse Oximetry 100 99 Oxygen Delivery Room Air 10/23/24 05:23 10/23/24 05:47 10/23/24 13:56 Temperature 98.6 F 100.3 F H Pulse Rate 82 93 Respiratory Rate 12 18 Blood Pressure 150/78 H 150/78 H 122/67 Pulse Oximetry 100 99 Oxygen Delivery Intake/Output Intake/Output: Intake & Output 10/20/24 10/21/24 10/22/24 10/23/24 23:59 23:59 23:59 23:59 Intake Total 1950.0 1510 1190 310 Output Total 280 811 750 750 Balance 1670.0 699 440 -440 Meds/Results Medications: Active Medications Generic Name Dose Route Start Last Admin Trade Name Freq PRN Reason Stop Dose Admin Acetaminophen 650 mg 10/19/24 19:18 Acetaminophen 325 Mg Tablet PO Q4H PRN Mild Pain (1-3) or Fever Ceftriaxone Sodium 2 gm in 100 mls @ 200 mls/hr 10/22/24 21:00 10/22/24 21:12 Rocephin 2 Gm/Ns 100 Ml IVPB Infused Q24H VINNY Infusion Metronidazole 500 mg 10/22/24 15:00 10/23/24 05:22 Metronidazole 500 Mg Tablet PO 500 mg Q8HR VINNY Administration Pantoprazole Sodium 40 mg 10/20/24 09:00 10/22/24 20:42 Pantoprazole Sodium Iv 40 Mg Vial IV PUSH 40 mg Q12HR VINNY Administration Radiology Results: ITS Impressions Chest X-Ray 10/19/24 16:50 IMPRESSION: No acute cardiopulmonary process. Chest/Abdomen/Pelvis CTA 10/19/24 17:42 IMPRESSION: Nonocclusive segmental right upper lobe, distal right interlobar artery, and segmental right lower lobe pulmonary emboli. Low clot burden. RV/LV ratio 1.0. Small left pleural effusion. Mild bilateral ureteral stranding and urothelial enhancement may reflect ascending infection in the proper clinical context. 4.8 x 3.2 x 9.0 cm perirectal abscess. Distal sigmoid and rectal wall thickening, may reflect infectious or post therapeutic colitis/proctitis, or combination of those entities. Ischemia/infarction considered less likely. Cystitis, correlate with urinalysis. Venous Doppler Study 10/20/24 17:15 IMPRESSION: Acute clot in the right superficial femoral vein. Inadequate visualization of the right common femoral vein and greater saphenous vein due to the presence of a catheter. Otherwise patent bilateral lower extremity veins. Labs Labs: Laboratory Results - last 24 hr 10/19/24 10/23/24 21:42 05:18 WBC 4.6 RBC 3.05 L Hgb 8.1 L Hct 25.6 L MCV 83.9 MCH 26.6 MCHC 31.6 L RDW 20.6 H Plt Count 74 L MPV 11.6 H Sodium 136 L Potassium 3.6 Chloride 108 H Carbon Dioxide 22 Anion Gap 6 BUN 13 D Creatinine 0.84 Estim Creat Clear Calc 60 Estimated GFR > 60 Glucose 81 Calcium 7.5 L Magnesium 1.9 Total Bilirubin 0.8 AST 12 L ALT 7 Alkaline Phosphatase 84 Total Protein 5.0 L Albumin 2.2 L Crossmatch See Detail
[2024-10-23 20:00] VITALS: TEMP 37.4
[2024-10-23] MEDS: PANTOPRAZOLE SODIUM IV 40 MG VIAL IV PUSH (20:38)
[2024-10-23] MEDS: cefTRIAXone 2 GM/NS 100 ML 2 GM/100 ML BAG IVPB (20:38)
[2024-10-23 21:00] VITALS: BP 138/68; PULSE 79; RESP 16; TEMP 36.7; O2SAT 100
[2024-10-24 05:39] VITALS: BP 145/68; PULSE 71; RESP 12; TEMP 36.5; O2SAT 99
[2024-10-24] MEDS: metroNIDAZOLE 500 MG TABLET PO (05:59)
[2024-10-24 06:08] LABS: Hematocrit 24.1 % (42.0-52.0); Hemoglobin 7.6 g/dL (14.0-18.0); Immature Platelet Fraction Pct 3.7 % (0.9-11.2); Mean Corpuscular HGB Conc 31.5 g/dl (32-36); Mean Corpuscular Hemoglobin 26.8 pg (26-34); Mean Corpuscular Volume 84.9 fl (80-100); Mean Platelet Volume 11.4 fl (7.4-10.4); Platelet Count Result 70 k/mm3 (150-375); Red Blood Count 2.84 M/mm3 (4.6-6.20); Red Cell Distribution Width 20.5 % (11.5-14.5)
[2024-10-24 06:16] LABS: Alanine Aminotransferase 7 U/L (6-50); Albumin Level 2.1 g/dL (3.5-5.1); Alkaline Phosphatase 81 U/L (38-126); Anion Gap 5 mmol/L (4-12); Aspartate Amino Transferase 16 U/L (17-59); Bilirubin,Total 0.8 mg/dL (0.2-1.3); Blood Urea Nitrogen 11 mg/dL (9-20); Calcium 7.6 mg/dL (8.4-10.2); Carbon Dioxide 23 mmol/L (22-30); Chloride 108 mmol/L (98-107); Estimated CRCL calculation 59 ml/min; Estimated Glomerular Filt Rate > 60; Glucose 70 mg/dL (65-110); Magnesium 1.9 mg/dL (1.6-2.3); Potassium 3.4 mmol/L (3.4-5.0); Sodium 136 mmol/L (137-145)
[2024-10-24 08:00] VITALS: O2SAT 99
[2024-10-24] MEDS: PANTOPRAZOLE SODIUM IV 40 MG VIAL IV PUSH (08:03)
--- NOTE | 2024-10-24 09:32 | P.PNIM_ITS ---
Progress Note: A&P Assessment and Plan (1) Non-ST elevation CT (NSTEMI): Code(s): I21.4 - Non-ST elevation (NSTEMI) myocardial infarction Status: Acute (2) Pulmonary embolism: Code(s): I26.99 - Other pulmonary embolism without acute cor pulmonale Status: Acute (3) GI bleed: Code(s): K92.2 - Gastrointestinal hemorrhage, unspecified Status: Acute (4) Iron deficiency anemia: Code(s): D50.9 - Iron deficiency anemia, unspecified Status: Acute (5) Colon cancer: Code(s): C18.9 - Malignant neoplasm of colon, unspecified Status: Acute (6) Rectal cancer: Code(s): C20 - Malignant neoplasm of rectum Status: Acute Plan Sepsis: Code(s): A41.9 - Sepsis, unspecified organism Status: Acute Assessment and Plan: Secondary to perirectal abscess. General surgery consulted for evaluation UA unremarkable for UTI. Blood pressure improved with IV fluids on cefepime, Flagyl and vancomycin Changed to Flagyl p.o., ceftriaxone IV, repeat blood culture 10/22 Blood culture has no bacteria growth Afebrile, leukocytosis resolved. Sepsis resolved Change to Augmentin p.o. 875 q.8 hours p.o. for 10 more days per ID pharmacist recommendation Bacteremia Blood culture on October 19 grows Streptococcus constellatus repeat BCX on 10/22: No growth so far Continue Augmentin treatment per ID pharmacist Rectal abscess: Code(s): K61.1 - Rectal abscess Status: Acute Assessment and Plan: Consult general surgeon for evaluation Treat GI surgeon recommends to discharge on oral antibiotics from a surgical standpoint and follow-up with his Colorectal surgeon, Dr. Razo. Continue antibiotics see above Pulmonary embolism: Code(s): I26.99 - Other pulmonary embolism without acute cor pulmonale Status: Acute Assessment and Plan: CT showed Nonocclusive segmental right upper lobe, distal right interlobar artery, and segmental right lower lobe pulmonary emboli. Low clot burden. RV/LV ratio 1.0. lower extremity Dopplers : Acute clot in the right superficial femoral vein Patient was started on heparin infusion and has developed GI bleeding. Patient has a rectal cancer along with and another colon polyp that was not fully removed patient at this time is not a candidate for anticoagulation because active bleeding on heparin Patient also has a thrombocytopenia but the platelet stable, 7.8K today IVC filter placement on 10/22 Elevated troponin Patient denies chest pain, EKG shows sinus rhythm no specific ST or T-wave changes Possible demand ischemia due to PE, GI bleed and sepsis Treatment of sepsis PE and GI bleed as above echocardiogram 1. Complete two-dimensional, color flow and Doppler transthoracic echocardiogram is performed. 2. Left ventricular chamber dimension is normal. 3. Left ventricular systolic function is normal, estimated at 60-65%. 4. The left ventricular diastolic function is normal. 5. E/e' 5 is not elevated. 6. Left atrial chamber dimension is mildly enlarged. 7. The mitral valve has mildly calcified annulus. 8. There is trace mitral valve regurgitation. 9. There is mild tricuspid valve regurgitation. 10. No pulmonary hypertension, estimated pulmonary arterial systolic pressure is 18 mmHg. Rectal cancer: Code(s): C20 - Malignant neoplasm of rectum Status: Acute Assessment and Plan: Follow-up heme oncologist in [facility] and [facility] GI bleed, acute on chronic blood loss anemia Code(s): K92.2 - Gastrointestinal hemorrhage, unspecified Status: Acute Assessment and Plan: Patient developed bloody stools after initiation of anticoagulation. Patient has a rectal cancer which is likely the source. Anticoagulation discontinued. Received pack to pack RBC Hemoglobin stable Follow-up CBC hemoglobin q.6 hours, transfuse p.r.n. Consult GI: no need of scope now Hemoglobin trended down to 7.6 Start Venofer 400 mg iv once Provide ferrous sulfate 325 mg daily p.o. Thrombocytopenia Likely resulting from sepsis platelets [id number] today Patient still has anemia, thrombocytopenia, patient does not want to be monitored 2 night stay. Patient wants to go home to take care of her daughter. I recommend patient come back to ED for evaluation immediately if he will noticed blood bowel move, abdomen pain with nausea vomiting, lightheadedness, shortness breath or chest pain Sinus bradycardia Asymptomatic stopped metoprolol Resolved Subjective Date/time seen: 10/24/24 09:32 Interval history: I saw examined patient today, patient feels better, denies abdomen pain nausea vomiting. Appetite improving. Patient denies headache, chest pain, shortness of breath. Blood culture yesterday has no growth so far. Patient is afebrile, blood pressure stable Labs reviewed. Exam Narrative: GENERAL: Pleasant, in no acute distress. Well-nourished. - EYES: EOMI. Anicteric. - HENT: Moist mucous membranes. - LUNGS: Clear to auscultation bilateral ly, no wheezing, rhonchi, or rales. - CARDIOVASCULAR: Regular rate and rhyth m. No murmur. No JVD. - ABDOMEN: Soft, non-tender and non-dist ended. No palpable masses. - EXTREMITIES: No edema. Peripheral puls es 2+. Non-tender. - NEUROLOGIC: No focal neurological defi cits. CN II-XII grossly intact. - PSYCHIATRIC: Awake, Alert and oriented x 3. Appropriate mood and affect. - SKIN: No rashes or lesions. Warm. - LYMPH: No cervical lymphadenopathy. Objective Data Vital Signs Vital Signs: Vital Signs - 24 hr 10/23/24 13:56 10/23/24 20:00 10/23/24 20:00 Temperature 100.3 F H 99.4 F Pulse Rate 93 Respiratory Rate 18 Blood Pressure 122/67 Pulse Oximetry 99 Oxygen Delivery Room Air 10/23/24 21:00 10/24/24 05:39 10/24/24 08:00 Temperature 98.1 F 97.7 F Pulse Rate 79 71 Respiratory Rate 16 12 Blood Pressure 138/68 145/68 H Pulse Oximetry 100 99 99 Oxygen Delivery Room Air Intake/Output Intake/Output: Intake & Output 10/21/24 10/22/24 10/23/24 10/24/24 23:59 23:59 23:59 23:59 Intake Total 1510 1190 510 300 Output Total 811 750 975 450 Balance 690 366 -164 -859 Meds/Results Medications: Active Medications Generic Name Dose Route Start Last Admin Trade Name Freq PRN Reason Stop Dose Admin Acetaminophen 650 mg 10/19/24 19:18 Acetaminophen 325 Mg Tablet PO Q4H PRN Mild Pain (1-3) or Fever Ceftriaxone Sodium 2 gm in 100 mls @ 200 mls/hr 10/22/24 21:00 10/23/24 20:38 Rocephin 2 Gm/Ns 100 Ml IVPB 200 mls/hr Q24H VINNY Administration Metronidazole 500 mg 10/22/24 15:00 10/24/24 05:59 Metronidazole 500 Mg Tablet PO 500 mg Q8HR VINNY Administration Pantoprazole Sodium 40 mg 10/20/24 09:00 10/24/24 08:03 Pantoprazole Sodium Iv 40 Mg Vial IV PUSH 40 mg Q12HR VINNY Administration Radiology Results: ITS Impressions Chest X-Ray 10/19/24 16:50 IMPRESSION: No acute cardiopulmonary process. Chest/Abdomen/Pelvis CTA 10/19/24 17:42 IMPRESSION: Nonocclusive segmental right upper lobe, distal right interlobar artery, and segmental right lower lobe pulmonary emboli. Low clot burden. RV/LV ratio 1.0. Small left pleural effusion. Mild bilateral ureteral stranding and urothelial enhancement may reflect ascending infection in the proper clinical context. 4.8 x 3.2 x 9.0 cm perirectal abscess. Distal sigmoid and rectal wall thickening, may reflect infectious or post therapeutic colitis/proctitis, or combination of those entities. Ischemia/infarction considered less likely. Cystitis, correlate with urinalysis. Venous Doppler Study 10/20/24 17:15 IMPRESSION: Acute clot in the right superficial femoral vein. Inadequate visualization of the right common femoral vein and greater saphenous vein due to the presence of a catheter. Otherwise patent bilateral lower extremity veins. Labs Labs: Laboratory Results - last 24 hr 10/24/24 05:19 WBC 6.0 RBC 2.84 L Hgb 7.6 L Hct 24.1 L MCV 84.9 MCH 26.8 MCHC 31.5 L RDW 20.5 H Plt Count 70 L MPV 11.4 H % Immature Plt Fraction 3.7 Sodium 136 L Potassium 3.4 Chloride 108 H Carbon Dioxide 23 Anion Gap 5 BUN 11 Creatinine 0.88 Estim Creat Clear Calc 59 Estimated GFR > 60 Glucose 70 Calcium 7.6 L Magnesium 1.9 Total Bilirubin 0.8 AST 16 L ALT 7 Alkaline Phosphatase 81 Total Protein 4.0 L Albumin 2.1 L
--- NOTE | 2024-10-24 09:33 | P.DS_ITS ---
DS: Admitting Diagnosis Discharge Date 10/24/24 Admitting Diagnosis (1) Non-ST elevation PR (NSTEMI): Code(s): I21.4 - Non-ST elevation (NSTEMI) myocardial infarction Status: Acute (2) Pulmonary embolism: Code(s): I26.99 - Other pulmonary embolism without acute cor pulmonale Status: Acute (3) GI bleed: Code(s): K92.2 - Gastrointestinal hemorrhage, unspecified Status: Acute (4) Iron deficiency anemia: Code(s): D50.9 - Iron deficiency anemia, unspecified Status: Acute (5) Colon cancer: Code(s): C18.9 - Malignant neoplasm of colon, unspecified Status: Acute (6) Rectal cancer: Code(s): C20 - Malignant neoplasm of rectum Status: Acute DS: Discharge Diagnosis Discharge Diagnosis (1) Non-ST elevation PR (NSTEMI): Code(s): I21.4 - Non-ST elevation (NSTEMI) myocardial infarction Status: Acute (2) Pulmonary embolism: Code(s): I26.99 - Other pulmonary embolism without acute cor pulmonale Status: Acute (3) GI bleed: Code(s): K92.2 - Gastrointestinal hemorrhage, unspecified Status: Acute (4) Iron deficiency anemia: Code(s): D50.9 - Iron deficiency anemia, unspecified Status: Acute (5) Colon cancer: Code(s): C18.9 - Malignant neoplasm of colon, unspecified Status: Acute (6) Rectal cancer: Code(s): C20 - Malignant neoplasm of rectum Status: Acute DS: Summary Hospital Course Hospital Course: Per H&P: 69-year-old male with history of rectal cancer, hypertension and iron deficient see anemia presents the hospital with weakness and chills. Patient had run his daughter to the hospital to be evaluated, 1 of the ED providers were concerned about him and as high held. Patient states that he felt very weak and he has had chills. They offered to evaluate him he said okay. Patient will need case management to help with services for his daughter as she has several palsy and cannot be left alone. In the ED the patient has leukocytosis at 13.6, hemoglobin of 9.2, carbon dioxide 15, anion gap 18, BUN 23, creatinine of 1.38, lactic acid of 9.2, total bilirubin of 1.4, alkaline phos of 189, troponin of 0.085, C-reactive protein is 17.5, MRSA negative, influenza A/B, RSV, COVID negative. CT chest abdomen and pelvis shows Nonocclusive segmental right upper lobe, distal right interlobar artery, and segmental right lower lobe pulmonary emboli. Low clot burden. RV/LV ratio 1.0, Small left pleural effusion, Mild bilateral ureteral stranding and urothelial enhancement may reflect ascending infection, cystitis, 4.8 x 3.2 x 9.0 cm perirectal abscess, and Distal sigmoid and rectal wall thickening. Patient's EKG was sinus rhythm at 78, QTC of 492. Due to patient's history of cancer, acute sepsis and soft blood pressures he is getting a central line and he will be going to the ICU. The following med issues have been addressed during hospitalization Sepsis: Code(s): A41.9 - Sepsis, unspecified organism Status: Acute Assessment and Plan: Secondary to perirectal abscess. General surgery consulted for evaluation UA unremarkable for UTI. Blood pressure improved with IV fluids on cefepime, Flagyl and vancomycin Changed to Flagyl p.o., ceftriaxone IV, repeat blood culture 10/22 Blood culture has no bacteria growth Afebrile, leukocytosis resolved. Sepsis resolved Change to Augmentin p.o. 875 q.8 hours p.o. for 10 more days per ID pharmacist recommendation Bacteremia Blood culture on October 19 grows Streptococcus constellatus repeat BCX on 10/22: No growth so far Continue Augmentin treatment per ID pharmacist Rectal abscess: Code(s): K61.1 - Rectal abscess Status: Acute Assessment and Plan: Consult general surgeon for evaluation Treat GI surgeon recommends to discharge on oral antibiotics from a surgical standpoint and follow-up with his Colorectal surgeon, Dr. Razo. Continue antibiotics see above Pulmonary embolism: Code(s): I26.99 - Other pulmonary embolism without acute cor pulmonale Status: Acute Assessment and Plan: CT showed Nonocclusive segmental right upper lobe, distal right interlobar artery, and segmental right lower lobe pulmonary emboli. Low clot burden. RV/LV ratio 1.0. lower extremity Dopplers : Acute clot in the right superficial femoral vein Patient was started on heparin infusion and has developed GI bleeding. Patient has a rectal cancer along with and another colon polyp that was not fully removed patient at this time is not a candidate for anticoagulation because active bleeding on heparin Patient also has a thrombocytopenia but the platelet stable, 7.8K today IVC filter placement on 10/22 Elevated troponin Patient denies chest pain, EKG shows sinus rhythm no specific ST or T-wave changes Possible demand ischemia due to PE, GI bleed and sepsis Treatment of sepsis PE and GI bleed as above echocardiogram 1. Complete two-dimensional, color flow and Doppler transthoracic echocardiogram is performed. 2. Left ventricular chamber dimension is normal. 3. Left ventricular systolic function is normal, estimated at 60-65%. 4. The left ventricular diastolic function is normal. 5. E/e' 5 is not elevated. 6. Left atrial chamber dimension is mildly enlarged. 7. The mitral valve has mildly calcified annulus. 8. There is trace mitral valve regurgitation. 9. There is mild tricuspid valve regurgitation. 10. No pulmonary hypertension, estimated pulmonary arterial systolic pressure is 18 mmHg. Rectal cancer: Code(s): C20 - Malignant neoplasm of rectum Status: Acute Assessment and Plan: Follow-up heme oncologist in [facility] and [facility] GI bleed, acute on chronic blood loss anemia Code(s): K92.2 - Gastrointestinal hemorrhage, unspecified Status: Acute Assessment and Plan: Patient developed bloody stools after initiation of anticoagulation. Patient has a rectal cancer which is likely the source. Anticoagulation discontinued. Received pack to pack RBC Hemoglobin stable Follow-up CBC hemoglobin q.6 hours, transfuse p.r.n. Consult GI: no need of scope now Hemoglobin trended down to 7.6 Start Venofer 400 mg iv once Provide ferrous sulfate 325 mg daily p.o. Thrombocytopenia Likely resulting from sepsis platelets 64306 today Patient still has anemia, thrombocytopenia, patient does not want to be monitored 2 night stay. Patient wants to go home to take care of her daughter. I recommend patient come back to ED for evaluation immediately if he will noticed blood bowel move, abdomen pain with nausea vomiting, lightheadedness, shortness breath or chest pain Sinus bradycardia Asymptomatic stopped metoprolol Resolved Time Spent with Patient Time attestation: Total time spent providing and/or coordinating discharge services: Exam Narrative: GENERAL: Pleasant, in no acute distress. Well-nourished. - EYES: EOMI. Anicteric. - HENT: Moist mucous membranes. - LUNGS: Clear to auscultation bilateral ly, no wheezing, rhonchi, or rales. - CARDIOVASCULAR: Regular rate and rhyth m. No murmur. No JVD. - ABDOMEN: Soft, non-tender and non-dist ended. No palpable masses. - EXTREMITIES: No edema. Peripheral puls es 2+. Non-tender. - NEUROLOGIC: No focal neurological defi cits. CN II-XII grossly intact. - PSYCHIATRIC: Awake, Alert and oriented x 3. Appropriate mood and affect. - SKIN: No rashes or lesions. Warm. - LYMPH: No cervical lymphadenopathy. DS: Data Data Completed and Pending Labs on day of discharge: Labs from last 24 hours 10/24/24 05:19 WBC 6.0 RBC 2.84 L Hgb 7.6 L Hct 24.1 L MCV 84.9 MCH 26.8 MCHC 31.5 L RDW 20.5 H Plt Count 70 L MPV 11.4 H % Immature Plt Fraction 3.7 Sodium 136 L Potassium 3.4 Chloride 108 H Carbon Dioxide 23 Anion Gap 5 BUN 11 Creatinine 0.88 Estim Creat Clear Calc 59 Estimated GFR > 60 Glucose 70 Calcium 7.6 L Magnesium 1.9 Total Bilirubin 0.8 AST 16 L ALT 7 Alkaline Phosphatase 81 Total Protein 4.0 L Albumin 2.1 L Preliminary micro results at discharge 10/22/24 10:57 Blood Culture - Preliminary Blood 10/22/24 10:38 Blood Culture - Preliminary Blood 10/19/24 16:29 Blood Culture - Preliminary Blood Streptococcus constellatus Discharge Plan Discharge Attending physician on discharge: Bakari Beard Consulting providers: Donna Sandoval; Jamey Yu Discharging Clinician: Bakari Beard Anticipated Discharge Date/Time: 10/24/24 09:34 Patient Disposition: Home, Self-Care Activity: as tolerated Diet: as tolerated and heart healthy Discharge Instructions: * behaviour support teacher antibiotics and complete them as prescribed * Call Dr. Razo's office and schedule a follow-up appointment after discharge. Let their office know that you were treated for a perirectal abscess. Patient Instructions: Antibiotic Form, Pulmonary Embolism (DC), Removal of a Central Line, PICC, or Midline Catheter (DC) Patient Language: Swazi Stand Alone Forms: General Discharge Information Follow-up/Referrals: Resendiz,Michale Perez MD [Primary Care Provider] - (See primary care doctor in 1 week) Randall Nguyen DO [Physician] - (Call general surgeon for follow-up appointment) Discharge Medications: New ferrous sulfate 325 mg (65 mg iron) tablet,delayed release (DR/EC) 325 mg PO DAILY Qty: 30 0RF amoxicillin-pot clavulanate 875-125 mg tablet 1 tablet PO Q8H Qty: 30 0RF Continued metoprolol succinate 100 mg tablet extended release 24 hr 100 mg PO DAILY Discontinued hydrochlorothiazide 12.5 mg tablet 12.5 mg PO DAILY Date of admission: 10/19/24 19:19 Primary Care Provider: Martín,Michael Perez Admitting Provider: Jeannine Persaud Attending physician on admission: Jeannine Persaud Condition: Serious
--- NOTE | 2024-10-24 09:47 | PCOTNOTE ---
Per chart review and PT eval, patient is independent/at his baseline. Discharging OT orders at this time.
[2024-10-24] MEDS: AMOXICILLIN/CLAVULANATE K 875-125 MG TAB 1 TABLET PO (11:44)
[2024-10-24] MEDS: IRON SUCROSE COMPLEX 400 MG in SODIUM CHLORIDE 0.9% IV 250 ML 108 MG IVPB (11:44)
[2024-10-24 14:00] VITALS: BP 132/64; PULSE 80; RESP 18; TEMP 36.7; O2SAT 100
== END 2024-10-24 15:15 | disposition home or self-care (01) | DRG 871 ==
LOC: ANHED 20:03 → ANHICU 20:25 → ANHIMU 10-21 14:22 → ANH3MEDSUR 10-24 09:35 → ANHICU 10-27 08:48 → ANHIMU 10-27 08:48
PROVIDERS: Emergency Medicine; Internal Medicine; Surgery; Admitting Provider Internal Medicine; Emergency Provider Student in an Organized Health Care Education/Training Program; PCP Internal Medicine; Visit Provider Hospitalist
PROC: 06H03DZ Insertion of Intraluminal Device into Inferior Vena Cava, Percutaneous Approach (ICD-10-PCS; principal; 2024-10-22 09:00)
DX: A40.8 Other streptococcal sepsis (principal); I26.99 Other pulmonary embolism without acute cor pulmonale; K61.1 Rectal abscess; I24.89 Other forms of acute ischemic heart disease; C20 Malignant neoplasm of rectum; D62 Acute posthemorrhagic anemia; I82.411 Acute embolism and thrombosis of right femoral vein; K62.5 Hemorrhage of anus and rectum; I10 Essential (primary) hypertension; D50.9 Iron deficiency anemia, unspecified; D69.6 Thrombocytopenia, unspecified; R00.1 Bradycardia, unspecified; T45.515A Adverse effect of anticoagulants, initial encounter; Z20.822 Contact with and (suspected) exposure to COVID-19; Z79.82 Long term (current) use of aspirin; Z87.891 Personal history of nicotine dependence
CPT/HCPCS: 36415; 36430; 36556; 37191; 71045; 71275; 74177; 80053; 80202; 81001; 82274; 82948; 83605; 83735; 83880; 84484; 85025; 85027; 85055; 85610; 85730; 86140; 86850; 86900; 86901; 86923; 87040; 87637; 87641; 93005; 93306; 93970; 96365; 96367; 97161; 99291; A9270; C1751; C1880; J0613; J0692; J0696; J1644; J1756; J1836; J2003; J2470; J3370; J3475; J7050; J7120; P9016; P9047; Q9967

== ENCOUNTER 2025-04-17 15:03 | Outpatient (CLI) | payer MEDICARE, SELFPAY ==
--- OUTSIDE RECORDS SUMMARY | 2025-04-17 15:08 | XMS_ITS ---
Author Organization [address] Address [address] [place] [id number] Care Team Providers Care Certified Nurse Name Role Phone Michael Resendiz MD Primary Care Provider Ritchie Razo MD Unavailable [phone] WiRandall casas DO Unavailable [phone] Active Problems Problem Noted Date Diagnosed Date Bilateral lower extremity edema 11/11/2024 Assessment & Plan (11/12/2024 12:18 PM CDT): Presents with 3 days of b/l LE edema, quickly worsened to the point that he developed skin breakdown and weeping fluid. NT-proBNP elevated to >3k. CT CAP w/ contrast shows IVC filter containing thromboembolus with propagation of R external iliac vein thrombus and new L common femoral vein thrombus, signs of volume overload with diffuse body wall edema and small b/l pleural effusions. Suspect edema is due to impaired venous return in the setting of significant clot burden. Also likely contribution of hypoalbuminemia. Less likely new diagnosis of CHF. Low concern for infection / cellulitis given involvement of both LE's and lack of other signs of infection. ProBNP elevation favored secondary to blood clot/inflammation as opposed to HF. - IR consulted given c/f obstruction of IVC filter -- they recommend continuing anti-coagulation, no procedural intervention at this time - plan to discharge with eliquis - over 3L UOP after lasix 40 IV x1 - TTE (11/12): EF 74%, normal diastolic function, PASP 35mmHg Hypertension 11/11/2024 Assessment & Plan (11/11/2024 11:23 AM CDT): - continue home HCTZ 12.5mg daily and metop XL 100mg daily Perirectal abscess 11/11/2024 Assessment & Plan (11/11/2024 11:29 AM CDT): Seen on CT during recent admission to OSH for weakness and chills. Initially treated with broad spectrum abx, then discharged on Augmentin. Prescribed additional Augmentin by colorectal surgery team to continue until outpatient CRS follow-up. CT CAP w/ contrast on admission shows stable size of rectal mass with necrotic components. Afebrile, WBC wnl, without other signs/symptoms of infection. - continue Augmentin 875mg BID VTE (venous thromboembolism) 11/11/2024 Assessment & Plan (11/12/2024 12:20 PM CDT): Diagnosed during recent admission to OSH with segmental RUL and RLL pulmonary emboli. Initially started on heparin gtt, but per outside records, patient had GI bleeding (patient says they tested his stool and it was positive, he didn't notice bleed). He underwent IVC filter placement and was discharged without anti-coagulation. CT CAP w/ contrast here shows decrease in RLL segmental PE burden with no new acute PE, IVC filter containing thromboembolus with propagation of R external iliac vein thrombus and new L common femoral vein thrombus. - Discussed risk/benefit of bleed. Patient therapeutic on heparin gtt without bleed, and possibly clinically insignificant bleed when on DOAC. Patient would like to discharge with DOAC. Dehydration 10/14/2024 Malnutrition 10/14/2024 Rectal cancer 06/17/2024 Cancer Staging:Clinical:Stage IIIB(cT3, cN2a, cM0) - Unsigned Assessment & Plan (11/12/2024 12:19 PM CDT): Underwent colonoscopy in 05/2024 for anemia and was found to have a rectosigmoid mass, pathology c/w adenocarcinoma, staged as T3c N2 disease. Completed RT in 07/2024, s/p 2 cycles of chemotherapy with XELOX. Follows with Dr. Palmer (Med Onc) and Dr. Razo (CRS) and is planned for surgical resection after completion of chemo/RT. - no longer on capecitabine Peripheral retinal white without pressure 2015 Combined [...] No past plan information found. Radiation Treatments (No Episode) * Course [id number] - 07/25/2024 Treatment Period Energy Fraction Dose Fractions Total Dose Plans Planned RECTUM 07/21/2024 - 07/25/2024 500 5 / 2,500 Reference Points Delivered RECTUM_2500 07/21/2024 - 07/25/2024 2,500 Lifetime Dose Tracking * Chemical Lifetime Dose Automatic Entry Manual Entr y DLP 568 mGycm 568 mGycm 0 mGycm
--- OUTSIDE RECORDS SUMMARY | 2025-04-17 15:08 | XMS_ITS | Clinical Summary ---
Author Organization [facility] Address [address] [place] [address] Care Team Providers Care Sales Representative Uniforms Name Role Phone Unavailable Primary Care Provider Unavailabl e Source Comments [facility],non-owned Affiliates and Associated Physician Practices is amultiple site organization consisting of ambulatory clinics and hospital sitesin [place], [place], [place] and [place]. This disclosure is being madepursuant to the Care Everywhere program and may not contain all information available regarding this patient. 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 Gender Identity Not on file Sexual Orientation [...] 2003 ZOSTER VACCINE (1 of 2) 2003 DEPRESSION SCREENING 08/13/2024 COVID-19 VACCINE (1 - 2023-2 5 season) 2025 INFLUENZA VACCINE (#1) 2025 Respiratory Syncytial Virus (RSV) Vaccine Pt: or [...] to complete this topic MENINGOCOCCAL (Group B) VACC INE SHARED DECISION-MAKING Aged Out No longer eligibl e based on patient's age to complete this topic MENINGOCOCCAL GROUPS A/C/Y/W VACCINE Aged Out No longer eligible b ased on patient's age to complete this topic Insurance MEDICARE ANTH SELF PAY NO INSURANCE Member Subscriber Plan / Payer (Ef fective for All Dates) Name:Kyle Resendiz Member ID:Not on file Relation to Subscriber:Not on file Name:KYLE RESENDIZ Subscriber ID:Not on file (Home) Address: [place] [address] Payer ID:Not on file Group ID:Not on file Type:Self Pay Address: [place], [place]
--- OUTSIDE RECORDS SUMMARY | 2025-04-17 15:08 | XMS_ITS | Clinical Summary ---
Author Organization [address] Address [address] [place] [phone] Care Team Providers Care Piercing Artist Name Role Phone Michael Resendiz MD Primary Care Provider Ritchie Razo MD Unavailable [phone] WiallanRandall fan DO Unavailable [phone] Allergies No known active allergies Medications metoprolol XL (TOPROL-XL) 100 mg 24 hr tablet Take 1 tablet (100 mg total) by mouth daily Active hydroCHLOROthia zide 12.5 mg tablet Take 1 tablet (12.5 mg total) by mouth daily Active polyethylene glycol (MIRALAX) 17 gram/dose bulk powder Take 17 g by mouth as needed Active ondansetron (ZOFRAN) 8 mg tabletIndicatio ns:Rectal cancer (HCC) Take 1 tablet (8 mg total) by mouth every 8 (eight) hours as needed for nausea Use first for nausea 120 tablet 3 4 Active Additional Information Patient not taking.Reported on 04/07/2025 prochlorperazin e (Compazine) 10 mg tabletIndicatio ns:Rectal cancer (HCC) Take 1 tablet (10 mg total) by mouth every 6 (six) hours as needed for nausea or vomiting Use if ondansetron does not stop nausea. 120 tablet 3 4 Active Additional Information Patient not taking.Reported on 04/07/2025 ferrous sulfate 325 mg (65 mg of elemental iron) tablet Take 1 tablet (325 mg total) by mouth 2 (two) times a day 5 Active Active Problems Problem Noted Date Diagnosed Date [...] Encounters Date Type Department Care Team Description 04/16/2025 Telephone [facility] Medicine Physicians [facility] Oncology [facility] [address] [place] [address] Terrie Parham RN 04/14/2025 10:30 AM CDT Telemedicine [facility] at [facility] [address] [place] [phone] Heath Crowder NP Rectal cancer (HCC) 04/07/2025 10:45 AM CDT Office Visit [facility] Medicine Surgery [address] [place] [phone] Ritchie Razo MD Rectal cancer (HCC) (Primary Dx) 03/30/2025 [facility] [address] [place] [address] Ritchie Razo MD Rectal cancer (HCC) (Primary Dx) 03/30/2025 Telephone [facility] Medicine Surgery [address] [facility] 2nd Floor [address] [place] [address] Matilda Perea, RMGala Scheduling Appointments 03/20/2025 Telephone [facility] [address] [facility] 2nd Floor [address] [place] [phone] Matilda Perea, GUILLE Scheduling Appointments 02/09/2025 Conference of Physicians/Providers [facility] Surgery [address] [facility] Medical Office Building [address] [place] [phone] Ritchie Razo MD 02/06/2025 Results Follow-Up [facility] Surgery [address] [place] [phone] Ritchie Razo MD MRI Pelvis W WO Contrast 02/01/2025 9:21 AM CDT - 02/01/2025 11:59 PM CDT Hospital Encounter [facility] at [address] [address] Rectal cancer (HCC) Discharge Disposition: Discharge to home or self care 02/01/2025 Orders Only [facility] at [address] [address] Clarissa Mazariegos, GÓMEZ 01/27/2025 Telephone [facility] Surgery [address] [place] [address] Medical Office Building 4 [address] [place] [phone] Matilda Perea, A Scheduling Appointments 01/27/2025 Orders Only [facility] Medicine Surgery [address] [place] [phone] Ritchie Razo MD Rectal cancer (HCC) (Primary Dx) 01/26/2025 Telephone [facility] Surgery [address] [facility] 2nd Floor [address] [place] [address] Matilda Perea Gala Scheduling Appointments from Last 3 Months Surgical History Surgery [...] more drinks on one occasion? Never 07/08/2024 Personal Safety Answer Date Recorded Have you ever been in or are you currently in a harmful physical or emotional relationship or is someone making you feel afraid or unsafe? 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 Gender Identity Not on file Sexual Orientation Not on file Obstetrics History Last Filed Vital Signs Vital Sign Reading Time Taken Comments Blood Pressure 146/67 04/07/2025 10:42 AM CDT Pulse 54 04/07/2025 10:42 AM CDT Temperature 35.6 C (96 F) 04/07/2025 10:42 AM CDT Respiratory Rate 11 11/11/2024 10:30 PM CDT Oxygen Saturation 98% 04/07/2025 10:42 AM CDT Inhaled Oxygen Concentration - - Weight 71.2 kg (157 lb) 04/07/2025 10:42 AM CDT Height 175.3 cm (5' 9) 04/07/2025 10:42 AM CDT Body Mass Index 23.18 04/07/2025 10:42 AM CDT Plan of Treatment Upcoming Encounters Date Type Department Care Team (Late st Contact Info) Description 05/27/2025 Hospital Encounter [facility] Operating Room 1 [place] [address] Ritchie Razo MD [phone] [place] [address] Scheduled Procedures Name Priority Associated Diagnoses Date/Ti me RESECTION ABDOMINOPERINEAL WITH COLOSTOMY Rectal cancer (HCC) COLONOSCOPY Rectal cancer (HCC) Health Maintenance Due Date Last Done Comments Colon Cancer Screening-Colonoscopy 1955 Depression Screening 1955 Hepatitis C Screening 1955 DTaP/Tdap/Td Vaccine (1 - Tdap) 02/19/1964 Hepatitis B Screening 1971 Pneumococcal vaccine 65+ (1 of 2 - PCV) 02/19/1972 Zoster Vaccine (1 of 2) 02/19/1972 Well Visit 65+ 2018 Influenza Vaccine (#1) 2025 08/22/2013 Fall Risk Assessment 07/08/2025 07/08/2024 Procedures Procedure Name Priority Date/Time Associated Diagnosis Comments MRI PELVIS W WO CONTRAST Schedule Routine, Read Routine (OP Routine) 02/01/2025 11:07 AM CDT Rectal cancer (HCC) from Last 3 Months Results * MRI Pelvis W WO Contrast (02/01/2025 11:07 AM CDT) Anatomical Region Laterality Modality Pelvis N/A Magnetic Resonan ce 02/02/2025 10:5 5 AM CDT Impressions 02/02/2025 1:21 PM CDT 1. Overall slight improvement in previously noted necrotic/fistulizing mid to low rectal mass. There is involvement of the internal and external anal sphincter complexes and extramural vascular invasion. Interval improvement in previously noted intramural and perirectal abscesses with persistent small intramural abscess and 2 persistent perirectal tracts. 2. No significant change in previously noted suspicious right mesorectal lymph node. Dictated by: Elmer Uriarte M.D. The radiology attending physician has personally reviewed this study, and had reviewed and/or edited this written report and agrees with it. Electronically signed by: Trey Cornelius M.D. Narrative 02/02/2025 1:21 PM CDT EXAMINATION: MAGNETIC RESONANCE IMAGING OF THE PELVIS WITH AND WITHOUT CONTRAST HISTORY: Rectal cancer. Staging evaluation. TECHNIQUE: MRI of the pelvis was performed prior to and following intravenous administration of gadolinium contrast. Glucagon 1 mg intravenous injection was performed prior to imaging. Protocol: Rectal Cancer Staging Pelvis Contrast: gadoterate 14 mL COMPARISON: CT 11/11/2024 and MRI of 06/27/2024 FINDINGS: Rectal Cancer Staging Information: Tumor: Overall slight improvement in size of previously noted necrotic/fistulizing mid to low rectal mass spanning approximately 8.5 cm in craniocaudal extent. There is persistent involvement of the internal and external anal sphincter complexes. Interval decrease in previously noted intramural collection measuring 1.2 cm, previously 2.5 cm (series 8, image 25). Interval improvement in previously noted perirectal collection which previously extend into the base of the penis with persistent tract arising from the 2 o'clock position and extending anteriorly. 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 There is evidence of extramural vascular invasion (series 12, image 11). Nodes: Right mesorectal lymph node measures 1.3 cm (series 8, image 16), similar to prior examination. Bladder: Normal Reproductive organs: Normal Other Findings: No free intraperitoneal fluid. Severe left hip joint osteoarthritis. Bilateral fat-containing inguinal hernias. Procedure Note Trey Cornelius MD - 02/02/2025 EXAMINATION: MAGNETIC RESONANCE IMAGING OF THE PELVIS WITH AND WITHOUT CONTRAST HISTORY: Rectal cancer. Staging evaluation. TECHNIQUE: MRI of the pelvis was performed prior to and following intravenous administration of gadolinium contrast. Glucagon 1 mg intravenous injection was performed prior to imaging. Protocol: Rectal Cancer Staging Pelvis Contrast: gadoterate 14 mL COMPARISON: CT 11/11/2024 and MRI of 06/27/2024 FINDINGS: Rectal Cancer Staging Information: Tumor: Overall slight improvement in size of previously noted necrotic/fistulizing mid to low rectal mass spanning approximately 8.5 cm in craniocaudal extent. There is persistent involvement of the internal and external anal sphincter complexes. Interval decrease in previously noted intramural collection measuring 1.2 cm, previously 2.5 cm (series 8, image 25). Interval improvement in previously noted perirectal collection which previously extend into the base of the penis with persistent tract arising from the 2 o'clock position and extending anteriorly. 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 There is evidence of extramural vascular invasion (series 12, image 11). Nodes: Right mesorectal lymph node measures 1.3 cm (series 8, image 16), similar to prior examination. Bladder: Normal Reproductive organs: Normal Other Findings: No free intraperitoneal fluid. Severe left hip joint osteoarthritis. Bilateral fat-containing inguinal hernias. IMPRESSION: 1. Overall slight improvement in previously noted necrotic/fistulizing mid to low rectal mass. There is involvement of the internal and external anal sphincter complexes and extramural vascular invasion. Interval improvement in previously noted intramural and perirectal abscesses with persistent small intramural abscess and 2 persistent perirectal tracts. 2. No significant change in previously noted suspicious right mesorectal lymph node. Dictated by: Elmer Uriarte M.D. The radiology attending physician has personally reviewed this study, and had reviewed and/or edited this written report and agrees with it. Electronically signed by: Trey Cornelius M.D. Ritchie Razo MD IMG MRI PROCEDURES Final Res ult from Last 3 Months Insurance MEDICARE [facility] MEDICARE [facility] Advance Directives For more information, please contact: [phone] * Full Code (Latest Code Status on File) Date Activated Date Inactivated Comments 11/12/2024 12:18 PM 11/12/2024 4:33 PM Care Teams Piercing Artist Relationship Specialty Start Date End Date Michael Resendiz MD PCP - General 06/18/17 Ritchie Razo MD [phone] [place] [address] Surgeon Colon and Rectal Surgery 06/17/24 Randall Nguyen DO [address] [address] Referring Physician Surgery 10/20/24
--- OUTSIDE RECORDS SUMMARY | 2025-04-17 15:08 | XMS_ITS | Encounter Summary ---
Author Organization [facility] Address [address] [place] [address] Phone Care Team Providers Care Wood Turning Lathe Operator Name Role Phone Michael Resendiz MD Primary Care Provider Ritchie Razo MD Unavailable Randall Nguyen DO Unavailable [phone] Reason for Referral * MRI/CAT/PET Scan (Routine) - Authorized Specialty Diagnoses / Procedures Referred By Contac t Referred To Contact Radiology Diagnoses Rectal cancer (HCC) Procedures MRI Pelvis W WO Contrast Alberto Cast MD [address] [place] [address] Phone: tel: fax: [address] [phone] Referral ID Status Reason Start Date Expiration Date V isits Requested Visits Authorized [id number] Authorized 04/16/2025 05/16/2026 1 1 * MRI/CAT/PET Scan (Routine) - Authorized Specialty Diagnoses / Procedures Referred By Contac t Referred To Contact Radiology Diagnoses Rectal cancer (HCC) Procedures CT Chest W Contrast Alberto Cast MD [address] [address] Phone: tel: fax: [address] [phone] Referral ID Status Reason Start Date Expiration Date V isits Requested Visits Authorized [id number] Authorized 04/16/2025 05/16/2026 1 1 * MRI/CAT/PET Scan (Routine) - Authorized Specialty Diagnoses / Procedures Referred By Contac t Referred To Contact Radiology Diagnoses Rectal cancer (HCC) Procedures CT Abdomen W Contrast Alberto Cast MD [address] [facility] [address] [place] [address] Phone: tel: fax: [facility] [address] [place] [address] Referral ID Status Reason Start Date Expiration Date V isits Requested Visits Authorized [id number] Authorized 04/16/2025 05/16/2026 1 1 Encounter Details Date Type Department Care Team (Late st Contact Info) Description 04/16/2025 Telephone 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 They state they saw the patient today and he made them aware that he is not seeing us. They called to get him rescheduled with our office since Dr. Barnes. I informed Mariya that patient was lost to follow up after no-showing a October appt and we couldn't get in touch with him. I informed them that I would get him schedule with Dr. Cast. I gave patient a call and had to leave a VM informing him of our making him an appointment. Informed him thatour schedulers would be in touch with him. I instructed him to call with any questions or issues. documented in this encounter Plan of Treatment Upcoming Encounters Date Type Department Care Team (Late st Contact Info) Description 05/27/2025 Hospital Encounter [facility] Operating Room 1 [place] [address] Ritchie Razo MD [phone] [place] [address] Scheduled Orders Name Type Priority Associated Diagnoses Order Schedule CBC with auto differential Lab Routine Rectal cancer (HCC) Expected: 05/04/2025, Expires: 08/02/2025 CEA Lab Routine Rectal cancer (HCC) Expected: 05/04/2025, Expires: 08/02/2025 Comprehensive metabolic panel Lab Routine Rectal cancer (HCC) Expected: 05/04/2025, Expires: 08/02/2025 Iron profile w/ IBC Lab Routine Rectal cancer (HCC) Expected: 05/04/2025, Expires: 08/02/2025 Ferritin Lab Routine Rectal cancer (HCC) Expected: 05/04/2025, Expires: 08/02/2025 CT Abdomen W Contrast Imaging Schedule R radhaine, Read Routine (OP Routine) Rectal cancer (HCC) Expected: 04/27/2025, Expires: 04/16/2026 CT Chest W Contrast Imaging Schedule Rou yanet, Read Routine (OP Routine) Rectal cancer (HCC) Expected: 04/27/2025, Expires: 04/16/2026 MRI Pelvis W WO Contrast Imaging Schedule Routine, Read Routine (OP Routine) Rectal cancer (HCC) Expected: 04/27/2025, Expires: 04/16/2026 Scheduled Procedures Name Priority Associated Diagnoses Date/Ti me RESECTION ABDOMINOPERINEAL WITH COLOSTOMY Rectal cancer (HCC) COLONOSCOPY Rectal cancer (HCC) documented as of this encounter Visit Diagnoses Diagnosis Rectal cancer (HCC)- Primary Malignant neoplasm of rectum Rectal cancer (HCC)- Primary Malignant neoplasm of rectum documented in this encounter Orders Appointment Requests Count Last Ordered Date Fi rst Ordered Date ONCBCN CLINIC APPOINTMENT REQUEST 1 025 ONCBCN LAB APPOINTMENT 1 04/16/2025 documented in this encounter Care Teams Wood Turning Lathe Operator Relationship Specialty Start Date End Date Michael Resendiz MD PCP - General 06/18/17 Ritchie Razo MD [phone] [place] [address] Surgeon Colon and Rectal Surgery 06/17/24 Randall Nguyen DO [address] [address] Referring Physician Surgery 10/20/24 documented as of this encounter
--- OUTSIDE RECORDS SUMMARY | 2025-04-17 15:08 | XMS_ITS | Clinical Summary ---
Author Organization [facility] celio [facility] Address [address] [place] [address] Care Team Providers Care Psychopaedic Nurse Name Role Phone Michael Resendiz MD Primary Care Provider [phone] Medications hydroCHLOROthiaz george 12.5 mg tablet Take 12.5 mg by mouth daily. Active AMLODIPINE BESYLATE, BULK, MISC 5 mg by Misc.(Non-D rug; Combo Route) route daily. Active metoprolol succinate (TOPROL XL) 100 mg Extended Release 24 hour tablet Take 100 mg by mouth daily. Active Active Problems No known active problems Encounters Date Type Department Care Team Description 04/14/2025 External Device Data STL ABSTRACTION Provider, Abstract 03/31/2025 External Device Data STL ABSTRACTION Provider, Abstract 01/27/2025 External Device Data STL ABSTRACTION Provider, Abstract [...] 9:22 AM CDT Height 172.7 cm (5' 8) 06/09/2024 9:22 AM CDT Body Mass Index 22.96 06/09/2024 9:22 AM CDT Plan of Treatment Health Maintenance Due Date Last Done Comments DTAP/TDAP/TD VACCINES (1 - Tdap) 02/19/1972 PNEUMOCOCCAL VACCINE 50+ YEA RS (1 of 1 - PCV) 2003 ZOSTER VACCINE (1 of 2) 2003 Abdominal Aortic Aneurysm (A AA) Screening 2018 INFLUENZA VACCINE (#1) 2025 RSV VACCINE (60+ or ) (1 - 1-dose 75+ series) 02/19/2028 COLORECTAL SCREENING Discontinued 05/30/2024, 05/30/2024, 05/30/2024 Colorectal Cancer Screening Discontinued FIT-DNA Q 3 years Discontinued FIT/FOBT Q 1 year Discontinued Flex Sig/CT Colonography Q [address] [place] [address] [facility] MEDIC[facility] PART A AND B Care Teams Psychopaedic Nurse Relationship Specialty Start Date End Date Michael Resendiz MD [address] [facility] [address] [place] [address] PCP - General Internal Medicine 06/09/24
[2025-04-17 16:03] LABS: Hematocrit 37.4 % (42.0-52.0); Hemoglobin 11.9 g/dL (14.0-18.0); Immature Granulocyte Percent A 0.6 % (0-0.5); Lymphocytes Absolute Auto 1.95 K/mm3 (0.9-3.2); Mean Corpuscular HGB Conc 31.8 g/dl (32-36); Mean Corpuscular Hemoglobin 28.1 pg (26-34); Mean Corpuscular Volume 88.4 fl (80-100); Nucleated Red Blood Cells Absolute Auto 0.000 K/mm3 (0.0-0.012); Nucleated Red Blood Cells Perc 0.0 % (0.0-0.2); Platelet Count Result 228 k/mm3 (150-375); Red Blood Count 4.23 M/mm3 (4.6-6.20); White Blood Count 6.8 K/mm3 (4.5-10.0)
[2025-04-17 16:21] LABS: Alanine Aminotransferase 12 U/L (6-50); Albumin Level 4.0 g/dL (3.5-5.1); Alkaline Phosphatase 66 U/L (38-126); Anion Gap 5 mmol/L (4-12); Aspartate Amino Transferase 22 U/L (17-59); Bilirubin,Total 0.5 mg/dL (0.2-1.3); Blood Urea Nitrogen 19 mg/dL (9-20); Calcium 9.6 mg/dL (8.4-10.2); Carbon Dioxide 30 mmol/L (22-30); Chloride 101 mmol/L (98-107); Cholesterol 173 mg/dL (0-200); Estimated Glomerular Filt Rate > 60; Glucose 97 mg/dL (65-110); HDL Direct 30 mg/dL; Potassium 4.5 mmol/L (3.4-5.0); Sodium 136 mmol/L (137-145); Total Protein 7.3 g/dL (6.3-8.2); Triglycerides 99 mg/dL (<150)
== END 2025-04-17 15:04 | disposition home or self-care (01) ==
PROVIDERS: PCP Internal Medicine; Visit Provider Internal Medicine
DX: E78.00 Pure hypercholesterolemia, unspecified (principal); I10 Essential (primary) hypertension
CPT/HCPCS: 36415; 80053; 80061; 85025

== ENCOUNTER 2025-05-19 15:59 | Outpatient (CLI) | payer MEDICARE, SELFPAY ==
--- OUTSIDE RECORDS SUMMARY | 2025-05-19 11:00 | XMS_ITS | Encounter Summary ---
Author Organization [facility] Address [address] [place] [address] Phone Care Team Providers Care Manager Trainee Name Role Phone Ritchie Razo MD Unavailable [phone] Randall Nguyen DO Unavailable [phone] Michael Resendiz MD Primary Care Provider Alberto Cast MD Unavailable [phone] Encounter Details Date Type Department Care Team (Late st Contact Info) Description 05/19/2025 11:00 AM CDT Office Visit [facility] Surgery [address] [place] [phone] Rectal cancer (HCC) (Primary Dx); Follow-up exam Social History Tobacco Use Types Packs/Day Years Used Date Smoking Tobacco: Former Cigarettes 1.5 8 2 003 - 2010 Smokeless Tobacco: Never Alcohol Use Standard Drinks/Week Comments Never 0 (1 standard drink = 0.6 oz pur e alcohol) AUDIT-C Answer Date Recorded Q1: How often do you have a drink containing alcohol? Never 05/12/2025 Q2: How many drinks containi ng alcohol do you have on a typical day when you are drinking? Patient does not drink Q3: How often do you have si x or more drinks on one occasion? Never 05/12/2025 Personal Safety Answer Date Recorded Have you ever been in or are you currently in a harmful physical or emotional relationship or is someone making you feel afraid or unsafe? 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 He is scheduled for APR with end colostomy. Vitals: There were no vitals taken for this visit.There is no height or weight on file to calculate BMI. Education provided which included: Ostomy education (diet, output management, supplies and basic pouching), pain control, DVT prevention, SSI prevention, ambulation, diet/bowel activity, incentive spirometer using the following method(s): written and verbal information provided. Impression and Plan: Kyle Resedniz is a 70 y.o. male who has rectal cancer and undergoing an APR with end colostomy with Dr. Razo. During today's visit, I discussed the following with the patient: Pre-op prep: bowel prep, antibiotics, CHG cleanser, immunonutrition and carb loading. Post-op pain management: multimodal Post-op diet: regular DVT prevention: Lovenox Incentive spirometer: 10x per hour Ambulation Lifestyle: recover from surgery Stoma type: colostomy Discussed current visitor policy in full detail. Samples and new patient kit requested from [facility] [employer]. Duration of Visit: 45 minutes Supervising physician, Dr. Ritchie Razo, present in the office at the time of visit. documented in this encounter Plan of Treatment Upcoming Encounters Date Type Department Care Team (Latest Contact Info) Description 05/27/2025 9:55 AM CDT Hospital Encounter [facility] Operating Room 1 [place] [address] Ritchie Razo MD [address] [facility] [phone] [place] [address] 05/27/2025 9:55 AM CDT Anesthesia Event [facility] Operating Room [address] [place] [phone] Linsey Mcconnell, ICE MAKER [address] [facility] [phone] [place], [place] [phone] 05/27/2025 9:55 AM CDT - 05/27/2025 5:25 PM CDT Surgery [facility] Operating Room [address] [place] [address] Ritchie Razo MD [address] [phone] [place] [address] (MICHELLE / JOSE COMBO) RESECTION ABDOMINOPERINEAL WITH COLOSTOMY Scheduled Procedures Name Priority Associated Diagnoses Date/Ti me RESECTION ABDOMINOPERINEAL W ITH COLOSTOMY Rectal cancer (HCC) 05/27/2025 9:55 AM CDT COLONOSCOPY Rectal cancer (HCC) 05/27/2025 9:55 AM CDT VERTICAL RECTUS ABDOMINIS MYOCUTANEOUS FLAP Rectal cancer (HCC) 05/27/2025 9:55 AM CDT documented as of this encounter Goals Goal Patient Goal Type Associated Problems Recent Progress Patient-Stated? Author Colorectal Pre-Surgica l Steps Care Plan Colorectal Pre-Surgical Plan No Cassy Smith, RN Autogenerat ed Goal Care Plan Autogenerated Problem No Matilda Orozco Gala documented as of this encounter Visit Diagnoses Diagnosis Rectal cancer (HCC)- Primary Malignant neoplasm of rectum Rectal cancer (HCC)- Primary Malignant neoplasm of rectum Follow-up exam Unspecified follow-up examination Rectal cancer (HCC) Malignant neoplasm of rectum documented in this encounter Additional Health Concerns Active Problems Noted Date Diagnosed Date Colorectal Pre-Surgical Plan 04/29/2025 Autogenerated Problem 05/08/2025 documented as of this encounter Care Teams Manager Trainee Relationship Specialty Start Date End Date Michael Resendiz MD [address] [facility] [address] [place] [address] PCP - General Internal Medicine 05/07/25 Ritchie Razo MD [address] [phone] [place] [address] Surgeon Colon and Rectal Surgery 06/17/24 Randall Nguyen DO [address] [place] [address] Referring Physician Surgery 10/20/24 Alberto Cast MD [address] [facility] [address] [place] [address] Medical Oncologist/Chief Administrative Officer Medical Oncology 05/07/25 documented as of this encounter
--- OUTSIDE RECORDS SUMMARY | 2025-05-19 16:38 | XMS_ITS | Clinical Summary ---
Author Organization [address] Address [address] [place] [phone] Care Team Providers Care Clinical Research Director Name Role Phone Ritchie Razo MD Unavailable [phone] Randall Nguyen DO Unavailable [phone] Michael Resendiz MD Primary Care Provider OppeAlberto joseph MD Unavailable [phone] Allergies No known active allergies Medications metoprolol XL (TOPROL-XL) 100 mg 24 hr tabletIndications :hypertension Take 1 tablet (100 mg total) by mouth millinery blocker before breakfast Active hydroCHLOROthiazi de 12.5 mg tabletIndications :HTN Take 1 tablet/capsule (12.5 mg total) by mouth millinery blocker before breakfast Active ferrous sulfate 325 mg (65 mg of elemental iron) tabletIndications :Iron Deficiency Anemia Take 1 tablet (325 mg total) by mouth 2 (two) times a day 025 Active polyethylene glycol (MIRALAX) 17 gram/dose bulk powder Take 238 g by mouth once for 1 dose The day before surgery mix 238 grams Miralax with 64 ounces clear liquid. 11 AM begin drinking Miralax 8 ounces every 15 minutes until finished for bowel evacuation. 238 g 025 Active Additional Information Patient taking differently:238 g oralAs needed, The day before surgery mix 238 grams Miralax with 64 ounces clear liquid. 11 AM begin drinking Miralax 8 ounces every 15 minutes until finished for bowel evacuation., Reported on 05/12/2025 bisacodyL 5 mg tablet The day before surgery take 2 tabs at 10 am with 8 oz of clear liquid. At 12 pm, take 2 more tabs with 8 oz of clear liquid. 4 tablet Active neomycin (MYCIFRADIN) 500 mg tablet The day before surgery take neomycin 1000 mg (2 tablets) by mouth at 1 PM, 2 PM, and 10 PM. 6 tablet Active metroNIDAZOLE (FLAGYL) 500 mg tablet The day before surgery take metronidazole (Flagyl) 500 mg by mouth at 1 PM, 2 PM, and 10 PM. 3 tablet Active ondansetron ODT (ZOFRAN-ODT) 8 mg disintegrating tablet DISSOLVE 1 TABLET BY MOUTH AT 11 AM TO PREVENT NAUSEA Active bisacodyl EC (DULCOLAX EC) 5 mg EC tabletIndications :constipation Take 1 tablet (5 mg total) by mouth millinery blocker before breakfast Active polyethylene glycol (MIRALAX) 17 gram/dose bulk powder Take 17 g by mouth as needed 2024 Discontinued(T herapy completed) ondansetron (ZOFRAN) 8 mg tabletIndications :Rectal cancer (HCC) Take 1 tablet (8 mg total) by mouth every 8 (eight) hours as needed for nausea Use first for nausea 120 tablet 3 024 2024 Discontinued prochlorperazine (Compazine) 10 mg tabletIndications :Rectal cancer (HCC) Take 1 tablet (10 mg total) by mouth every 6 (six) hours as needed for nausea or vomiting Use if ondansetron does not stop nausea. 120 tablet 3 024 2024 Discontinued ondansetron ODT (ZOFRAN-ODT) 8 mg disintegrating tablet Take 1 tablet (8 mg total) by mouth once for 1 dose The day before surgery take one tablet (8 mg) at 11:00 to prevent nausea. 1 tablet 2024 Active Problems Problem Noted Date Diagnosed Date [...] Encounters Date Type Department Care Team Description 05/19/2025 11:00 AM CDT Office Visit [facility] Medicine Surgery [address] [place] [address] Rectal cancer (HCC) (Primary Dx); Follow-up exam 05/13/2025 Telephone [facility] Medicine [facility] [address] [facility] [address] [place] [phone] Miriam Zuñiga, GÓMEZ 05/12/2025 11:00 AM CDT Lab [facility] Advanced [facility] [address] [place] [address] [address] [place] [address] Preoperative testing 05/12/2025 10:30 AM CDT Office Visit [facility] Advanced Medicine ([facility]) [address] [place] [phone] Preoperative testing (Primary Dx) 05/08/2025 9:00 AM CDT Office Visit [facility] Medicine Surgery [address] [facility] 6th [place] [address] [place] [address] Jose Dean MD Rectal cancer (HCC) (Primary Dx) 05/07/2025 2:43 PM CDT - 05/07/2025 11:59 PM CDT Hospital Encounter [facility] [address] [place] [address] Alberto Cast MD Rectal cancer (HCC) Discharge Disposition: Discharge to home or self care 05/05/2025 Orders Only [facility] Medicine [facility] [address] [place] [phone] Kimberly Joseph RN 05/04/2025 3:00 PM CDT Office Visit [facility] Medicine [facility] [address] [place] [phone] Alberto Cast MD Rectal cancer (HCC) (Primary Dx) 05/04/2025 2:30 PM CDT Lab [facility] at [address] [address] Rectal cancer (HCC) 04/24/2025 10:41 AM CDT - 04/24/2025 11:59 PM CDT Hospital Encounter [place] [address] [place] [address] Rectal cancer (HCC) Discharge Disposition: Discharge to home or self care 04/21/2025 Telephone [facility] Medicine Surgery [address] [place] [phone] Matilda Perea, Gala Scheduling Appointments 04/16/2025 Telephone [facility] Medicine [facility] [address] [place] [phone] Terrie Parham RN 04/14/2025 10:30 AM CDT Telemedicine [facility] Radiation Oncology at [facility] [address] [place] [address] Heath Crowder NP Rectal cancer (HCC) 04/07/2025 10:45 AM CDT Office Visit [facility] Medicine Surgery [address] [place] [phone] Ritchie Razo MD Rectal cancer (HCC) (Primary Dx) 03/30/2025 [facility] [address] [place] [address] Ritchie Razo MD Rectal cancer (HCC) (Primary Dx) 03/30/2025 Telephone [facility] Medicine Surgery [address] [facility] 2nd Floor [address] [place] [address] Matilda Perea, RMA Scheduling Appointments 03/20/2025 Telephone [facility] Medicine Surgery [address] [facility] 2nd Floor [address] [place] [address] Matilda Perea, RMA Scheduling Appointments from Last 3 Months Surgical History Surgery Date Site/Laterality Comments ROTATOR CUFF REPAIR Bilateral x2 on both sides CARPAL TUNNEL RELEASE Right INSERT VENA CAVA FILTER 10/22/2024 COLONOSCOPY 05/13/2024 - 06/12/2024 Medical History Medical History Date Comments Hypertension Asthma Rectal cancer (HCC) Pulmonary embolism 10/2024 DVT (deep venous thrombosis) 10/2024 Personal history of chemotherapy Personal history of radiation therapy GIB (gastrointestinal bleeding) 10/2024 while on heparin for treatment of DVT/PE Anemia Sepsis (HCC) 10/2024 Perirectal abscess History of blood transfusion Family History Medical History Relation Name Comments [...] Smoking Tobacco: Former Cigarettes 1.5 8 2 - 2010 Smokeless Tobacco: Never Tobacco Cessation:Counseling Given: Not Answered Alcohol Use Standard Drinks/Week Comments Never 0 [...] on file 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 Gender Identity Not on file Sexual Orientation Not on file Obstetrics History Last Filed Vital Signs Vital Sign Reading Time Taken Comments Blood Pressure 143/67 05/12/2025 10:47 AM CDT Pulse 58 05/12/2025 10:43 AM CDT Temperature 36.8 C (98.2 F) 05/04/2025 3:02 PM CDT Respiratory Rate 16 05/12/2025 10:43 AM CDT Oxygen Saturation 100% 05/12/2025 10:43 AM CDT Inhaled Oxygen Concentration - - Weight 72.7 kg (160 lb 3.2 oz) 05/12/2025 10:43 AM CDT Height 170.2 cm (5' 7) 05/12/2025 10:43 AM CDT Body Mass Index 25.09 05/12/2025 10:43 AM CDT Plan of Treatment Upcoming Encounters Date Type Department Care Team (Latest Contact Info) Description 05/27/2025 9:55 AM CDT Hospital Encounter [facility] Operating Room [address] [place] [phone] Ritchie Razo MD [phone] [place] [address] 05/27/2025 9:55 AM CDT Anesthesia Event [facility] Operating Room [address] [place] [address] Linsey Mcconnell NP [address] [facility] [phone] [place] [address] 05/27/2025 9:55 AM CDT - 05/27/2025 5:25 PM CDT Surgery [facility] Operating Room [address] [place] [address] Ritchie Razo MD [phone] [place] [address] (MICHELLE / JOSE COMBO) RESECTION ABDOMINOPERINEAL WITH COLOSTOMY Scheduled Procedures Name Priority Associated Diagnoses Date/Ti me RESECTION ABDOMINOPERINEAL W ITH COLOSTOMY Rectal cancer (HCC) 05/27/2025 9:55 AM CDT COLONOSCOPY Rectal cancer (HCC) 05/27/2025 9:55 AM CDT VERTICAL RECTUS ABDOMINIS MYOCUTANEOUS FLAP Rectal cancer (HCC) 05/27/2025 9:55 AM CDT Health Maintenance Due Date Last Done Comments Colon Cancer Screening-Colonoscopy 1955 Depression Screening 1955 Hepatitis C Screening 1955 DTaP/Tdap/Td Vaccine (1 - Tdap) 02/19/1964 Hepatitis B Screening 1971 Pneumococcal vaccine 65+ (1 of 2 - PCV) 02/19/1972 Zoster Vaccine (1 of 2) 02/19/1972 Well Visit 65+ 2018 Influenza Vaccine (#1) 2025 08/22/2013 Fall Risk Assessment 05/12/2026 05/12/2025, 07/08/20 24 Abdominal Aortic Aneurysm (AAA) Screen Completed Goals Goal Patient Goal Type Associated Problems Recent Progress Patient-Stated? Author Colorectal Pre-Surgica l Steps Care Plan Colorectal Pre-Surgical Plan No Cassy Smith, RN Autogenerat ed Goal Care Plan Autogenerated Problem No Matilda Orozco, RMGala Procedures Procedure Name Priority Date/Time Associated Diagnosis Comments TYPE AND SCREEN 14 DAY STAT 05/12/2025 12:18 PM CDT Preoperative testing ECG 12-LEAD Routine 05/12/2025 10:57 AM CDT Preoperative testing MRI PELVIS W WO CONTRAST Schedule Routine, Read Routine (OP Routine) 05/07/2025 4:15 PM CDT Rectal cancer (HCC) EGFR Routine 05/04/2025 2:28 PM CDT Rectal cancer (HCC) DIFFERENTIAL AUTO Routine 05/04/2025 2:2 8 PM CDT Rectal cancer (HCC) CBC WITH AUTO DIFFERENTIAL Routine 05/04/2025 2:28 PM CDT Rectal cancer (HCC) CEA Routine 05/04/2025 2:28 PM CDT Rectal cancer (HCC) COMPREHENSIVE METABOLIC PANEL Routine 05/04/2025 2:28 PM CDT Rectal cancer (HCC) IRON PROFILE W/ IBC Routine 05/04/2025 2 :28 PM CDT Rectal cancer (HCC) FERRITIN Routine 05/04/2025 2:28 PM CDT Rectal cancer (HCC) CT CHEST ABDOMEN W CONTRAST Schedule Routine, Read Routine (OP Routine) 04/24/2025 11:08 AM CDT Rectal cancer (HCC) POCT CREATININE FOR CONTRAST EVALUATION Routine 04/24/2025 11:01 AM CDT from Last 3 Months Results * TYPE AND SCREEN 14 DAY (05/12/2025 12:18 PM CDT) ABO Rh A Positive Magen, indirect Negative [facility] Blood 05/12/2025 12:1 8 PM CDT 05/12/2025 1:35 PM CDT Narrative [facility] - 05/12/2025 2:40 PM CDT Has the patient had Daratumumab or Isatuximab in the past 6 months?->Unknown Is this test being ordered in advance for a procedure?->Yes Expected date of procedure:->05/27/25 Has the patient been transfused in the past 3 months?->No Linsey Mcconnell NP LAB BLOOD BANK TEST ORD ERABLES Final Result Performing Organization Address City/[facility]/ZIP Co de Phone Number [facility] [place] [address] * ECG 12 lead (05/12/2025 10:57 AM CDT) Ventricular Rate EKG/Min 55 BPM [facility] Atrial Rate 55 BPM [facility] AR-Interval (MSEC) 158 ms [facility] QRS-Interval (MSEC) 142 ms [facility] QT-Interval (MSEC) 448 ms [facility] QTc 428 ms [facility] P [place] 74 degrees [facility] R [place] 82 degrees [facility] T [place] 48 degrees [facility] Diagnosis Sinus bradycardia Non-specific intra-ventricu lar conduction block Minimal voltage criteria for LVH, may be normal variant ( Sokolow-Caraballo ) Abnormal ECG No previous ECGs available Confirmed by ELLIE PALMER M.D ([id number]) on 05/12/2025 7:38:48 PM [facility] 05/12/2025 10:5 7 AM CDT 05/12/2025 7:38 PM CDT Linsey Mcconnell NP ECG ORDERABLES Final R esult Performing Organization Address [facility] Co de Phone Number [facility] * MRI Pelvis W WO Contrast (05/07/2025 4:15 PM CDT) Anatomical Region Laterality Modality Pelvis N/A Magnetic Resonan ce 05/08/2025 8:18 AM CDT Narrative 05/08/2025 9:13 AM CDT EXAM DESCRIPTION: MRI PELVIS W WO CONTRAST REASON FOR STUDY: Rectal Cancer TECHNIQUE: MRI of the pelvis performed without and with intravenous contrast according to the rectal mass protocol. All images stored on PACS. CONTRAST TYPE/DOSE: 15mL of GADOTERATE MEGLUMINE 0.5 MMOL/ML INTRAVENOUS SOLUTION (SO) injected via intravenous COMPARISON: Pelvic MRI 02/01/2025 FINDINGS: GI: Again noted is a rectal mass involving the mid and low rectum. This mass spans approximately 9.2 cm in length and involves the internal and external anal sphincter complexes. This mass is annular in some regions however there is more eccentric thickening along the left aspect of the low rectum measuring up to 2.2 cm in thickness, previously measuring up to 1.8 cm. The mass invades the mesorectal fascia, similar to the comparison examination. A previously noted intramural collection at the 5 o'clock position in the low rectum measures about 1.8 x 1.0 cm (series 6 image 85), previously measuring about 1.5 by 1.0 cm when applying the same measuring techniques to both studies. There is a new tiny 1.0 cm rounded intersphincteric fluid collection at the 2 o'clock position (series 6 image 107). 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 LYMPH NODES: Unchanged 13 mm right mesorectal lymph node (series 6 image 60). REPRODUCTIVE: Small right and trace left hydroceles. PELVIC SIDEWALL: Normal. No masses. BLADDER/URETHRA: No focal bladder wall thickening or nodularity. No divertiucli. MUSCULOSKELETAL: No suspicious osseous lesions. There is a small right and small to moderate-sized left inguinal hernia containing fat. IMPRESSION: Slight interval increase in size of the rectal mass involving the mid and low rectum with involvement of the internal and external anal sphincter complexes as discussed above. Unchanged 1.3 cm right mesorectal lymph node. New tiny 1.0 cm rounded intersphincteric fluid collection at the 2 o'clock position. 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 Slight interval increase in size of a small intramural collection at the 5 o'clock position in the low rectum. THIS IS AN ELECTRONICALLY VERIFIED FINAL REPORT 05/08/2025 9:13 AM - Electronically signed by Silas Hutchinson M.D. AM: AM Report ID: [id number] Reading Location: [id number] Procedure Note Silas Hutchinson MD - 05/08/2025 EXAM DESCRIPTION: MRI PELVIS W WO CONTRAST REASON FOR STUDY: Rectal Cancer TECHNIQUE: MRI of the pelvis performed without and with intravenous contrast according to the rectal mass protocol. All images stored onPACS. CONTRAST TYPE/DOSE: 15mL of GADOTERATE MEGLUMINE 0.5 MMOL/ML INTRAVENOUS SOLUTION (SO) injected via intravenous COMPARISON: Pelvic MRI 02/01/2025 FINDINGS: GI: Again noted is a rectal mass involving the mid and lowrectum. This mass spans approximately 9.2 cm in length and involves the internaland external anal sphincter complexes. This mass is annular in some regions however there is more eccentric thickening along the left aspect of thelow rectum measuring up to 2.2 cm in thickness, previously measuring up to 1.8cm. The mass invades the mesorectal fascia, similar to the comparison examination. A previously noted intramural collection at the 5 o'clock position in thelow rectum measures about 1.8 x 1.0 cm (series 6 image 85), previouslymeasuring about 1.5 by 1.0 cm when applying the same measuring techniques to both studies. There is a new tiny 1.0 cm rounded intersphincteric fluid collection atthe 2 o'clock position (series 6 image 107). 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 LYMPH NODES: Unchanged 13 mm right mesorectal lymph node (series 6 image60). REPRODUCTIVE: Small right and trace left hydroceles. PELVIC SIDEWALL: Normal. No masses. BLADDER/URETHRA: No focal bladder wall thickening or nodularity. No divertiucli. MUSCULOSKELETAL: No suspicious osseous lesions. There is a small rightand small to moderate-sized left inguinal hernia containing fat. IMPRESSION: Slight interval increase in size of the rectal mass involvingthe mid and low rectum with involvement of the internal and external anal sphincter complexes as discussed above. Unchanged 1.3 cm right mesorectal lymph node. New tiny 1.0 cm rounded intersphincteric fluid collection at the 2 o'clock position. 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 Slight interval increase in size of a small intramural collection at the 5 o'clock position in the low rectum. THIS IS AN ELECTRONICALLY VERIFIED FINAL REPORT 05/08/2025 9:13 AM - Electronically signed by Silas Hutchinson M.D. AM: AM Report ID: [id number] Reading Location: [id number] Alberto Cast MD IMG MRI PROCEDURES Final Re sult * eGFR (05/04/2025 2:28 PM CDT) eGFR 71 >=60 mL/min/1. 73 m2 Comment: Interpretive Data [...] was last reviewed 2021. Testing performed by: [address] [address] Blood 05/04/2025 2:28 PM CDT 05/04/2025 2:29 PM CDT Alberto Cast MD LAB BLOOD ORDERABLES Final Result [facility] [address] [facility] Department [place] [address] * Differential, auto (05/04/2025 2:28 PM CDT) Pathologist [facility] Neutrophil abs 2.89 1.50 - 6.50 K/cumm Comment:Testing performed by : [address] [address] Imm gran abs 0.01 0.00 - 0.10 K/cumm [facility] Comment:Testing performed by : [address] [address] Lymphocyte abs 1.37 0.80 - 3.30 K/cumm CATHY Comment:Testing performed by : [address], [place]., [address] Monocyte abs 0.52 0.20 - 0.80 K/cumm CATHY Comment:Testing performed by : [address], [place]., [address] Eosinophil abs 0.08 0.00 - 0.50 K/cumm CATHY Comment:Testing performed by : [address], [place]., [address] Basophil abs 0.04 0.00 - 0.10 K/cumm CATHY Comment:Testing performed by : [address] [address] Neutrophil pct 58.9 % CATHY Comment: Interpretive Data Percent cell count reference ranges are not reported, since discordance with absolute values may lead to misinterpretation of CBC data. Current Interpretive Data was last revised on 2017. Testing performed by: [address] [address] Imm gran pct 0.2 % CATHY Comment: Interpretive Data Percent cell count reference ranges are not reported, since discordance with absolute values may lead to misinterpretation of CBC data. Current Interpretive Data was last revised on 2017. Testing performed by: [address] [address] Lymphocyte pct 27.9 % CATHY Comment: Interpretive Data Percent cell count reference ranges are not reported, since discordance with absolute values may lead to misinterpretation of CBC data. Current Interpretive Data was last revised on 2017. Testing performed by: [address] [address] Monocyte pct 10.6 % CATHY Comment: Interpretive Data Percent cell count reference ranges are not reported, since discordance with absolute values may lead to misinterpretation of CBC data. Current Interpretive Data was last revised on 2017. Testing performed by: [address] [address] Eosinophil pct 1.6 % CATHY Comment: Interpretive Data Percent cell count reference ranges are not reported, since discordance with absolute values may lead to misinterpretation of CBC data. Current Interpretive Data was last revised on 2017. Testing performed by: [address] [address] Basophil pct 0.8 % CATHY Comment: Interpretive Data Percent cell count reference ranges are not reported, since discordance with absolute values may lead to misinterpretation of CBC data. Current Interpretive Data was last revised on 2017. Testing performed by: [address] [address] Blood 05/04/2025 2:28 PM CDT 05/04/2025 2:29 PM CDT Alberto Cast MD LAB BLOOD ORDERABLES Final Result Performing Organization Address [facility] de Phone Number [place] [address] [facility] [employer] [place] [address] * (ABNORMAL) Iron profile w/ IBC (05/04/2025 2:28 PM CDT) Iron 48(L) 50 - 150 mcg/dL Comment:Testing performed by : [address] [address] TIBC 333 250 - 400 mcg/dL CATHY Comment:Testing performed by : [address] [address] Transferrin saturation 14(L) 20 - 50 % CATHY Comment:Testing performed by : [address] [address] Blood 05/04/2025 2:28 PM CDT 05/04/2025 3:55 PM CDT Alberto Cast MD LAB BLOOD ORDERABLES Final Result Performing Organization Address [facility] Co de Phone Number [facility] [address] [facility] [place] [employer] [address] * (ABNORMAL) CBC with auto differential (05/04/2025 2:28 PM CDT) [facility] WBC 4.91 3.80 - 9.90 K/cumm Comment:Testing performed by : [address] [address] Hgb 11.7(L) 13.0 - 17.5 g/dL CATHY Comment:Testing performed by : [address] [address] Hct 35.0(L) 38.9 - 50.3 % CATHY Comment:Testing performed by : [address], [address] Plt 183 150 - 400 K/cumm CATHY Comment:Testing performed by : [address], [address] MPV 9.3 9.1 - 12.3 fL CATHY Comment:Testing performed by : [address], [address] RBC 4.11(L) 4.30 - 5.80 M/cumm CATHY Comment:Testing performed by : [address], [address] MCV 85.2 81.3 - 96.4 fL CATHY Comment:Testing performed by : [address] [address] MCH 28.5 27.1 - 33.3 pg CATHY Comment:Testing performed by : [address], [address] MCHC 33.4 32.3 - 35.7 g/dL CATHY Comment:Testing performed by : [address], [address] RDW CV 14.3 11.1 - 14.9 % CATHY Comment:Testing performed by : [address], [address] RDW SD 44.6 35.7 - 48.1 fL CATHY Comment:Testing performed by : [address] [address] NRBC abs 0.00 0.00 - 0.01 K/cumm CERNER Comment:Testing performed by : [address] [address] ANC Prelim 2.89 1.50 - 6.50 K/cumm CATHY Comment: Interpretive Data The rapid ANC is a preliminary automated count and may vary from the final ANC (Neut Abs) reported in the WBC differential that follows. Current interpretive data was last revised 2024. Testing performed by: [address] [address] Blood 05/04/2025 2:28 PM CDT 05/04/2025 2:29 PM CDT Alberto Cast MD LAB BLOOD ORDERABLES Final Result Performing Organization Address [facility] Co de Phone Number [address] [employer] [place] [address] * Ferritin (05/04/2025 2:28 PM CDT) Pathologist [facility] Ferritin 34 30 - 400 ng/mL Comment:Testing performed by : [address] [address] Blood 05/04/2025 2:28 PM CDT 05/04/2025 3:55 PM CDT Alberto Cats MD LAB BLOOD ORDERABLES Edited Result - Final Performing Organization Address [facility] Co de Phone Number [address] [address] * (ABNORMAL) CEA (05/04/2025 2:28 PM CDT) Pathologist [facility] CEA 6.3(H) <=5.0 ng/mL Comment: Interpretive Data: Reference Range: Non-Smokers: 0.0 5.0 ng/mL Smokers: 0.0 6.5 ng/mL The Derek CEA assay procedure was used. Results from different manufacturers or methods may not be comparable. Serial testing should be performed using the same method. Current interpretive data was last revised 2023. Testing performed by: [address] [address] Blood 05/04/2025 2:28 PM CDT 05/04/2025 3:55 PM CDT Alberto Cast MD LAB BLOOD ORDERABLES Final Result [facility] [address] [facility] Department [place] [address] * Comprehensive metabolic panel (05/04/2025 2:28 PM CDT) Sodium 136 135 - 145 mmol/L Comment:Testing performed by : [address] [address] Potassium, pl 3.7 3.3 - 4.9 mmol/L CATHY Comment:Testing performed by : [address] [address] Chloride 99 97 - 110 mmol/L CATHY Comment:Testing performed by : [address] [address] CO2 25 22 - 32 mmol/L CATHY Comment:Testing performed by : [address] [address] Anion gap 12 2 - 15 mmol/L CATHY Comment:Testing performed by : [address] [address] BUN 14 6 - 25 mg/dL CATHY Comment:Testing performed by : [address] [address] Creatinine 1.10 0.80 - 1.30 mg/dL CATHY Comment:Testing performed by : [address] [address] Glucose 106 70 - 199 mg/dL CATHY [...] was last revised 2022. Testing performed by: [address] [address] Calcium 9.6 8.5 - 10.3 mg/dL CATHY Comment:Testing performed by : [address] [address] Bilirubin, total 0.7 0.1 - 1.2 mg/dL CATHY Comment:Testing performed by : [address] [address] Protein, pl 6.7 6.5 - 8.5 g/dL CATHY Comment:Testing performed by : [address] [address] Albumin 3.8 3.5 - 5.0 g/dL CATHY Comment:Testing performed by : [address] [address] Alk phos 79 40 - 130 Units/L CATHY Comment:Testing performed by : [address] [address] ALT 7 7 - 55 Units/L CATHY Comment:Testing performed by : [address] [address] AST 12 10 - 50 Units/L CATHY Comment:Testing performed by : [address] [address] Blood 05/04/2025 2:28 PM CDT 05/04/2025 2:29 PM CDT us Alberto Cast MD LAB BLOOD ORDERABLES Final Result CATHY [address] [facility] Department [place] [address] * CT Chest Abdomen W Contrast (04/24/2025 11:08 AM CDT) Anatomical Region Laterality Modality Body N/A Computed Tomogra phy 04/29/2025 5:46 AM CDT Narrative 04/29/2025 5:59 AM CDT EXAM DESCRIPTION: CT CHEST ABDOMEN W CONTRAST REASON FOR STUDY: Rectal Cancer Rectal cancer diagnosed last June . TECHNIQUE: CT scan of the chest and abdomen performed with intravenous and without oral contrast using helical scanning technique with dynamic intravenous contrast injection. Reconstructed coronal and sagittal MPR images reviewed. All images stored on PACS. Automated exposure control was used as a dose optimization technique for this examination. CONTRAST TYPE/DOSE: 100mL of IOVERSOL 350 MG IODINE/ML INTRAVENOUS SYRINGE was injected via the intravenous COMPARISON: 11/11/2024 REFERENCE: Per ACR white paper recommendations, unless otherwise specified no follow-up imaging is recommended for incidental renal and adrenal lesions per consensus recommendations based on imaging criteria. Further lab evaluation could be pursued based on clinical findings. FINDINGS: CHEST LUNGS: No nodules or masses. No pneumonia. PLEURA: Resolution previous pleural effusions. No pneumothorax. MEDIASTINUM/STEPHON: No identified masses or abnormal nodes. HEART: Jdde-cg-bjroexie enlargement similar to previous. Minimal pericardial effusion. Coronary arterial calcification. VASCULATURE CHEST: No thoracic aortic aneurysm. Previously visualized emboli in the right lower lobe are not clearly identified on the current exam. AXILLA: No adenopathy. CHEST WALL: No masses. No subcutaneous air. HARDWARE/LIFELINES: None. MUSCULOSKELETAL CHEST: No significant abnormality. ABDOMEN LIVER: Normal size. No identified cystic or solid masses. GALLBLADDER: Normally distended BILE DUCTS: No intrahepatic or extrahepatic ductal dilatation. SPLEEN: Normal size. No focal lesions. PANCREAS: No identified cystic or solid masses. No significant calcifications. No adjacent inflammation or peripancreatic fluid collections. Pancreatic duct not dilated. ADRENALS: Normal. KIDNEYS/URINARY TRACT: No identified significant cystic or solid masses. No stones. No hydronephrosis or hydroureter. Symmetric enhancement. GI: No dilated bowel loops. No obvious wall thickening. Normal appendix. No significant diverticular disease. Moderate to large stool burden similar to previous. PERITONEUM: No ascites or free air. RETROPERITONEUM: No mass or adenopathy. VASCULATURE ABDOMEN: No abdominal aortic aneurysm. IVC filter redemonstrated, unchanged in position. MUSCULOSKELETAL ABDOMEN: No acute finding. OTHER: No significant abnormality. IMPRESSION: 1. No acute abnormality of the chest or abdomen. 2. Resolution previous pleural effusions. 3. Previously visualized right lower lobe pulmonary emboli are not clearly identified on the current exam. 4. Moderate to large stool burden similar to previous. THIS IS AN ELECTRONICALLY VERIFIED FINAL REPORT 04/29/2025 5:59 AM - Electronically signed by Osmani Shaw M.D. RB: ALINE Report ID: [id number] Reading Location: [id number] Procedure Note Osmani Shaw MD - 04/29/2025 EXAM DESCRIPTION: CT CHEST ABDOMEN W CONTRAST REASON FOR STUDY: Rectal Cancer Rectal cancer diagnosed last June . TECHNIQUE: CT scan of the chest and abdomen performed with intravenousand without oral contrast using helical scanning technique with dynamic intravenous contrast injection. Reconstructed coronal and sagittal MPRimages reviewed. All images stored on PACS. Automated exposure control wasused as a dose optimization technique for this examination. CONTRAST TYPE/DOSE: 100mL of IOVERSOL 350 MG IODINE/ML INTRAVENOUSSYRINGE was injected via the intravenous COMPARISON: 11/11/2024 REFERENCE: Per ACR white paper recommendations, unless otherwise specifiedno follow-up imaging is recommended for incidental renal and adrenal lesionsper consensus recommendations based on imaging criteria. Further labevaluation could be pursued based on clinical findings. FINDINGS: CHEST LUNGS: No nodules or masses. No pneumonia. PLEURA: Resolution previous pleural effusions. No pneumothorax. MEDIASTINUM/STEPHON: No identified masses or abnormal nodes. HEART: Nwtz-ik-dawiwmji enlargement similar to previous. Minimalpericardial effusion. Coronary arterial calcification. VASCULATURE CHEST: No thoracic aortic aneurysm. Previously visualized emboli in the right lower lobe are not clearly identified on the currentexam. AXILLA: No adenopathy. CHEST WALL: No masses. No subcutaneous air. HARDWARE/LIFELINES: None. MUSCULOSKELETAL CHEST: No significant abnormality. ABDOMEN LIVER: Normal size. No identified cystic or solid masses. GALLBLADDER: Normally distended BILE DUCTS: No intrahepatic or extrahepatic ductal dilatation. SPLEEN: Normal size. No focal lesions. PANCREAS: No identified cystic or solid masses. No significant calcifications. No adjacent inflammation or peripancreatic fluidcollections. Pancreatic duct not dilated. ADRENALS: Normal. KIDNEYS/URINARY TRACT: No identified significant cystic or solid masses.No stones. No hydronephrosis or hydroureter. Symmetric enhancement. GI: No dilated bowel loops. No obvious wall thickening. Normal appendix.No significant diverticular disease. Moderate to large stool burden similarto previous. PERITONEUM: No ascites or free air. RETROPERITONEUM: No mass or adenopathy. VASCULATURE ABDOMEN: No abdominal aortic aneurysm. IVC filter redemonstrated, unchanged in position. MUSCULOSKELETAL ABDOMEN: No acute finding. OTHER: No significant abnormality. IMPRESSION: 1. No acute abnormality of the chest or abdomen. 2. Resolution previous pleural effusions. 3. Previously visualized right lower lobe pulmonary emboli are notclearly identified on the current exam. 4. Moderate to large stool burden similar to previous. THIS IS AN ELECTRONICALLY VERIFIED FINAL REPORT 04/29/2025 5:59 AM - Electronically signed by Osmani Shaw M.D. RB: LAINE Report ID: [id number] Reading Location: [place] [address] Alberto Cast MD IMG CT PROCEDURES Final Res ult * POCT creatinine for contrast evaluation (04/24/2025 11:01 AM CDT) Creatinine POC 1.20 0.80 - 1.30 mg/dL Comment:Testing performed by : [facility], [address] [place] [address]., [address] Blood 04/24/2025 11:0 1 AM CDT 04/24/2025 11:01 AM CDT Alberto Cast MD POINT OF CARE TEST ORDERABL ES Final Result CATHY [address] [facility] Department [place] [employer] [place] [address] from Last 3 Months Additional Health Concerns Active Problems Noted Date Diagnosed Date Colorectal Pre-Surgical Plan 04/29/2025 Autogenerated Problem 05/08/2025 Insurance MEDICARE [facility] MEDICARE [facility] Advance Directives For more information, please contact: [phone] * Full Code (Latest Code Status on File) Date Activated Date Inactivated Comments 11/12/2024 12:18 PM 11/12/2024 4:33 PM Care Teams Clinical Research Director Relationship Specialty Start Date End Date Michael Resendiz MD [address] [facility] [address] [place] [address] PCP - General Internal Medicine 05/07/25 Ritchie Razo MD [address] [facility] [id number] [place] [address] Surgeon Colon and Rectal Surgery 06/17/24 Randall Nguyen DO [address] [place] [address] Referring Physician Surgery 10/20/24 Alberto Cast MD [address] [facility] [address] [place] [address] Medical Oncologist/Frame Nailer Medical Oncology 05/07/25
--- OUTSIDE RECORDS SUMMARY | 2025-05-19 16:38 | XMS_ITS | Clinical Summary ---
Author Organization [facility] Address [address] [place] [address] Care Team Providers Care Loan Service Officer Name Role Phone Unavailable Primary Care Provider Unavailabl e Source Comments [facility],non-owned Affiliates and Associated Physician Practices is amultiple site organization consisting of ambulatory clinics and hospital sitesin [place], [place], [place] and [place]. This disclosure is being madepursuant to the Care Everywhere program and may not contain all information available regarding this patient. Last updated 18.[facility] Social History Tobacco Use Types Packs/Day Years Used Date Smoking Tobacco: Never Assessed Sex and Gender Information Value Date Recorded Sex Assigned at Not on file Legal Sex Male 5:29 AM [employer] Gender Identity Not on file Sexual Orientation [...] RESENDIZ Subscriber ID:Not on file (Home) Address: [place] [address] Payer ID:Not on file Group ID:Not on file Type:Self Pay Address: [place], [place]
--- OUTSIDE RECORDS SUMMARY | 2025-05-19 16:38 | XMS_ITS ---
Author Organization [address] Address [address] [place] [id number] Care Team Providers Care Electronics Assembler And Tester Name Role Phone Ritchie Razo MD Unavailable [phone] Randall Nguyen DO Unavailable [phone] Michael Reesndiz MD Primary Care Provider OppeltAlberto MD Unavailable [phone] Active Problems Problem Noted Date Diagnosed Date [...] cataract 09/19/2011 Current Treatment and Therapy Plans Fluorouracil (D1, D15) / Leucovorin (D1, D15) 28 Day Cycles - Colon* Plan Start Date:06/28/2025 Plan Provider:Alberto Cast MD Linked Problems Rectal cancer (HCC) Treatment Medications Current Day (Prepa ration - Planned for 06/28/2025) Next Day (Day 1, Cycle 1 - Planned for 06/29/2025) fluorouracil (ADRUCIL)leucovorin No medications scheduled. fluorouraciL (ADRUCIL) 4,350 mg in cadd cassette 87 mL infusion - for home infusionfluorouracil (ADRUCIL) IV syringe 725 mg 14.5 mLleucovorin 725 mg in dextrose 5% 250 mL IVPB Other Current Plans Hydration Therapy Plan* Plan Start Date:10/14/2024 Plan Provider:Ysabel Palmer MD Linked Problems Dehydration Treatment Medications No medications scheduled. Past Treatment and Therapy Plans Oncology Chemotherapy Treatment Plan Name Start Date Discontinue Date Treatment Medications Discontinue Reason Plan Provider Cycles XELOX: (Capecitab ine / OXALIplati n) 21 Day Cycles - Colon/Rect al 4 05/05/2025 capecitabine (XELODA)dexAMETH asone (DECADRON)oxalip latin (ELOXATIN)oxalip latin (ELOXATIN) IVPB Toxicity/Compl ication Ysabel Palmer MD 3 of 8 cycles started Radiation Treatments (No Episode) * Course C1_Rectum_202307/21/2024 - 07/25/2024 Treatment Period Energy Fraction Dose Fractions Total Dose Plans Planned RECTUM 07/21/2024 - 07/25/2024 500 5 / 2,500 Reference Points Delivered RECTUM_2500 07/21/2024 - 07/25/2024 2,500 Lifetime Dose Tracking * Chemical Lifetime Dose Automatic Entry Manual Entr y DLP 568 mGycm 568 mGycm 0 mGycm
--- OUTSIDE RECORDS SUMMARY | 2025-05-19 16:38 | XMS_ITS | Clinical Summary ---
Author Organization [facility] Address [address] [address] Care Team Providers Care Comptometer Operator Name Role Phone Michael Resendiz MD Primary Care Provider [phone] Medications hydroCHLOROthiaz george 12.5 mg tablet Take 12.5 mg by mouth daily. Active AMLODIPINE BESYLATE, BULK, MISC 5 mg by Misc.(Non-D rug; Combo Route) route daily. Active metoprolol succinate (TOPROL XL) 100 mg Extended Release 24 hour tablet Take 100 mg by mouth daily. Active Active Problems No known active problems Encounters Date Type Department Care Team Description 04/21/2025 External Device Data [facility]STRACTION Provider, Abstract 04/14/2025 External Device Data [facility]STRACTION Provider, [...] Colonography Q [address] [place] [place] [address] [facility] MEDICARE PART A AND B Care Teams Comptometer Operator Relationship Specialty Start Date End Date Michael Resendiz MD [address] [facility] [address] [place] [address] PCP - General Internal Medicine 06/09/24
== END 2025-05-19 16:00 | disposition home or self-care (01) ==
PROVIDERS: PCP Internal Medicine; Visit Provider Internal Medicine
DX: R30.0 Dysuria (principal)
CPT/HCPCS: 87086